=== PATIENT | female | born 1945 | race Caucasian/White ===

== ENCOUNTER 2019-04-06 10:36 | Inpatient (IN) ==
[2019-04-06] MEDS ORDERED: OPTIRAY 320 125ml IV PRN ×2 (11:24→13:40)
[2019-04-06 11:29] LABS: iSTAT Hemoglobin 14.3 g/dl (12.0-16.0); iSTAT Ionized Calcium 1.08 mmol/l (1.12-1.32)
[2019-04-06 11:30] LABS: Hematocrit (blood only) 43.6 % (37-47); Mean Corpuscular Hemoglobin 29.9 pg (25-34); Mean Corpuscular Hgb Conc 32.1 g/dL (32-36); Mean Platelet Volume 9.9 fL (7.4-10.4); Platelet Count 313 K/uL (130-400); RDW Coefficient of Variation 15.6 % (11.5-14.5); RDW Standard Deviation 52.9 fL (36.4-46.3); Red Blood Count 4.69 M/uL (4.2-5.4); White Blood Count 20.78 K/uL (4.8-10.8)
--- NOTE | 2019-04-06 11:40 | CT Scan Report ---
CT head/brain wo con CLINICAL HISTORY: Change in mental status. Known malignancy. POSSIBLE HEMORRHAGE COMPARISON STUDY: 02/26/2019 TECHNIQUE: Axial CT of the brain is performed from the vertex to the skull base. IV contrast was not administered for this examination. A dose lowering technique was utilized adhering to the principles of ALARA. CT DOSE: FINDINGS: Postcraniotomy changes are present on the right. There is right-sided pneumocephalus, likely postsurg ical. There is also trace fluid subjacent to the craniotomy flap, likely postsurgical. There is a 5 c m hypodense right frontal mass, likely representing a necrotic neoplasm. There is no acute hemorrhage . There is mild mass effect with minor right to left midline shift. There are patchy white matter hypodensities likely on a small vessel basis. There is no evidence of pathologic ventricular dilatation. There is no evidence of acute sinusitis IMPRESSION: 1. Interval right frontal craniotomy with postsurgical pneumocephalus 2. No significant change in the appearance of a 5 cm right frontal mass, highly suspicious for neopla sm Electronically signed by: Cirilo Luna M.D. 04/06/2019 11:39 AM
[2019-04-06 11:47] LABS: Albumin Level 2.9 gm/dl (3.4-5.0); Calcium 9.4 mg/dl (8.5-10.1); Creatinine Clr Calc Pharmacy 29.8 ml/min; Est GFR (African American) 39.1; Est GFR (Non-African American) 33.7; Magnesium 2.4 mg/dl (1.8-2.4)
--- NOTE | 2019-04-06 11:48 | CT Scan Report ---
CT ANGIOGRAM OF THE CHEST CLINICAL HISTORY: Respiratory arrest. Possible acute pulmonary embolism. COMPARISON STUDY: Chest x-ray dated 02/26/2019 TECHNIQUE: Following the IV administration of 119 mL of Optiray-320, CT angiogram of the thorax was p erformed from the thoracic inlet to the lung bases utilizing the pulmonary embolus protocol. Images a re reviewed in the axial, sagittal, and coronal planes. IV contrast was administered without complica tion. MIP imaging was performed. A dose lowering technique was utilized adhering to the principles o f ALARA. CT DOSE: 826.24 mGy.cm FINDINGS: No pathologically enlarged axillary mediastinal or hilar lymph nodes were visualized. There was no evidence of thoracic aortic dilatation. There is very poor pulmonary arterial opacification with preferential filling of the left pulmonary a rtery. There is no opacification of the left upper lobe pulmonary arterial tree nor is there signific ant opacification of the peripheral right lung arterial tree. It is possible that the findings are re lated to technical factors due to very poor cardiac output. There is opacification of the inferior ve na cava and hepatic veins suggesting poor cardiac output. Correlation with leg ultrasonography or a r epeat CT angiogram of the chest is strongly recommended. No pleural effusions are visualized. There are left lower lobe airspace opacities, atelectatic versus pneumonia. A tracheostomy tube is visualized. The tip is 1 cm above the arnoldo. There are several nonspecific subcentimeter right lung pulmonary nodules. IMPRESSION: 1. Evidence of very poor cardiac output with reflux of contrast into the hepatic veins and inferior v norma cava 2. Very poor pulmonary arterial opacification with absent filling of the left upper lobe arterial vivienne e and right lung arterial tree. It is difficult to determine whether the findings are secondary techn ical factors related to poor cardiac output, or secondary to pulmonary emboli. A repeat examination a nd or correlation with leg ultrasonography is recommended in follow-up. 3. Left lower lobe pulmonary airspace opacities, atelectasis versus pneumonia. Electronically signed by: Cirilo Luna M.D. 04/06/2019 11:46 AM
[2019-04-06 11:50] LABS: Albumin Globulin Ratio 0.7 (0.9-2); Bilirubin,Total 0.6 mg/dl (0.2-1); Total Protein 6.9 gm/dl (6.4-8.2)
[2019-04-06 11:55] LABS: Basophils # (auto) 0.03 K/uL (0-0.2); Basophils % (auto) 0.1 %; Eosinophils # (auto) 0.05 K/uL (0-0.5); Eosinophils % (auto) 0.2 %; Immature Granulocytes # (auto) 0.27 K/uL (0.00-0.02); Immature Granulocytes % (auto) 1.3 %; Lymphocytes % (auto) 32.7 %; Monocytes # (auto) 1.62 K/uL (0.11-0.59); Monocytes % (auto) 7.8 %; Neutrophils # (auto) 12.01 K/uL (1.4-6.5); Neutrophils % (auto) 57.9 %
[2019-04-06] MEDS ORDERED: Heparin IV Standard *NO* Bolus IV STA (12:36)
[2019-04-06] MEDS ORDERED: HEPARIN 25000 UNIT/500 ML D5W IV ONE (12:41)
[2019-04-06] MEDS ORDERED: Heparin Adult STANDARD Wt-Based Dextrose 5% 25,000 units/500 mL IV SCH (12:45)
[2019-04-06] MEDS: HEPARIN SODIUM/DEXTROSE 25,000 UNITS/500 ML BAG IV SCH (12:52)
[2019-04-06] MEDS ORDERED: RAPID SEQUENCE INDUCTION BAG ONE (12:55)
[2019-04-06] MEDS ORDERED: EPINEPHrine 2 MG in DEXTROSE 5% 250 ML IV STA (13:04)
[2019-04-06] MEDS ORDERED: EPINEPHrine 2 MG in DEXTROSE 5% 250 ML IV SCH (13:04)
[2019-04-06] MEDS ORDERED: LORazepam 2 MG/4 ML VIAL IV STA (13:07)
[2019-04-06 13:14] LABS: INR 1.5 (0.9-1.1); Partial Thromboplastin Ratio 1.6; Partial Thromboplastin Time 44.7 Seconds (21.0-31.0)
[2019-04-06] MEDS ORDERED: VECURONIUM BROMIDE 10 MG in SYRINGE 0 ML IV ONE (13:15)
--- NOTE | 2019-04-06 13:53 | CT Scan Report ---
CT ANGIOGRAM OF THE CHEST CLINICAL HISTORY: PE COMPARISON STUDY: Earlier in the day TECHNIQUE: Following the IV administration of 119 mL of Optiray-320, CT angiogram of the thorax was p erformed from the thoracic inlet to the lung bases utilizing the pulmonary embolus protocol. Images a re reviewed in the axial, sagittal, and coronal planes. IV contrast was administered without complica tion. MIP imaging was performed. A dose lowering technique was utilized adhering to the principles o f ALARA. CT DOSE: 328.05 mGy.cm FINDINGS: No pathologically enlarged axillary mediastinal or hilar lymph nodes were visualized. There was no evidence of thoracic aortic dilatation. There are pulmonary artery filling defects within the right main pulmonary artery, as well as within the right upper lobe, right middle lobe and right lower lobe pulmonary artery branches. There is susp ected mild right ventricular strain. There are multifocal left lung airspace opacities, with left low er lobe atelectasis/consolidation with air bronchograms. A multifocal left lung pneumonia versus aspi ration should be considered. There are minor right perihilar airspace opacities. There are a few scat tered subcentimeter right lung nodules. IMPRESSION: 1. Large right lung pulmonary embolus with suspected mild right ventricular strain 2. Multifocal left lung airspace opacities. Likely diagnostic considerations include multifocal pneum onia versus aspiration. Clinical and imaging follow-up is recommended 3. Endotracheal tube 2 cm above the arnoldo. Electronically signed by: Cirilo Luna M.D. 04/06/2019 1:52 PM
[2019-04-06] MEDS ORDERED: PIPERACILL/TAZOBAC CONSULT ACTIVE PRN ×2 (13:57→17:21)
[2019-04-06] MEDS ORDERED: PIPERACILLIN/TAZOBACTAM 4.5 GM/120 ML BAG IV ONE (13:57)
--- NOTE | 2019-04-06 15:38 | History & Physical Report ---
Date of Service April 06, 2019 Assessment & Plan (1) Cardiogenic shock: Admit to ICU, Consult retort fireman Continue epinephrine infusion Continue volume expansion for the preload dependent right ventricle. Further management and treatment per ICU attending. Poor prognosis, family is not ready yet for the discussion but would consider in the near future discussion about palliative care or possibly hospice. Patient is a full code Present on Admission?: Yes (2) Lactic acidosis: Most likely due to poor perfusion. Continue monitoring. Present on Admission?: Yes (3) Pulmonary embolism: Massive pulmonary embolism Started heparin drip TPA contraindicated per neurology is at [facility]. No benefit of catheter directed therapy either DrAguilar [facility] subspecialist TTE pending Trend down troponin x3 with EKG Continue epinephrine drip (4) Cardiac arrest: As discussed above Present on Admission?: Yes (5) Glioblastoma: Patient is not candidate for additional intervention including chemotherapy or radiation therapy at the present time. Present on Admission?: Yes (6) Hypertension: Continue home medicine if blood pressure stable. Amlodipine 5 mg p.o. daily. Hold blood pressure medicine if blood pressure less than 120/80. Present on Admission?: Yes (7) Acute kidney injury: Likely due to low renal perfusion and cardiogenic shock. Avoid nephrotoxic agents. Monitor creatinine/GFR daily. Continue monitoring electrolytes and replenishment. Present on Admission?: Yes (8) Aspiration pneumonia: Patient most likely suffered from aspiration pneumonia which presented with leukocytosis with lower lobe infiltrate. Respiratory culture pending Continue Zosyn empirically for now. Follow-up with blood cultures specificity and sensitivity as well as respiratory cultures. Present on Admission?: Yes History of Present Illness Chief Complaint: Cardiac arrest Primary Care Provider: Farhad Ng MD Patient is a 74 years old female with past medical history of high-grade glioblastoma status post resection at [facility] approximately 3 weeks ago who supposed to undergo chemotherapy and radiation for the glioblastoma, presented to the emergency room with massive pulmonary embolism resulting in cardiopulmonary at the last and 4 rounds of CPR/ACLS. She was also started on heparin drip for pulmonary embolism. According to [facility] neurology it was not recommended to start TPA and they also did not think that a role for catheter directed therapy would not be of significant help, therefore they did not recommend to transfer the patient to [place]. Patient was started on epinephrine drip after she went into obstructive and cardiogenic shock. Patient was intubated. FPatient was not responsive to review of system and history was impossible to obtain from her. Patient was also next to her bedside was her son and primary care physician who brought her in. Patient is a Full code per her son and 's request. Labs are reviewed: WBC is 20.78, hemoglobin 14, hematocrit 43.6, platelets 313, PT 15, INR 1.5, APTT 44.7, sodium 141, potassium 4, chloride 103, carbon dioxide 16, anion gap 22, creatinine 1.51, GFR 33.7, lactate 14.6, magnesium 2.4, AST 33, ALT 31, troponin after CPR 4.12, and 4.4. BNP 12,254. Urine blood 3+, trace ketones, WBCs 10-30 high, negative nitrate, negative bacteria. Negative for influenza A&B. CT of the head: Interval right frontal craniotomy with postsurgical cephalosporin. No significant change in appearance of 5 cm right frontal mass. Highly suspicion for neoplasm. CTA chest: Large right lung pulmonary embolus with suspected mild right ventricular strain. Multifocal left lung airspace opacity. Likely diagnostic consideration include multifocal pneumonia versus aspiration. Patient is admitted to ICU for further management and treatment of her critical conditions. Allergies Allergy/AdvReac Type Severity Reaction Status Date / Time No Known Allergies Allergy Unverified 04/06/19 12:16 Home Medications Home Medications Medication Instructions Recorded Confirmed Type acetaminophen 325 mg tablet 650 mg PO Q6H PRN tab 04/02/19 04/06/19 History amlodipine 5 mg tablet 5 mg PO DAILY 04/02/19 04/06/19 History bisacodyl 10 mg rectal suppository 10 mg NC DAILY PRN 04/02/19 04/06/19 History cholecalciferol (vitamin D3) 5,000 5,000 units PO DAILY 04/02/19 04/06/19 History unit capsule docusate sodium 100 mg capsule 100 mg PO BID PRN 04/02/19 04/06/19 History enoxaparin 30 mg/0.3 mL 30 mg SQ Q12H 04/02/19 04/06/19 History subcutaneous syringe mecobalamin (vitamin B12) 1,000 1,000 mcg SL DAILY 04/02/19 04/06/19 History mcg disintegrating tablet,sublingual omega-3 fatty acids 1,000 mg 1,000 mg PO DAILY 04/02/19 04/06/19 History capsule polyethylene glycol 3350 17 17 gm PO DAILY 04/02/19 04/06/19 History gram/dose oral powder sennosides 8.6 mg-docusate sodium 1 tabcap PO DAILY PRN tab 04/02/19 04/06/19 History 50 mg tablet sodium phosphates 19 gram-7 118 ml NC DAILY PRN 04/02/19 04/06/19 History gram/118 mL enema Past Med/Surg History Medical History Glioblastoma 03/13/19 Hypertension No pertinent past medical history Surgical History Hx of tonsillectomy S/P craniotomy Right craniotomy for tumor resection by Dr. Manzanares at [facility] on 03/13/19 Family History Mother , 90yo Dementia Stroke Natural with unknown cause Father , 67yo Myocardial infarction Brother No problems noted. Brother No problems noted. Brother Prostate cancer Brother Myocardial infarction Sister Colitis Son No problems noted. Son No problems noted. Daughter No problems noted. 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 Feels Safe at Home: Yes Smoking Status: Never smoker Second Hand Exposure: No ; Hx Alcohol Use: No Hx Substance Use: No caffeine: Yes (Expresso 2 shots/day) during the past year weight has: decreased > 10 lbs Review of Systems Review of Systems: Unobtainable due to cognitive status Physical Exam Constitutional: WD/WN, vitals as above well developed, + ill appearing and + obese Eyes: PERRL, conjunctivae normal, anicteric sclerae ENMT: external ear and nose normal, oropharynx normal Neck: trachea midline, no thyromegaly Respiratory: Auscultation: + crackles, + wheezes and + pleural rub present Cardiovascular: Heart Sounds: normal S1, normal S2 and + murmur Palpation: + palpable S3 and + palpable S4 Vessels: + JVD and dorsalis pedis pulses present Extremities: + pedal edema Musculoskeletal: no cyanosis or clubbing, extremities motor strength 5/5 Skin: no rashes, warm and dry Neurologic: Patient is status post CPR, intubated, unable to open her eyes, she is unresponsive. GCS of 4 Psychiatric: Unable to assess Lymphatic: no cervical or axillary lymphadenopathy Results & Data Vital Signs (Past 12 Hours) Vital Signs Pulse Resp BP Pulse Ox 04/06/19 15:21 124 H 22 96 04/06/19 14:30 18 04/06/19 12:27 77 24 99 04/06/19 11:42 85 25 H 91/58 L 04/06/19 11:41 96 H 23 04/06/19 11:35 73 18 04/06/19 11:20 136 H 28 H 04/06/19 11:17 141 H 22 125/93 04/06/19 11:15 143 H 21 04/06/19 11:10 141 H 42 H 04/06/19 11:05 131 H 40 H 04/06/19 11:04 137 H 25 H 04/06/19 10:49 140 H 16 112/73 93 Code Status & VTE Plan Code Status Full code VTE Prophylaxis Plan VTE Prophylaxis will be ordered: Yes PG Care Time/CCT Total # of Minutes Spent Total Time Spent with Patient: Total time spent is greater than 50% in coordination of care (as documented) at patient's floor/unit and/or counseling patient:
[2019-04-06 15:47] LABS: Appearance Urine Clear (Clear); Bacteria Urine Automated Negative (Negative); Bilirubin Urine Negative (Negative); Blood Urine 3+ (Negative); Color Urine Yellow; Epithelial Cell Urine Auto >30 /lpf (0-5); Glucose Urine UA 1+ (Negative); Ketones Urine Trace (Negative); Leukocyte Esterase Urine Negative (Negative); Nitrite Urine Negative (Negative); Protein Urine 3+ (Negative); Specific Gravity Urine > 1.045 (1.000-1.030); Urobilinogen Urine Negative (Negative); pH Urine 6.5 (4.5-7.5)
[2019-04-06 16:00] LABS: RBC Urine Automated >30 /hpf (0-4)
--- NOTE | 2019-04-06 16:06 | Critical Care Consultation ---
Date of Consultation April 06, 2019 Assessment & Plan (1) Cardiac arrest: Impression: 74-year-old female with high-grade glioblastoma status post resection about 3 weeks ago in [place] with plans to undergo chemo and radiation therapy presenting now with massive pulmonary embolism resulting in cardiopulmonary arrest and 4 rounds of CPR/ACLS. She presents with ongoing obstructive/cardiogenic shock and is requiring an epinephrine infusion. Recommendations: 1. Massive pulmonary embolism: Patient is currently being treated with heparin. TPA is contraindicated and according to the subspecialists at [place] they do not feel that there was a role for catheter directed therapy. I advised the family that I was not optimistic that heparin alone would be effective in reversing this patient's course as she is already suffered multiple cardiopulmonary arrests and remains hemodynamically stable. We will continue heparin. Check echocardiogram. Will check biomarkers including troponin and BNP although the presence of cardiopulmonary arrest place her at high risk for continued clinical deterioration. I advised the family that if the current vasopressor in the form of epinephrine is inadequate to maintain adequate pressure, I do not suspect that additional of multiple agents will improve her overall outcome. She is again not a candidate for right ventricular assist device or additional surgical invasive procedures at this time. I would favor not doing additional CPR on the patient however the patient's son states that his father who is not currently present is not ready to consider DO NOT RESUSCITATE status. 2. Cardiogenic/obstructive shock: Continue epinephrine. We will continue volume expansion as well for a preload dependent right ventricle. 3. Lactic acidosis: Secondary to poor perfusion. Unclear if this will improve with epinephrine. Will follow over time. 4. Acute kidney injury: Secondary to poor renal perfusion and shock state. Continue to trend over time. The patient is not a candidate for renal replacement therapy. Follow electrolytes and acid-base status. 5. Leukocytosis with lower lobe infiltrate: Aspiration pneumonia certainly on the differential. Will obtain respiratory culture data and initiate antibiotics in the form of Zosyn. Antibiotics tapered based on results of cultures and clinical response. 6. Glioblastoma: Patient is not a candidate for additional interventions including chemotherapy or radiation therapy at this point time. This patient's overall prognosis is quite poor given her malignant brain tumor, massive PE, multiple cardiac arrest in the emergency room, and inability to administer systemic thrombolysis. I do not think additional rounds of CPR are going to be beneficial in improving the patient's overall recovery her functional status and would favor DNR status but will address with family when available. Palliative input may be beneficial. (2) Pulmonary embolism: (3) Lactic acidosis: (4) Cardiogenic shock: History of Present Illness History of Present Illness Asked by hospitalist to assist in management of this critically ill patient. History is obtained from discussion with family members as well as review the electronic medical record and discussion with the ER staff. The patient is a 74-year-old female who was recently found to have a left frontal mass. This was resected down in [place] about a month ago. Pathology unfortunately demonstrated a high-grade glioblastoma grade 4. She was referred for adjuvant chemo and radiation therapy but has not yet initiated therapy. The patient reported feeling poorly to family members today and was being brought by private vehicle to the emergency room when she lost consciousness. In the emergency room she was coded and intubated. She remained hemodynamically unstable and had 4 additional cardiac arrests, PEA primarily. During the course of her evaluation she had an initial CT scan which had a poor timed contrast bolus and the radiologist was suspicious for a potential right main pulmonary artery filling defect. The neurosurgeons at [place] were contacted and they stated that TPA was contraindicated given her recent brain surgery. At that point time I was contacted by the ER staff. The patient was hemodynamically unstable requiring an epinephrine infusion. I advised that low-dose TPA or catheter directed thrombolysis would be the treatment of choice for hemodynamically unstable PE the patient who could not tolerate systemic thrombolysis. The ER staff contacted [place] and discussed with their cardiovascular interventional radiologist as well as with her surgeon. They requested a repeat CT scan to better identify the pulmonary filling defects. CT PE was repeated and did in fact confirm extensive thrombus within the right pulmonary artery as well as atelectasis within the left pulmonary artery. Of note the initial scan did demonstrate a questionable filling defect within the left upper lobe pulmonary artery as well. The team again at her she was contacted with this information. They stated that given the patient's recent neurosurgery and the mainstem nature of the clot they would not recommend TPA or any additional intervention to include catheter based therapies and stated that if she were to be transferred there they would only keep her on a heparin infusion. This was relayed to me through the emergency room staff. Heparin was initiated but no bolus was administered based on recommendations from the neurosurgeons. The patient remains hemodynamically unstable and continues to require an epinephrine infusion. She is being admitted to the intensive care unit for further management According to the patient's son who is at bedside she did have some appropriate neurological response while being on the ventilator when her sedation was lightened. CT the head performed in the emergency room demonstrated no hemorrhage, however this was prior to administration of anticoagulants. Allergies Allergy/AdvReac Type Severity Reaction Status Date / Time No Known Allergies Allergy Unverified 04/06/19 12:16 Home Medications Home Medications Medication Instructions Recorded Confirmed Type acetaminophen 325 mg tablet 650 mg PO Q6H PRN tab 04/02/19 04/06/19 History amlodipine 5 mg tablet 5 mg PO DAILY 04/02/19 04/06/19 History bisacodyl 10 mg rectal suppository 10 mg [place] DAILY PRN 04/02/19 04/06/19 History cholecalciferol (vitamin D3) 5,000 5,000 units PO DAILY 04/02/19 04/06/19 History unit capsule docusate sodium 100 mg capsule 100 mg PO BID PRN 04/02/19 04/06/19 History enoxaparin 30 mg/0.3 mL 30 mg SQ Q12H 04/02/19 04/06/19 History subcutaneous syringe mecobalamin (vitamin B12) 1,000 1,000 mcg SL DAILY 04/02/19 04/06/19 History mcg disintegrating tablet,sublingual omega-3 fatty acids 1,000 mg 1,000 mg PO DAILY 04/02/19 04/06/19 History capsule polyethylene glycol 3350 17 17 gm PO DAILY 04/02/19 04/06/19 History gram/dose oral powder sennosides 8.6 mg-docusate sodium 1 tabcap PO DAILY PRN tab 04/02/19 04/06/19 H istory 50 mg tablet sodium phosphates 19 gram-7 118 ml [place] DAILY PRN 04/02/19 04/06/19 History gram/118 mL enema Patient History Medical History Glioblastoma 03/13/19 Hypertension No pertinent past medical history Surgical History Hx of tonsillectomy S/P craniotomy Right craniotomy for tumor resection [place] Dr. Manzana[place] [facility] [place] Family History Mother , 90yo Dementia Stroke Natural with unknown cause Father , 67yo Myocardial infarction Brother No problems noted. Brother No problems noted. Brother Prostate cancer Brother Myocardial infarction Sister Colitis Son No problems noted. Son No problems noted. Daughter No problems noted. Other Family history non-contributory Social History Preferred Language: Faroese Communication Ability: Effective Visual Impairment: No Limitations Hearing Ability: Normal Infrastructure Technician Required: No Beliefs That Will Affect Care: None marital status: Current Living Situation: Spouse current occupational status: retired current occupation: [employer] work Feels Safe at Home: Yes Smoking Status: Never smoker Hx Alcohol Use: No Hx Substance Use: No caffeine: Yes (Expresso 2 shots/day) during the past year weight has: decreased > 10 lbs Review of Systems Review of Systems: Unobtainable due to endotracheal tube Results & Data Vital Signs (Past 12 Hours) Vital Signs Pulse Resp BP Pulse Ox 04/06/19 15:21 124 H 22 96 04/06/19 14:30 18 04/06/19 12:27 77 24 99 04/06/19 11:42 85 25 H 91/58 L 04/06/19 11:41 96 H 23 04/06/19 11:35 73 18 04/06/19 11:20 136 H 28 H 04/06/19 11:17 141 H 22 125/93 04/06/19 11:15 143 H 21 04/06/19 11:10 141 H 42 H 04/06/19 11:05 131 H 40 H 04/06/19 11:04 137 H 25 H 04/06/19 10:49 140 H 16 112/73 93 Laboratory Results 04/06/19 11:10 04/06/19 11:10 Diagnostic Findings All images independently reviewed. CT ANGIOGRAM OF THE CHEST CLINICAL HISTORY: PE COMPARISON STUDY: Earlier in the day TECHNIQUE: Following the IV administration of 119 mL of Optiray-320, CT angiogram of the thorax was performed from the thoracic inlet to the lung bases utilizing the pulmonary embolus protocol. Images are reviewed in the axial, sagittal, and coronal planes. IV contrast was administered without complication. MIP imaging was performed. A dose lowering technique was utilized adhering to the principles of ALARA. CT DOSE: 328.05 mGy.cm FINDINGS: No pathologically enlarged axillary mediastinal or hilar lymph nodes were visualized. There was no evidence of thoracic aortic dilatation. There are pulmonary artery filling defects within the right main pulmonary artery, as well as within the right upper lobe, right middle lobe and right lower lobe pulmonary artery branches. There is suspected mild right ventricular strain. There are multifocal left lung airspace opacities, with left lower lobe atelectasis/consolidation with air bronchograms. A multifocal left lung pneumonia versus aspiration should be considered. There are minor right perihilar airspace opacities. There are a few scattered subcentimeter right lung nodules. IMPRESSION: 1. Large right lung pulmonary embolus with suspected mild right ventricular strain 2. Multifocal left lung airspace opacities. Likely diagnostic considerations include multifocal pneumonia versus aspiration. Clinical and imaging follow-up is recommended 3. Endotracheal tube 2 cm above the arnoldo. Coding Level of Care Code Critical Care 1st 30-74 mins Diagnoses Cardiac arrest I46.9 Pulmonary embolism I26.99 Lactic acidosis E87.2 Cardiogenic shock R57.0 Time Spent (min) 65
[2019-04-06 16:07] LABS: Influenza A virus by PCR Neg for Influ A (Neg); Influenza B virus by PCR Neg for Influ B (Neg)
--- NOTE | 2019-04-06 16:14 | Procedure Note ---
Procedure Note Date of Service April 06, 2019 ARTERIAL LINE PROCEDURE NOTE: Procedure: Arterial Line Placement Provider: Kody Hinojosa MD Indication: Monitoring on Pressors Anesthesia: None Procedure was urgent. Discussed with son at bedside who provided verbal consent Initial arterial line was placed in the right wrist however the catheter quickly became dysfunctional therefore attention was turned to the left wrist. A time-out was completed verifying correct patient, procedure, site, positioning, and implant(s) or special equipment if applicable. Allens test was performed to ensure adequate perfusion. Patients left wrist was prepped and draped in the usual sterile fashion. Ultrasound guidance was used to aid needle placement. A 20g Arrow arterial line was introduced into the left radial artery. Catheter was threaded, and the needle was removed with appropriate blood return. Good waveform was observed. The patient tolerated the procedure well. Procedure was conducted under ultrasound guidance however due to the emergent nature of the procedure, we are not able to save images to the medical record Blood Loss: Minimal Complications: None Coding CPT Codes Tubes, Drains, and Vasc Access - Tubes, Drains, and Vasc Access: [id number] Insertion Catheter, Artery ([id number]) Tubes, Drains, and Vasc Access - Tubes, Drains, and Vasc Access: [id number] Insertion Catheter, Artery ([id number])
[2019-04-06] MEDS ORDERED: ICU PROTOCOL FOR HYPERGLYCEMIA PRN (16:16)
[2019-04-06] MEDS ORDERED: ICU ELECTROLYTE REPLACEMENT PROTOCOL PRN (16:16)
[2019-04-06] MEDS ORDERED: MIDAZOLAM HCL 1 MG/ML 2ML VIAL IV PRN (16:16)
[2019-04-06] MEDS ORDERED: MAGNESIUM HYDROXIDE SUSP 30 ML UDC PO PRN (16:31)
[2019-04-06] MEDS ORDERED: ONDANSETRON INJ 2 MG/ML 2 ML VIAL IV PRN (16:31)
[2019-04-06] MEDS ORDERED: ALUMINUM/MAGNESIUM SUSP 30 ML UDC PO PRN (16:31)
[2019-04-06] MEDS ORDERED: DOCUSATE SODIUM 100 MG CAP PO PRN (16:31)
[2019-04-06] MEDS ORDERED: DOCUSATE SODIUM/SENNA 50/8.6MG TAB PO PRN (16:31)
[2019-04-06] MEDS ORDERED: ACETAMINOPHEN 325 MG TAB PO PRN (16:31)
[2019-04-06] MEDS ORDERED: SOD PHOSPHATE/SOD BIPHOSPHATE ENEMA 132 ML BTL PR PRN (16:31)
[2019-04-06] MEDS ORDERED: bisacodyL 10 MG SUPP PR PRN (16:31)
[2019-04-06 17:09] LABS: Troponin I 4.4 ng/ml (0-0.045)
[2019-04-06] MEDS ORDERED: INSULIN PROTOCOL GOAL RANGE ONE (17:18)
[2019-04-06] MEDS ORDERED: SEVERE STRESS LEVEL ONE (17:18)
[2019-04-06] MEDS: propofoL 1,000 MG/100 ML VIAL IV SCH (17:20)
--- NOTE | 2019-04-06 17:20 | Emergency Department Note ---
Entered by Akilah Lewis acting as a scribe for History of Present Illness General Chief complaint: Nausea Stated complaint: NAUSEA,WEAK,DEHYDRATION Time Seen by Provider: 04/06/19 11:05 Source: family ( and sons) and other (nursing staff) Limitations: other (code status) History of Present Illness Location: chest Maximum Pain Intensity: 8 Quality: + other (weakness and SOB) Associated symptoms: + shortness of breath and + other (Positive tachypnea (30 to 40 times a minute), tachycardia (heart rate in 120s), apenic while lying in ED bed. 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 As per nursing staff and family, the patient had a brain tumor removed on 03/13 in [place]. Nursing states the patient was doing well post surgery and went to [facility] and was discharged 4 days ago. Nursing staff reports for the past 2 days, the patient has been nauseous and vomiting. Nursing notes the patient's family states the patient has not been drinking fluids or eating for the past few days and believes she is dehydrated. This morning, the patient was weak and more short of breath. Nursing staff states while in the ED, the patient was breathing 30 to 40 times per minute and her heart rate was in the 120s. Nursing staff reports while lying the the ED bed, the patient suddenly became apneic and bradycardic. She is accompanied by her sons and who state the patient has not been ea ting and would only eat bites of food as she was severely nauseous. Her states that mentally she was at her baseline post surgery. Her denies the patient having fevers or diarrhea. Her reports this morning they gave the patient electrolytes as she has not been drinking much fluid since being discharged. Her PCP is NURIS Romero who is a close family friend. Her family states the patient has had swelling to her left side, which was present prior to surgery (this was later clarified by NURIS Romero to be paralysis on her left side due to the tumor and left leg swelling 1 week ago). They deny the patient having any hx of diabetes, thyroid problems. Her family states this morning, the patient became short of breath which worsened when she arrived to the ED. They deny the patient having any chest pain. HPI and ROS limited secondary to the patient's code status. Home Medications Home Medications Medication Instructions Recorded Confirmed Type acetaminophen 325 mg tablet 650 mg PO Q6H PRN tab 04/02/19 04/06/19 History amlodipine 5 mg tablet 5 mg PO DAILY 04/02/19 04/06/19 History bisacodyl 10 mg rectal suppository 10 mg SD DAILY PRN 04/02/19 04/06/19 History cholecalciferol (vitamin D3) 5,000 5,000 units PO DAILY 04/02/19 04/06/19 History unit capsule docusate sodium 100 mg capsule 100 mg PO BID PRN 04/02/19 04/06/19 History enoxaparin 30 mg/0.3 mL 30 mg SQ Q12H 04/02/19 04/06/19 History subcutaneous syringe mecobalamin (vitamin B12) 1,000 1,000 mcg SL DAILY 04/02/19 04/06/19 History mcg disintegrating tablet,sublingual omega-3 fatty acids 1,000 mg 1,000 mg PO DAILY 04/02/19 04/06/19 History capsule polyethylene glycol 3350 17 17 gm PO DAILY 04/02/19 04/06/19 History gram/dose oral powder sennosides 8.6 mg-docusate sodium 1 tabcap PO DAILY PRN tab 04/02/19 04/06/19 History 50 mg tablet sodium phosphates 19 gram-7 118 ml SD DAILY PRN 04/02/19 04/06/19 History gram/118 mL enema Allergies Allergy/AdvReac Type Severity Reaction Status Date / Time No Known Allergies Allergy Unverified 04/06/19 12:16 Past Med/Surg History Medical History Glioblastoma 03/13/19 Hypertension No pertinent past medical history Surgical History Hx of tonsillectomy S/P craniotomy Right craniotomy for tumor resection by Dr. Manzanares at [facility] [place] on 03/13/19 Family History Mother , 90yo Dementia Stroke Natural with unknown cause Father , 67yo Myocardial infarction Brother No problems noted. Brother No problems noted. Brother Prostate cancer Brother Myocardial infarction Sister Colitis Son No problems noted. Son No problems noted. Daughter No problems noted. Other Family history non-contributory Social History Preferred Language: Turkish Communication Ability: Effective Visual Impairment: No Limitations Hearing Ability: Normal Visual Merchandising Coordinator Required: No Beliefs That Will Affect Care: None marital status: Current Living Situation: Family current occupational status: retired current occupation: [employer] work Feels Safe at Home: Yes Smoking Status: Never smoker Second Hand Exposure: No ; Hx Alcohol Use: No Hx Substance Use: No caffeine: Yes (Expresso 2 shots/day) during the past year weight has: decreased > 10 lbs Review of Systems See HPI for pertinent positives & negatives. Other (HPI and ROS limited secondary to the patient's code status) Physical Exam Vital Signs Vital Signs - 24 hr 04/06/19 10:49 04/06/19 11:04 04/06/19 11:05 Pulse Rate 140 H 137 H 131 H Pulse Rate from SpO2 Sensor Respiratory Rate 16 25 H 40 H Blood Pressure 112/73 Blood Pressure Mean 86 Pulse Oximetry 93 Oxygen Delivery Method Room Air Fraction of Inspired Oxygen Sepsis Recent Fever Within 48 Hours No Sepsis New/Unexplained Change in Mental Status No Sepsis Action Taken by Nursing No Action Required End-Tidal CO2 04/06/19 11:10 04/06/19 11:15 04/06/19 11:17 Pulse Rate 141 H 143 H 141 H Pulse Rate from SpO2 Sensor Respiratory Rate 42 H 21 22 Blood Pressure 125/93 Blood Pressure Mean 110 Pulse Oximetry Oxygen Delivery Method Fraction of Inspired Oxygen Sepsis Recent Fever Within 48 Hours Sepsis New/Unexplained Change in Mental Status Sepsis Action Taken by Nursing End-Tidal CO2 04/06/19 11:20 04/06/19 11:35 04/06/19 11:41 Pulse Rate 136 H 73 96 H Pulse Rate from SpO2 Sensor Respiratory Rate 28 H 18 23 Blood Pressure Blood Pressure Mean Pulse Oximetry Oxygen Delivery Method Fraction of Inspired Oxygen Sepsis Recent Fever Within 48 Hours Sepsis New/Unexplained Change in Mental Status Sepsis Action Taken by Nursing End-Tidal CO2 04/06/19 11:42 04/06/19 12:10 04/06/19 12:15 Pulse Rate 85 119 H Pulse Rate from SpO2 Sensor 120 H Respiratory Rate 25 H Blood Pressure 91/58 L 119/96 146/68 H Blood Pressure Mean 68 102 136 Pulse Oximetry 81 L Oxygen Delivery Method Fraction of Inspired Oxygen Sepsis Recent Fever Within 48 Hours Sepsis New/Unexplained Change in Mental Status Sepsis Action Taken by Nursing End-Tidal CO2 24 16 04/06/19 12:19 04/06/19 12:20 04/06/19 12:26 Pulse Rate 120 H 120 H 130 H Pulse Rate from SpO2 Sensor 119 H 120 H 123 H Respiratory Rate Blood Pressure 146/68 H 148/59 H 122/84 Blood Pressure Mean 136 79 90 Pulse Oximetry 99 98 97 Oxygen Delivery Method Fraction of Inspired Oxygen Sepsis Recent Fever Within 48 Hours Sepsis New/Unexplained Change in Mental Status Sepsis Action Taken by Nursing End-Tidal CO2 12 12 11 04/06/19 12:27 04/06/19 12:30 04/06/19 12:31 Pulse Rate 77 123 H 124 H Pulse Rate from SpO2 Sensor 123 H 124 H Respiratory Rate 24 Blood Pressure 146/107 H Blood Pressure Mean 114 Pulse Oximetry 99 98 97 Oxygen Delivery Method Fraction of Inspired Oxygen 100 Sepsis Recent Fever Within 48 Hours Sepsis New/Unexplained Change in Mental Status Sepsis Action Taken by Nursing End-Tidal CO2 19 11 9 04/06/19 12:36 04/06/19 12:40 04/06/19 13:00 Pulse Rate 124 H 124 H 123 H Pulse Rate from SpO2 Sensor 124 H 124 H 124 H Respiratory Rate Blood Pressure 98/72 L 108/86 Blood Pressure Mean 90 93 Pulse Oximetry 93 82 L 94 Oxygen Delivery Method Fraction of Inspired Oxygen Sepsis Recent Fever Within 48 Hours Sepsis New/Unexplained Change in Mental Status Sepsis Action Taken by Nursing End-Tidal CO2 11 11 10 04/06/19 13:01 04/06/19 13:06 04/06/19 13:12 Pulse Rate 123 H 124 H 124 H Pulse Rate from SpO2 Sensor 124 H 124 H 124 H Respiratory Rate Blood Pressure 85/70 L Blood Pressure Mean 75 72 70 Pulse Oximetry 92 93 77 L Oxygen Delivery Method Fraction of Inspired Oxygen Sepsis Recent Fever Within 48 Hours Sepsis New/Unexplained Change in Mental Status Sepsis Action Taken by Nursing End-Tidal CO2 10 10 13 04/06/19 13:20 04/06/19 13:21 04/06/19 13:25 Pulse Rate 118 H 116 H 69 Pulse Rate from SpO2 Sensor 118 H 116 H Respiratory Rate Blood Pressure 58/37 L 54/38 L Blood Pressure Mean 39 41 29 Pulse Oximetry 57 L 48 L Oxygen Delivery Method Fraction of Inspired Oxygen Sepsis Recent Fever Within 48 Hours Sepsis New/Unexplained Change in Mental Status Sepsis Action Taken by Nursing End-Tidal CO2 04/06/19 13:30 04/06/19 13:31 04/06/19 13:48 Pulse Rate 60 133 H 129 H Pulse Rate from SpO2 Sensor 153 H 135 H 130 H Respiratory Rate Blood Pressure 209/110 H 170/76 H Blood Pressure Mean 151 119 Pulse Oximetry 95 100 97 Oxygen Delivery Method Fraction of Inspired Oxygen Sepsis Recent Fever Within 48 Hours Sepsis New/Unexplained Change in Mental Status Sepsis Action Taken by Nursing End-Tidal CO2 04/06/19 13:50 04/06/19 13:55 04/06/19 14:00 Pulse Rate 129 H 126 H 127 H Pulse Rate from SpO2 Sensor 129 H 126 H 128 H Respiratory Rate Blood Pressure 151/75 H 155/72 H 141/77 H Blood Pressure Mean 104 112 95 Pulse Oximetry 99 98 95 Oxygen Delivery Method Fraction of Inspired Oxygen Sepsis Recent Fever Within 48 Hours Sepsis New/Unexplained Change in Mental Status Sepsis Action Taken by Nursing End-Tidal CO2 24 25 27 04/06/19 14:05 04/06/19 14:10 04/06/19 14:15 Pulse Rate 127 H 127 H 125 H Pulse Rate from SpO2 Sensor 128 H 127 H 125 H Respiratory Rate Blood Pressure 153/71 H 128/76 134/67 Blood Pressure Mean 102 95 90 Pulse Oximetry 90 95 95 Oxygen Delivery Method Fraction of Inspired Oxygen Sepsis Recent Fever Within 48 Hours Sepsis New/Unexplained Change in Mental Status Sepsis Action Taken by Nursing End-Tidal CO2 29 26 25 04/06/19 14:20 04/06/19 14:25 04/06/19 14:30 Pulse Rate 124 H 123 H 123 H Pulse Rate from SpO2 Sensor 124 H 123 H 123 H Respiratory Rate 18 Blood Pressure 127/70 123/67 122/65 Blood Pressure Mean 87 99 94 Pulse Oximetry 99 98 98 Oxygen Delivery Method Fraction of Inspired Oxygen 100 Sepsis Recent Fever Within 48 Hours Sepsis New/Unexplained Change in Mental Status Sepsis Action Taken by Nursing End-Tidal CO2 30 31 30 04/06/19 14:32 04/06/19 14:35 04/06/19 14:40 Pulse Rate 122 H 121 H 122 H Pulse Rate from SpO2 Sensor 122 H 121 H 122 H Respiratory Rate Blood Pressure 130/61 126/64 Blood Pressure Mean 93 91 Pulse Oximetry 95 95 90 Oxygen Delivery Method Fraction of Inspired Oxygen Sepsis Recent Fever Within 48 Hours Sepsis New/Unexplained Change in Mental Status Sepsis Action Taken by Nursing End-Tidal CO2 29 28 29 04/06/19 14:45 04/06/19 14:50 04/06/19 14:55 Pulse Rate 122 H 123 H 123 H Pulse Rate from SpO2 Sensor 122 H 123 H 123 H Respiratory Rate Blood Pressure 127/63 119/71 121/66 Blood Pressure Mean 98 90 92 Pulse Oximetry 90 91 91 Oxygen Delivery Method Fraction of Inspired Oxygen Sepsis Recent Fever Within 48 Hours Sepsis New/Unexplained Change in Mental Status Sepsis Action Taken by Nursing End-Tidal CO2 29 30 29 04/06/19 15:00 04/06/19 15:01 04/06/19 15:05 Pulse Rate 124 H 123 H 124 H Pulse Rate from SpO2 Sensor 124 H 123 H 124 H Respiratory Rate Blood Pressure 119/67 115/69 Blood Pressure Mean 85 83 Pulse Oximetry 93 93 91 Oxygen Delivery Method Fraction of Inspired Oxygen Sepsis Recent Fever Within 48 Hours Sepsis New/Unexplained Change in Mental Status Sepsis Action Taken by Nursing End-Tidal CO2 29 27 25 04/06/19 15:10 04/06/19 15:15 Pulse Rate 123 H 125 H Pulse Rate from SpO2 Sensor 125 H 125 H Respiratory Rate Blood Pressure 125/61 126/54 L Blood Pressure Mean 88 96 Pulse Oximetry 95 95 Oxygen Delivery Method Fraction of Inspired Oxygen Sepsis Recent Fever Within 48 Hours Sepsis New/Unexplained Change in Mental Status Sepsis Action Taken by Nursing End-Tidal CO2 25 24 The physical exam is limited due to the patient's condition. Constitutional: Initial heart rate was 60 on my arrival but this deteriorated to PEA. Eyes: Pupils are equal round sluggishly reactive to light. Conjunctiva are noninjected. HENT: Healing scar to the right skull. No signs of infection. Respiratory: Apneic. Breath sounds are equal bilaterally with [id number]. Cardiovascular: Pulseless. GI: Soft and nondistended. Musculoskeletal: No obvious edema to the lower extremities. Integumentary: Pale. Neurological: The patient is unresponsive. Psychiatric: Unable to assess. Procedures Central Line Placement Left Femoral: Time Out Performed: Yes Patient Placed on Monitor/Pulse Ox: Yes Prep: mask, gown and gloves Central Line Prep: Chlorhexidine scrub Ultrasound Used for Placement: Yes (Used initially for anatomic evaluation) Central Line Lumen Inserted: triple Post Procedure: sutured in place (Stat lock placed), good blood return, all ports aspirated, flushed, capped and sterile dressing applied Patient Tolerated Procedure: well Complications: none (Initially I attempted the central line in the right side. Blood return was bright red and so likely arterial. Pressure was applied and attempt was made on the left side without difficulty.) Additional Comments: I did obtain informed consent from the patient's and son, Kj, prior to placing the central line. Intubation Time out performed: No sedative: none Laryngoscope: other ([place] scope) ET Tube Size: 7.5 ET Tube Uncuffed: Yes Tube Secured Depth (cm): 22 Tube Secured Location: lips Tube Placement Confirmation: visualized tube passing through cords, equal breath sounds bilaterally and no breath sounds over epigastrium Patient Tolerated Procedure: well Intubation Complications: none Additional Comments: Thick significant secretions in the posterior oropharynx were noted and suctioned. Course Course 1107: Past medical records reviewed. The patient was evaluated in room C7. A complete history and physical exam was performed. Nurse requested physician see patient immediately. The patient was coding at this time. CPR started. Epi given. 1135: The patient came back from CT at this time. natural gas technician notes the contrast only sat in her left ventricle. Patient came back pulseless. 1143: Her blood pressure is 91/58. Pulse 83. NURIS Romero and the patient's PCP noted swelling to the left leg in rehab 1 week ago. Waiting for radiology to read CT chest. 1150: I performed a bedside ultrasound. Saw large popliteal DVT. 1156: Blood gas shows pH of 6.8.CO2 was 64. Will give bicarb. 1158: The patient arrested again at this time. CPR started. 1200: Discussed the patient's case with Dr. Luna. He states it is a difficult study to interpret. He states it could be a massive PE in left upper lobe versus poor perfusion. 1203: The patient arrested again at this time. CPR started. 1207: Her pressure is 174/92 currently. 1209: I placed a central line at this time. 1226: NURIS Romero and the patient's PCP discussed the patient's case with Dr. Vaughan, [facility]. I also discussed the patient's case with Dr. Vaughan [facility]. He states there is a high risk of bleeding with brain mass. Will hold off on tPA and give heparin. 1236: The patient's pressure is dropping again at this time. I attempted a central line on the right side and hit the artery. Went to the left side without complications. 1237: Her pressure is dropping. Pressure is 98/72. She is tachycardic. Will start epi drip. 1237: Discussed the patient's case with Dr. Hinojosa, ICU. He states there is no need for a repeat CT. He states we should try to transfer the patient for thrombectomy as he feels she needs a thrombectomy. Waiting to hear from [place]. Trying to get [employer] ground crew involved. 1245: I discussed the plan with the patient's family. 1249: Repeat ABG 7.12/48.7/151. 1254: Discussed the patient's case with Dr. Bryon Ghotra, [place] [facility] Liaison and Dr. Dorsey, [place] [facility] Attending. They would like a confirmed PE before discussion of transfer. They would like a repeat CT. 1315: Her pressure is dropping. Titrating her epinephrine up. 1318: I reevaluated the patient at this time. Her pulse ox on her finger was 64. I checked her forehead and it was 85. Taking her to CT now. Gave her Ativan and vecuronium. 1328: I reevaluated the patient at this time. Prepared to get her to CT. Her blood pressure dropped and her heart rate started dropping. Her pulse was init ially weak and she lost pulses. CPR started and epi given. 1334: Pt taken to CT at this time. 1345: Patient returned from CT. I reviewed CT myself. Shows a large embolus on the right side. She is hypertensive and tachycardic. Will reduce epi drip. 1355: Due to transport issues, I discussed with family about possibility of transferring to [place]. They are currently considering transfer. 1400: I discussed the patient's case with her family at this time. They consulted with Dr. Lang and Dr. Montalvo, neurosurgery. They are okay with a transfer to [place] due to the shorter transport time. They understand their neurosurgeon would not be able to take care of her there. Will page [place]. 1410: I spoke to Dr. Arevalo, Cardiovascular at [facility]. He states they do not do thrombectomies. They can do intra-arterial tPA but not a thrombectomy. Will call [place] back. 1421: Discussed the patient's case with Dr. Bryon Ghotra, [place] [facility]ia[facility] and Dr. Dorsey, [place] [facility] Attending. They state they are not sure the thrombectomy is currently indicated. Will send them the imaging so they can look at it. CVIR and neurosurgery will be involved to see if intra-arterial local tPA will be indicated. I discussed this with the family. The patient is still tachycardic in the 120s. Bp 122/75. 1430: I spoke to Dr. Bryon Ghotra, [facility]ia[facility] and Dr. Dorsey, [place] [facility] Attending, Dr. Vaughan, [place] [facility] and CVIR doctor. They state thrombectomy was not indicated because she does not have a saddle PE. CVIR said intra-arterial tPA is not indicated given high risk of bleeding in the brain despite her hemodynamic stability and multiple codes. They state no reason to transfer given there is no intervention indicated. They recommend she should stay here rather than risk transport. 1443: I discussed the patient's case with Dr. Gonzales, [facility] Hospitalist and Dr. Hinojosa, ICU. The patient will be further evaluated in the ICU. 1450: I spoke to the family about this plan. They are in agreement. 1458: I reassessed her at this time. Her blood pressure is 122/79. She is paralyzed and sedated. On epi drip. Waiting on transfer to ICU. Administered Medications Heparin Sodium/Dextrose (Heparin Sodium/Dextrose) 25,000 units in 500 mls @ 21 mls/hr IV .[id number] [facility]; Protocol Stop: 05/06/19 12:44 Last Admin: 04/06/19 12:52 Dose: 1,050 units/hr, 21 mls/hr Documented by: [id number] Cosigned by: [id number] Epinephrine HCl 4 mg/ Dextrose 254 mls @ 62.647 mls/hr IV .Q4H4M GINO; Protocol Stop: 05/06/19 13:59 Last Titration: 04/06/19 17:19 Dose: 0.25 mcg/kg/min, 62.6 mls/hr Documented by: [id number] Titration: 04/06/19 17:00 Dose: 0.3 mcg/kg/min, 75.2 mls/hr Documented by: [id number] Titration: 04/06/19 16:45 Dose: 0.35 mcg/kg/min, 87.7 mls/hr Documented by: [id number] Admin: 04/06/19 14:59 Dose: 0.3 mcg/kg/min, 75.2 mls/hr Documented by: [id number] Cosigned by: [id number] Propofol (Diprivan) 1,000 mg in 100 mls @ 1.973 mls/hr IV .Q24H GINO; Protocol Stop: 04/09/19 16:29 Last Admin: 04/06/19 17:20 Dose: 5 mcg/kg/min, 2 mls/hr Documented by: [id number] Cosigned by: [id number] Discontinued Medications Heparin Sodium/Dextrose () 1 ea IV NOW STA; Protocol Stop: 04/06/19 12:37 Last Admin: 04/06/19 15:05 Dose: Not Given Documented by: [id number] Heparin Sodium/Dextrose (Heparin Sodium/Dextrose) Confirm Administered Dose 25,000 units IV .STK-MED ONE Stop: 04/06/19 12:42 Last Admin: 04/06/19 15:05 Dose: Not Given Documented by: [id number] Epinephrine HCl 2 mg/ Dextrose 252 mls @ 4.972 mls/hr IV .Q24H GINO; Protocol Stop: 04/06/19 13:53 Last Titration: 04/06/19 14:59 Dose: 0 mcg/kg/min, 0 mls/hr Documented by: [id number] Admin: 04/06/19 13:30 Dose: 0.01 mcg/kg/min, 5 mls/hr Documented by: [id number] Cosigned by: [id number] Lorazepam (Ativan) 2 mg in 4 mls @ 4 mls/min IV NOW STA Stop: 04/06/19 13:08 Last Admin: 04/06/19 13:15 Dose: 4 mls/min Documented by: [id number] Vecuronium [place] 10 mg/ (Syringe) 10 mls @ 0 mls/min IV TODAY@1315 ONE Stop: 04/06/19 13:16 Last Admin: 04/06/19 13:30 Dose: 10 mls/min Documented by: [id number] Piperacillin Sod/Tazobactam Sod (Zosyn) 4.5 gm in 120 mls @ 240 mls/hr IV NOW ONE Stop: 04/06/19 14:26 Last Infusion: 04/06/19 14:37 Dose: 0 mls/hr Documented by: [id number] Admin: 04/06/19 14:07 Dose: 240 mls/hr Documented by: [id number] Ioversol (Optiray 320 125ml) 119 ml IV ONCE PRN PRN Reason: Interaction Checking Stop: 04/10/19 11:23 Last Admin: 04/06/19 11:24 Dose: 119 ml Documented by: [id number] Ioversol (Optiray 320 125ml) 119 ml IV ONCE PRN PRN Reason: Interaction Checking Stop: 04/10/19 13:39 Last Admin: 04/06/19 13:43 Dose: 119 ml Documented by: [id number] Miscellaneous () Confirm Administered Dose 1 ea .ROUTE .STK-MED ONE Stop: 04/06/19 12:56 Last Admin: 04/06/19 15:05 Dose: Not Given Documented by: [id number] Critical Care Time Critical Care Time: Yes Total Critical Care Time: 130 I have personally spent appoximately 130 minutes of critical care time in the direct management of this patient. This includes bedside care, interpretation of diagnostic studies, and testing, discussion with consultants, patient, and family members, and other required patient management activities. This 130 minutes is in excess of all separately billable procedures. Medical Decision Making Differential Diagnosis Differential diagnosis: Etiologies such as saddle pulmonary embolus, pulmonary embolus, pneumonia, DVT, ACS, electrolyte abnormality, as well as others were entertained. Medical Records Attestation: I reviewed the patient's medical records. I did perform a limited focused review of portions of the patient's old chart on the electronic medical record. She had a right frontal craniotomy on 03/13. Home Medications Current Medication List: was personally reviewed by me Laboratory Data Attestation: I reviewed the patient's lab results. Result diagrams: 04/06/19 11:10 04/06/19 11:10 Lab Results 04/06/19 04/06/19 04/06/19 Range/Units 11:10 11:10 11:17 WBC 20.78 H (4.8-10.8) K/uL RBC 4.69 (4.2-5.4) M/uL Hgb 14.0 (12.0-16.0) g/dL POC Hgb 14.3 (12.0-16.0) g/dl Hct 43.6 (37-47) % POC Hct 42 (37-47) % MCV 93.0 (80-100) fL MCH 29.9 (25-34) pg MCHC 32.1 (32-36) g/dL RDW Std Deviation 52.9 H (36.4-46.3) fL RDW Coeff of Anil 15.6 H (11.5-14.5) % Plt Count 313 (130-400) K/uL MPV 9.9 (7.4-10.4) fL Immature Gran % (Auto) 1.3 % Neut % (Auto) 57.9 % Lymph % (Auto) 32.7 % Garden % (Auto) 7.8 % Eos % (Auto) 0.2 % Baso % (Auto) 0.1 % Immature Gran # (Auto) 0.27 H (0.00-0.02) K/uL Neut # (Auto) 12.01 H (1.4-6.5) K/uL Lymph # (Auto) 6.80 H (1.2-3.4) K/uL Garden # (Auto) 1.62 H (0.11-0.59) K/uL Eos # (Auto) 0.05 (0-0.5) K/uL Baso # (Auto) 0.03 (0-0.2) K/uL PT (9.0-12.0) Seconds INR (0.9-1.1) APTT (21.0-31.0) Seconds PTT Ratio POC Sodium 139 (135-144) mEq/L Sodium 141 (136-145) mmol/L POC Potassium 4.0 (3.3-5.0) mEq/L Potassium 4.0 (3.5-5.1) mmol/L POC Chloride 106 (101-112) mEq/L Chloride 103 (98-107) mmol/L Carbon Dioxide 16 L (21-32) mmol/L POC Total CO2 16 L (24-31) mEq/l Anion Gap 22.0 H (3-11) POC Anion Gap 22.0 (16-25) mmol/L POC BUN 16 (7-18) mg/dl BUN 17 (7-18) mg/dl Creatinine 1.51 H (0.6-1.2) mg/dl POC Creatinine 1.0 (0.6-1.3) mg/dl Est Cr Clr Drug Dosing 29.8 ml/min Est GFR ( Amer) 39.1 Est GFR (Non-Af Amer) 33.7 BUN/Creatinine Ratio 11.0 (10-20) Glucose 299 H (70-99) mg/dl POC Glucose (other) 289 H (70-99) mg/dl Lactate (0.4-2.0) mmol/L Calcium 9.4 (8.5-10.1) mg/dl POC Ioniz Calcium Mike 1.08 L (1.12-1.32) mmol/l Magnesium 2.4 (1.8-2.4) mg/dl Total Bilirubin 0.6 (0.2-1) mg/dl AST 33 (15-37) U/L ALT 31 (12-78) U/L Alkaline Phosphatase 91 (45-117) U/L Total Protein 6.9 (6.4-8.2) gm/dl Albumin 2.9 L (3.4-5.0) gm/dl Globulin 4.0 (2.5-4.0) gm/dl Albumin/Globulin Ratio 0.7 L (0.9-2) 04/06/19 04/06/19 Range/Units 12:41 12:41 WBC (4.8-10.8) K/uL RBC (4.2-5.4) M/uL Hgb (12.0-16.0) g/dL POC Hgb (12.0-16.0) g/dl Hct (37-47) % POC Hct (37-47) % MCV (80-100) fL MCH (25-34) pg MCHC (32-36) g/dL RDW Std Deviation (36.4-46.3) fL RDW Coeff of Anil (11.5-14.5) % Plt Count (130-400) K/uL MPV (7.4-10.4) fL Immature Gran % (Auto) % Neut % (Auto) % Lymph % (Auto) % Garden % (Auto) % Eos % (Auto) % Baso % (Auto) % Immature Gran # (Auto) (0.00-0.02) K/uL Neut # (Auto) (1.4-6.5) K/uL Lymph # (Auto) (1.2-3.4) K/uL Garden # (Auto) (0.11-0.59) K/uL Eos # (Auto) (0-0.5) K/uL Baso # (Auto) (0-0.2) K/uL PT 15.0 H (9.0-12.0) Seconds INR 1.5 H (0.9-1.1) APTT 44.7 H (21.0-31.0) Seconds PTT Ratio 1.6 POC Sodium (135-144) mEq/L Sodium (136-145) mmol/L POC Potassium (3.3-5.0) mEq/L Potassium (3.5-5.1) mmol/L POC Chloride (101-112) mEq/L Chloride (98-107) mmol/L Carbon Dioxide (21-32) mmol/L POC Total CO2 (24-31) mEq/l Anion Gap (3-11) POC Anion Gap (16-25) mmol/L POC BUN (7-18) mg/dl BUN (7-18) mg/dl Creatinine (0.6-1.2) mg/dl POC Creatinine (0.6-1.3) mg/dl Est Cr Clr Drug Dosing ml/min Est GFR ( Amer) Est GFR (Non-Af Amer) BUN/Creatinine Ratio (10-20) Glucose (70-99) mg/dl POC Glucose (other) (70-99) mg/dl Lactate 14.6 H* (0.4-2.0) mmol/L Calcium (8.5-10.1) mg/dl POC Ioniz Calcium Mike (1.12-1.32) mmol/l Magnesium (1.8-2.4) mg/dl Total Bilirubin (0.2-1) mg/dl AST (15-37) U/L ALT (12-78) U/L Alkaline Phosphatase (45-117) U/L Total Protein (6.4-8.2) gm/dl Albumin (3.4-5.0) gm/dl Globulin (2.5-4.0) gm/dl Albumin/Globulin Ratio (0.9-2) Imaging Data Radiologist's Impression: Radiology results as stated below per my review and the radiologist's interpretation: CT head/brain wo con CLINICAL HISTORY: Change in mental status. Known malignancy. POSSIBLE HEMORRHAGE COMPARISON STUDY: 02/26/2019 TECHNIQUE: Axial CT of the brain is performed from the vertex to the skull bas e. IV contrast was not administered for this examination. A dose lowering technique was utilized adhering to the principles of ALARA. CT DOSE: FINDINGS: Postcraniotomy changes are present on the right. There is right-sided pneumocephalus, likely postsurgical. There is also trace fluid subjacent to the craniotomy flap, likely postsurgical. There is a 5 cm hypodense right frontal mass, likely representing a necrotic neoplasm. There is no acute hemorrhage. There is mild mass effect with minor right to left midline shift. There are patchy white matter hypodensities likely on a small vessel basis. There is no evidence of pathologic ventricular dilatation. There is no evidence of acute sinusitis IMPRESSION: 1. Interval right frontal craniotomy with postsurgical pneumocephalus 2. No significant change in the appearance of a 5 cm right frontal mass, highly suspicious for neoplasm Electronically signed by: Ciriol Luna M.D. 04/06/2019 11:39 AM ADDENDUM Addendum: Additional history has been obtained. The patient is status post a complete resection of the patient's frontal lobe neoplasm. The right frontal lobe mass described, therefore likely represents a postsurgical biopsy cavity. Surveillance with MRI scanning would be the best test to evaluate for residual/r ecurrent tumor. Electronically signed by: Cirilo Luna M.D. 04/06/2019 1:[address] ANGIOGRAM OF THE CHEST CLINICAL HISTORY: Respiratory arrest. Possible acute pulmonary embolism. COMPARISON STUDY: Chest x-ray dated 02/26/2019 TECHNIQUE: Following the IV administration of 119 mL of Optiray-320, CT angiogram of the thorax was performed from the thoracic inlet to the lung bases utilizing the pulmonary embolus protocol. Images are reviewed in the axial, sagittal, and coronal planes. IV contrast was administered without complication. MIP imaging was performed. A dose lowering technique was utilized adhering to the principles of ALARA. CT DOSE: 826.24 mGy.cm FINDINGS: No pathologically enlarged axillary mediastinal or hilar lymph nodes were visualized. There was no evidence of thoracic aortic dilatation. There is very poor pulmonary arterial opacification with preferential filling of the left pulmonary artery. There is no opacification of the left upper lobe pulmonary arterial tree nor is there significant opacification of the peripheral right lung arterial tree. It is possible that the findings are related to technical factors due to very poor cardiac output. There is opacification of the inferior vena cava and hepatic veins suggesting poor cardiac output. Correlation with leg ultrasonography or a repeat CT angiogram of the chest is strongly recommended. No pleural effusions are visualized. There are left lower lobe airspace opacities, atelectatic versus pneumonia. A tracheostomy tube is visualized. The tip is 1 cm above the arnoldo. There are several nonspecific subcentimeter right lung pulmonary nodules. IMPRESSION: 1. Evidence of very poor cardiac output with reflux of contrast into the hepatic veins and inferior vena cava 2. Very poor pulmonary arterial opacification with absent filling of the left upper lobe arterial tree and right lung arterial tree. It is difficult to de termine whether the findings are secondary technical factors related to poor cardiac output, or secondary to pulmonary emboli. A repeat examination and or correlation with leg ultrasonography is recommended in follow-up. 3. Left lower lobe pulmonary airspace opacities, atelectasis versus pneumonia. Electronically signed by: Cirilo Luna M.D. 04/06/2019 11:[address] ANGIOGRAM OF THE CHEST CLINICAL HISTORY: PE COMPARISON STUDY: Earlier in the day TECHNIQUE: Following the IV administration of 119 mL of Optiray-320, CT angiogram of the thorax was performed from the thoracic inlet to the lung bases utilizing the pulmonary embolus protocol. Images are reviewed in the axial, sagittal, and coronal planes. IV contrast was administered without complication. MIP imaging was performed. A dose lowering technique was utilized adhering to the principles of ALARA. CT DOSE: 328.05 mGy.cm FINDINGS: No pathologically enlarged axillary mediastinal or hilar lymph nodes were visualized. There was no evidence of thoracic aortic dilatation. There are pulmonary artery filling defects within the right main pulmonary artery, as well as within the right upper lobe, right middle lobe and right lower lobe pulmonary artery branches. There is suspected mild right ventricular strain. There are multifocal left lung airspace opacities, with left lower lobe atelectasis/consolidation with air bronchograms. A multifocal left lung pneumonia versus aspiration should be considered. There are minor right perihilar airspace opacities. There are a few scattered subcentimeter right lung nodules. IMPRESSION: 1. Large right lung pulmonary embolus with suspected mild right ventricular strain 2. Multifocal left lung airspace opacities. Likely diagnostic considerations include multifocal pneumonia versus aspiration. Clinical and imaging follow-up is recommended 3. Endotracheal tube 2 cm above the arnoldo. Electronically signed by: Cirilo Luna M.D. 04/06/2019 1:52 PM ECG Data Attestation: I personally reviewed and interpreted this ECG as follows: Indication: + tachycardia Rate (beats per minute): 137 Rhythm: + sinus tachycardia ECG ST segments: no ST elevation ECG Findings: + Other (rightward axis, QRS is 124 ) Blood Pressure Blood Pressure Findings: Low blood pressure Blood Pressure Disposition: further management by hospitalist DYLON Vaz I was called emergently into the room by the nurse. I did evaluate the patient as noted above. On my initial evaluation her heart rate was 60 and she had a very weak pulse but then quickly lost it and became apneic. She was unresponsive. Bag valve respirations were initiated. CPR was started. IV access was established. Patient was given IV epinephrine x2 and we had ROSC. Blood pressure was elevated and she was tachycardic. Twelve-lead EKG was performed by the nurse prior to my evaluation. I did personally review the patient's 12-lead EKG as described above. She had sinus tachycardia with a rate of 137. She had a rightward axis as well. After we had return of spontaneous circulation I obtained further history from the patient's family. He she had had a brain tumor removed earlier this month and has had left leg paralysis. I immediately sent her to CT for CT of the chest and brain to rule out bleed or PE. I did review the images myself as well as the radiology report as described above. Unfortunately there was very little contrast on the right side as well as left upper lobe. I did speak to Dr. Luna who stated that this was a fairly nondiagnostic study. He stated that this could be due to hypoperfusion versus a large PE on the right side as well as the left upper lobe. He recommended repeat CT scan. CT of the head did not show evidence of bleed. The patient coded 2 more times. We had return of spontaneous circulation after applying CPR initially but then she coded again and CPR was restarted and she was given epi and and we had return of spontaneous circulation. I did place a triple-lumen central line after obtaining consent from the family as noted above. She was started on an epinephrine drip. I did immediately perform a bedside sonogram which showed a DVT to the right popliteal vein per my interpretation. I did speak to the neurosurgeon at [facility] to discuss possible IV TPA. Because of her surgery she has high risk for bleed according to the neurosurgeon. IV TPA was contraindicated. He did recommend IV heparin without a bolus. She was started on a heparin drip. I did order and review the patient's blood work as noted in the electronic medical record. Her white count is 20,000. Lactic acid is elevated. ABG shows a pH of 6.8 with hypercapnia. Her rate on the ventilator was increased. She was given IV sodium bicarbonate. I did speak to Dr. Hinojosa from the ICU. He recommended patient be immediately sent to a tertiary care center for thrombectomy. He did not feel a repeat CT was indicated given her clinical history. I did speak to the physicians as noted above at [facility]. They felt that she should definitely have a repeat CT scan of the chest before transferring her. The weather is not amenable to flight and there is significant snow and ice on the ground which would delay her transport further. I did order a repeat CT of the chest. As we were preparing her to go over to CAT scan she became bradycardic and lost her pulses. I did immediately begin CPR and the nurse gave her IV epinephrine. She did not have return of spontaneous circulation. Her IV epinephrine was titrated up. She was sent to CAT scan. I did review the images and noted a right main pulmonary artery embolus. The radiologist also reviewed the CT as noted above. There were infiltrates on the left side and so I did treat her with Zosyn IV. As I was concerned about her hemodynamic instability and prolonged transport to [facility] I did discuss the possibility of transport to [facility]. After some discussion they were agreeable. I did call [facility] and spoke to the physician there who stated that they would be unable to perform thrombectomy and that she should go to [facility]. I therefore called the physicians back at [facility]. I did speak to multiple consultants on conference call. I did read the CT results to them. They agreed that the patient would not benefit from transfer to [facility]. The cardiothoracic surgeon stated that she would not be a candidate for thrombectomy or ECMO. The CVIR physician stated that she was not a candidate for catheter directed arterial TPA as she is too high risk for intracranial hemorrhage. They therefore felt that the patient would not benefit from transfer to [facility] especially with the prolonged transport time. They recommended local hospitalization and heparin. I therefore discussed the case again with Dr. Hinojosa from the ICU [facility] The patient was admitted to the ICU. She remained on an epinephrine drip. She will have an arterial line in the ICU. Repeat ABGs were performed while in the ED and ventilator adjustments were made as indicated. Throughout her stay I kept the patient's family informed and involved them and decision making. Dr. Lang was also present who is a family friend of the patient. Impression & Plan Cardiopulmonary arrest with successful resuscitation, Acute massive pulmonary embolism, History of craniotomy Discharge Plan Visit Data *Final* Discharge Date/Time: 04/06/19 16:05 Chief Complaint: Nausea Stated Complaint: NAUSEA,WEAK,DEHYDRATION ED Provider: Jeremias Green Discharge Problem: Cardiopulmonary arrest with successful resuscitation, Acute massive pulmonary embolism, History of craniotomy Patient Disposition: Admitted As Inpatient Discharge Instructions Interventions: ED Discharge Assessment Last Done: 04/06/19 16:05 The scribe's documentation has been prepared under my direction and personally reviewed by me in its entirety. I confirm that the note above accurately reflec ts all work, treatment, procedures, and medical decision making performed by me.
[2019-04-06 17:27] LABS: iSTAT Arterial Blood Gas HCO3 17 meg/L (19-24); iSTAT Arterial Blood Gas pCO2 54 mmHg (35-46); iSTAT Arterial Blood Gas pH 7.11 (7.35-7.45); iSTAT Arterial Blood Gas pO2 275 mmHg (80-95); iSTAT Carbon Dioxide 19 mEq/l (24-31); iSTAT FiO2 70 %; iSTAT Site Art Line
[2019-04-06] MEDS ORDERED: PIPERACILLIN/TAZOBACTAM 3.375 GM in DEXTROSE 5% 100 ML IV SCH (17:30)
[2019-04-06] MEDS ORDERED: SODIUM CHLORIDE 0.9% 1000ML 1,000 ML IV ONE (17:34)
[2019-04-06] MEDS: NORMOSOL-R 1,000 ML IV SCH (17:52)
[2019-04-06] MEDS ORDERED: CARBOHYDRATES FOR HYPOGLYCEMIA PO PRN (18:30)
[2019-04-06] MEDS ORDERED: GLUCOSE 40% GEL 15 GM TUBE PO PRN (18:30)
[2019-04-06] MEDS ORDERED: NovoLIN-R BOLUS FROM BAG IV ONE (18:30)
[2019-04-06] MEDS ORDERED: GLUCAGON FOR INJ 1 MG VIAL IM PRN (18:30)
[2019-04-06] MEDS ORDERED: GLUCOSE 10 TABS/TUBE PO PRN (18:30)
[2019-04-06] MEDS: PIPERACILLIN/TAZOBACTAM 4.5 GM in DEXTROSE 5% 100 ML IV SCH (18:41)
[2019-04-06] MEDS: INSULIN REGULAR 250 UNITS in SODIUM CHLORIDE 0.9% 247.5 ML IV SCH (19:10)
[2019-04-06 19:34] LABS: Partial Thromboplastin Ratio 4.2
[2019-04-06 19:39] LABS: Partial Thromboplastin Time 114.8 Seconds (21.0-31.0)
[2019-04-07] MEDS: NORMOSOL-R 1,000 ML IV SCH ×3 (00:30→12:44)
[2019-04-07] MEDS: INSULIN ASPART 100 UNITS/ML 3 ML PEN SC SCH ×5 (00:40→21:11)
[2019-04-07] MEDS: PIPERACILLIN/TAZOBACTAM 4.5 GM in DEXTROSE 5% 100 ML IV SCH ×3 (02:43→18:11)
[2019-04-07 03:05] LABS: Mean Corpuscular Hgb Conc 31.9 g/dL (32-36); Mean Platelet Volume 9.8 fL (7.4-10.4); Nucleated RBC % (auto) 0.4 %; Platelet Count 216 K/uL (130-400)
[2019-04-07 03:26] LABS: ALC (manual) 0.87 K/uL (1.2-3.4); Echinocytes 1+; Hematocrit (blood only) 38.2 % (37-47); Hemoglobin 12.2 g/dL (12.0-16.0); Lymphocytes # (manual) 0.87 K/uL (1.2-3.4); Lymphocytes % (manual) 3.5 %; Mean Corpuscular Hemoglobin 28.9 pg (25-34); Mean Corpuscular Volume 90.5 fL (80-100); Monocytes # (manual) 0.87 K/uL (0.11-0.59); Monocytes % (manual) 3.5 %; Myelocytes # (manual) 0.22 K/uL (0-0); Myelocytes % (manual) 0.9 %; Neutrophils % (manual) 92.1 %; RDW Coefficient of Variation 15.3 % (11.5-14.5); RDW Standard Deviation 50.4 fL (36.4-46.3); Red Blood Count 4.22 M/uL (4.2-5.4); White Blood Count 24.76 K/uL (4.8-10.8)
[2019-04-07 03:29] LABS: INR 1.7 (0.9-1.1); Partial Thromboplastin Ratio 3.4; Prothrombin Time 16.6 Seconds (9.0-12.0)
[2019-04-07 03:47] LABS: BUN Creatinine Ratio 13.3 (10-20); Bilirubin Direct 0.4 mg/dl (0-0.2); Bilirubin,Total 0.7 mg/dl (0.2-1); Calcium 6.9 mg/dl (8.5-10.1); Creatinine Clr Calc Pharmacy 25.1 ml/min; Est GFR (African American) 31.8; Est GFR (Non-African American) 27.4; Magnesium 1.7 mg/dl (1.8-2.4); Phosphorus 3.6 mg/dl (2.5-4.9); Potassium 3.5 mmol/L (3.5-5.1); Total Protein 5.2 gm/dl (6.4-8.2); Troponin I 4.67 ng/ml (0-0.045)
[2019-04-07 04:09] LABS: Beta-Hydroxybutyrate 1.59 mg/dl (0.2-2.81)
--- NOTE | 2019-04-07 04:56 | Critical Care Progress Note ---
Date of Service April 07, 2019 Assessment & Plan (1) Admitted to intensive care unit: Reason Critically Ill: 74-year-old female here with a PMHx significant for glioblastoma, HTN, cardiac rrest, and massive PE who presented with a feeling of unwellness and who was admitted for massive PE. She sustained 3x cardiac PEA arrests with ROSC prior to admission to the ICU. Goals of Care: DNR. Family does not wish to withdraw care or move to comfort measures at this time, but affirms that they do not want further CPR to be performed. Neuro - [facility] ICU: POSITIVE ETT in place Sedation: propofol 25, weaned to 20mcg this AM Analgesia: Fentanyl 50mg Q15M prn Glioblastoma Multiforme Stage IV s/p craniotomy with tumor resection 03/13/[address] Manzanares [facility] [place] - No further surgical or chemotherapeutic intervention indicated Cardiac - Cardiogenic shock 2/2 PE - PE treatment as below - Epinephrine .08 (weaned to .06, increased to .09 at 0814). Requirements increasing. - ECHO pending - Trop 4.6, uptrending from 4.4 (EKG RAD, sinus) - BNP 07524 Respiratory Acute Massive PE with multiorgan system failure - Extensive R PA thrombus - Heparin gtt - No TPA or thrombectomy/surgical intervention. Case was discussed over the weekend with Zuri and Rasheed who feel she is not a surgical candidate, and TPA was contraindicated due to the patients recent neurosurgical procedure. - Discussed goals of care with family, as above. Poor prognosis. GI - Transaminitis 2/2 shock liver - AST 5700, ALT 4500 likely 2/2 shock liver in the setting of cardiac arrest - Continue to trend - NPO diet - CMP, lactate pending IVFM decrease froNS NOrmosol 150cc/hr to 80cc/hr, pt +6L positive RENAL/LYTES - No sodium or potassium derangement- - CaGluc 1g given for Ca 6.9 - 1g Mg IV given for Mg 1.7 - Replace lytes as needed. - No concerns at this time. ENDO - No history of T2DM, BSG 380 on admit - HgbA1C - ICU hyperglycemic protocol HEME - Stable H&H., hgb 12 Will monitor for any drops in the setting of Heparin gtt ID - - Afebrile - BC, Sputum culture ngtd - Monitor fever curve. - Low suspicion for infectious process INTEGUMENTARY - No acute concerns LINES/IV ACCESS - PIVs intact. DVT PROPHYLAXIS - Heparin gtt. Thank you for allowing us to be part of this patient's care. Please refer to Dr. Lindquist's documentation for any further recommendations. (2) Aspiration pneumonia: (3) Acute kidney injury: (4) Hypertension: (5) Cardiogenic shock: (6) Lactic acidosis: (7) Pulmonary embolism: (8) Cardiac arrest: (9) Glioblastoma: Supervising Physician Co-Signing Physician Notes Dr. Louis was resident physician during care of patient. I separately evaluated patient for jimenez portions of the history and the exam. I was present during the critical portion of medical decision making, and I discussed the case with the resident. I generally agree with the findings and plan. Had a discussion with the patient's and 2 sons, all are in agreement that should the patient suffer a subsequent cardiac arrest we would not undertake heroic measures so I have updated her CODE STATUS to reflect DNR in event of cardiac arrest. Awaiting formal echo report however on my limited bedside review of the images it appears that the ejection fraction is globally reduced in the left and right ventricle and right ventricle is severely dilated consistent with acute cor pulmonale from venous thromboembolic disease. Patient recently underwent surgical resection of a glioblastoma multiform the stage IV, is concerned about radiation and chemotherapy, and emphasized that the patient's acute issues are likely going to preclude her being a appropriate candidate for chemotherapy and radiation. At this time it is difficult to tell if the patient has significant neurologic injury, she does move her right upper extremity, however, she does not appear to be responding to complex commands. Patient is still requiring epinephrine to maintain perfusion pressure. Patient is slowly clearing a lactic acidosis however it is severely elevated, she has evidence of shock liver, I believe the patient is in a state of multisystem organ failure secondary to acute cor pulmonale. Continue syst emic anticoagulation, not a candidate for thrombectomy nor catheter directed thrombolysis as described by previous records. Will transition from propofol to Versed for sedation given significant catecholamine requirements as propofol is negative inotrope. Patient approaching 6 L positive, will decrease fluids to 80 mL's per hour, known acute kidney injury. Patient has multisystem organ failure, and concerned she has a very poor prognosis. Subjective History limited by ETT. No overnight events per nursing, [employer] running 8.08 this morning. Propofol weaned from 25-20. Review of Systems Review of Systems: Unobtainable due to endotracheal tube Physical Exam Physical Exam: General: ETT in place. Sedated. HEENT: Atraumatic, normocephalic. Pupils responsive to light and equal, not tracking at time of visit. Nonicteric. Pulm: On ventilator, globally clear to auscultation bilaterally. Cardiac: Tachycardic, regular -mrg. Radial pulses intact and symmetrical. Abdominal: Nontender, nondistended, soft. BS present. Extremity: PT pulses not appreciable on palpation, intact to Doppler. Warm, dry. Results & Data Vital Signs (Past 12 Hours) Vital Signs Pulse Resp BP Pulse Ox 04/07/19 04:30 132 H 121/79 98 04/07/19 04:00 130 H 136/70 98 04/07/19 03:30 130 H 118/68 98 04/07/19 03:00 134 H 162/86 H 98 04/07/19 02:30 133 H 122/86 98 04/07/19 02:25 130 H 115/90 96 04/07/19 02:00 128 H 101/69 97 04/07/19 01:35 127 H 28 H 98 04/07/19 01:30 129 H 106/72 97 04/07/19 01:00 129 H 140/81 98 04/07/19 00:30 130 H 121/74 97 04/07/19 00:00 128 H 132/74 95 04/06/19 23:30 127 H 122/72 94 04/06/19 23:00 124 H 113/76 94 04/06/19 22:30 124 H 121/70 94 04/06/19 22:22 123 H 26 H 95 04/06/19 22:07 123 H 105/68 95 04/06/19 21:30 123 H 111/69 93 04/06/19 21:00 124 H 108/70 94 04/06/19 20:30 122 H 103/73 95 04/06/19 20:20 121 H 100/66 95 04/06/19 20:10 123 H 104/73 95 04/06/19 20:00 125 H 113/74 97 04/06/19 19:40 124 H 26 H 98 04/06/19 19:30 125 H 26 H 106/74 97 04/06/19 19:00 125 H 26 H 104/73 97 04/06/19 17:45 125 H 97 04/06/19 17:30 127 H 147/83 H 97 04/06/19 17:22 26 H 04/06/19 17:21 26 H 04/06/19 17:19 26 H 04/06/19 17:07 128 H 131/92 100 04/06/19 17:00 127 H 131/92 99 Critical Care Time Critical Care Time: Yes Total Critical Care Time: 85 I have personally spent 85 minutes of critical care time in the direct management of this patient. This is a life/limb threatening event. This includes time spent evaluating patient, direct bedside care, chart review, placing orders, interpretation of diagnostic studies, discussion with consultants, patient, and/or family members regarding treatment decisions, as well as other required patient management activities. This time is exclusive of all separately billable procedures, and teaching time and separate from and in addition to any other critical care service time. Resident Activity Tracking Resident Involvement: Resident Care Provided Care Provided: Adult [facility] Medicine
[2019-04-07] MEDS: MAGNESIUM SULFATE / D5W 1 GM/100 ML BAG IV SCH ×2 (05:19→06:10)
[2019-04-07] MEDS ORDERED: CALCIUM GLUCONATE 10% 1,000 MG in SODIUM CHLORIDE 0.9% 50 ML IV STA (05:20)
[2019-04-07] MEDS: POTASSIUM CHLORIDE / WTR 20 MEQ/100 ML PLCT IV SCH ×4 (05:37→19:09)
[2019-04-07 06:11] LABS: iSTAT Arterial Blood Gas HCO3 17 meg/L (19-24); iSTAT Arterial Blood Gas pCO2 35 mmHg (35-46); iSTAT Arterial Blood Gas pH 7.29 (7.35-7.45); iSTAT Arterial Blood Gas pO2 86 mmHg (80-95); iSTAT Carbon Dioxide 18 mEq/l (24-31); iSTAT FiO2 30 %; iSTAT Site Art Line
--- NOTE | 2019-04-07 07:00 | Ultrasound Report ---
ULTRASOUND BILATERAL LOWER EXTREMITY VENOUS CLINICAL HISTORY: Pulmonary embolus. Cardiac arrest. COMPARISON STUDY: No priors. TECHNIQUE: Real-time, grayscale, and color Doppler sonography of the deep veins of the right and left lower extremity was performed from the inguinal crease to the calf. Compression and augmentation wer e utilized. FINDINGS: Right lower extremity: There is nonocclusive deep venous thrombosis identified in the calf within the right peroneal vein. The remaining calf vessels are patent. No above knee deep venous thrombosis is identified. The common femoral, superficial femoral, and popliteal veins are patent and normally comp ressible. The greater saphenous vein and the profunda femoris vein at the junction with the common fe moral vein are clear. Left lower extremity: There is occlusive deep venous thrombosis identified in the left popliteal vein . This extends into the calf within the posterior tibial, anterior tibial, and peroneal vessels. The superficial femoral vein is patent and normally compressible. The common femoral vein was not visuali zed. The greater saphenous vein and the profunda femoris vein at the junction with the common femoral vein are clear the visualized. IMPRESSION: 1. There is occlusive deep venous thrombosis identified in the left popliteal vein which extends into the calf vessels. 2. There is nonocclusive deep venous thrombosis identified within the right calf in the peroneal vein . Electronically signed by: Cole Salazar M.D. 04/07/2019 6:58 AM
--- NOTE | 2019-04-07 07:32 | Hospitalist Progress Note ---
Date of Service April 07, 2019 Assessment & Plan (1) Cardiogenic shock: - Currently in ICU with grim prognosis - ICU team had discussion with family today who made decision for DNR/DNI but without plan to withdraw care and would like to continue care plan - Cause was most likely pulmonary embolism - Echocardiogram performed today at bedside which showed * Hyperdynamic LV, moderately dilated RV, mild-mod reduced RV systolic, mildy dilated RA, mild aortic regurg, mild mitral annular calcification, RV systolic pressure normal, IVC mildly dilated. - quality assurance monitor body - Pressor support as deemed necessary per ICU team - currently endotracheal intubation with management per ICU specialists (2) Lactic acidosis: - result from cardiogenic shock and hypoperfusion of tissues - metabolic acidosis - initial value 14.7 lactate, trended down (3) Pulmonary embolism: - Large right lung pulmonary embolus with suspected mild right ventricular strain seen on CTA - not a candidate for TPA on presentation as recent brain surgery for glioblastoma - currently treating with heparin - continuous pulse ox - endotracheal intubation managed by ICU team - cancer causing hypercoaguable state (4) Cardiac arrest: - occurred in ED yesterday during workup - Had CPR performed with ROS (5) Glioblastoma: - Review of records shows that on 02/26 MRI Brain showing 5.7 cm intra- axial mass in the right frontoparietal region highly concerning for a primary malignancy, namely glioblastoma multiforme - Had recent surgical resection 03/13/19; with noted prior plan for chemotherapy and radiation per EMR note review - Had LUE weakness/numbness from mass - Head CT performed in ED showed right-sided pneumocephalus, likely postsurgical. There is also trace fluid subjacent to the craniotomy flap, likely postsurgical. There is a 5 cm hypodense right frontal mass, likely representing a necrotic neoplasm. However, once additional history given as status post a complete resection of the patient's frontal lobe neoplasm. The right frontal lobe mass described, therefore likely represents a postsurgical biopsy cavity. Surveillance with MRI scanning would be the best test to evaluate for residual/recurrent tumor. (6) Hypertension: Prior history of, not current focus as actually requiring pressure support holding home anti-hypertensives (7) Acute kidney injury: Most likely from tissue hypoperfusion from cardiogenic shock IVF Normosol @ 80mls/hr (8) Aspiration pneumonia: Treating with Zosyn Per chest CTA Multifocal left lung airspace opacities. Likely diagnostic considerations include multifocal pneumonia versus aspiration. Clinical and imaging follow-up is recommended (9) Acute cor pulmonale: (10) Venous thromboembolism: Heparin and hypercoaguable state as above (11) Deep vein thrombosis (DVT) of popliteal vein of left lower extremity: Heparin and hypercoaguable state as above DVT US Showed 1. There is occlusive deep venous thrombosis identified in the left popliteal vein which extends into the calf vessels. 2. There is nonocclusive deep venous thrombosis identified within the right calf in the peroneal vein. (12) Deep venous thrombosis (DVT) of right peroneal vein: Heparin and hypercoaguable state as above (13) DNR (do not resuscitate): Changed from full code today per ICU specialists discussions with family Supervising Physician Co-Signing Physician Notes Attending attestation Pt seen and examined in concert with Dr. Jung. In agreement with the documented findings as noted in the resident documentation with any exceptions or additions as noted here. Unresponsive sedated on vent. Son at bedside, no questions apparent nor services requested. On examination, S1/S2 nl, tachycardia to the 130s. Rhonchorous breath sounds throughout on vent. Cardiogenic shock in the setting of large pulmonary embolism - pressure dispatcher care appreciated. ETT. Pressors. echocardiogram completed. Heparin drip. h/o glioblastoma s/p resection, rad/chemo - residual weakness, for PT/OT should circumstances permit Aspiration pneumonia - continue zosyn HTN - pressor support KATHY - continue fluid support VTE - heparin drip Else see resident documentation as noted. Subjective Caveat: History Limited by Endotracheal Intubation No acute events overnight. Discussed with resident physician, no plans to transfer as mentioned in prior notes. Oldest son at bedside who acknowledges grim prognosis. States spouse still coming to terms and currently not understanding of dire prognosis. Review of Systems Review of Systems: Unobtainable due to endotracheal tube Physical Exam Physical Exam: limited by endotracheal intubation Constitutional: WD/WN, vitals as above ENMT: endotracheal tube present Neck: normal visual inspection and trachea midline Respiratory: intubation with mechanical ventilation; lungs clear to auscultation Cardiovascular: Rate/Rhythm: regular rhythm and + tachycardic Gastrointestinal (Abdomen): Percussion/Palpation: abdomen soft Skin: no rashes, warm and dry Results & Data Vital Signs (Past 12 Hours) Vital Signs Pulse Resp BP Pulse Ox 12/02/19 06:00 126 H 107/67 96 04/07/19 05:30 130 H 145/79 H 96 04/07/19 05:20 129 H 32 H 99 04/07/19 05:00 128 H 156/82 H 99 04/07/19 04:30 132 H 121/79 98 04/07/19 04:00 130 H 136/70 98 04/07/19 03:30 130 H 118/68 98 04/07/19 03:00 134 H 162/86 H 98 04/07/19 02:30 133 H 122/86 98 04/07/19 02:25 130 H 115/90 96 04/07/19 02:00 128 H 101/69 97 04/07/19 01:35 127 H 28 H 98 04/07/19 01:30 129 H 106/72 97 04/07/19 01:00 129 H 140/81 98 04/07/19 00:30 130 H 121/74 97 04/07/19 00:00 128 H 132/74 95 04/06/19 23:30 127 H 122/72 94 04/06/19 23:00 124 H 113/76 94 04/06/19 22:30 124 H 121/70 94 04/06/19 22:22 123 H 26 H 95 04/06/19 22:07 123 H 105/68 95 04/06/19 21:30 123 H 111/69 93 04/06/19 21:00 124 H 108/70 94 04/06/19 20:30 122 H 103/73 95 04/06/19 20:20 121 H 100/66 95 04/06/19 20:10 123 H 104/73 95 04/06/19 20:00 125 H 113/74 97 04/06/19 19:40 124 H 26 H 98 Laboratory Results Laboratory Results - last 24 hr 04/06/19 04/06/19 04/06/19 11:10 11:10 11:17 WBC 20.78 H RBC 4.69 Hgb 14.0 POC Hgb 14.3 Hct 43.6 POC Hct 42 MCV 93.0 MCH 29.9 MCHC 32.1 RDW Std Deviation 52.9 H RDW Coeff of Anil 15.6 H Plt Count 313 MPV 9.9 Immature Gran % (Auto) 1.3 Neut % (Auto) 57.9 Lymph % (Auto) 32.7 [place] % (Auto) 7.8 Eos % (Auto) 0.2 Baso % (Auto) 0.1 Immature Gran # (Auto) 0.27 H Neut # (Auto) 12.01 H Lymph # (Auto) 6.80 H [place] # (Auto) 1.62 H Eos # (Auto) 0.05 Baso # (Auto) 0.03 Absolute Nucleated RBC Nucleated RBC % (auto) Neutrophils % (Manual) Lymphocytes % (Manual) Monocytes % (Manual) Myelocytes % (Man) Neutrophils # (Manual) Total Absolute Neuts Lymphocytes # (Manual) Total Abs Lymphocytes Monocytes # (Manual) Myelocytes # (Manual) Blood Smear Review Pending Echinocytes PT INR APTT PTT Ratio Sample Site POC pH POC pCO2 POC pO2 POC HCO3 POC Base Excess POC ABG O2 Sat Rusty Test O2 Delivery Device POC O2 Rate Minute Ventilation POC FiO2 Tidal Volume PEEP POC Sodium 139 Sodium 141 POC Potassium 4.0 Potassium 4.0 POC Chloride 106 Chloride 103 Carbon Dioxide 16 L POC Total CO2 16 L Anion Gap 22.0 H POC Anion Gap 22.0 POC BUN 16 BUN 17 Creatinine 1.51 H POC Creatinine 1.0 Est Cr Clr Drug Dosing 29.8 Est GFR ( Amer) 39.1 Est GFR (Non-Af Amer) 33.7 BUN/Creatinine Ratio 11.0 Glucose 299 H POC Glucose (other) 289 H Lactate Calcium 9.4 POC Ioniz Calcium Mike 1.08 L Phosphorus Magnesium 2.4 Total Bilirubin 0.6 Direct Bilirubin AST 33 ALT 31 Alkaline Phosphatase 91 Troponin I NT-Pro-B Natriuret Pep Total Protein 6.9 Albumin 2.9 L Globulin 4.0 Albumin/Globulin Ratio 0.7 L Beta-Hydroxybutyric Acd Procalcitonin Urine Color Urine Appearance Urine pH Ur Specific [place] Urine Protein Urine Glucose (UA) Urine Ketones Urine Blood Urine Nitrite Urine Bilirubin Urine Urobilinogen Ur Leukocyte Esterase Urine WBC (Auto) Urine RBC (Auto) U Hyaline Cast (Auto) U Epithel Cells (Auto) Urine Bacteria (Auto) Ur Renal Epithelial Cell Urine Yeast Nasal Screen MRSA (PCR) Influenza Type A (PCR) Influenza Type B (PCR) 04/06/19 04/06/19 04/06/19 12:41 12:41 15:27 WBC RBC Hgb POC Hgb Hct POC Hct MCV MCH MCHC RDW Std Deviation RDW Coeff of Anil Plt Count MPV Immature Gran % (Auto) Neut % (Auto) Lymph % (Auto) [place] % (Auto) Eos % (Auto) Baso % (Auto) Immature Gran # (Auto) Neut # (Auto) Lymph # (Auto) [place] # (Auto) Eos # (Auto) Baso # (Auto) Absolute Nucleated RBC Nucleated RBC % (auto) Neutrophils % (Manual) Lymphocytes % (Manual) Monocytes % (Manual) Myelocytes % (Man) Neutrophils # (Manual) Total Absolute Neuts Lymphocytes # (Manual) Total Abs Lymphocytes Monocytes # (Manual) Myelocytes # (Manual) Blood Smear Review Echinocytes PT 15.0 H INR 1.5 H APTT 44.7 H PTT Ratio 1.6 Sample Site POC pH POC pCO2 POC pO2 POC HCO3 POC Base Excess POC ABG O2 Sat Rusty Test O2 Delivery Device POC O2 Rate Minute Ventilation POC FiO2 Tidal Volume PEEP POC Sodium Sodium POC Potassium Potassium POC Chloride Chloride Carbon Dioxide POC Total CO2 Anion Gap POC Anion Gap POC BUN BUN Creatinine POC Creatinine Est Cr Clr Drug Dosing Est GFR ( Amer) Est GFR (Non-Af Amer) BUN/Creatinine Ratio Glucose POC Glucose (other) Lactate 14.6 H* Calcium POC Ioniz Calcium Mike Phosphorus Magnesium Total Bilirubin Direct Bilirubin AST ALT Alkaline Phosphatase Troponin I NT-Pro-B Natriuret Pep Total Protein Albumin Globulin Albumin/Globulin Ratio Beta-Hydroxybutyric Acd Procalcitonin Urine Color Urine Appearance Urine pH Ur Specific [place] Urine Protein Urine Glucose (UA) Urine Ketones Urine Blood Urine Nitrite Urine Bilirubin Urine Urobilinogen Ur Leukocyte Esterase Urine WBC (Auto) Urine RBC (Auto) U Hyaline Cast (Auto) U Epithel Cells (Auto) Urine Bacteria (Auto) Ur Renal Epithelial Cell Urine Yeast Nasal Screen MRSA (PCR) Influenza Type A (PCR) Neg for Influ A Influenza Type B (PCR) Neg for Influ B 04/06/19 04/06/19 04/06/19 15:27 15:32 16:25 WBC RBC Hgb POC Hgb Hct POC Hct MCV MCH MCHC RDW Std Deviation RDW Coeff of Anil Plt Count MPV Immature Gran % (Auto) Neut % (Auto) Lymph % (Auto) [place] % (Auto) Eos % (Auto) Baso % (Auto) Immature Gran # (Auto) Neut # (Auto) Lymph # (Auto) [place] # (Auto) Eos # (Auto) Baso # (Auto) Absolute Nucleated RBC Nucleated RBC % (auto) Neutrophils % (Manual) Lymphocytes % (Manual) Monocytes % (Manual) Myelocytes % (Man) Neutrophils # (Manual) Total Absolute Neuts Lymphocytes # (Manual) Total Abs Lymphocytes Monocytes # (Manual) Myelocytes # (Manual) Blood Smear Review Echinocytes PT INR APTT PTT Ratio Sample Site POC pH POC pCO2 POC pO2 POC HCO3 POC Base Excess POC ABG O2 Sat Rusty Test O2 Delivery Device POC O2 Rate Minute Ventilation POC FiO2 Tidal Volume PEEP POC Sodium Sodium POC Potassium Potassium POC Chloride Chloride Carbon Dioxide POC Total CO2 Anion Gap POC Anion Gap POC BUN BUN Creatinine POC Creatinine Est Cr Clr Drug Dosing Est GFR ( Amer) Est GFR (Non-Af Amer) BUN/Creatinine Ratio Glucose POC Glucose (other) Lactate Calcium POC Ioniz Calcium Mike Phosphorus Magnesium Total Bilirubin Direct Bilirubin AST ALT Alkaline Phosphatase Troponin I 4.120 H* 4.400 H* NT-Pro-B Natriuret Pep 79468 H Total Protein Albumin Globulin Albumin/Globulin Ratio Beta-Hydroxybutyric Acd Procalcitonin Urine Color Yellow Urine Appearance Clear Urine pH 6.5 Ur Specific [place] > 1.045 H Urine Protein 3+ H Urine Glucose (UA) 1+ H Urine Ketones Trace H Urine Blood 3+ H Urine Nitrite Negative Urine Bilirubin Negative Urine Urobilinogen Negative Ur Leukocyte Esterase Negative Urine WBC (Auto) 10-30 H Urine RBC (Auto) >30 H U Hyaline Cast (Auto) 10-30 H U Epithel Cells (Auto) >30 H Urine Bacteria (Auto) Negative Ur Renal Epithelial Cell Not Reportable Urine Yeast Not Reportable Nasal Screen MRSA (PCR) Influenza Type A (PCR) Influenza Type B (PCR) 04/06/19 04/06/19 04/06/19 17:00 17:10 17:15 WBC RBC Hgb POC Hgb Hct POC Hct MCV MCH MCHC RDW Std Deviation RDW Coeff of Anil Plt Count MPV Immature Gran % (Auto) Neut % (Auto) Lymph % (Auto) [place] % (Auto) Eos % (Auto) Baso % (Auto) Immature Gran # (Auto) Neut # (Auto) Lymph # (Auto) [place] # (Auto) Eos # (Auto) Baso # (Auto) Absolute Nucleated RBC Nucleated RBC % (auto) Neutrophils % (Manual) Lymphocytes % (Manual) Monocytes % (Manual) Myelocytes % (Man) Neutrophils # (Manual) Total Absolute Neuts Lymphocytes # (Manual) Total Abs Lymphocytes Monocytes # (Manual) Myelocytes # (Manual) Blood Smear Review Echinocytes PT INR APTT PTT Ratio Sample Site Art Line POC pH 7.11 L* POC pCO2 54 H POC pO2 275 H POC HCO3 17 L POC Base Excess -12.0 L POC ABG O2 Sat 100.0 H Rusty Test NA O2 Delivery Device Ventilator POC O2 Rate 22 Minute Ventilation POC FiO2 70 Tidal Volume 450 PEEP 12 POC Sodium Sodium POC Potassium Potassium POC Chloride Chloride Carbon Dioxide POC Total CO2 19 L Anion Gap POC Anion Gap POC BUN BUN Creatinine POC Creatinine Est Cr Clr Drug Dosing Est GFR ( Amer) Est GFR (Non-Af Amer) BUN/Creatinine Ratio Glucose POC Glucose (other) 434 H* Lactate Calcium POC Ioniz Calcium Mike Phosphorus Magnesium Total Bilirubin Direct Bilirubin AST ALT Alkaline Phosphatase Troponin I NT-Pro-B Natriuret Pep Total Protein Albumin Globulin Albumin/Globulin Ratio Beta-Hydroxybutyric Acd Procalcitonin Urine Color Urine Appearance Urine pH Ur Specific [place] Urine Protein Urine Glucose (UA) Urine Ketones Urine Blood Urine Nitrite Urine Bilirubin Urine Urobilinogen Ur Leukocyte Esterase Urine WBC (Auto) Urine RBC (Auto) U Hyaline Cast (Auto) U Epithel Cells (Auto) Urine Bacteria (Auto) Ur Renal Epithelial Cell Urine Yeast Nasal Screen MRSA (PCR) Negative Influenza Type A (PCR) Influenza Type B (PCR) 04/06/19 04/06/19 04/06/19 17:39 19:05 20:18 WBC RBC Hgb POC Hgb Hct POC Hct MCV MCH MCHC RDW Std Deviation RDW Coeff of Anil Plt Count MPV Immature Gran % (Auto) Neut % (Auto) Lymph % (Auto) [place] % (Auto) Eos % (Auto) Baso % (Auto) Immature Gran # (Auto) Neut # (Auto) Lymph # (Auto) [place] # (Auto) Eos # (Auto) Baso # (Auto) Absolute Nucleated RBC Nucleated RBC % (auto) Neutrophils % (Manual) Lymphocytes % (Manual) Monocytes % (Manual) Myelocytes % (Man) Neutrophils # (Manual) Total Absolute Neuts Lymphocytes # (Manual) Total Abs Lymphocytes Monocytes # (Manual) Myelocytes # (Manual) Blood Smear Review Echinocytes PT INR APTT 114.8 H* PTT Ratio 4.2 Sample Site POC pH POC pCO2 POC pO2 POC HCO3 POC Base Excess POC ABG O2 Sat Rusty Test O2 Delivery Device POC O2 Rate Minute Ventilation POC FiO2 Tidal Volume PEEP POC Sodium Sodium POC Potassium Potassium POC Chloride Chloride Carbon Dioxide POC Total CO2 Anion Gap POC Anion Gap POC BUN BUN Creatinine POC Creatinine Est Cr Clr Drug Dosing Est GFR ( Amer) Est GFR (Non-Af Amer) BUN/Creatinine Ratio Glucose POC Glucose (other) 441 H* Lactate Calcium POC Ioniz Calcium Mike Phosphorus Magnesium Total Bilirubin Direct Bilirubin AST ALT Alkaline Phosphatase Troponin I NT-Pro-B Natriuret Pep Total Protein Albumin Globulin Albumin/Globulin Ratio Beta-Hydroxybutyric Acd Procalcitonin 1.30 H Urine Color Urine Appearance Urine pH Ur Specific [place] Urine Protein Urine Glucose (UA) Urine Ketones Urine Blood Urine Nitrite Urine Bilirubin Urine Urobilinogen Ur Leukocyte Esterase Urine WBC (Auto) Urine RBC (Auto) U Hyaline Cast (Auto) U Epithel Cells (Auto) Urine Bacteria (Auto) Ur Renal Epithelial Cell Urine Yeast Nasal Screen MRSA (PCR) Influenza Type A (PCR) Influenza Type B (PCR) 04/06/19 04/06/19 04/06/19 21:17 22:20 23:16 WBC RBC Hgb POC Hgb Hct POC Hct MCV MCH MCHC RDW Std Deviation RDW Coeff of Anil Plt Count MPV Immature Gran % (Auto) Neut % (Auto) Lymph % (Auto) [place] % (Auto) Eos % (Auto) Baso % (Auto) Immature Gran # (Auto) Neut # (Auto) Lymph # (Auto) [place] # (Auto) Eos # (Auto) Baso # (Auto) Absolute Nucleated RBC Nucleated RBC % (auto) Neutrophils % (Manual) Lymphocytes % (Manual) Monocytes % (Manual) Myelocytes % (Man) Neutrophils # (Manual) Total Absolute Neuts Lymphocytes # (Manual) Total Abs Lymphocytes Monocytes # (Manual) Myelocytes # (Manual) Blood Smear Review Echinocytes PT INR APTT PTT Ratio Sample Site POC pH POC pCO2 POC pO2 POC HCO3 POC Base Excess POC ABG O2 Sat Rusty Test O2 Delivery Device POC O2 Rate Minute Ventilation POC FiO2 Tidal Volume PEEP POC Sodium Sodium POC Potassium Potassium POC Chloride Chloride Carbon Dioxide POC Total CO2 Anion Gap POC Anion Gap POC BUN BUN Creatinine POC Creatinine Est Cr Clr Drug Dosing Est GFR ( Amer) Est GFR (Non-Af Amer) BUN/Creatinine Ratio Glucose POC Glucose (other) 439 H* 429 H* 415 H* Lactate Calcium POC Ioniz Calcium Mike Phosphorus Magnesium Total Bilirubin Direct Bilirubin AST ALT Alkaline Phosphatase Troponin I NT-Pro-B Natriuret Pep Total Protein Albumin Globulin Albumin/Globulin Ratio Beta-Hydroxybutyric Acd Procalcitonin Urine Color Urine Appearance Urine pH Ur Specific [place] Urine Protein Urine Glucose (UA) Urine Ketones Urine Blood Urine Nitrite Urine Bilirubin Urine Urobilinogen Ur Leukocyte Esterase Urine WBC (Auto) Urine RBC (Auto) U Hyaline Cast (Auto) U Epithel Cells (Auto) Urine Bacteria (Auto) Ur Renal Epithelial Cell Urine Yeast Nasal Screen MRSA (PCR) Influenza Type A (PCR) Influenza Type B (PCR) 04/07/19 04/07/19 04/07/19 00:14 01:32 02:26 WBC RBC Hgb POC Hgb Hct POC Hct MCV MCH MCHC RDW Std Deviation RDW Coeff of Anil Plt Count MPV Immature Gran % (Auto) Neut % (Auto) Lymph % (Auto) [place] % (Auto) Eos % (Auto) Baso % (Auto) Immature Gran # (Auto) Neut # (Auto) Lymph # (Auto) [place] # (Auto) Eos # (Auto) Baso # (Auto) Absolute Nucleated RBC Nucleated RBC % (auto) Neutrophils % (Manual) Lymphocytes % (Manual) Monocytes % (Manual) Myelocytes % (Man) Neutrophils # (Manual) Total Absolute Neuts Lymphocytes # (Manual) Total Abs Lymphocytes Monocytes # (Manual) Myelocytes # (Manual) Blood Smear Review Echinocytes PT INR APTT PTT Ratio Sample Site POC pH POC pCO2 POC pO2 POC HCO3 POC Base Excess POC ABG O2 Sat Rusty Test O2 Delivery Device POC O2 Rate Minute Ventilation POC FiO2 Tidal Volume PEEP POC Sodium Sodium POC Potassium Potassium POC Chloride Chloride Carbon Dioxide POC Total CO2 Anion Gap POC Anion Gap POC BUN BUN Creatinine POC Creatinine Est Cr Clr Drug Dosing Est GFR ( Amer) Est GFR (Non-Af Amer) BUN/Creatinine Ratio Glucose POC Glucose (other) 413 H* 400 H* 388 H* Lactate Calcium POC Ioniz Calcium Mike Phosphorus Magnesium Total Bilirubin Direct Bilirubin AST ALT Alkaline Phosphatase Troponin I NT-Pro-B Natriuret Pep Total Protein Albumin Globulin Albumin/Globulin Ratio Beta-Hydroxybutyric Acd Procalcitonin Urine Color Urine Appearance Urine pH Ur Specific [place] Urine Protein Urine Glucose (UA) Urine Ketones Urine Blood Urine Nitrite Urine Bilirubin Urine Urobilinogen Ur Leukocyte Esterase Urine WBC (Auto) Urine RBC (Auto) U Hyaline Cast (Auto) U Epithel Cells (Auto) Urine Bacteria (Auto) Ur Renal Epithelial Cell Urine Yeast Nasal Screen MRSA (PCR) Influenza Type A (PCR) Influenza Type B (PCR) 04/07/19 04/07/19 04/07/19 02:54 02:54 02:54 WBC 24.76 H RBC 4.22 Hgb 12.2 POC Hgb Hct 38.2 POC Hct MCV 90.5 MCH 28.9 MCHC 31.9 L RDW Std Deviation 50.4 H RDW Coeff of Anil 15.3 H Plt Count 216 MPV 9.8 Immature Gran % (Auto) Neut % (Auto) Lymph % (Auto) [place] % (Auto) Eos % (Auto) Baso % (Auto) Immature Gran # (Auto) Neut # (Auto) Lymph # (Auto) [place] # (Auto) Eos # (Auto) Baso # (Auto) Absolute Nucleated RBC 0.10 H Nucleated RBC % (auto) 0.4 Neutrophils % (Manual) 92.1 Lymphocytes % (Manual) 3.5 Monocytes % (Manual) 3.5 Myelocytes % (Man) 0.9 Neutrophils # (Manual) 22.80 H Total Absolute Neuts 22.80 H Lymphocytes # (Manual) 0.87 L Total Abs Lymphocytes 0.87 L Monocytes # (Manual) 0.87 H Myelocytes # (Manual) 0.22 H Blood Smear Review Echinocytes 1+ PT 16.6 H INR 1.7 H APTT 92.0 H* PTT Ratio 3.4 Sample Site POC pH POC pCO2 POC pO2 POC HCO3 POC Base Excess POC ABG O2 Sat Rusty Test O2 Delivery Device POC O2 Rate Minute Ventilation POC FiO2 Tidal Volume PEEP POC Sodium Sodium 140 POC Potassium Potassium 3.5 POC Chloride Chloride 107 Carbon Dioxide 17 L POC Total CO2 Anion Gap 16.0 H POC Anion Gap POC BUN BUN 24 H Creatinine 1.79 H POC Creatinine Est Cr Clr Drug Dosing 25.1 Est GFR ( Amer) 31.8 Est GFR (Non-Af Amer) 27.4 BUN/Creatinine Ratio 13.3 Glucose 380 H* POC Glucose (other) Lactate Calcium 6.9 L D POC Ioniz Calcium Mike Phosphorus 3.6 Magnesium 1.7 L Total Bilirubin 0.7 Direct Bilirubin 0.4 H AST 5751 H ALT 4544 H Alkaline Phosphatase 91 Troponin I 4.670 H* NT-Pro-B Natriuret Pep Total Protein 5.2 L D Albumin 2.0 L Globulin Albumin/Globulin Ratio Beta-Hydroxybutyric Acd 1.59 Procalcitonin Urine Color Urine Appearance Urine pH Ur Specific [place] Urine Protein Urine Glucose (UA) Urine Ketones Urine Blood Urine Nitrite Urine Bilirubin Urine Urobilinogen Ur Leukocyte Esterase Urine WBC (Auto) Urine RBC (Auto) U Hyaline Cast (Auto) U Epithel Cells (Auto) Urine Bacteria (Auto) Ur Renal Epithelial Cell Urine Yeast Nasal Screen MRSA (PCR) Influenza Type A (PCR) Influenza Type B (PCR) 04/07/19 04/07/19 04/07/19 02:54 02:54 03:29 WBC RBC Hgb POC Hgb Hct POC Hct MCV MCH MCHC RDW Std Deviation RDW Coeff of Anil Plt Count MPV Immature Gran % (Auto) Neut % (Auto) Lymph % (Auto) [place] % (Auto) Eos % (Auto) Baso % (Auto) Immature Gran # (Auto) Neut # (Auto) Lymph # (Auto) [place] # (Auto) Eos # (Auto) Baso # (Auto) Absolute Nucleated RBC Nucleated RBC % (auto) Neutrophils % (Manual) Lymphocytes % (Manual) Monocytes % (Manual) Myelocytes % (Man) Neutrophils # (Manual) Total Absolute Neuts Lymphocytes # (Manual) Total Abs Lymphocytes Monocytes # (Manual) Myelocytes # (Manual) Blood Smear Review Echinocytes PT INR APTT PTT Ratio Sample Site POC pH POC pCO2 POC pO2 POC HCO3 POC Base Excess POC ABG O2 Sat Rusty Test O2 Delivery Device POC O2 Rate Minute Ventilation POC FiO2 Tidal Volume PEEP POC Sodium Sodium POC Potassium Potassium POC Chloride Chloride Carbon Dioxide POC Total CO2 Anion Gap POC Anion Gap POC BUN BUN Creatinine POC Creatinine Est Cr Clr Drug Dosing Est GFR ( Amer) Est GFR (Non-Af Amer) BUN/Creatinine Ratio Glucose POC Glucose (other) 374 H* Lactate 8.8 H* Calcium POC Ioniz Calcium Mike Phosphorus Magnesium Total Bilirubin Direct Bilirubin AST ALT Alkaline Phosphatase Troponin I NT-Pro-B Natriuret Pep Total Protein Albumin Globulin Albumin/Globulin Ratio Beta-Hydroxybutyric Acd Procalcitonin 7.29 H Urine Color Urine Appearance Urine pH Ur Specific [place] Urine Protein Urine Glucose (UA) Urine Ketones Urine Blood Urine Nitrite Urine Bilirubin Urine Urobilinogen Ur Leukocyte Esterase Urine WBC (Auto) Urine RBC (Auto) U Hyaline Cast (Auto) U Epithel Cells (Auto) Urine Bacteria (Auto) Ur Renal Epithelial Cell Urine Yeast Nasal Screen MRSA (PCR) Influenza Type A (PCR) Influenza Type B (PCR) 04/07/19 04/07/19 04/07/19 04:41 05:52 05:58 WBC RBC Hgb POC Hgb Hct POC Hct MCV MCH MCHC RDW Std Deviation RDW Coeff of Anil Plt Count MPV Immature Gran % (Auto) Neut % (Auto) Lymph % (Auto) [place] % (Auto) Eos % (Auto) Baso % (Auto) Immature Gran # (Auto) Neut # (Auto) Lymph # (Auto) [place] # (Auto) Eos # (Auto) Baso # (Auto) Absolute Nucleated RBC Nucleated RBC % (auto) Neutrophils % (Manual) Lymphocytes % (Manual) Monocytes % (Manual) Myelocytes % (Man) Neutrophils # (Manual) Total Absolute Neuts Lymphocytes # (Manual) Total Abs Lymphocytes Monocytes # (Manual) Myelocytes # (Manual) Blood Smear Review Echinocytes PT INR APTT PTT Ratio Sample Site Art Line POC pH 7.29 L POC pCO2 35 POC pO2 86 POC HCO3 17 L POC Base Excess -10.0 L POC ABG O2 Sat 95.0 Rusty Test NA O2 Delivery Device Ventilator POC O2 Rate 26 Minute Ventilation 14.8 POC FiO2 30 Tidal Volume 450 PEEP 5 POC Sodium Sodium POC Potassium Potassium POC Chloride Chloride Carbon Dioxide POC Total CO2 18 L Anion Gap POC Anion Gap POC BUN BUN Creatinine POC Creatinine Est Cr Clr Drug Dosing Est GFR ( Amer) Est GFR (Non-Af Amer) BUN/Creatinine Ratio Glucose POC Glucose (other) 356 H* 345 H Lactate Calcium POC Ioniz Calcium Mike Phosphorus Magnesium Total Bilirubin Direct Bilirubin AST ALT Alkaline Phosphatase Troponin I NT-Pro-B Natriuret Pep Total Protein Albumin Globulin Albumin/Globulin Ratio Beta-Hydroxybutyric Acd Procalcitonin Urine Color Urine Appearance Urine pH Ur Specific [place] Urine Protein Urine Glucose (UA) Urine Ketones Urine Blood Urine Nitrite Urine Bilirubin Urine Urobilinogen Ur Leukocyte Esterase Urine WBC (Auto) Urine RBC (Auto) U Hyaline Cast (Auto) U Epithel Cells (Auto) Urine Bacteria (Auto) Ur Renal Epithelial Cell Urine Yeast Nasal Screen MRSA (PCR) Influenza Type A (PCR) Influenza Type B (PCR) 04/07/19 07:27 WBC RBC Hgb POC Hgb Hct POC Hct MCV MCH MCHC RDW Std Deviation RDW Coeff of Anil Plt Count MPV Immature Gran % (Auto) Neut % (Auto) Lymph % (Auto) [place] % (Auto) Eos % (Auto) Baso % (Auto) Immature Gran # (Auto) Neut # (Auto) Lymph # (Auto) [place] # (Auto) Eos # (Auto) Baso # (Auto) Absolute Nucleated RBC Nucleated RBC % (auto) Neutrophils % (Manual) Lymphocytes % (Manual) Monocytes % (Manual) Myelocytes % (Man) Neutrophils # (Manual) Total Absolute Neuts Lymphocytes # (Manual) Total Abs Lymphocytes Monocytes # (Manual) Myelocytes # (Manual) Blood Smear Review Echinocytes PT INR APTT PTT Ratio Sample Site POC pH POC pCO2 POC pO2 POC HCO3 POC Base Excess POC ABG O2 Sat Rusty Test O2 Delivery Device POC O2 Rate Minute Ventilation POC FiO2 Tidal Volume PEEP POC Sodium Sodium POC Potassium Potassium POC Chloride Chloride Carbon Dioxide POC Total CO2 Anion Gap POC Anion Gap POC BUN BUN Creatinine POC Creatinine Est Cr Clr Drug Dosing Est GFR ( Amer) Est GFR (Non-Af Amer) BUN/Creatinine Ratio Glucose POC Glucose (other) 289 H Lactate Calcium POC Ioniz Calcium Mike Phosphorus Magnesium Total Bilirubin Direct Bilirubin AST ALT Alkaline Phosphatase Troponin I NT-Pro-B Natriuret Pep Total Protein Albumin Globulin Albumin/Globulin Ratio Beta-Hydroxybutyric Acd Procalcitonin Urine Color Urine Appearance Urine pH Ur Specific [place] Urine Protein Urine Glucose (UA) Urine Ketones Urine Blood Urine Nitrite Urine Bilirubin Urine Urobilinogen Ur Leukocyte Esterase Urine WBC (Auto) Urine RBC (Auto) U Hyaline Cast (Auto) U Epithel Cells (Auto) Urine Bacteria (Auto) Ur Renal Epithelial Cell Urine Yeast Nasal Screen MRSA (PCR) Influenza Type A (PCR) Influenza Type B (PCR) Resident Activity Tracking Resident Involvement: Resident Care Provided Care Provided: Adult Hospital Medicine
--- NOTE | 2019-04-07 07:49 | XRay Report ---
XR chest 1V portable HISTORY: Shortness of breath. COMPARISON: Chest 02/26/2019. FINDINGS: Endotracheal tube terminates 4 cm from the arnoldo. Nasogastric tube terminates below the di aphragm. The tip is not included on this study. Small patchy left basilar airspace opacity is again n oted. No pneumothorax. No pleural effusions. The heart is normal in size. IMPRESSION: 1. Satisfactory support line placement. 2. No change in the left base airspace opacity. Electronically signed by: Gee Goel M.D. 04/07/2019 7:48 AM
[2019-04-07] MEDS ORDERED: OMEGA-3 (PURIFIED FISH OIL) 1 GM CAP PO SCH (09:00)
[2019-04-07] MEDS ORDERED: CYANOCOBALAMIN 500 MCG TABLET (VITAMIN B-12) PO SCH (09:00)
[2019-04-07] MEDS ORDERED: CHOLECALCIFEROL 1,000 UNITS 25 MCG TAB PO SCH (09:00)
[2019-04-07] MEDS ORDERED: AMLODIPINE BESYLATE 5 MG TAB PO SCH (09:00)
[2019-04-07] MEDS: propofoL 1,000 MG/100 ML VIAL IV SCH (10:28)
[2019-04-07] MEDS: POLYETHYLENE (MIRALAX) 17 GM PACK PO SCH (10:31)
[2019-04-07 10:55] LABS: Partial Thromboplastin Ratio 3.4
[2019-04-07] MEDS: LANSOPRAZOLE 30 MG SOLTAB NG SCH (11:10)
[2019-04-07] MEDS: DEXTROSE 50% 50 ML SYRINGE IV PRN ×2 (12:35→14:48)
--- NOTE | 2019-04-07 13:26 | Billing Data ---
Coding Level of Care Code Critical Care shoshana addt'l 30 min
--- NOTE | 2019-04-07 13:36 | Palliative Care Consultation ---
Date of Consultation April 07, 2019 Assessment & Plan (1) Goals of care, counseling/discussion: -74 year old female patient with recent diagnosis of glioblastoma multiforme s/p surgical removal of tumor at [facility], presented to the hospital with shortness of breath and LLE edema. Patient began experiencing left sided numbness/weakness back in February. She was seen in our ED and found to have abnormal head CT. She was transferred to tertiary care and underwent surgical excision of brain mass that was found to be GBM. The plan was for her to rehab and eventually get chemo and radiation. Patient went to [facility] for rehab and was reportedly doing quite well-- was regaining function of the left side. Per report, she was discharged home apparently on no anticoagulation due to just having brain surgery. She then noticed some LLE swelling, and eventually worsening SOB. Patient presented to the ED and was found to have massive PEs and later discovered to have left leg DVT. Patient unfortunately went to cardiogenic shock and suffered cardiac arrest. She was cod ed four different times and eventually did achieve ROSC. She is intubated in the ICU on epinephrine to maintain blood pressure. Echocardiogram completed this morning-- no report yet but per the certified alcohol counselor, her EF looks to be severely decreased. Prognosis is uncertain but certainly seems poor given the circumstances. Palliative care is consulted to provide supportive care to family and discuss goals. -Met with patient, her , two sons, Dr. Lindquist and Dr. Saldivar in room 107. Patient is intubated-- moving all extremities but the left arm. Unable to participate in conversation. -Patient's and sons were given extensive medical update by Dr. Lindquist. They understand that options for escalating care are limited at this point. The case was apparently discussed with [facility] over the weekend and she is not a surgical candidate. We are continuing pressors, mechanical ventilation, and heparin gtt. Waiting to see if there is improvement in cardiac function. -Patient's family remains optimistic, stated he is relying on his buddhist laya at this time and is "hoping God intervenes." The severity of the situation was portrayed to the family by ICU team. Patient's states he needs some time to consider what patient's goals/wishes would be at this point. He was not ready to make a decision about code status. -Palliative care will continue to follow. (2) Cardiac arrest: (3) Cardiogenic shock: (4) Glioblastoma: Supervising Physician Co-Signing Physician Notes Chart reviewed, patient seen and examined. Collaborated with ALFREDO Huerta Patient's and 2 sons at bedside. Patient known to me from [facility] where she was discharged from 5 days ago. PE: Patient intubated and sedated, appears comfortable Respirations: Intubated, unlabored CV: Tachycardic Abdomen: Not distended Neuro: Sedated Agree with above note, assessment and plan as per ALFREDO Huerta. Will continue to follow and assist family with medical decision making. Patient has coded 3 times since admission-plan is not to resuscitate her if she would code again. History of Present Illness Reason for Consultation: Goals of care Requesting Physician: Dr. Lindquist Attending Physician: Christian Cervantes MD History of Present Illness This 74 year old female patient with recent diagnosis of glioblastoma multiforme s/p surgical removal of tumor at [facility], presented to the hospital with shortness of breath and LLE edema. Patient began experiencing left sided numbness/weakness back in February. She was seen in our ED and found to have abnormal head CT. She was transferred to tertiary care and underwent surgical excision of brain mass that was found to be GBM. The plan was for her to rehab and eventually get chemo and radiation. Patient went to [facility] for rehab and was reportedly doing quite well-- was regaining function of the left side. Per report, she was discharged home apparently on no anticoagulation due to just having brain surgery. She then noticed some LLE swelling, and eventually worsening SOB. Patient presented to the ED and was found to have massive PEs and later discovered to have left leg DVT. Patient unfortunately went to cardiogenic shock and suffered cardiac arrest. She was coded four different times and eventually did achieve ROSC. She is intubated in the ICU on epinephrine to maintain blood pressure. Echocardiogram completed this morning-- no report yet but per the certified alcohol counselor, her EF looks to be severely decreased. Prognosis is uncertain but certainly seems poor given the circumstances. Palliative care is consulted to provide supportive care to family and discuss goals. Thank you kindly for this consult. Palliative care team will follow as needed. Allergies Allergy/AdvReac Type Severity Reaction Status Date / Time No Known Allergies Allergy Unverified 04/06/19 12:16 Home Medications Home Medications Medication Instructions Recorded Confirmed Type acetaminophen 325 mg tablet 650 mg PO Q6H PRN tab 04/02/19 04/06/19 History amlodipine 5 mg tablet 5 mg PO DAILY 04/02/19 04/06/19 History bisacodyl 10 mg rectal suppository 10 mg ME DAILY PRN 04/02/19 04/06/19 History cholecalciferol (vitamin D3) 5,000 5,000 units PO DAILY 04/02/19 04/06/19 History unit capsule docusate sodium 100 mg capsule 100 mg PO BID PRN 04/02/19 04/06/19 History enoxaparin 30 mg/0.3 mL 30 mg SQ Q12H 04/02/19 04/06/19 History subcutaneous syringe mecobalamin (vitamin B12) 1,000 1,000 mcg SL DAILY 04/02/19 04/06/19 History mcg disintegrating tablet,sublingual omega-3 fatty acids 1,000 mg 1,000 mg PO DAILY 04/02/19 04/06/19 History capsule polyethylene glycol 3350 17 17 gm PO DAILY 04/02/19 04/06/19 History gram/dose oral powder sennosides 8.6 mg-docusate sodium 1 tabcap PO DAILY PRN tab 04/02/19 04/06/19 History 50 mg tablet sodium phosphates 19 gram-7 118 ml ME DAILY PRN 04/02/19 04/06/19 History gram/118 mL enema Patient History Medical History (Updated 04/07/19 @ 13:35 by ALFREDO Mejia) Glioblastoma 03/13/19 Goals of care, counseling/discussion Hypertension No pertinent past medical history Surgical History Hx of tonsillectomy S/P craniotomy Right craniotomy for tumor resection by Dr. Manzanares at [facility] on 03/13/19 Family History Mother , 90yo Dementia Stroke Natural with unknown cause Father , 67yo Myocardial infarction Brother No problems noted. Brother No problems noted. Brother Prostate cancer Brother Myocardial infarction Sister Colitis Son No problems noted. Son No problems noted. Daughter No problems noted. 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 Feels Safe at Home: Yes Smoking Status: Never smoker Second Hand Exposure: No ; Hx Alcohol Use: No Hx Substance Use: No caffeine: Yes (Expresso 2 shots/day) during the past year weight has: decreased > 10 lbs Review of Systems Review of Systems: Unobtainable due to endotracheal tube Physical Exam Constitutional: + ill appearing ENMT: external ear and nose normal, oropharynx normal Respiratory: no respiratory distress and no labored breathing Cardiovascular: Rate/Rhythm: regular rhythm and + tachycardic Gastrointestinal (Abdomen): Percussion/Palpation: abdomen soft Skin: no rashes, warm and dry Neurologic: awake; + does not move all extremities (moving all extremities but the left arm) Results & Data Vital Signs (Past 12 Hours) Vital Signs Pulse Resp BP Pulse Ox 04/07/19 13:19 120 H 26 H 97 04/07/19 13:00 123 H 97 04/07/19 12:30 117 H 106/58 L 94 04/07/19 12:00 120 H 121/58 L 95 04/07/19 11:30 118 H 115/58 L 95 04/07/19 11:00 118 H 124/65 95 04/07/19 10:36 119 H 29 H 97 04/07/19 10:30 120 H 109/69 96 04/07/19 10:00 120 H 112/66 96 04/07/19 09:00 120 H 111/61 98 04/07/19 08:30 120 H 91/58 L 97 04/07/19 08:00 120 H 122/63 97 04/07/19 07:30 119 H 84/59 L 97 04/07/19 07:15 120 H 28 H 98 04/07/19 07:00 123 H 129/72 96 04/07/19 06:00 126 H 107/67 96 04/07/19 05:30 130 H 145/79 H 96 12/02/19 05:20 129 H 32 H 99 12/02/19 05:00 128 H 156/82 H 99 04/07/19 04:30 132 H 121/79 98 04/07/19 04:00 130 H 136/70 98 04/07/19 03:30 130 H 118/68 98 04/07/19 03:00 134 H 162/86 H 98 04/07/19 02:30 133 H 122/86 98 04/07/19 02:25 130 H 115/90 96 04/07/19 02:00 128 H 101/69 97 04/07/19 01:35 127 H 28 H 98 Time Spent Midlevel 70 minutes with >50% of the time spent at bedside with patient, family and IDT/ICU team discussing condition, GOC, and prognosis. Attending Total time spent 25 minutes in addition to this 70 minutes spent by ALFREDO Huerta for a total time of 95 minutes with greater than than 50% of the time spent at bedside providing support to patient's family
[2019-04-07] MEDS: MIDAZOLAM HCL 125 MG/250 ML BAG IV SCH (14:07)
[2019-04-07 14:23] LABS: Base Excess ABG -3.6 mEq/L (-9-1.8); HCO3 ABG 20 mmol/L (19-24); PCO2 ABG 30 mmHg (35-46); PO2 ABG 87 mm/Hg (80-95); pH ABG 7.43 (7.35-7.45)
[2019-04-07] MEDS ORDERED: PHARMACY GLYCEMIC MGMT CONSULT PRN (14:26)
--- NOTE | 2019-04-07 14:26 | Pharmacy Report ---
Pharmacy Glycemic Short Note 2 - Date of Service April 07, 2019 - Glycemic Short BSG Results (Last 24 hours): 04/06/19 04/06/19 04/06/19 17:15 20:18 21:17 Glucose POC Glucose (other) 434 H* 441 H* 439 H* 04/06/19 04/06/19 04/07/19 22:20 23:16 00:14 Glucose POC Glucose (other) 429 H* 415 H* 413 H* 04/07/19 04/07/19 04/07/19 01:32 02:26 02:54 Glucose 380 H* POC Glucose (other) 400 H* 388 H* 04/07/19 04/07/19 04/07/19 03:29 04:41 05:52 Glucose POC Glucose (other) 374 H* 356 H* 345 H 04/07/19 04/07/19 04/07/19 07:27 08:41 09:42 Glucose POC Glucose (other) 289 H 231 H 188 H 04/07/19 04/07/19 04/07/19 10:35 11:53 12:17 Glucose POC Glucose (other) 158 H 102 H 91 04/07/19 12:54 Glucose POC Glucose (other) 149 H OUTPATIENT ANTIDIABETIC REGIMEN: * N/A * A1c = ? ASSESSMENT: * Patient admitted for cardiac arrest secondary to massive PE. No prior dx of DM. * Obstructive shock, leading to ongoing hypotension and the need for inotrope/vasopressor admin in the form of epinephrine infusion * Patient remains intubated at this time * IV insulin infusion started per ICU protocol for management of hyperglycemia * IV insulin infusion remains best modality to safely control hyperglycemia in the setting of current severe stressors and epinephrine administration PLAN FOR INPATIENT GLYCEMIC CONTROL: * Continue IV insulin drip per protocol, goal range 140-180mg/dL PLAN FOR DISCHARGE: * to be determined
[2019-04-07 14:38] LABS: Allen Test Pos (Pos)
[2019-04-07 14:57] LABS: Albumin Level 1.8 gm/dl (3.4-5.0); BUN Creatinine Ratio 12.6 (10-20); Bilirubin Direct 0.3 mg/dl (0-0.2); Bilirubin,Total 0.6 mg/dl (0.2-1); Calcium 7.2 mg/dl (8.5-10.1); Creatinine Clr Calc Pharmacy 26.1 ml/min; Est GFR (African American) 32.4; Magnesium 2.1 mg/dl (1.8-2.4); Potassium 3.6 mmol/L (3.5-5.1); Total Protein 4.5 gm/dl (6.4-8.2)
[2019-04-07] MEDS ORDERED: SODIUM BICARB 8.4% INJ 50 MEQ/50 ML SYR IV ONE (15:33)
[2019-04-07] MEDS: fentaNYL citrate 100 MCG/2 ML VIAL IV PRN (18:10)
[2019-04-07 18:13] LABS: Partial Thromboplastin Ratio 2.8
[2019-04-07] MEDS: HEPARIN SODIUM/DEXTROSE 25,000 UNITS/500 ML BAG IV SCH (19:14)
[2019-04-07] MEDS: INSULIN REGULAR 250 UNITS in SODIUM CHLORIDE 0.9% 247.5 ML IV SCH (21:37)
[2019-04-08 01:08] LABS: Partial Thromboplastin Ratio 2.4
[2019-04-08 01:09] LABS: Partial Thromboplastin Time 65.1 Seconds (21.0-31.0)
[2019-04-08] MEDS: NORMOSOL-R 1,000 ML IV SCH ×3 (02:44→13:02)
[2019-04-08] MEDS: PIPERACILLIN/TAZOBACTAM 4.5 GM in DEXTROSE 5% 100 ML IV SCH ×2 (02:44→08:52)
[2019-04-08 05:00] LABS: Albumin Level 1.7 gm/dl (3.4-5.0); BUN Creatinine Ratio 10.8 (10-20); Bilirubin Direct 0.3 mg/dl (0-0.2); Calcium 6.9 mg/dl (8.5-10.1); Creatinine Clr Calc Pharmacy 21.3 ml/min; Est GFR (African American) 25.3; Est GFR (Non-African American) 21.9; Magnesium 2.1 mg/dl (1.8-2.4); Potassium 4.5 mmol/L (3.5-5.1)
[2019-04-08 05:12] LABS: Bilirubin,Total 0.8 mg/dl (0.2-1); Phosphorus 2.3 mg/dl (2.5-4.9); Total Protein 4.5 gm/dl (6.4-8.2)
[2019-04-08 05:14] LABS: iSTAT Arterial Blood Gas HCO3 20 meg/L (19-24); iSTAT Arterial Blood Gas pCO2 29 mmHg (35-46); iSTAT Arterial Blood Gas pH 7.45 (7.35-7.45); iSTAT Arterial Blood Gas pO2 85 mmHg (80-95); iSTAT Carbon Dioxide 21 mEq/l (24-31); iSTAT FiO2 30 %; iSTAT Site Art Line
[2019-04-08] MEDS ORDERED: SODIUM PHOSPHATE 3 MMOL/1 ML INFUSION IV STA (05:17)
[2019-04-08 05:32] LABS: Basophils # (auto) 0.02 K/uL (0-0.2); Basophils % (auto) 0.1 %; Hemoglobin 9.7 g/dL (12.0-16.0); Immature Granulocytes # (auto) 0.11 K/uL (0.00-0.02); Immature Granulocytes % (auto) 0.7 %; Lymphocytes # (auto) 1.91 K/uL (1.2-3.4); Lymphocytes % (auto) 11.4 %; Mean Corpuscular Hemoglobin 28.8 pg (25-34); Mean Corpuscular Hgb Conc 33.4 g/dL (32-36); Mean Corpuscular Volume 86.1 fL (80-100); Monocytes # (auto) 1.12 K/uL (0.11-0.59); Monocytes % (auto) 6.7 %; Neutrophils # (auto) 13.61 K/uL (1.4-6.5); Neutrophils % (auto) 81.1 %; Nucleated RBC # (auto) 0.16 K/uL (0-0); Nucleated RBC % (auto) 0.9 %; Platelet Count 160 K/uL (130-400); RDW Coefficient of Variation 15.5 % (11.5-14.5); RDW Standard Deviation 49.2 fL (36.4-46.3); Red Blood Count 3.37 M/uL (4.2-5.4); White Blood Count 16.77 K/uL (4.8-10.8)
[2019-04-08] MEDS ORDERED: SODIUM PHOSPHATE 15 MMOL in SODIUM CHLORIDE 0.9% 250 ML IV ONE (06:00)
--- NOTE | 2019-04-08 06:29 | Critical Care Progress Note ---
Date of Service April 08, 2019 Assessment & Plan (1) Admitted to intensive care unit: Reason Critically Ill: 74-year-old female here with a PMHx significant for glioblastoma, HTN, cardiac rrest, and massive PE who presented with a feeling of unwellness and who was admitted for massive PE. She sustained 3x cardiac PEA arrests with ROSC prior to admission to the ICU. Goals of Care: Changed to full code. See Supplemental Nt Neuro - CAM ICU: POSITIVE ETT in place Sedation: propofol discontinued Analgesia: Fentanyl 50mg Q15M prn Glioblastoma Multiforme Stage IV s/p craniotomy with tumor resection 03/13/[address] Manzanares [facility] [place] - No further surgical or chemotherapeutic intervention indicated Cardiac - Cardiogenic shock 2/2 PE - PE treatment as below - Epinephrine weaned to 0.015. Map >65 - TTE hyperdynamic EF >70% with RV dilation and wall motion dysfunction - Repeat troponin, uptrended to 4.6 - Prior BNP 49817 Respiratory Acute Massive PE with multiorgan system failure - With extensive R PA thrombus - Heparin gtt - No TPA or thrombectomy/surgical intervention. Case was discussed over the weekend with Zuri and Rasheed who feel she is not a surgical candidate, and TPA was contraindicated due to the patients recent neurosurgical procedure. - She shows evidence of right heart strain. Her massive PE with worsening renal function, uptrending troponin, and transaminitis indicates multiorgan involvement with poor prognosis. - ABG 7.45/29/85/20 on ACVC 24/450cc/5peep/40% - XR similar to prior, mild decreasing of L basilar opacity GI - Transaminitis 2/2 shock liver - AST 1897, ALT 3000, downtrending. 2/2 shock liver in the setting of cardiac arrest - CMP daily, repeat lactate pending - NPO diet Nutrition - IVFM: Normosol 80cc/hr - Trophic feeds RENAL/LYTES - No sodium or potassium derangement - Electrolyte protocol, replace lytes as needed. - No concerns at this time. ENDO - No history of T2DM, BSG 380 on admit - HgbA1C - ICU hyperglycemic protocol - GSB ~100s HEME - - Hgb 9.7 - CBC daily - No signs of bleeding on clinical exam ID - - Afebrile - BC, Sputum culture ngtd - Monitor fever curve. - Low suspicion for infectious process - D/c Pip-Tazo, defer rocephin at this time INTEGUMENTARY - No acute concerns LINES/IV ACCESS - PIVs intact. DVT PROPHYLAXIS - Heparin gtt. Thank you for allowing us to be part of this patient's care. Please refer to Dr. Lindquist's documentation for any further recommendations. Supervising Physician Co-Signing Physician Notes Dr. Louis was resident physician during care of patient. I separately evaluated patient for jimenez portions of the history and the exam. I was present during the critical portion of medical decision making, and I discussed the case with the resident. I generally agree with the findings and plan. Patient's vasoactive medication requirement has decreased, despite this she has required greater than 48 hours of continuous epinephrine vasoactive support. The patient's oxygen requirement has decreased I have reviewed the chest x-ray. The patient's renal function continues to climb, we discussed the possible need of dialysis within the next 24 to 48 hours. She is able to move her right upper extremity towards the endotracheal tube which I am considering to be noxious stimuli, I have not seen any movement in the left side. We have discontinued the Zosyn which was coverage for aspiration pneumonia, I suspect the patient was most likely experiencing aspiration pneumonitis, given the worsening renal function and lack of systemic signs of infection and decreasing oxygen requirement I feel it is most prudent to discontinue antibiotics at this time. I reviewed the patient's vital sign history from presentation, her pulse ox demonstrated significant hypoxia on April 06. In review of the cardiac arrest sheets the patient initially coded for approximately 15 minutes until there was return of spontaneous circulation from the time of arrest until intubation was 9 minutes. She subsequently suffered 2 more PEA arrests the last of which lasted approximately 19 minutes during that time the patient's oxygen saturations were in the low 80s and into the 70s for approximately 15 minutes. Neuro prognostication will certainly be difficult, the patient had a pre- existing brain injury from the recent surgery she was still recovering from. The patient had several losses of cerebral perfusion pressure during episodes of PEA which were likely caused by hypoxia and or acute cor pulmonale from profound right ventricular overload/right ventricular failure. Conservative estimates would give at least 25 minutes of significant hypoxemia. She also showed signs of shock liver and probable acute tubular necrosis. While neuro prognostication may be difficult, it is readily established that the patient's recovery trajectory is significantly decreased from what was possible after her discharge from the acute rehab facility. In best case scenario she exhibits signs of type 4 pulmonary hypertension and will require aggressive pulmonary rehab compounding this will be the need for aggressive neuromuscular rehab secondary to her recent surgery. She is already been ruled out as a candidate for pulmonary thromboendarterectomy as well as catheter directed thrombolysis. Given the neuromuscular injury and findings of the right ventricular dilatation I strongly believe the patient will be largely bedbound and unable to participate in significant physical therapy and Occupational Therapy that would allow her to return to an independent functional ambulatory status. This appears to be the goal upon discharge from the rehabilitation facility, without significant caregiver assistance this would likely preclude her ability to live independently in a private residence. Accordingly I feel that the patient is in end-stage medical condition without chance of meaningful recovery when meaningful recovery as defined as being able to live independently and participate in the activities of daily living. If the family were to proceed with comfort measures and allow the natural dying process to continue (we are certainly providing her life-sustaining treatment at this time) I would be agreeable with this. Subjective History limited by congnitive status and ETT tube. Overnight events: Pt weaned to epi 0.015, maintinaing adequate hyemodynamics but with worsening renal function. No family at beside at time of morning visit. Addendum: See supplemental note for CODE STATUS discussion Review of Systems Review of Systems: Unobtainable due to endotracheal tube Physical Exam Physical Exam: General: ETT in place. Sedated. NAD. Does not withdraw to nail pinch of the R or L thumb. HEENT: Normocephalic. Pupils responsive to light and equal, not tracking at time of visit. Nonicteric. Pulm: On ventilator, trace crackles at bases bilaterally otherwise globally clear to auscultation Cardiac: Tachycardic, regular -mrg. Radial pulses intact and symmetrical. Abdominal: Nontender, nondistended, soft. BS present. Extremity: No spontaneous movement. PT pulses not appreciable on palpation, intact to Doppler. Extremities warm, dry. Cap refill in thumb 2-3 seconds, hallux 3-4 seconds bilaterally. Results & Data Vital Signs (Past 12 Hours) Vital Signs Pulse Resp BP Pulse Ox 04/08/19 05:03 122 H 27 H 95 04/08/19 03:52 122 H 27 H 97 04/08/19 03:01 129 H 124/83 96 04/08/19 03:00 130 H 93 04/08/19 02:30 122 H 122/56 L 98 04/08/19 02:00 122 H 111/57 L 98 04/08/19 01:30 123 H 105/54 L 98 04/08/19 01:00 123 H 101/54 L 98 04/08/19 00:30 127 H 132/71 98 04/08/19 00:00 123 H 26 H 119/57 L 97 04/07/19 23:30 120 H 87/47 L 96 04/07/19 23:00 124 H 89/48 L 97 04/07/19 22:30 133 H 156/72 H 97 04/07/19 22:00 132 H 130/67 97 04/07/19 21:30 126 H 117/71 97 04/07/19 21:00 122 H 118/54 L 96 04/07/19 20:30 120 H 119/57 L 96 04/07/19 20:00 118 H 90/49 L 95 04/07/19 19:50 122 H 94 04/07/19 19:45 120 H 26 H 94 04/07/19 19:40 120 H 96 04/07/19 19:30 120 H 97/48 L 93 04/07/19 19:20 118 H 92 04/07/19 19:10 116 H 92 04/07/19 19:01 120 H 94 04/07/19 19:00 121 H 91/45 L 94 04/07/19 18:50 121 H 92 04/07/19 18:40 122 H 92 04/07/19 18:30 124 H 67/39 L 90 Critical Care Time Critical Care Time: Yes Total Critical Care Time: 85 I have personally spent 85 minutes of critical care time in the direct management of this patient. This is a life/limb threatening event. This includes time spent evaluating patient, direct bedside care, chart review, placing orders, interpretation of diagnostic studies, discussion with consultants, patient, and/or family members regarding treatment decisions, as well as other required patient management activities. This time is exclusive of all separately billable procedures, and teaching time and separate from and in addition to any other critical care service time. Resident Activity Tracking Resident Involvement: Resident Care Provided Care Provided: Adult [facility] Medicine
--- NOTE | 2019-04-08 06:48 | Hospitalist Progress Note ---
Date of Service April 08, 2019 Assessment & Plan (1) Cardiogenic shock: - Currently in ICU with grim prognosis - ICU team had discussion with family today who previously made decision for DNR/DNI but without plan to withdraw care and would like to continue care plan. Today family reversed decision and reverted to full code - Cause was most likely pulmonary embolism - Echocardiogram performed today at bedside which showed * Hyperdynamic LV, moderately dilated RV, mild-mod reduced RV systolic, mildy dilated RA, mild aortic regurg, mild mitral annular calcification, RV systolic pressure normal, IVC mildly dilated. 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 - Pressor support as deemed necessary per ICU team - currently endotracheal intubation with management per ICU specialists (2) Lactic acidosis: - result from cardiogenic shock and hypoperfusion of tissues - metabolic acidosis - initial value 14.7 lactate, trended down (3) Pulmonary embolism: - Large right lung pulmonary embolus with suspected mild right ventricular strain seen on CTA - not a candidate for TPA on presentation as recent brain surgery for glioblastoma - currently treating with heparin - continuous pulse ox - endotracheal intubation managed by ICU team - cancer causing hypercoaguable state (4) Cardiac arrest: - occurred in ED yesterday during workup - Had CPR performed with ROS (5) Glioblastoma: - Review of records shows that on 02/26 MRI Brain showing 5.7 cm intra- axial mass in the right frontoparietal region highly concerning for a primary malignancy, namely glioblastoma multiforme - Had recent surgical resection 03/13/19; with noted prior plan for chemotherapy and radiation per EMR note review - Had LUE weakness/numbness from mass - Head CT performed in ED showed right-sided pneumocephalus, likely postsurgical. There is also trace fluid subjacent to the craniotomy flap, likely postsurgical. There is a 5 cm hypodense right frontal mass, likely representing a necrotic neoplasm. However, once additional history given as status post a complete resection of the patient's frontal lobe neoplasm. The right frontal lobe mass described, therefore likely represents a postsurgical biopsy cavity. Surveillance with MRI scanning would be the best test to evaluate for residual/recurrent tumor. (6) Hypertension: Prior history of, not current focus as actually requiring pressure support holding home anti-hypertensives (7) Acute kidney injury: Most likely from tissue hypoperfusion from cardiogenic shock IVF Normosol @ 80mls/hr (8) Aspiration pneumonia: Treating with Zosyn Per chest CTA Multifocal left lung airspace opacities. Likely diagnostic considerations include multifocal pneumonia versus aspiration. Clinical and imaging follow-up is recommended (9) Acute cor pulmonale: (10) Venous thromboembolism: Heparin and hypercoaguable state as above (11) Deep vein thrombosis (DVT) of popliteal vein of left lower extremity: Heparin and hypercoaguable state as above DVT US Showed 1. There is occlusive deep venous thrombosis identified in the left popliteal vein which extends into the calf vessels. 2. There is nonocclusive deep venous thrombosis identified within the right calf in the peroneal vein. (12) Deep venous thrombosis (DVT) of right peroneal vein: Heparin and hypercoaguable state as above (13) DNR (do not resuscitate): Changed from full code today per ICU specialists discussions with family Supervising Physician Co-Signing Physician Notes Attending attestation Pt seen and examined in concert with Dr. Jung. In agreement with the documented findings as noted in the resident documentation with any exceptions or additions as noted here. Unresponsive sedated on vent. On examination, S1/S2 nl, tachycardic. Rhonchorous breath sounds throughout on vent. Cardiogenic shock in the setting of large pulmonary embolism - porter baggage care appreciated. ETT. Pressors. echocardiogram completed. Heparin drip. h/o glioblastoma s/p resection, rad/chemo - residual weakness, for PT/OT should circumstances permit Aspiration pneumonia - continue zosyn HTN - pressor support KATHY - continue fluid support VTE - heparin drip Continue goals of care conversations. Else see resident documentation as noted. Subjective Caveat: History Limited by Endotracheal Intubation No acute events overnight. Discussed with resident physician, currently still requiring pressors but with hopes to wean today. No family at bedside this AM. Review of Systems Review of Systems: Unobtainable due to endotracheal tube Physical Exam Constitutional: WD/WN, vitals as above Neck: normal visual inspection and trachea midline Respiratory: coarse breath sounds bilaterally; mechanical ventiliation Cardiovascular: Rate/Rhythm: regular rhythm and + tachycardic Gastrointestinal (Abdomen): Percussion/Palpation: abdomen soft Skin: no rashes, warm and dry Results & Data Vital Signs (Past 12 Hours) Vital Signs Pulse Resp BP Pulse Ox 04/08/19 05:03 122 H 27 H 95 04/08/19 03:52 122 H 27 H 97 04/08/19 03:01 129 H 124/83 96 04/08/19 03:00 130 H 93 04/08/19 02:30 122 H 122/56 L 98 04/08/19 02:00 122 H 111/57 L 98 04/08/19 01:30 123 H 105/54 L 98 04/08/19 01:00 123 H 101/54 L 98 04/08/19 00:30 127 H 132/71 98 04/08/19 00:00 123 H 26 H 119/57 L 97 04/07/19 23:30 120 H 87/47 L 96 04/07/19 23:00 124 H 89/48 L 97 04/07/19 22:30 133 H 156/72 H 97 04/07/19 22:00 132 H 130/67 97 04/07/19 21:30 126 H 117/71 97 04/07/19 21:00 122 H 118/54 L 96 04/07/19 20:30 120 H 119/57 L 96 04/07/19 20:00 118 H 90/49 L 95 04/07/19 19:50 122 H 94 04/07/19 19:45 120 H 26 H 94 04/07/19 19:40 120 H 96 04/07/19 19:30 120 H 97/48 L 93 04/07/19 19:20 118 H 92 04/07/19 19:10 116 H 92 04/07/19 19:01 120 H 94 04/07/19 19:00 121 H 91/45 L 94 04/07/19 18:50 121 H 92 Resident Activity Tracking Resident Involvement: Resident Care Provided Care Provided: Adult Hospital Medicine
--- NOTE | 2019-04-08 07:35 | XRay Report ---
XR chest 1V portable HISTORY: Shortness of breath. Follow-up. COMPARISON: Chest 04/07/2019. FINDINGS: Endotracheal tube terminates approximately 3.2 cm from the arnoldo. Nasogastric tube termina medina below the diaphragm. The tip is not included on this study. The left basilar airspace opacity has improved.. No evidence for pulmonary edema. The heart is normal in size. No pneumothorax. No pleural effusions. IMPRESSION: 1. Satisfactory support line placement. 2. The left basilar airspace opacity has improved. Electronically signed by: Gee Goel M.D. 04/08/2019 7:33 AM
[2019-04-08] MEDS: POLYETHYLENE (MIRALAX) 17 GM PACK PO SCH (07:54)
[2019-04-08] MEDS: INSULIN ASPART 100 UNITS/ML 3 ML PEN SC SCH ×4 (08:09→21:35)
[2019-04-08] MEDS: LANSOPRAZOLE 30 MG SOLTAB NG SCH (08:52)
--- NOTE | 2019-04-08 11:54 | Communication Note ---
Date of Service: April 08, 2019 Time: 11:35 AM Patient's requested meeting to discuss CODE STATUS. He has had outside discussions overnight with a family friend who is a physician student assistant, as a result of that discussion he feels that he does not have enough information to continue Yulissa's CODE STATUS as DNR, and has been advised by the PA that she has a meaningful chance of reabsorbing the clots in her lung and recovering. Yulissa's over poor prognosis and improving pressor requirements but worsening kidney function likely representing multisystem organ failure was discussed. He feels that he feels this is a test of laya, and does not wish to discuss medical information further at this time. He requests Yulissa to be made full code and to defer further discussion regarding her condition and care until tomorrow. He states that more family and friends will be present tomorrow as well, and he may feel more comfortable revisiting her condition at that time. Discussed with attending agricultural and forestry supervisor, CODE STATUS updated to full code. After the update, I discussed this with the patient's and the patient's younger son was also present with Dr. Louis and myself. The patient's CODE STATUS has been updated to reflect full resuscitative efforts in event of cardiac arrest. Resident Activity Tracking Resident Involvement: Resident Care Provided Care Provided: Adult [facility]
[2019-04-08] MEDS: HEPARIN SODIUM/DEXTROSE 25,000 UNITS/500 ML BAG IV SCH (13:01)
[2019-04-08] MEDS: MIDAZOLAM HCL 125 MG/250 ML BAG IV SCH (13:02)
[2019-04-08] MEDS: fentaNYL citrate 100 MCG/2 ML VIAL IV PRN (13:03)
[2019-04-08] MEDS: ACETAMINOPHEN 325 MG TAB PO PRN (13:03)
[2019-04-08] MEDS: IMPACT LIQD 1.0 CAL 1,000 ML BAG OG SCH (13:05)
--- NOTE | 2019-04-08 14:26 | Pharmacy Report ---
Pharmacy Glycemic Short Note 2 - Date of Service April 08, 2019 - Glycemic Short BSG Results (Last 24 hours): 04/07/19 04/07/19 04/07/19 14:04 14:07 14:41 Glucose 92 POC Glucose POC Glucose (other) 92 79 04/07/19 04/07/19 04/07/19 15:28 16:40 17:21 Glucose POC Glucose 87 POC Glucose (other) 87 92 04/07/19 04/07/19 04/07/19 18:26 19:36 20:31 Glucose POC Glucose 90 POC Glucose (other) 95 104 H 04/07/19 04/07/19 04/08/19 21:31 23:27 01:42 Glucose POC Glucose POC Glucose (other) 108 H 100 H 98 04/08/19 04/08/19 04/08/19 04:20 05:47 08:15 Glucose 99 POC Glucose POC Glucose (other) 96 109 H 04/08/19 12:59 Glucose POC Glucose 106 H POC Glucose (other) OUTPATIENT ANTIDIABETIC REGIMEN: * N/A * A1c = ? ASSESSMENT: 04/08 * Significant changes over last 24 hrs: Propofol sedation converted to Versed gtt, epinephrine drip weaned off, insulin drip weaned off, trickle tube feeds to begin today, renal fxn continues to worsen. * Will dc insulin drip order and begin Novolog SQ Q 4 hrs using weight and moderate-severe stress level for correctional insulin. * Fasting BSGs in the 90's-100's, therefore no basal insulin at this time * Will add A1c to next lab draw. If elevated, may need to add prandial insulin coverage. 04/07 * Patient admitted for cardiac arrest secondary to massive PE. No prior dx of DM. * Obstructive shock, leading to ongoing hypotension and the need for inotrope/vasopressor admin in the form of epinephrine infusion * Patient remains intubated at this time * IV insulin infusion started per ICU protocol for management of hyperglycemia * IV insulin infusion remains best modality to safely control hyperglycemia in the setting of current severe stressors and epinephrine administration PLAN FOR INPATIENT GLYCEMIC CONTROL: * A1c with next lab draw * Basal insulin: none at this time. * Novolog SQ Q 4 hrs * Goal range: 120-150 * Correction factor: 25mg/dL/unit * Prandial insulin: none at this time PLAN FOR DISCHARGE: * to be determined
[2019-04-08 14:41] LABS: Estimated Average Glucose 114 mg/dl; Hemoglobin A1C 5.6 % (4.5-5.6)
[2019-04-08 14:56] LABS: Partial Thromboplastin Ratio 2.1
[2019-04-08 15:12] LABS: BUN Creatinine Ratio 10.7 (10-20); Calcium 7.1 mg/dl (8.5-10.1); Est GFR (Non-African American) 19.8; Phosphorus 4.6 mg/dl (2.5-4.9); Potassium 4.4 mmol/L (3.5-5.1); Troponin I 1.05 ng/ml (0-0.045)
[2019-04-08 15:14] LABS: Partial Thromboplastin Time 56.2 Seconds (21.0-31.0)
[2019-04-08 15:52] LABS: iSTAT Arterial Blood Gas HCO3 10 meg/L (19-24); iSTAT Arterial Blood Gas pCO2 64 mmHg (35-46); iSTAT Arterial Blood Gas pH 6.81 (7.35-7.45); iSTAT Arterial Blood Gas pO2 93 mmHg (80-95); iSTAT Carbon Dioxide 12 mEq/l (24-31)
[2019-04-08 15:53] LABS: iSTAT Sample Type Arterial
[2019-04-08 15:54] LABS: iSTAT Art Bld Gas pCO2 Correct 73 mmHg (35-46); iSTAT Arterial Blood Gas HCO3 19 meg/L (19-24); iSTAT Arterial Blood Gas pCO2 73 mmHg (35-46); iSTAT Arterial Blood Gas pH 7.01 (7.35-7.45); iSTAT Arterial Blood Gas pO2 157 mmHg (80-95); iSTAT Carbon Dioxide 21 mEq/l (24-31)
[2019-04-08 15:55] LABS: iSTAT Sample Type Arterial
[2019-04-08 16:00] LABS: iSTAT Arterial Blood Gas pH 7.13 (7.35-7.45)
[2019-04-08 16:01] LABS: iSTAT Arterial Blood Gas HCO3 16 meg/L (19-24); iSTAT Arterial Blood Gas pCO2 49 mmHg (35-46); iSTAT Arterial Blood Gas pO2 151 mmHg (80-95); iSTAT Carbon Dioxide 18 mEq/l (24-31); iSTAT Sample Type Arterial
--- NOTE | 2019-04-08 16:59 | Palliative Care Progress Note ---
Date of Service April 08, 2019 Assessment & Plan (1) Goals of care, counseling/discussion: -74 year old female patient with recent diagnosis of glioblastoma multiforme s/p surgical removal of tumor at [facility], presented to the hospital with shortness of breath and LLE edema. Patient began experiencing left sided numbness/weakness back in February. She was seen in our ED and found to have abnormal head CT. She was transferred to tertiary care and underwent surgical excision of brain mass that was found to be GBM. The plan was for her to rehab and eventually get chemo and radiation. Patient went to [facility] for rehab and was reportedly doing quite well-- was regaining function of the left side. Patient had some improvement in her left hemiparesis-however her hand/barrel brander strength never improved. Patient was on prophylactic Lovenox during her stay at rehab, this was discontinued when she became ambulatory. She was to follow-up with neurosurgery and oncology to determine if she would require AC therapy. she was discharged home on no anticoagulation due to just having brain surgery. She then noticed some LLE swelling, and eventually worsening SOB. Patient presented to the ED and was found to have massive PEs and later discovered to have left leg DVT. Patient unfortunately went to cardiogenic shock and suffered cardiac arrest. She was coded four different times and eventually did achieve ROSC. She is intubated in the ICU on epinephrine to maintain blood pressure. Echocardiogram completed this morning-- no report yet but per the environmental remediation specialist, her EF looks to be severely decreased. Prognosis is uncertain but certainly seems poor given the circumstances. Palliative care is consulted to provide supportive care to family and discuss goals. -Cardiac arrest x3-patient had been made a DNR- now rescinding that order and wishes to have her a full code -Cardiogenic shock with [employer] system organ failure-continue supportive care -Glioblastoma-status post resection-patient was scheduled to start XRT -Palliative care will continue to follow. (2) Cardiac arrest: (3) Cardiogenic shock: (4) Glioblastoma: Subjective Patient seen and examined-patient's eldest son at bedside. Patient remains intubated and sedated, patient did attempt to remove her ET tube when sedation decreased. Patient has been weaned off her epi-however her blood pressures continue to be low at this time. Patient's not at bedside, struggling with patient's recent events-has changed her CODE STATUS back to full code. Review of Systems Review of Systems: Unobtainable due to cognitive status and Unobtainable due to endotracheal tube Physical Exam Physical Exam: PE: Patient intubated and sedated, appears comfortable Respiratory: Good air movement bilaterally CV: Tachycardic Abdomen: Soft, not distended Extremities: Good perfusion Neuro: Sedated Results & Data Vital Signs (Past 12 Hours) Vital Signs Pulse Resp BP Pulse Ox 04/08/19 15:59 120 H 24 98 04/08/19 14:01 113 H 24 97 04/08/19 14:00 113 H 98/58 L 98 04/08/19 13:00 114 H 143/73 H 99 04/08/19 12:00 114 H 133/66 99 04/08/19 11:01 124 H 31 H 98 04/08/19 11:00 118 H 127/72 99 04/08/19 10:00 116 H 108/69 99 04/08/19 09:00 115 H 114/62 99 04/08/19 08:30 126 H 115/78 98 04/08/19 08:00 120 H 134/109 H 99 04/08/19 07:47 129 H 32 H 98 04/08/19 07:01 126 H 149/68 H 99 04/08/19 07:00 123 H 98 04/08/19 05:03 122 H 27 H 95 PG Care Time/CCT Total # of Minutes Spent Total Time Spent with Patient: Total time spent is greater than 50% in coordination of care (as documented) at patient's floor/unit and/or counseling patient: Time Spent Attending Total time spent 35 minutes with greater than 50% of the time spent at bedside providing support and discussing goals of care with patient's son at bedside.
[2019-04-09] MEDS: INSULIN ASPART 100 UNITS/ML 3 ML PEN SC SCH ×5 (01:43→17:53)
[2019-04-09] MEDS: NORMOSOL-R 1,000 ML IV SCH (01:43)
[2019-04-09 04:40] LABS: Basophils # (auto) 0.01 K/uL (0-0.2); Basophils % (auto) 0.1 %; Eosinophils # (auto) 0.04 K/uL (0-0.5); Eosinophils % (auto) 0.3 %; Hematocrit (blood only) 28.6 % (37-47); Hemoglobin 9.5 g/dL (12.0-16.0); Immature Granulocytes # (auto) 0.15 K/uL (0.00-0.02); Lymphocytes # (auto) 1.61 K/uL (1.2-3.4); Lymphocytes % (auto) 10.9 %; Mean Corpuscular Hemoglobin 28.5 pg (25-34); Mean Corpuscular Hgb Conc 33.2 g/dL (32-36); Mean Corpuscular Volume 85.9 fL (80-100); Mean Platelet Volume 10.5 fL (7.4-10.4); Monocytes # (auto) 0.81 K/uL (0.11-0.59); Monocytes % (auto) 5.5 %; Neutrophils # (auto) 12.18 K/uL (1.4-6.5); Neutrophils % (auto) 82.2 %; Nucleated RBC # (auto) 0.16 K/uL (0-0); Platelet Count 158 K/uL (130-400); RDW Coefficient of Variation 15.8 % (11.5-14.5); RDW Standard Deviation 49.9 fL (36.4-46.3); Red Blood Count 3.33 M/uL (4.2-5.4)
[2019-04-09 05:02] LABS: INR 1.2 (0.9-1.1); Partial Thromboplastin Ratio 1.8; Prothrombin Time 12.1 Seconds (9.0-12.0)
[2019-04-09 05:09] LABS: Albumin Level 1.6 gm/dl (3.4-5.0); BUN Creatinine Ratio 11.1 (10-20); Bilirubin Direct 0.3 mg/dl (0-0.2); Creatinine Clr Calc Pharmacy 17.7 ml/min; Est GFR (African American) 19.9; Est GFR (Non-African American) 17.1; Magnesium 2.3 mg/dl (1.8-2.4); Potassium 4.1 mmol/L (3.5-5.1)
[2019-04-09 05:10] LABS: Partial Thromboplastin Time 49.7 Seconds (21.0-31.0)
[2019-04-09 05:17] LABS: Bilirubin,Total 0.7 mg/dl (0.2-1); Phosphorus 4.6 mg/dl (2.5-4.9); Total Protein 4.7 gm/dl (6.4-8.2)
[2019-04-09 06:13] LABS: iSTAT Arterial Blood Gas HCO3 24 meg/L (19-24); iSTAT Arterial Blood Gas pCO2 33 mmHg (35-46); iSTAT Arterial Blood Gas pH 7.47 (7.35-7.45); iSTAT Arterial Blood Gas pO2 310 mmHg (80-95); iSTAT Carbon Dioxide 25 mEq/l (24-31); iSTAT FiO2 30 %; iSTAT Site Art Line
[2019-04-09] MEDS: POLYETHYLENE (MIRALAX) 17 GM PACK PO SCH (06:57)
--- NOTE | 2019-04-09 07:11 | XRay Report ---
XR chest 1V portable CLINICAL HISTORY: f/u dyspnea COMPARISON STUDY: 04/08/2019 FINDINGS: Endotracheal tube 2.5 cm above the arnoldo. Unchanged left basilar parenchymal infiltrate. L ungs otherwise appear clear. Diaphragms are smooth. IMPRESSION: Unchanged left basilar infiltrate. Endotracheal tube 2.5 cm above the arnoldo. The above report was generated using voice recognition software. It may contain grammatical, syntax or spelling errors. Electronically signed by: Lamont Connors M.D. 04/09/2019 7:10 AM
--- NOTE | 2019-04-09 07:35 | Hospitalist Progress Note ---
Date of Service April 09, 2019 Assessment & Plan (1) Cardiogenic shock: - Currently in ICU with grim prognosis - ICU team had discussion with family today who previously made decision for DNR/DNI but without plan to withdraw care and would like to continue care plan. Family reversed decision and reverted to full code - Cause was most likely pulmonary embolism - Echocardiogram performed today at bedside which showed * Hyperdynamic LV, moderately dilated RV, mild-mod reduced RV systolic, mildy dilated RA, mild aortic regurg, mild mitral annular calcification, RV systolic pressure normal, IVC mildly dilated. - monitoring analyst - Pressor support as deemed necessary per ICU team - currently endotracheal intubation with management per ICU specialists (2) Lactic acidosis: - result from cardiogenic shock and hypoperfusion of tissues - metabolic acidosis - initial value 14.7 lactate, trended down (3) Pulmonary embolism: - Large right lung pulmonary embolus with suspected mild right ventricular strain seen on CTA - not a candidate for TPA on presentation as recent brain surgery for glioblastoma - currently treating with heparin - continuous pulse ox - endotracheal intubation managed by ICU team - cancer causing hypercoaguable state (4) Cardiac arrest: - occurred in ED yesterday during workup - Had CPR performed with ROSC (5) Glioblastoma: - Review of records shows that on 02/26 MRI Brain showing 5.7 cm intra- axial mass in the right frontoparietal region highly concerning for a primary malignancy, namely glioblastoma multiforme - Had recent surgical resection 03/13/19; with noted prior plan for chemotherapy and radiation per EMR note review - Had LUE weakness/numbness from mass - Head CT performed in ED showed right-sided pneumocephalus, likely postsurgical. There is also trace fluid subjacent to the craniotomy flap, likely postsurgical. There is a 5 cm hypodense right frontal mass, likely representing a necrotic neoplasm. However, once additional history given as status post a complete resection of the patient's frontal lobe neoplasm. The right frontal lobe mass described, therefore likely represents a postsurgical biopsy cavity. Surveillance with MRI scanning would be the best test to evaluate for residual/recurrent tumor. (6) Hypertension: Prior history of, not current focus as actually requiring pressure support holding home anti-hypertensives (7) Acute kidney injury: Most likely from tissue hypoperfusion from cardiogenic shock IVF Normosol @ 80mls/hr (8) Aspiration pneumonia: Treating with Zosyn Per chest CTA Multifocal left lung airspace opacities. Likely diagnostic considerations include multifocal pneumonia versus aspiration. Clinical and imaging follow-up is recommended (9) Acute cor pulmonale: (10) Venous thromboembolism: Heparin and hypercoaguable state as above (11) Deep vein thrombosis (DVT) of popliteal vein of left lower extremity: Heparin and hypercoaguable state as above DVT US Showed 1. There is occlusive deep venous thrombosis identified in the left popliteal vein which extends into the calf vessels. 2. There is nonocclusive deep venous thrombosis identified within the right calf in the peroneal vein. (12) Deep venous thrombosis (DVT) of right peroneal vein: Heparin and hypercoaguable state as above (13) DNR (do not resuscitate): Changed from full code today per ICU specialists discussions with family Supervising Physician Co-Signing Physician Notes Attending attestation Pt seen and examined in concert with Dr. Jung. In agreement with the docum ented findings as noted in the resident documentation with any exceptions or additions as noted here. Unresponsive sedated on vent. On examination, S1/S2 nl, tachycardic. Unchanged rhonchorous breath sounds throughout on vent. Cardiogenic shock in the setting of large pulmonary embolism - cnc lathe programmer care appreciated. ETT. Pressors. echocardiogram completed. Heparin drip. Goals of care conversation w/ family pending on Sunday. h/o glioblastoma s/p resection, rad/chemo - residual weakness, for PT/OT should circumstances permit Suspect neurogenic fevers - off pip/tazo and will follow O2 requirements and status, follow blood cultures HTN - pressor support KATHY - continue fluid support VTE - heparin drip Else see resident documentation as noted. Subjective Caveat: History Limited by Endotracheal Intubation No acute events overnight. Not currently on pressors, still Full Code status. No family at bedside this AM. Physical Exam Constitutional: WD/WN, vitals as above Neck: normal visual inspection and trachea midline Respiratory: normal respiratory effort, lungs clear to auscultation Cardiovascular: Rate/Rhythm: regular rhythm and + tachycardic Extremities: + edema Gastrointestinal (Abdomen): Percussion/Palpation: abdomen soft Skin: no rashes, warm and dry Results & Data Vital Signs (Past 12 Hours) Vital Signs Temp Pulse Pulse Resp BP BP Pulse Ox 04/09/19 04:00 37.9 C H 119 H 20 138/58 L 141/70 H 97 04/09/19 03:50 110 H 24 99 04/09/19 03:00 121 H 20 175/58 H 166/76 H 92 04/09/19 02:00 38.2 C H 112 H 20 139/47 L 142/90 H 94 04/09/19 01:00 37.9 C H 116 H 24 161/57 H 151/76 H 95 04/09/19 00:03 116 H 24 99 04/09/19 00:00 37.9 C H 117 H 20 163/56 H 151/76 H 98 04/08/19 23:00 38.1 C H 119 H 20 159/85 H 97 04/08/19 22:00 38.1 C H 114 H 20 159/80 H 99 04/08/19 21:29 24 04/08/19 21:00 38.0 C H 117 H 20 137/75 98 Laboratory Results Laboratory Results - last 24 hr 04/08/19 04/08/19 04/08/19 03:41 15:48 19:42 WBC RBC Hgb Hct MCV MCH MCHC RDW Std Deviation RDW Coeff of Anil Plt Count MPV Immature Gran % (Auto) Neut % (Auto) Lymph % (Auto) [place] % (Auto) Eos % (Auto) Baso % (Auto) Immature Gran # (Auto) Neut # (Auto) Lymph # (Auto) [place] # (Auto) Eos # (Auto) Baso # (Auto) Absolute Nucleated RBC Nucleated RBC % (auto) PT INR APTT PTT Ratio Sample Site POC pH POC pCO2 POC pO2 POC HCO3 POC Total CO2 POC Base Excess POC ABG O2 Sat Rusty Test O2 Delivery Device POC O2 Rate Minute Ventilation POC FiO2 Tidal Volume PEEP Sodium Potassium Chloride Carbon Dioxide Anion Gap BUN Creatinine Est Cr Clr Drug Dosing Est GFR ( Amer) Est GFR (Non-Af Amer) BUN/Creatinine Ratio Glucose POC Glucose 109 H 109 H POC Glucose (other) 100 H Calcium Phosphorus Magnesium Total Bilirubin Direct Bilirubin AST ALT Alkaline Phosphatase Total Protein Albumin 04/09/19 04/09/19 04/09/19 00:49 04:08 04:24 WBC 14.80 H RBC 3.33 L Hgb 9.5 L Hct 28.6 L MCV 85.9 MCH 28.5 MCHC 33.2 RDW Std Deviation 49.9 H RDW Coeff of Anil 15.8 H Plt Count 158 MPV 10.5 H Immature Gran % (Auto) 1.0 Neut % (Auto) 82.2 Lymph % (Auto) 10.9 [place] % (Auto) 5.5 Eos % (Auto) 0.3 Baso % (Auto) 0.1 Immature Gran # (Auto) 0.15 H Neut # (Auto) 12.18 H Lymph # (Auto) 1.61 [place] # (Auto) 0.81 H Eos # (Auto) 0.04 Baso # (Auto) 0.01 Absolute Nucleated RBC 0.16 H Nucleated RBC % (auto) 1.0 PT INR APTT PTT Ratio Sample Site POC pH POC pCO2 POC pO2 POC HCO3 POC Total CO2 POC Base Excess POC ABG O2 Sat Rusty Test O2 Delivery Device POC O2 Rate Minute Ventilation POC FiO2 Tidal Volume PEEP Sodium Potassium Chloride Carbon Dioxide Anion Gap BUN Creatinine Est Cr Clr Drug Dosing Est GFR ( Amer) Est GFR (Non-Af Amer) BUN/Creatinine Ratio Glucose POC Glucose 121 H 126 H POC Glucose (other) Calcium Phosphorus Magnesium Total Bilirubin Direct Bilirubin AST ALT Alkaline Phosphatase Total Protein Albumin 04/09/19 04/09/19 04/09/19 04:24 04:24 06:00 WBC RBC Hgb Hct MCV MCH MCHC RDW Std Deviation RDW Coeff of Anil Plt Count MPV Immature Gran % (Auto) Neut % (Auto) Lymph % (Auto) [place] % (Auto) Eos % (Auto) Baso % (Auto) Immature Gran # (Auto) Neut # (Auto) Lymph # (Auto) [place] # (Auto) Eos # (Auto) Baso # (Auto) Absolute Nucleated RBC Nucleated RBC % (auto) PT 12.1 H INR 1.2 H APTT 49.7 H* PTT Ratio 1.8 Sample Site Art Line POC pH 7.47 H POC pCO2 33 L POC pO2 310 H POC HCO3 24 POC Total CO2 25 POC Base Excess 0.0 POC ABG O2 Sat 100.0 H Rusty Test NA O2 Delivery Device Ventilator POC O2 Rate 24 Minute Ventilation 12.3 POC FiO2 30 Tidal Volume 450 PEEP 5 Sodium 137 Potassium 4.1 Chloride 106 Carbon Dioxide 23 Anion Gap 8.0 BUN 29 H Creatinine 2.64 H D Est Cr Clr Drug Dosing 17.7 Est GFR ( Amer) 19.9 Est GFR (Non-Af Amer) 17.1 BUN/Creatinine Ratio 11.1 Glucose 120 H POC Glucose POC Glucose (other) Calcium 7.0 L Phosphorus 4.6 Magnesium 2.3 Total Bilirubin 0.7 Direct Bilirubin 0.3 H AST 593 H ALT 2095 H Alkaline Phosphatase 98 Total Protein 4.7 L Albumin 1.6 L 04/09/19 04/09/19 04/09/19 08:01 11:59 13:41 WBC RBC Hgb Hct MCV MCH MCHC RDW Std Deviation RDW Coeff of Anil Plt Count MPV Immature Gran % (Auto) Neut % (Auto) Lymph % (Auto) [place] % (Auto) Eos % (Auto) Baso % (Auto) Immature Gran # (Auto) Neut # (Auto) Lymph # (Auto) [place] # (Auto) Eos # (Auto) Baso # (Auto) Absolute Nucleated RBC Nucleated RBC % (auto) PT INR APTT 44.9 H PTT Ratio 1.7 Sample Site POC pH POC pCO2 POC pO2 POC HCO3 POC Total CO2 POC Base Excess POC ABG O2 Sat Rusty Test O2 Delivery Device POC O2 Rate Minute Ventilation POC FiO2 Tidal Volume PEEP Sodium Potassium Chloride Carbon Dioxide Anion Gap BUN Creatinine Est Cr Clr Drug Dosing Est GFR ( Amer) Est GFR (Non-Af Amer) BUN/Creatinine Ratio Glucose POC Glucose 131 H 124 H POC Glucose (other) Calcium Phosphorus Magnesium Total Bilirubin Direct Bilirubin AST ALT Alkaline Phosphatase Total Protein Albumin 04/09/19 16:32 WBC RBC Hgb Hct MCV MCH MCHC RDW Std Deviation RDW Coeff of Anil Plt Count MPV Immature Gran % (Auto) Neut % (Auto) Lymph % (Auto) [place] % (Auto) Eos % (Auto) Baso % (Auto) Immature Gran # (Auto) Neut # (Auto) Lymph # (Auto) [place] # (Auto) Eos # (Auto) Baso # (Auto) Absolute Nucleated RBC Nucleated RBC % (auto) PT INR APTT PTT Ratio Sample Site POC pH POC pCO2 POC pO2 POC HCO3 POC Total CO2 POC Base Excess POC ABG O2 Sat Rusty Test O2 Delivery Device POC O2 Rate Minute Ventilation POC FiO2 Tidal Volume PEEP Sodium Potassium Chloride Carbon Dioxide Anion Gap BUN Creatinine Est Cr Clr Drug Dosing Est GFR ( Amer) Est GFR (Non-Af Amer) BUN/Creatinine Ratio Glucose POC Glucose 106 H POC Glucose (other) Calcium Phosphorus Magnesium Total Bilirubin Direct Bilirubin AST ALT Alkaline Phosphatase Total Protein Albumin Medications Administered Acetaminophen (Tylenol) 650 mg PO Q4H PRN PRN Reason: Pain or Fever Stop: 05/06/19 16:30 Last Admin: 04/09/19 08:22 Dose: 650 mg Documented by: [id number] Admin: 04/08/19 13:03 Dose: 650 mg Documented by: [id number] Dextrose (Dextrose 50%) 25 - 50 ml IV UD PRN; Protocol PRN Reason: Hypoglycemia Protocol Stop: 05/06/19 18:29 Last Admin: 04/07/19 14:48 Dose: 25 ml Documented by: [id number] Admin: 04/07/19 12:35 Dose: 25 ml Documented by: [id number] Enteral Nutritional Formula (Impact 1.0 Himanshu) 1,000 ml OG .CONTINUOUS GINO; Protocol Stop: 05/08/19 11:59 Last Admin: 04/08/19 13:05 Dose: 1,000 ml Documented by: [id number] Fentanyl Citrate (Fentanyl Citrate) 25 mcg IV Q30M PRN PRN Reason: Pain Stop: 04/23/19 10:14 Last Admin: 04/09/19 11:30 Dose: 25 mcg Documented by: [id number] Heparin Sodium/Dextrose (Heparin Sodium/Dextrose) 25,000 units in 500 mls @ 14 mls/hr IV .Q24H GINO; Protocol Stop: 05/06/19 12:44 Last Admin: 04/09/19 15:23 Dose: 700 units/hr, 14 mls/hr Documented by: [id number] Cosigned by: [id number] Titration: 04/09/19 15:23 Dose: 600 units/hr, 12 mls/hr Documented by: [id number] Cosigned by: [id number] Titration: 04/09/19 07:08 Dose: 600 units/hr, 12 mls/hr Documented by: [id number] Cosigned by: [id number] Titration: 04/08/19 18:55 Dose: 600 units/hr, 12 mls/hr Documented by: [id number] Cosigned by: [id number] Admin: 04/08/19 13:01 Dose: 600 units/hr, 12 mls/hr Documented by: [id number] Cosigned by: [id number] Titration: 04/08/19 13:01 Dose: 600 units/hr, 12 mls/hr Documented by: [id number] Cosigned by: [id number] Titration: 04/08/19 07:18 Dose: 600 units/hr, 12 mls/hr Documented by: [id number] Cosigned by: [id number] Titration: 04/07/19 23:57 Dose: 600 units/hr, 12 mls/hr Documented by: [id number] Cosigned by: [id number] Admin: 04/07/19 19:14 Dose: 600 units/hr, 12 mls/hr Documented by: [id number] Cosigned by: [id number] Titration: 04/07/19 19:14 Dose: 600 units/hr, 12 mls/hr Documented by: [id number] Cosigned by: [id number] Titration: 04/07/19 18:31 Dose: 600 units/hr, 12 mls/hr Documented by: [id number] Cosigned by: [id number] Titration: 04/07/19 15:25 Dose: 700 units/hr, 14 mls/hr Documented by: [id number] Cosigned by: [id number] Titration: 04/07/19 11:47 Dose: 700 units/hr, 14 mls/hr Documented by: [id number] Cosigned by: [id number] Titration: 04/07/19 11:08 Dose: 0 units/hr, 0 mls/hr Documented by: [id number] Cosigned by: [id number] Titration: 04/07/19 06:57 Dose: 800 units/hr, 16 mls/hr Documented by: [id number] Cosigned by: [id number] Titration: 04/07/19 04:11 Dose: 800 units/hr, 16 mls/hr Documented by: [id number] Cosigned by: [id number] Titration: 04/07/19 03:36 Dose: 0 units/hr, 0 mls/hr Documented by: [id number] Cosigned by: [id number] Titration: 04/06/19 20:44 Dose: 900 units/hr, 18 mls/hr Documented by: [id number] Cosigned by: [id number] Titration: 04/06/19 19:42 Dose: 0 units/hr, 0 mls/hr Documented by: [id number] Cosigned by: [id number] Titration: 04/06/19 19:12 Dose: 1,050 units/hr, 21 mls/hr Documented by: [id number] Cosigned by: [id number] Admin: 04/06/19 12:52 Dose: 1,050 units/hr, 21 mls/hr Documented by: [id number] Cosigned by: [id number] Epinephrine HCl 4 mg/ Dextrose 254 mls @ 0 mls/hr IV .Q0M GINO; Protocol Stop: 05/06/19 13:59 Last Titration: 04/09/19 07:08 Dose: 0 mcg/kg/min, 0 mls/hr Documented by: [id number] Cosigned by: [id number] Admin: 04/09/19 06:58 Dose: Not Given Documented by: [id number] Titration: 04/08/19 18:55 Dose: 0 mcg/kg/min, 0 mls/hr Documented by: [id number] Cosigned by: [id number] Titration: 04/08/19 10:14 Dose: 0 mcg/kg/min, 0 mls/hr Documented by: [id number] Admin: 04/08/19 08:09 Dose: 0.01 mcg/kg/min, 2.5 mls/hr Documented by: [id number] Cosigned by: [id number] Admin: 04/08/19 07:51 Dose: Not Given Documented by: [id number] Admin: 04/08/19 07:51 Dose: Not Given Documented by: [id number] Titration: 04/08/19 07:15 Dose: 0.015 mcg/kg/min, 3.8 mls/hr Documented by: [id number] Cosigned by: [id number] Titration: 04/08/19 03:00 Dose: 0.02 mcg/kg/min, 3.9 mls/hr Documented by: [id number] Titration: 04/07/19 23:57 Dose: 0.02 mcg/kg/min, 5 mls/hr Documented by: [id number] Titration: 04/07/19 22:15 Dose: 0.02 mcg/kg/min, 5 mls/hr Documented by: [id number] Titration: 04/07/19 21:30 Dose: 0.03 mcg/kg/min, 7.5 mls/hr Documented by: [id number] Titration: 04/07/19 21:00 Dose: 0.04 mcg/kg/min, 10 mls/hr Documented by: [id number] Titration: 04/07/19 18:55 Dose: 0.05 mcg/kg/min, 12.5 mls/hr Documented by: [id number] Titration: 04/07/19 18:45 Dose: 0.04 mcg/kg/min, 10 mls/hr Documented by: [id number] Titration: 04/07/19 18:35 Dose: 0.03 mcg/kg/min, 7.5 mls/hr Documented by: [id number] Titration: 04/07/19 18:30 Dose: 0.02 mcg/kg/min, 5 mls/hr Documented by: [id number] Titration: 04/07/19 18:25 Dose: 0.01 mcg/kg/min, 2.5 mls/hr Documented by: [id number] Titration: 04/07/19 16:50 Dose: 0 mcg/kg/min, 0 mls/hr Documented by: [id number] Titration: 04/07/19 16:30 Dose: 0.01 mcg/kg/min, 2.5 mls/hr Documented by: [id number] Titration: 04/07/19 16:00 Dose: 0.02 mcg/kg/min, 5 mls/hr Documented by: [id number] Titration: 04/07/19 15:50 Dose: 0.03 mcg/kg/min, 7.5 mls/hr Documented by: [id number] Titration: 04/07/19 15:45 Dose: 0.04 mcg/kg/min, 10 mls/hr Documented by: [id number] Titration: 04/07/19 15:33 Dose: 0.05 mcg/kg/min, 12.5 mls/hr Documented by: [id number] Titration: 04/07/19 15:25 Dose: 0.06 mcg/kg/min, 15 mls/hr Documented by: [id number] Titration: 04/07/19 14:53 Dose: 0.06 mcg/kg/min, 15 mls/hr Documented by: [id number] Admin: 04/07/19 14:09 Dose: 0.9 mcg/kg/min, 225.5 mls/hr Documented by: [id number] Titration: 04/07/19 14:09 Dose: 0.1 mcg/kg/min, 25.1 mls/hr Documented by: [id number] Cosigned by: [id number] Titration: 04/07/19 13:03 Dose: 0.1 mcg/kg/min, 25.1 mls/hr Documented by: [id number] Titration: 04/07/19 10:00 Dose: 0.11 mcg/kg/min, 27.6 mls/hr Documented by: [id number] Titration: 04/07/19 09:13 Dose: 0.1 mcg/kg/min, 25 mls/hr Documented by: [id number] Titration: 04/07/19 08:45 Dose: 0.09 mcg/kg/min, 22.6 mls/hr Documented by: [id number] Titration: 04/07/19 08:14 Dose: 0.08 mcg/kg/min, 20 mls/hr Documented by: [id number] Titration: 04/07/19 07:38 Dose: 0.07 mcg/kg/min, 17.5 mls/hr Documented by: [id number] Titration: 04/07/19 06:56 Dose: 0.06 mcg/kg/min, 15 mls/hr Documented by: [id number] Cosigned by: [id number] Titration: 04/07/19 06:40 Dose: 0.06 mcg/kg/min, 15 mls/hr Documented by: [id number] Titration: 04/07/19 06:18 Dose: 0.08 mcg/kg/min, 20 mls/hr Documented by: [id number] Titration: 04/07/19 05:43 Dose: 0.1 mcg/kg/min, 25.1 mls/hr Documented by: [id number] Titration: 04/07/19 05:29 Dose: 0.12 mcg/kg/min, 30.1 mls/hr Documented by: [id number] Titration: 04/07/19 05:23 Dose: 0.14 mcg/kg/min, 35.1 mls/hr Documented by: [id number] Admin: 04/07/19 04:27 Dose: 0.16 mcg/kg/min, 40.1 mls/hr Documented by: [id number] Cosigned by: [id number] Titration: 04/07/19 04:19 Dose: 0.16 mcg/kg/min, 40.1 mls/hr Documented by: [id number] Cosigned by: [id number] Titration: 04/07/19 03:37 Dose: 0.16 mcg/kg/min, 40.1 mls/hr Documented by: [id number] Titration: 04/07/19 01:23 Dose: 0.18 mcg/kg/min, 45.1 mls/hr Documented by: [id number] Titration: 04/07/19 01:15 Dose: 0.16 mcg/kg/min, 40.1 mls/hr Documented by: [id number] Titration: 04/07/19 01:12 Dose: 0.18 mcg/kg/min, 45.1 mls/hr Documented by: [id number] Admin: 04/06/19 22:51 Dose: 0.2 mcg/kg/min, 50.1 mls/hr Documented by: [id number] Cosigned by: [id number] Titration: 04/06/19 22:51 Dose: 0.18 mcg/kg/min, 45.1 mls/hr Documented by: [id number] Cosigned by: [id number] Titration: 04/06/19 20:17 Dose: 0.18 mcg/kg/min, 45.1 mls/hr Documented by: [id number] Titration: 04/06/19 20:07 Dose: 0.16 mcg/kg/min, 40.1 mls/hr Documented by: [id number] Titration: 04/06/19 19:42 Dose: 0.18 mcg/kg/min, 45.1 mls/hr Documented by: [id number] Titration: 04/06/19 19:11 Dose: 0.2 mcg/kg/min, 50.1 mls/hr Documented by: [id number] Cosigned by: [id number] Admin: 04/06/19 17:41 Dose: 0.2 mcg/kg/min, 50.1 mls/hr Documented by: [id number] Cosigned by: [id number] Titration: 04/06/19 17:41 Dose: 0.25 mcg/kg/min, 62.6 mls/hr Documented by: [id number] Cosigned by: [id number] Titration: 04/06/19 17:19 Dose: 0.25 mcg/kg/min, 62.6 mls/hr Documented by: [id number] Titration: 04/06/19 17:00 Dose: 0.3 mcg/kg/min, 75.2 mls/hr Documented by: [id number] Titration: 04/06/19 16:45 Dose: 0.35 mcg/kg/min, 87.7 mls/hr Documented by: [id number] Admin: 04/06/19 14:59 Dose: 0.3 mcg/kg/min, 75.2 mls/hr Documented by: [id number] Cosigned by: [id number] Midazolam HCl (Versed) 125 mg in 250 mls @ 0 mls/hr IV .Q0M GINO; Protocol Stop: 05/07/19 13:29 Last Titration: 04/09/19 11:45 Dose: 0 mg/hr, 0 mls/hr Documented by: [id number] Titration: 04/09/19 07:08 Dose: 3 mg/hr, 6 mls/hr Documented by: [id number] Cosigned by: [id number] Titration: 04/08/19 18:55 Dose: 3 mg/hr, 6 mls/hr Documented by: [id number] Cosigned by: [id number] Admin: 04/08/19 13:02 Dose: 3 mg/hr, 6 mls/hr Documented by: [id number] Cosigned by: [id number] Titration: 04/08/19 13:02 Dose: 3 mg/hr, 6 mls/hr Documented by: [id number] Cosigned by: [id number] Titration: 04/08/19 07:18 Dose: 3 mg/hr, 6 mls/hr Documented by: [id number] Cosigned by: [id number] Titration: 04/07/19 23:57 Dose: 3 mg/hr, 6 mls/hr Documented by: [id number] Titration: 04/07/19 22:35 Dose: 3 mg/hr, 6 mls/hr Documented by: [id number] Titration: 04/07/19 21:35 Dose: 2.5 mg/hr, 5 mls/hr Documented by: [id number] Titration: 04/07/19 18:30 Dose: 2 mg/hr, 4 mls/hr Documented by: [id number] Titration: 04/07/19 17:30 Dose: 2.5 mg/hr, 5 mls/hr Documented by: [id number] Titration: 04/07/19 16:30 Dose: 2 mg/hr, 4 mls/hr Documented by: [id number] Titration: 04/07/19 15:25 Dose: 1.5 mg/hr, 3 mls/hr Documented by: [id number] Admin: 04/07/19 14:07 Dose: 1 mg/hr, 2 mls/hr Documented by: [id number] Cosigned by: [id number] Lansoprazole (Prevacid) 30 mg NG QAM [facility] Stop: 04/11/19 08:59 Last Admin: 04/09/19 08:22 Dose: 30 mg Documented by: [id number] Admin: 04/08/19 08:52 Dose: 30 mg Documented by: [id number] Admin: 04/07/19 11:10 Dose: 30 mg Documented by: [id number] Polyethylene Glycol (Miralax Powder Packet) 17 gm PO DAILY [facility] Stop: 05/07/19 08:59 Last Admin: 04/09/19 06:57 Dose: Not Given Documented by: [id number] Admin: 04/08/19 07:54 Dose: Not Given Documented by: [id number] Admin: 04/07/19 10:31 Dose: Not Given Documented by: [id number] Resident Activity Tracking Resident Involvement: Resident Care Provided Care Provided: Adult Hospital Medicine
[2019-04-09] MEDS: LANSOPRAZOLE 30 MG SOLTAB NG SCH (08:22)
[2019-04-09] MEDS: ACETAMINOPHEN 325 MG TAB PO PRN (08:22)
[2019-04-09] MEDS: fentaNYL citrate 100 MCG/2 ML VIAL IV PRN ×3 (08:23→17:55)
--- NOTE | 2019-04-09 10:15 | Critical Care Progress Note ---
Date of Service April 09, 2019 Assessment & Plan (1) Admitted to intensive care unit: Reason Critically Ill: 74-year-old female here with a PMHx significant for glioblastoma, HTN, cardiac rrest, and massive PE who presented with a feeling of unwellness and who was admitted for massive PE. She sustained 3x cardiac PEA arrests with ROSC prior to admission to the ICU. Goals of Care: Neuro - CAM ICU: POSITIVE ETT in place (placed 04/06/2019) Sedation: Versed gtt held. Analgesia: Fentanyl 25mg Q30M prn, no doses since this morning. - CT-H shows increase density of postsurgical change without other acute findings. - Pt at increased risk of seizure following versed wean Glioblastoma Multiforme Stage IV s/p craniotomy with tumor resection 03/13/[address] Manzanares [facility] [place] - No further surgical or chemotherapeutic intervention indicated Cardiac - Cardiogenic shock 2/2 PE - PE treatment as below - Epinephrine weaned to 0.015. Map >65 - TTE hyperdynamic EF >70% with RV dilation and wall motion dysfunction - Repeat troponin, uptrended to 4.6 - Prior BNP 71052 - Epi off since 04/08 1000 Respiratory Acute Massive PE with multiorgan system failure - With extensive R PA thrombus - Heparin gtt - No TPA or thrombectomy/surgical intervention. Case was discussed over the weekend with Zuri and Rasheed who feel she is not a surgical candidate, and TPA was contraindicated due to the patients recent neurosurgical procedure. - She shows evidence of right heart strain. Her massive PE with worsening renal function, uptrending troponin, and transaminitis indicates multiorgan involvement with poor prognosis. - ABG 7.47/33/310/24 on ACVC 22/450cc/5peep/30%. Converted to BiPAP 10/[address]-H (~1100hrs) and is maintaining SpO2 >92% with tidal volume ~500's. Neurologically is still no responding, and does not follow commands (cough, open eyes, squeeze fingers) on demand. She is not able to protect her airway at this time. - XR: Interval decrease in L basilar opacity GI - Transaminitis 2/2 shock liver - AST 593, ALT 2095 downtrending. 2/2 shock liver in the setting of cardiac arrest - CMP daily, repeat lactate 1.4 - NPO diet Nutrition - IVFM: Normosol 80cc/hr - Trophic feeds. Tolerating, increase from 10cc/hr RENAL/LYTES - No sodium or potassium derangement - Electrolyte protocol, replace lytes as needed. - No concerns at this time. ENDO - No history of T2DM, BSG 380 on admit - HgbA1C - ICU hyperglycemic protocol - GSB ~100s HEME - - Hgb 9.7 - CBC daily - No signs of bleeding on clinical exam ID - Febrile to 38.2, suspect 2/2 Neurogenic Fever - She does not have an increasing oxygen requirement, and has a normal lactate. Suspect neurogenic fever at this time, will monitor for increasing oxygen requirements. - APAP PRN - Blood cultures drawn - Monitor fever curve. INTEGUMENTARY - No acute concerns LINES/IV ACCESS - PIVs intact. Arterial line and femoral line removed. DVT PROPHYLAXIS - Heparin gtt. Thank you for allowing us to be part of this patient's care. Please refer to Dr. Lindquist's documentation for any further recommendations. Supervising Physician Co-Signing Physician Notes Dr. Louis was resident physician during care of patient. I separately evaluated patient for jimenez portions of the history and the exam. I was present during the critical portion of medical decision making, and I discussed the case with the resident. I generally agree with the findings and plan. Decreasing vasoactive medication support. Discussed patient condition with the patient's lungs, both of whom are returning back to [place] anticipate return evening with Kj the oldest. In the meantime a family uncle (brother the patient) who is a physician social human services assistants who worked in cardiothoracic surgery will be coming for family support. Creatinine continuing to climb, I am concerned for worsening kidney function that may require dialysis. Will discontinue arterial and femoral lines once off vasoactive medication. Obtaining CT head given decreased neuro status and less alertness today, requiring systemic anticoagulation given massive pulmonary embolism. I have personally spent 60 minutes of critical care time in the direct management of this patient. This is a life/limb threatening event. This includes time spent evaluating patient, direct bedside care, chart review, placing orders, interpretation of diagnostic studies, discussion with consultants, patient, and/or family members regarding treatment decisions, as well as other required patient management activities. This time is exclusive of all separately billable procedures, and teaching time and separate from and in addition to any other critical care service time. Subjective Pt seen at bedside this morning, no acute change. She had an overnight fever to 38.2 and has been recieving APAP. No family present at initial bedside visit. Review of Systems Review of Systems: Unobtainable due to endotracheal tube Physical Exam Physical Exam: General: ETT in place. Sedated. NAD. Does not withdraw to nail pinch of the R or L thumb. HEENT: Normocephalic. Pupils responsive to light and equal, not tracking at time of visit. Nonicteric. Pulm: On ventilator, trace crackles at bases bilaterally otherwise globally clear to auscultation Cardiac: Tachycardic, regular -mrg. Radial pulses intact and symmetrical. Abdominal: Nontender, nondistended, soft. BS present. Extremity: No spontaneous movement. PT pulses not appreciable on palpation, intact to Doppler. Extremities warm, dry. Cap refill in thumb 2-3 seconds, hallux 3-4 seconds bilaterally. Results & Data Vital Signs (Past 12 Hours) Vital Signs Temp Pulse Pulse Resp BP BP BP 04/09/19 09:00 100 H 98/55 L 04/09/19 08:00 96 H 131/78 04/09/19 07:58 22 04/09/19 07:30 105 H 24 04/09/19 07:00 113 H 137/65 04/09/19 04:00 37.9 C H 119 H 20 138/58 L 141/70 H 04/09/19 03:50 110 H 24 04/09/19 03:00 121 H 20 175/58 H 166/76 H 04/09/19 02:00 38.2 C H 112 H 20 139/47 L 142/90 H 04/09/19 01:00 37.9 C H 116 H 24 161/57 H 151/76 H 04/09/19 00:03 116 H 24 04/09/19 00:00 37.9 C H 117 H 20 163/56 H 151/76 H 04/08/19 23:00 38.1 C H 119 H 20 159/85 H Pulse Ox 04/09/19 09:00 99 04/09/19 08:00 98 04/09/19 07:58 04/09/19 07:30 98 04/09/19 07:00 96 04/09/19 04:00 97 04/09/19 03:50 99 04/09/19 03:00 92 04/09/19 02:00 94 04/09/19 01:00 95 04/09/19 00:03 99 04/09/19 00:00 98 04/08/19 23:00 97 Resident Activity Tracking Resident Involvement: Resident Care Provided Care Provided: Adult Hospital Medicine
--- NOTE | 2019-04-09 12:27 | CT Scan Report ---
HEAD CT NONCONTRAST CT DOSE: 614.27 mGy.cm HISTORY: Altered mental status. History of GBM. TECHNIQUE: Multiaxial CT images of the head were performed without the use of intravenous contrast. A utomated exposure control was utilized for this study. A dose lowering technique was utilized adheri ng to the principles of ALARA. Comparison: Head CT 04/06/2019. Findings: The paranasal sinuses and mastoid air cells are clear. Prior right craniotomy. Trace pneumo cephalus adjacent to the craniotomy flap which has improved. Heterogeneous right cerebral 5.5 cm dens ity is again noted. This demonstrates increased density along the lateral inferior aspect. Overall, t he density is slightly progressed. This favors postoperative resection cavity with a small amount of left products.. This is similar in size compared to prior study no significant change in the mild eff acement of the right lateral ventricle with mild left mediastinal shift of approximately 3 mm. Impression: Redemonstration of the 5.5 cm heterogeneous area within the right cerebral hemisphere. This demonstra medina overall slight increased density which may represent expected postoperative blood products in the resection cavity. However, the mass effect and 3 mm of left midline shift remains unchanged. [address] follow-up recommended to ensure stability. Electronically signed by: Gee Goel M.D. 04/09/2019 12:26 PM
--- NOTE | 2019-04-09 13:32 | Pharmacy Report ---
Pharmacy Glycemic Short Note 2 - Date of Service April 09, 2019 - Glycemic Short BSG Results (Last 24 hours): 04/08/19 04/08/19 04/08/19 03:41 14:04 15:48 Glucose 101 H POC Glucose 109 H POC Glucose (other) 100 H 04/08/19 04/09/19 04/09/19 19:42 00:49 04:08 Glucose POC Glucose 109 H 121 H 126 H POC Glucose (other) 04/09/19 04/09/19 04/09/19 04:24 08:01 11:59 Glucose 120 H POC Glucose 131 H 124 H POC Glucose (other) OUTPATIENT ANTIDIABETIC REGIMEN: * N/A * A1c = 5.6% 04/08/19 ASSESSMENT: 04/09 * Pt remains intubated, sedated * A1c not reflective of DM, hyperglycemia observed earlier this admission likely stress and medication induced * Will scale back BSG checks to Q 6 hrs and monitor for rise in BSG as tube feedings advanced 04/08 * Significant changes over last 24 hrs: Propofol sedation converted to Versed gtt, epinephrine drip weaned off, insulin drip weaned off, trickle tube feeds to begin today, renal fxn continues to worsen. * Will dc insulin drip order and begin Novolog SQ Q 4 hrs using weight and moderate-severe stress level for correctional insulin. * Fasting BSGs in the 90's-100's, therefore no basal insulin at this time * Will add A1c to next lab draw. If elevated, may need to add prandial insulin coverage. 04/07 * Patient admitted for cardiac arrest secondary to massive PE. No prior dx of DM. * Obstructive shock, leading to ongoing hypotension and the need for inotrope/vasopressor admin in the form of epinephrine infusion * Patient remains intubated at this time * IV insulin infusion started per ICU protocol for management of hyperglycemia * IV insulin infusion remains best modality to safely control hyperglycemia in the setting of current severe stressors and epinephrine administration PLAN FOR INPATIENT GLYCEMIC CONTROL: * Basal insulin: none at this time. * Novolog SQ Q 6 hrs * Goal range: 120-150 mg/dL * Correction factor: 25mg/dL/unit * Prandial insulin: none at this time PLAN FOR DISCHARGE: * to be determined
[2019-04-09 14:17] LABS: Partial Thromboplastin Ratio 1.7; Partial Thromboplastin Time 44.9 Seconds (21.0-31.0)
[2019-04-09] MEDS ORDERED: HEPARIN IV BOLUS 2,000 UNITS in SYRINGE 0 ML IV ONE (14:46)
[2019-04-09] MEDS: HEPARIN SODIUM/DEXTROSE 25,000 UNITS/500 ML BAG IV SCH (15:23)
[2019-04-09] MEDS: TUBE FEEDING WATER FLUSH GT SCH ×2 (17:52→21:16)
--- NOTE | 2019-04-09 21:00 | Palliative Care Progress Note ---
Date of Service April 09, 2019 Assessment & Plan (1) Goals of care, counseling/discussion: -74 year old female patient with recent diagnosis of glioblastoma multiforme s/p surgical removal of tumor at [facility], presented to the hospital with shortness of breath and LLE edema. Patient began experiencing left sided numbness/weakness back in February. She was seen in our ED and found to have abnormal head CT. She was transferred to tertiary care and underwent surgical excision of brain mass that was found to be GBM. The plan was for her to rehab and eventually get chemo and radiation. Patient went to [facility] for rehab and was reportedly doing quite well-- was regaining function of the left side. 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 Patient was on prophylactic Lovenox during her stay at rehab, this was discontinued when she became ambulatory. She was to follow-up with neurosurgery and oncology to determine if she would require AC therapy. she was discharged home on no anticoagulation due to just having brain surgery. She then noticed some LLE swelling, and eventually worsening SOB. Patient presented to the ED and was found to have massive PEs and later discovered to have left leg DVT. Patient unfortunately went to cardiogenic shock and suffered cardiac arrest. She was coded four different times and eventually did achieve ROSC. She is intubated in the ICU on epinephrine to maintain blood pressure. Prognosis is uncertain but certainly seems poor given the circumstances. Palliative care is consulted to provide supportive care to family and discuss goals. -This patient was discussed in ICU rounds today. Cardiac arrest x3-patient had been made a DNR- now rescinded that order and wishes to have her a full code -Cardiogenic shock with UNDERTAKER HELPER system organ failure-continue supportive care -Glioblastoma-status post resection-patient was scheduled to start XRT -Vasopressors being weaned, remains on lower dose Epinephrine gtt. -Overall, patient condition remains guarded. Small improvements, but overall picture remains that patient has poor prognosis with unliklihood that she will have a meaningful recovery in her future. -Patient kidney function worsening today: creatinine 2.16--> 2.64. A bedside EEG was being performed during my visit. -TOÑO hyperdynamic EF >70% with RV dilation and wall motion dysfunction -All sedation has been weaned since yesterday, some grimacing to painful stimuli, but overall, no cognitive response. -I met with the pt sons Kj and Giorgio at the bedside today. Lengthy conversation about their mothers condition held and they both are fully understanding about the gravity of her condition. We talked about some conversation tactics that they think would help their father to understand the gravity of their mothers condition. They both stated that Dad is Type A and feels like he is losing control. 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 -After lengthy conversation, it appears that their father may be going through all of the grief stages: denial, anger, sadness, bargaining and has not yet approached the acceptance phase. The patient was fully independent and well 4 months prior, so the GBM, surgery, this admission, now intubated, etc. was all very abrupt and he needs time to process. -A family meeting is planned to be held on Wednesday 04/11 at 1000 (Dad, Kj, Giorgio (on the phone), daughter Hazel (on the phone), and PA brother either present or on the phone for a family meeting. -No acute events anticipated over the next 24 hours, but expectation set that should the patient show signs of decline, we would need to discuss further, sooner. -The patient to remain a Full Code at this time. -PPS: 20% (2) Cardiac arrest: (3) Cardiogenic shock: (4) Glioblastoma: Subjective Patient remains intubated No acute changes. Not currently on pressors Patient remains a Full Code. Patients two sons, Kj and Giorgio at the bedside during my visit. See A/P for further details. Review of Systems Review of Systems: Unobtainable due to endotracheal tube Physical Exam Constitutional: + ill appearing and + frail appearing Respiratory: Auscultation: + diminished lung sounds ventilated via ETT Cardiovascular: RRR, no murmur, no edema Gastrointestinal (Abdomen): normal bowel sounds, soft, nontender, no hepatosplenomegaly Skin: no rashes, warm and dry Results & Data Vital Signs (Past 12 Hours) Vital Signs Temp Pulse Pulse Resp BP BP BP 04/09/19 09:00 100 H 98/55 L 04/09/19 08:00 96 H 131/78 04/09/19 07:58 22 04/09/19 07:30 105 H 24 04/09/19 07:00 113 H 137/65 04/09/19 04:00 37.9 C H 119 H 20 138/58 L 141/70 H 04/09/19 03:50 110 H 24 04/09/19 03:00 121 H 20 175/58 H 166/76 H 04/09/19 02:00 38.2 C H 112 H 20 139/47 L 142/90 H 04/09/19 01:00 37.9 C H 116 H 24 161/57 H 151/76 H 04/09/19 00:03 116 H 24 04/09/19 00:00 37.9 C H 117 H 20 163/56 H 151/76 H 04/08/19 23:00 38.1 C H 119 H 20 159/85 H Pulse Ox 04/09/19 09:00 99 04/09/19 08:00 98 04/09/19 07:58 04/09/19 07:30 98 04/09/19 07:00 96 04/09/19 04:00 97 04/09/19 03:50 99 04/09/19 03:00 92 04/09/19 02:00 94 04/09/19 01:00 95 04/09/19 00:03 99 04/09/19 00:00 98 04/08/19 23:00 97 PG Care Time/CCT Total # of Minutes Spent Total Time Spent with Patient: Total time spent is greater than 50% in coordination of care (as documented) at patient's floor/unit and/or counseling patient: 45 Time Spent Midlevel Total time spent 45 minutes with >50% of that time spent assessing the patient, discussing goals of care and arranging a family meeting with the patients sons.
[2019-04-09] MEDS: MIDAZOLAM HCL 125 MG/250 ML BAG IV SCH (21:16)
[2019-04-09 22:31] LABS: Partial Thromboplastin Ratio 2.3
[2019-04-09 22:35] LABS: Partial Thromboplastin Time 62.9 Seconds (21.0-31.0)
[2019-04-10] MEDS: INSULIN ASPART 100 UNITS/ML 3 ML PEN SC SCH ×4 (00:58→18:35)
[2019-04-10] MEDS: TUBE FEEDING WATER FLUSH GT SCH ×3 (00:58→09:07)
[2019-04-10 04:56] LABS: Basophils # (auto) 0.03 K/uL (0-0.2); Basophils % (auto) 0.2 %; Eosinophils # (auto) 0.07 K/uL (0-0.5); Eosinophils % (auto) 0.5 %; Hematocrit (blood only) 28.6 % (37-47); Hemoglobin 9.4 g/dL (12.0-16.0); Immature Granulocytes # (auto) 0.23 K/uL (0.00-0.02); Immature Granulocytes % (auto) 1.8 %; Lymphocytes # (auto) 1.64 K/uL (1.2-3.4); Lymphocytes % (auto) 12.6 %; Mean Corpuscular Hemoglobin 28.5 pg (25-34); Mean Corpuscular Hgb Conc 32.9 g/dL (32-36); Mean Corpuscular Volume 86.7 fL (80-100); Mean Platelet Volume 10.3 fL (7.4-10.4); Monocytes # (auto) 1.11 K/uL (0.11-0.59); Monocytes % (auto) 8.6 %; Neutrophils % (auto) 76.3 %; Nucleated RBC % (auto) 0.8 %; Platelet Count 163 K/uL (130-400); RDW Coefficient of Variation 15.9 % (11.5-14.5); RDW Standard Deviation 49.9 fL (36.4-46.3); White Blood Count 12.98 K/uL (4.8-10.8)
--- NOTE | 2019-04-10 05:14 | Critical Care Progress Note ---
Date of Service April 10, 2019 Assessment & Plan (1) Admitted to intensive care unit: Reason Critically Ill: 74-year-old female here with a PMHx significant for glioblastoma, HTN, cardiac arrest, and massive PE who presented with a feeling of unwellness and who was admitted for massive PE. She sustained 3x cardiac PEA arrests with ROSC prior to admission to the ICU. Goals of Care: Goals of care discussion ongoing. Family meeting is planned for 10 AM tomorrow morning. Full code. Neuro - [facility] ICU: POSITIVE ETT in place (placed 04/06/2019) Sedation: Versed gtt held. Analgesia: Fentanyl 25mg Q30M prn, last dose 04/09 1755. - CT-H shows increase density of postsurgical change without other acute findings. Stable on repeat. Question semipurposeful movement with withdrawal to pain, EEG ordered.Pt at increased risk of seizure following versed wean Neuro consulted, case discussed Glioblastoma Multiforme Stage IV s/p craniotomy with tumor resection 03/13/[address] adjuvant radiation [address] Dr. Manzanares [facility] [place] - No further surgical or chemotherapeutic intervention at this time Cardiac - Cardiogenic shock 2/2 PE, improved - PE treatment as below No current pressor requirements. - TTE hyperdynamic EF >70% with RV dilation and wall motion dysfunction -Troponins down trended Intermittently hypertensive overnight, normotensive this morning Respiratory Acute PE with multiorgan system dysfunction - With extensive R PA thrombus - Heparin gtt - No TPA or thrombectomy/surgical intervention. Case was discussed over the weekend with Zuri and Rasheed who feel she is not a surgical candidate, and TPA was contraindicated due to the patients recent neurosurgical procedure. - She shows evidence of right heart strain. -ABG 7.4 7/30/110/22. On BiPAP 10/5 yesterday, rested on vent 22/450/5/0.3 overnight. Neurologically is still intermittently withdrawing ot noxious stimuli on the R only, and does not follow commands (cough, open eyes, squeeze fingers) on demand. She is not able to protect her airway at this time. - XR: No acute change GI - Transaminitis 2/2 shock liver - AST 239, ALT 1522 downtrending -CMP daily - NPO diet Nutrition - IVFM: Discontinued -Feeds increased to 30 cc/h Free water flush to 50 cc every 4 hours RENAL/LYTES - KATHY Creatinine continues to uptrend, 2.95 today Potassium, sodium within normal limits - Electrolyte protocol, replace lytes as needed. Urine output 325 last shift, 751 per 24 hours With presentation of multi system organ dysfunction, cardiac arrest, and hypoxia with continued worsening of renal function potential need potential dialysis if her kidney function does not improve or she develops electrolyte instabilities to be discussed. Her overall prognosis is poor, nephrology consulted and will be included on discussion with goals of care as above. - No concerns at this time. ENDO - No history of T2DM, BSG 380 on admit - HgbA1C - ICU hyperglycemic protocol - GSB ~100s HEME - - Hgb stable, 9.4 today - CBC daily - No signs of bleeding on clinical exam ID - Intermittent fever, suspect 2/2 Neurogenic Fever - She does not have an increasing oxygen requirement, and has a normal lactate. Suspect neurogenic fever at this time, will monitor for increasing oxygen requirements. - APAP PRN - Blood cultures 04/09 remain negative - Monitor fever curve. INTEGUMENTARY - No acute concerns LINES/IV ACCESS - PIVs intact. Arterial line and femoral line removed. DVT PROPHYLAXIS - Heparin gtt. Thank you for allowing us to be part of this patient's care. Please refer to Dr. Lindquist's documentation for any further recommendations. (2) Deep vein thrombosis (DVT) of popliteal vein of left lower extremity: (3) Deep venous thrombosis (DVT) of right peroneal vein: (4) Acute cor pulmonale: (5) Venous thromboembolism: (6) Aspiration pneumonia: (7) Acute kidney injury: (8) Hypertension: (9) Cardiogenic shock: (10) Pulmonary embolism: (11) Cardiac arrest: (12) Glioblastoma: Supervising Physician Co-Signing Physician Notes Dr. Louis was resident physician during care of patient. I separately evaluated patient for jimenez portions of the history and the exam. I was present during the critical portion of medical decision making, and I discussed the case with the resident. I generally agree with the findings and plan. Patient was discussed in multidisciplinary rounds. Antibiotics have been discontinued, there is persistent infiltrates in the left chest, there is no significant oxygen requirement and ventilation appears to be okay, I do not believe this is reflective of active pneumonia. Patient does have an elevated white count but it is continuing to downtrend, patient is having fevers which are increasing, vascular access has been changed. I am ordering additional blood cultures as I believe these febrile episodes are central in origin. Further I doubt this is a medication induced fever. Imaging does reveal blood products in the brain and she has postoperative, additionally known thrombus are all causes of fever. I have consulted neurology to assist with prognosis as well as evaluation and possible optimization. I am also consulting renal. Had extensive discussion with the patient's brother regarding current status and overall prognosis. Given GBM carries a decreased life expectancy, cardiac arrest with prolonged periods of hypoxia is associated with decreased life expectancy, pulmonary embolism with acute cor pulmonale and a pulmonary embolism severity index of class 5 carries a high probability of short-term mortality I feel the patient is going to likely have a poor short-term and long-term outcome. Repeat CT scan did not show interval development of mass nor shift, we will obtain an EEG to rule out nonconvulsive status. The EEG at baseline will expected to be abnormal given recent brain surgery, will also obtain a brain MRI which would obviously again be abnormal but might help show signs of global hypoxia. We are anticipating a family meeting tomorrow to discuss current status, prognosis, goals of care. I discussed the case with nephrology. Subjective Yulissa is seen at the bedside this morning. No overnight events. No acute distress. Further history limited by ETT in neuro status. Review of Systems Review of Systems: Unobtainable due to cognitive status and Unobtainable due to endotracheal tube Physical Exam Physical Exam: General: ETT in place. Sedated. NAD. HEENT: Normocephalic. Pupils responsive to light and equal. Nonicteric. Pulm: On ventilator, trace crackles at bases bilaterally related prior, otherwise globally clear to auscultation Cardiac: Tachycardic, regular -mrg. Radial pulses intact and symmetrical. Abdominal: Nontender, nondistended, soft. BS present. Extremity: Withdraws to thumb pinch on right, no withdraw to pinch on left. Distal limbs puffy, edema of the hands and feet present bilaterally. Extremities warm, dry. Cap refill in thumb 2-3 seconds, hallux 3-4 seconds bilaterally. Results & Data Vital Signs (Past 12 Hours) Vital Signs Temp Pulse Pulse Resp BP BP Pulse Ox 04/10/19 04:00 37.2 C 90 22 141/78 H 99 04/10/19 03:00 37.0 C 85 22 117/48 L 97 04/10/19 02:31 92 H 22 98 04/10/19 01:00 37.3 C 101 H 22 170/78 H 97 04/10/19 00:30 104 H 26 H 96 04/10/19 00:00 37.3 C 101 H 22 170/78 H 97 04/09/19 22:52 37.6 C H 91 H 20 139/78 99 04/09/19 22:01 88 99 04/09/19 22:00 89 139/78 98 04/09/19 21:34 92 H 22 98 04/09/19 21:01 84 100 04/09/19 21:00 85 131/66 100 04/09/19 20:01 86 99 04/09/19 20:00 85 120/78 100 04/09/19 19:01 87 100 04/09/19 19:00 86 119/84 100 04/09/19 18:16 92 H 11 L 99 04/09/19 18:00 92 H 141/83 H 99 Critical Care Time Critical Care Time: Yes Total Critical Care Time: 85 I have personally spent 85 minutes of critical care time in the direct management of this patient. This is a life/limb threatening event. This includes time spent evaluating patient, direct bedside care, chart review, placing orders, interpretation of diagnostic studies, discussion with consultants, patient, and/or family members regarding treatment decisions, as well as other required patient management activities. This time is exclusive of all separately billable procedures, and teaching time and separate from and in addition to any other critical care service time. Resident Activity Tracking Resident Involvement: Resident Care Provided Care Provided: Adult Hospital Medicine
[2019-04-10 05:16] LABS: Partial Thromboplastin Ratio 1.8
[2019-04-10 05:20] LABS: Albumin Level 1.6 gm/dl (3.4-5.0); BUN Creatinine Ratio 12.2 (10-20); Bilirubin Direct 0.2 mg/dl (0-0.2); Calcium 7.5 mg/dl (8.5-10.1); Creatinine Clr Calc Pharmacy 16.1 ml/min; Est GFR (African American) 17.4; Magnesium 2.4 mg/dl (1.8-2.4); Potassium 3.7 mmol/L (3.5-5.1)
[2019-04-10 05:24] LABS: Partial Thromboplastin Time 49.3 Seconds (21.0-31.0)
[2019-04-10 05:28] LABS: Bilirubin,Total 0.6 mg/dl (0.2-1); Phosphorus 4.8 mg/dl (2.5-4.9); Total Protein 5.1 gm/dl (6.4-8.2)
[2019-04-10 06:06] LABS: iSTAT Arterial Blood Gas HCO3 22 meg/L (19-24); iSTAT Arterial Blood Gas pCO2 30 mmHg (35-46); iSTAT Arterial Blood Gas pH 7.47 (7.35-7.45); iSTAT Arterial Blood Gas pO2 110 mmHg (80-95); iSTAT Carbon Dioxide 22 mEq/l (24-31); iSTAT FiO2 30 %; iSTAT Site L Radial
--- NOTE | 2019-04-10 06:40 | CT Scan Report ---
CT head/brain wo con CLINICAL HISTORY: 74 years-old Female with repeat for stability at 2300. Follow-up study. TECHNIQUE: Multiple axial CT images of the head were obtained without contrast. A dose lowering tech nique was utilized adhering to the principles of ALARA. CT DOSE: 614.27 mGy.cm COMPARISON: None. FINDINGS: 5.5 cm heterogeneous area of the right cerebral hemisphere with peripheral increased attenuation appe ars unchanged from the study at 11:23 AM on 04/09/2019. There is mild adjacent sulcal effacement with gyral expansion with partial effacement of the right lateral ventricle. Unchanged 3 mm midline shift. No acute territorial infarct. No hydrocephalus. Mild patchy white matter hypodensities suggest chron ic microvascular ischemic disease. Mild age-related involutional changes. Trace pneumocephalus adjace nt to the craniotomy site of the right calvarium redemonstrated. Mastoid air cells and paranasal sinu ses are clear. IMPRESSION: Stable exam with unchanged 5.5 cm heterogeneous area of the right cerebral hemisphere wi th peripheral increased attenuation suggestive of a probable resection cavity with associated blood p roducts. Continued follow-up recommended. This results in adjacent mass effect with unchanged 3 mm le ftward midline shift. Continued follow-up recommended. The above report was generated using voice recognition software. It may contain grammatical, syntax o r spelling errors. Electronically signed by: Maurice Shell M.D. 04/10/2019 6:39 AM
--- NOTE | 2019-04-10 06:59 | XRay Report ---
XR chest 1V portable HISTORY: 74 years-old Female f/u follow-up study in a patient with acute respiratory failure COMPARISON: Chest radiograph 04/09/2019 TECHNIQUE: Portable AP view of the chest FINDINGS: Endotracheal tube terminates 4.0 cm superior to the arnoldo. Enteric tube courses below the diaphragm, distal tip outside the [id number]. Cardiomediastinal and hilar silhouettes are unchanged. Mild hy perinflation. Unchanged blunting of the costophrenic angles. Persistent patchy left basilar opacities . Degenerative changes of the shoulders and spine. IMPRESSION: 1. Satisfactory positioning of the endotracheal tube. 2. Persistent left basilar opacities. The above report was generated using voice recognition software. It may contain grammatical, syntax o r spelling errors. Electronically signed by: Maurice Shell M.D. 04/10/2019 6:57 AM
--- NOTE | 2019-04-10 08:52 | Hospitalist Progress Note ---
Date of Service April 10, 2019 Assessment & Plan (1) Cardiogenic shock: - Currently in ICU with famly opting for full treatment with hopes of full recovery. - ICU team had discussion with family today who previously made decision for DNR/DNI but without plan to withdraw care and would like to continue care plan. Family reversed decision and reverted to full code - Cause was most likely pulmonary embolism - Echocardiogram performed today at bedside which showed * Hyperdynamic LV, moderately dilated RV, mild-mod reduced RV systolic, mildy dilated RA, mild aortic regurg, mild mitral annular calcification, RV systolic pressure normal, IVC mildly dilated. - quality improvement specialist - Pressor support as deemed necessary per ICU team - currently endotracheal intubation with management per ICU specialists (2) Lactic acidosis: - result from cardiogenic shock and hypoperfusion of tissues - metabolic acidosis - initial value 14.7 lactate, trended down (3) Pulmonary embolism: - Large right lung pulmonary embolus with suspected mild right ventricular strain seen on CTA - not a candidate for TPA on presentation as recent brain surgery for glioblastoma - currently treating with heparin - continuous pulse ox - endotracheal intubation managed by ICU team - cancer causing hypercoaguable state (4) Cardiac arrest: - occurred in ED yesterday during workup - Had CPR performed with ROSC (5) Glioblastoma: - Review of records shows that on 02/26 MRI Brain showing 5.7 cm intra- axial mass in the right frontoparietal region highly concerning for a primary malignancy, namely glioblastoma multiforme - Had recent surgical resection 03/13/19; with noted prior plan for chemotherapy and radiation per EMR note review - Had LUE weakness/numbness from mass - Head CT performed in ED showed right-sided pneumocephalus, likely postsurgical. There is also trace fluid subjacent to the craniotomy flap, likely postsurgical. There is a 5 cm hypodense right frontal mass, likely representing a necrotic neoplasm. However, once additional history given as status post a complete resection of the patient's frontal lobe neoplasm. The right frontal lobe mass described, therefore likely represents a postsurgical biopsy cavity. Surveillance with MRI scanning would be the best test to evaluate for residual/recurrent tumor. (6) Hypertension: Prior history of, not current focus as actually requiring pressure support holding home anti-hypertensives (7) Acute kidney injury: Most likely from tissue hypoperfusion from cardiogenic shock IVF Normosol @ 80mls/hr (8) Aspiration pneumonia: Treated with Zosyn Per chest CTA Multifocal left lung airspace opacities. Likely diagnostic considerations include multifocal pneumonia versus aspiration. Clinical and imaging follow-up is recommended (9) Acute cor pulmonale: (10) Venous thromboembolism: Heparin and hypercoaguable state as above (11) Deep vein thrombosis (DVT) of popliteal vein of left lower extremity: Heparin and hypercoaguable state as above DVT US Showed 1. There is occlusive deep venous thrombosis identified in the left popliteal vein which extends into the calf vessels. 2. There is nonocclusive deep venous thrombosis identified within the right calf in the peroneal vein. (12) Deep venous thrombosis (DVT) of right peroneal vein: Heparin and hypercoaguable state as above (13) DNR (do not resuscitate): Changed from full code today per ICU specialists discussions with family Supervising Physician Co-Signing Physician Notes Attending attestation Pt seen and examined in concert with Dr. Jung. In agreement with the documented findings as noted in the resident documentation with any exceptions or additions as noted here. Unresponsive despite removal of sedation On examination, S1/S2 nl, tachycardic. Rhonchi throughout on vent. Worsening extremity edema. Cardiogenic shock in the setting of large pulmonary embolism - prison guard care appreciated. ETT. Pressors. Heparin drip. Goals of care conversation w/ family pending on Sunday AM. Palliative care consultation appreciated. Else see resident documentation as noted. Subjective Caveat: History Limited by Endotracheal Intubation No acute events overnight. Not currently on pressors, family still pursuing full treatment. No family at bedside this AM. Physical Exam Constitutional: WD/WN, vitals as above Neck: normal visual inspection and trachea midline Respiratory: normal respiratory effort, lungs clear to auscultation Cardiovascular: Rate/Rhythm: regular rhythm and + tachycardic Extremities: + edema Gastrointestinal (Abdomen): Percussion/Palpation: abdomen soft Skin: no rashes, warm and dry Results & Data Vital Signs (Past 12 Hours) Vital Signs Temp Pulse Pulse Resp BP BP Pulse Ox 04/10/19 07:33 101 H 24 100 04/10/19 06:10 22 04/10/19 06:00 93 H 22 139/68 99 04/10/19 05:00 37.0 C 89 22 139/63 99 04/10/19 04:00 37.2 C 90 22 141/78 H 99 04/10/19 03:00 37.0 C 85 22 117/48 L 97 04/10/19 02:31 92 H 22 98 04/10/19 01:00 37.3 C 101 H 22 170/78 H 97 04/10/19 00:30 104 H 26 H 96 04/10/19 00:00 37.3 C 101 H 22 170/78 H 97 04/09/19 22:52 37.6 C H 91 H 20 139/78 99 04/09/19 22:01 88 99 04/09/19 22:00 89 139/78 98 04/09/19 21:34 92 H 22 98 04/09/19 21:01 84 100 04/09/19 21:00 85 131/66 100 Laboratory Results Laboratory Results - last 24 hr 04/09/19 04/10/19 04/10/19 22:02 04:33 04:33 WBC RBC Hgb Hct MCV MCH MCHC RDW Std Deviation RDW Coeff of Anil Plt Count MPV Immature Gran % (Auto) Neut % (Auto) Lymph % (Auto) Randall % (Auto) Eos % (Auto) Baso % (Auto) Immature Gran # (Auto) Neut # (Auto) Lymph # (Auto) Randall # (Auto) Eos # (Auto) Baso # (Auto) Absolute Nucleated RBC Nucleated RBC % (auto) APTT 62.9 H* 49.3 H* PTT Ratio 2.3 1.8 Sample Site POC pH POC pCO2 POC pO2 POC HCO3 POC Total CO2 POC Base Excess POC ABG O2 Sat Rusty Test O2 Delivery Device POC O2 Rate Minute Ventilation POC FiO2 Tidal Volume PEEP Sodium 137 Potassium 3.7 Chloride 104 Carbon Dioxide 24 Anion Gap 9.0 BUN 36 H Creatinine 2.95 H D Est Cr Clr Drug Dosing 16.1 Est GFR ( Amer) 17.4 Est GFR (Non-Af Amer) 15.0 BUN/Creatinine Ratio 12.2 Glucose 126 H POC Glucose Calcium 7.5 L Phosphorus 4.8 Magnesium 2.4 Total Bilirubin 0.6 Direct Bilirubin 0.2 AST 239 H ALT 1522 H Alkaline Phosphatase 126 H Total Protein 5.1 L Albumin 1.6 L 04/10/19 04/10/19 04/10/19 04:33 05:53 12:45 WBC 12.98 H RBC 3.30 L Hgb 9.4 L Hct 28.6 L MCV 86.7 MCH 28.5 MCHC 32.9 RDW Std Deviation 49.9 H RDW Coeff of Anil 15.9 H Plt Count 163 MPV 10.3 Immature Gran % (Auto) 1.8 Neut % (Auto) 76.3 Lymph % (Auto) 12.6 Randall % (Auto) 8.6 Eos % (Auto) 0.5 Baso % (Auto) 0.2 Immature Gran # (Auto) 0.23 H Neut # (Auto) 9.90 H Lymph # (Auto) 1.64 Randall # (Auto) 1.11 H Eos # (Auto) 0.07 Baso # (Auto) 0.03 Absolute Nucleated RBC 0.10 H Nucleated RBC % (auto) 0.8 APTT PTT Ratio Sample Site L Radial POC pH 7.47 H POC pCO2 30 L POC pO2 110 H POC HCO3 22 POC Total CO2 22 L POC Base Excess -2.0 POC ABG O2 Sat 99.0 H Rusty Test NA O2 Delivery Device Ventilator POC O2 Rate 22 Minute Ventilation 11.8 POC FiO2 30 Tidal Volume 450 PEEP 5 Sodium Potassium Chloride Carbon Dioxide Anion Gap BUN Creatinine Est Cr Clr Drug Dosing Est GFR ( Amer) Est GFR (Non-Af Amer) BUN/Creatinine Ratio Glucose POC Glucose 148 H Calcium Phosphorus Magnesium Total Bilirubin Direct Bilirubin AST ALT Alkaline Phosphatase Total Protein Albumin Medications Administered Acetaminophen (Tylenol) 650 mg PO Q4H PRN PRN Reason: Pain or Fever Stop: 05/06/19 16:30 Last Admin: 04/09/19 08:22 Dose: 650 mg Documented by: [id number] Admin: 04/08/19 13:03 Dose: 650 mg Documented by: [id number] Dextrose (Dextrose 50%) 25 - 50 ml IV UD PRN; Protocol PRN Reason: Hypoglycemia Protocol Stop: 05/06/19 18:29 Last Admin: 04/07/19 14:48 Dose: 25 ml Documented by: [id number] Admin: 04/07/19 12:35 Dose: 25 ml Documented by: [id number] Enteral Nutritional Formula (Impact 1.0 Himanshu) 1,000 ml OG .CONTINUOUS GINO; Protocol Stop: 05/08/19 11:59 Last Admin: 04/10/19 09:55 Dose: 1,000 ml Documented by: [id number] Admin: 04/08/19 13:05 Dose: 1,000 ml Documented by: [id number] Fentanyl Citrate (Fentanyl Citrate) 25 mcg IV Q30M PRN PRN Reason: Pain Stop: 04/23/19 10:14 Last Admin: 04/09/19 17:55 Dose: 25 mcg Documented by: [id number] Admin: 04/09/19 11:30 Dose: 25 mcg Documented by: [id number] Heparin Sodium/Dextrose (Heparin Sodium/Dextrose) 25,000 units in 500 mls @ 14 mls/hr IV .Q24H GINO; Protocol Stop: 05/06/19 12:44 Last Admin: 04/10/19 16:02 Dose: Not Given Documented by: [id number] Titration: 04/10/19 07:07 Dose: 700 units/hr, 14 mls/hr Documented by: [id number] Cosigned by: [id number] Titration: 04/09/19 19:10 Dose: 700 units/hr, 14 mls/hr Documented by: [id number] Cosigned by: [id number] Admin: 04/09/19 15:23 Dose: 700 units/hr, 14 mls/hr Documented by: [id number] Cosigned by: [id number] Titration: 04/09/19 15:23 Dose: 600 units/hr, 12 mls/hr Documented by: [id number] Cosigned by: [id number] Titration: 04/09/19 07:08 Dose: 600 units/hr, 12 mls/hr Documented by: [id number] Cosigned by: [id number] Titration: 04/08/19 18:55 Dose: 600 units/hr, 12 mls/hr Documented by: [id number] Cosigned by: [id number] Admin: 04/08/19 13:01 Dose: 600 units/hr, 12 mls/hr Documented by: [id number] Cosigned by: [id number] Titration: 04/08/19 13:01 Dose: 600 units/hr, 12 mls/hr Documented by: [id number] Cosigned by: [id number] Titration: 04/08/19 07:18 Dose: 600 units/hr, 12 mls/hr Documented by: [id number] Cosigned by: [id number] Titration: 04/07/19 23:57 Dose: 600 units/hr, 12 mls/hr Documented by: [id number] Cosigned by: [id number] Admin: 04/07/19 19:14 Dose: 600 units/hr, 12 mls/hr Documented by: [id number] Cosigned by: [id number] Titration: 04/07/19 19:14 Dose: 600 units/hr, 12 mls/hr Documented by: [id number] Cosigned by: [id number] Titration: 04/07/19 18:31 Dose: 600 units/hr, 12 mls/hr Documented by: [id number] Cosigned by: [id number] Titration: 04/07/19 15:25 Dose: 700 units/hr, 14 mls/hr Documented by: [id number] Cosigned by: [id number] Titration: 04/07/19 11:47 Dose: 700 units/hr, 14 mls/hr Documented by: [id number] Cosigned by: [id number] Titration: 04/07/19 11:08 Dose: 0 units/hr, 0 mls/hr Documented by: [id number] Cosigned by: [id number] Titration: 04/07/19 06:57 Dose: 800 units/hr, 16 mls/hr Documented by: [id number] Cosigned by: [id number] Titration: 04/07/19 04:11 Dose: 800 units/hr, 16 mls/hr Documented by: [id number] Cosigned by: [id number] Titration: 04/07/19 03:36 Dose: 0 units/hr, 0 mls/hr Documented by: [id number] Cosigned by: [id number] Titration: 04/06/19 20:44 Dose: 900 units/hr, 18 mls/hr Documented by: [id number] Cosigned by: [id number] Titration: 04/06/19 19:42 Dose: 0 units/hr, 0 mls/hr Documented by: [id number] Cosigned by: [id number] Titration: 04/06/19 19:12 Dose: 1,050 units/hr, 21 mls/hr Documented by: [id number] Cosigned by: [id number] Admin: 04/06/19 12:52 Dose: 1,050 units/hr, 21 mls/hr Documented by: [id number] Cosigned by: [id number] Midazolam HCl (Versed) 125 mg in 250 mls @ 0 mls/hr IV .Q0M GINO; Protocol Stop: 05/07/19 13:29 Last Titration: 04/10/19 10:37 Dose: 0 mg/hr, 0 mls/hr Documented by: [id number] Titration: 04/10/19 07:07 Dose: 0 mg/hr, 0 mls/hr Documented by: [id number] Cosigned by: [id number] Titration: 04/10/19 05:00 Dose: 0 mg/hr, 0 mls/hr Documented by: [id number] Admin: 04/09/19 21:16 Dose: 3 mg/hr, 6 mls/hr Documented by: [id number] Cosigned by: [id number] Titration: 04/09/19 21:16 Dose: 3 mg/hr, 6 mls/hr Documented by: [id number] Cosigned by: [id number] Titration: 04/09/19 19:40 Dose: 3 mg/hr, 6 mls/hr Documented by: [id number] Cosigned by: [id number] Titration: 04/09/19 11:45 Dose: 0 mg/hr, 0 mls/hr Documented by: [id number] Titration: 04/09/19 07:08 Dose: 3 mg/hr, 6 mls/hr Documented by: [id number] Cosigned by: [id number] Titration: 04/08/19 18:55 Dose: 3 mg/hr, 6 mls/hr Documented by: [id number] Cosigned by: [id number] Admin: 04/08/19 13:02 Dose: 3 mg/hr, 6 mls/hr Documented by: [id number] Cosigned by: [id number] Titration: 04/08/19 13:02 Dose: 3 mg/hr, 6 mls/hr Documented by: [id number] Cosigned by: [id number] Titration: 04/08/19 07:18 Dose: 3 mg/hr, 6 mls/hr Documented by: [id number] Cosigned by: [id number] Titration: 04/07/19 23:57 Dose: 3 mg/hr, 6 mls/hr Documented by: [id number] Titration: 04/07/19 22:35 Dose: 3 mg/hr, 6 mls/hr Documented by: [id number] Titration: 04/07/19 21:35 Dose: 2.5 mg/hr, 5 mls/hr Documented by: [id number] Titration: 04/07/19 18:30 Dose: 2 mg/hr, 4 mls/hr Documented by: [id number] Titration: 04/07/19 17:30 Dose: 2.5 mg/hr, 5 mls/hr Documented by: [id number] Titration: 04/07/19 16:30 Dose: 2 mg/hr, 4 mls/hr Documented by: [id number] Titration: 04/07/19 15:25 Dose: 1.5 mg/hr, 3 mls/hr Documented by: [id number] Admin: 04/07/19 14:07 Dose: 1 mg/hr, 2 mls/hr Documented by: [id number] Cosigned by: [id number] Insulin Aspart (Novolog Flexpen) 0 units SC Q6 GINO Stop: 05/09/19 17:59 Last Admin: 04/10/19 12:48 Dose: Not Given Documented by: [id number] Cosigned by: [id number] Admin: 04/10/19 05:35 Dose: Not Given Documented by: [id number] Cosigned by: [id number] Admin: 04/10/19 00:58 Dose: Not Given Documented by: [id number] Cosigned by: [id number] Admin: 04/09/19 17:53 Dose: Not Given Documented by: [id number] Cosigned by: [id number] Lansoprazole (Prevacid) 30 mg NG QAM GINO Stop: 04/11/19 08:59 Last Admin: 04/10/19 09:55 Dose: 30 mg Documented by: [id number] Admin: 04/09/19 08:22 Dose: 30 mg Documented by: [id number] Admin: 04/08/19 08:52 Dose: 30 mg Documented by: [id number] Admin: 04/07/19 11:10 Dose: 30 mg Documented by: [id number] Polyethylene Glycol (Miralax Powder Packet) 17 gm PO DAILY GINO Stop: 05/07/19 08:59 Last Admin: 04/10/19 09:58 Dose: Not Given Documented by: [id number] Admin: 04/09/19 06:57 Dose: Not Given Documented by: [id number] Admin: 04/08/19 07:54 Dose: Not Given Documented by: [id number] Admin: 04/07/19 10:31 Dose: Not Given Documented by: [id number] Sterile Water (Tube Feeding Water Flush) 1 ea GT Q4H GINO Stop: 05/10/19 09:59 Last Admin: 04/10/19 15:03 Dose: 1 ea Documented by: [id number] Admin: 04/10/19 10:33 Dose: 1 ea Documented by: [id number] Resident Activity Tracking Resident Involvement: Resident Care Provided Care Provided: Adult [facility] Medicine
[2019-04-10] MEDS: IMPACT LIQD 1.0 CAL 1,000 ML BAG OG SCH (09:55)
[2019-04-10] MEDS: LANSOPRAZOLE 30 MG SOLTAB NG SCH (09:55)
[2019-04-10] MEDS: POLYETHYLENE (MIRALAX) 17 GM PACK PO SCH (09:58)
[2019-04-10] MEDS: FEEDING WATER FLUSH GT SCH ×4 (10:33→22:17)
--- NOTE | 2019-04-10 11:23 | Neurology Consultation ---
Date of Consultation April 10, 2019 Assessment & Plan (1) Anoxic encephalopathy: Suspect severe anoxic encephalopathy in the context of cardiac arrest due to massive pulmonary embolism requiring multiple rounds of CPR. Patient has been making minimal semipurposeful versus reflexive withdrawal type movements to noxious stimulation only. No myoclonic jerking or clinical seizure activity has been observed. She remains comatose, with intact pupillary reflexes, in spite of withdrawal of sedatives. Prognosis for neurological recovery is likely very poor. EEG to be completed today which may be useful to exclude subclinical seizures and provide some additional prognostic information. I would not start an anticonvulsant at this time given lack of obvious clinical seizure activity. Further recommendations regarding an anticonvulsant to be made pending review of EEG. Poor prognosis and pending EEG discussed with family at bedside. (2) Glioblastoma: Recently diagnosed, large right hemispheric glioblastoma multiform, status post resection at [facility] 1 month ago. There were plans to start adjuvant radiation and chemotherapy after a recent consultation with radiation oncology. These treatments have not been started in the context of her current critical medical condition. She had reported some persistent left-sided weakness and numbness, following her surgical resection, at her appointment with radiation oncology last week. Additional treatment for her glioblastoma is currently on hold. History of Present Illness Reason for Consultation: Encephalopathy, EEG Requesting Physician: Santiago Louis MD Attending Physician: Christian Cervantes MD History of Present Illness The patient is a 74-year-old female with a recent diagnosis of a relatively large right hemispheric glioblastoma 1 month ago, after resection at [facility]. She had presented to the emergency department at [facility] in late February with left-sided numbness and weakness when the neoplasm was initially identified. She was apparently doing well postsurgically and had an initial assessment with radiation oncology 1 week ago with plans to start adjuvant radiation and chemotherapy. She then presented again to the emergency department on April 06 with cardiac arrest due to massive pulmonary embolism. She was coded multiple times and admitted to the ICU with cardiogenic shock. Sedatives have been tapered off and she has not regained consciousness. She has exhibited some semipurposeful movement or withdrawal to painful stimulation. No myoclonic jerking or clinically apparent seizure activity has been observed. A neurology consult and EEG have been ordered to potentially assist with prognosis and exclude subclinical seizure activity. Allergies Allergy/AdvReac Type Severity Reaction Status Date / Time No Known Allergies Allergy Unverified 04/06/19 12:16 Home Medications Home Medications Medication Instructions Recorded Confirmed Type acetaminophen 325 mg tablet 650 mg PO Q6H PRN tab 04/02/19 04/06/19 History amlodipine 5 mg tablet 5 mg PO DAILY 04/02/19 04/06/19 History bisacodyl 10 mg rectal suppository 10 mg VA DAILY PRN 04/02/19 04/06/19 History cholecalciferol (vitamin D3) 5,000 5,000 units PO DAILY 04/02/19 04/06/19 Hi story unit capsule docusate sodium 100 mg capsule 100 mg PO BID PRN 04/02/19 04/06/19 History enoxaparin 30 mg/0.3 mL 30 mg SQ Q12H 04/02/19 04/06/19 History subcutaneous syringe mecobalamin (vitamin B12) 1,000 1,000 mcg SL DAILY 04/02/19 04/06/19 History mcg disintegrating tablet,sublingual omega-3 fatty acids 1,000 mg 1,000 mg PO DAILY 04/02/19 04/06/19 History capsule polyethylene glycol 3350 17 17 gm PO DAILY 04/02/19 04/06/19 History gram/dose oral powder sennosides 8.6 mg-docusate sodium 1 tabcap PO DAILY PRN tab 04/02/19 04/06/19 History 50 mg tablet sodium phosphates 19 gram-7 118 ml VA DAILY PRN 04/02/19 04/06/19 History gram/118 mL enema Patient History Medical History Glioblastoma 03/13/19 Goals of care, counseling/discussion Hypertension No pertinent past medical history Surgical History Hx of tonsillectomy S/P craniotomy Right craniotomy for tumor resection by Dr. Manzanares at [facility] [place] [facility] on 03/13/19 Family History Mother , 90yo Dementia Stroke Natural with unknown cause Father , 67yo Myocardial infarction Brother No problems noted. Brother No problems noted. Brother Prostate cancer Brother Myocardial infarction Sister Colitis Son No problems noted. Son No problems noted. Daughter No problems noted. 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 She is unresponsive, intubated, in the ICU. The patient is comatose. She does exhibit minimal reflexive withdraw of all 4 limbs to noxious stimulation. No posturing or myoclonic type movements observed. Orientation cannot be assessed. Memory, attention, concentration, speech, and fund of knowledge cannot be assessed. Pupils are both round, 3 mm, and reactive to light. There is no gaze preference or deviation. There is no nystagmus. I am unable to elicit oculocephalic or blink reflexes. Facial sensation, expression, and hearing cannot be assessed. Movement of the tongue and palate or shoulder shrug cannot be assessed. Sensation cannot be assessed although patient does reflexively withdrawal to noxious stimulation. Deep tendon reflexes are diffusely diminished. Plantar responses withdrawal bilaterally. Testing of fine movements or coordination cannot be completed. Ophthalmoscopic examination cannot be completed due to inability of patient to cooperate with examination. Carotid pulses intact bilaterally, no bruits to auscultation. Gait and station cannot be assessed. Muscle strength cannot be assessed. Muscle tone flaccid in all 4 limbs. No dystonic posturing. No atrophy. No abnormal movements observed. Results & Data Vital Signs (Past 12 Hours) Vital Signs Temp Pulse Pulse Resp BP BP Pulse Ox 04/10/19 10:00 95 H 123/67 99 04/10/19 09:00 95 H 123/68 99 04/10/19 08:00 99 H 142/73 H 100 04/10/19 07:33 101 H 24 100 04/10/19 07:00 104 H 148/79 H 100 04/10/19 06:10 22 04/10/19 06:00 93 H 22 139/68 99 04/10/19 05:00 37.0 C 89 22 139/63 99 04/10/19 04:00 37.2 C 90 22 141/78 H 99 04/10/19 03:00 37.0 C 85 22 117/48 L 97 04/10/19 02:31 92 H 22 98 04/10/19 01:00 37.3 C 101 H 22 170/78 H 97 04/10/19 00:30 104 H 26 H 96 04/10/19 00:00 37.3 C 101 H 22 170/78 H 97 04/09/19 22:52 37.6 C H 91 H 20 139/78 99 Laboratory Results WBC 12.98, hemoglobin 9.4, hematocrit 28.6, platelet count 163, sodium 137, potassium 3.7, BUN 36, creatinine 2.95, glucose 126, calcium 7.5, magnesium 2.4, AST 239, ALT 1522, troponin I 0.050 pH 7.47, PCO2 30, PO2 110, bicarb 22 Diagnostic Findings Brain MRI completed February 26, 2019 reveals a 5.7 cm right frontoparietal mass with a thin rim of enhancement potentially consistent with glioblastoma multiform. I reviewed the images as well as the radiologist's interpretation of this test. A CT of the head completed April 06, 2019 reveals interval right frontal craniotomy with postsurgical pneumocephalus. No significant change in the appearance of the 5 cm right frontal mass, highly suspicious for neoplasm. No evidence for acute hemorrhage. There is mild mass-effect with minor right to left midline shift. I reviewed the images as well as the radiologist's interpretation of this test. CT of the head completed April 09, 2019 redemonstrates the previous identified 5 cm right frontal mass with 3 mm of right to left midline shift. I reviewed the images as well as the radiologist's interpretation of this test. A follow-up CT of the head completed April 09, 2019 is unchanged compared with the previous study. I reviewed the images as well as the radiologist's interpretation of this test. An echocardiogram completed April 07, 2019 reveals a hyperdynamic left ventricle, moderately dilated right ventricle, reduced systolic function of the right ventricle, dilated right atrium. An electrocardiogram completed April 06, 2019 reveals sinus tachycardia, 137 bpm
--- NOTE | 2019-04-10 12:51 | Nephrology Consultation ---
Date of Consultation April 10, 2019 Assessment & Plan (1) Anoxic encephalopathy: (2) Admitted to intensive care unit: (3) Cardiogenic shock: (4) Pulmonary embolism: (5) Cardiac arrest: (6) Acute kidney injury: Clinically consistent with ischemic acute tubular necrosis following cardiac arrest with cardiogenic shock. Complicated by CTA with iodinated contrast. No evidence of renal recovery at this time. Thankfully there is no emergent indication for dialysis electrolytes and volume status are acceptable. Patient's blood pressure is appropriate. Yulissa is nonoliguric. Medications are appropriately dosed for kidney function. Given the patient's overall guarded prognosis, the risks/benefits of dialysis if kidney function continues to decline are not favorable. We will continue to provide appropriate close prospective monitoring. Mosquera to gravity. Document I/O's. Continue to provide appropriate supportive care. Repeat metabolic profile + CK in the AM. UA notable for 3+ protein. 10-30 WBC, >30 WBC. Urine studies will be repeated in the next 24 hours. (7) Glioblastoma: Suggest reviewing overall prognosis with Dr. Bocanegra prior to family meeting. History of Present Illness Reason for Consultation: KATHY Requesting Physician: Christian Cervantes MD Attending Physician: Christian Cervantes MD History of Present Illness Yulissa Leggett is a 74-year-old female who is seen and evaluated in the I this morning. The patient was evaluated with her brother at the bedside. Patient's current mental status unfortunately prohibits for from answering questions or provide any history. I saw and evaluated the patient at following the neurology proposal consultant. I discussed the plan of care with the ICU team as well as with palliative care. Medical history is notable for glioblastoma IV for which the patient is status post craniotomy with tumor resection [facility] in early March of 2019. Plan of care was to start adjuvant chemotherapy and radiation. Patient follows locally with Dr. Bocanegra in the Oncology Clinic. Unfortunately she presented to [facility] with hemodynamic instability following a pulmonary embolism prior to starting treatment. The patient suffered several witnessed cardiac arrest. With return of spontaneous circulation she received supportive care in the ICU. Unfortunately she remains obtunded. She has persistent evidence of on going and organ damage. This includes worsening kidney function. Her urine output has been 725 milliliters in the past 24 hours. Creatinine has now risen from 1.5 milligrams/deciliter on April 06 to 2.9 milligrams/deciliter. Patient's fluid balance is positive approximately 10 liters documented since admission. Serum creatinine was 0.72 milligrams/deciliter in February. A family meeting is planned to for tomorrow to review the goals of care. Allergies Allergy/AdvReac Type Severity Reaction Status Date / Time No Known Allergies Allergy Unverified 04/06/19 12:16 Home Medications Home Medications Medication Instructions Recorded Confirmed Type acetaminophen 325 mg tablet 650 mg PO Q6H PRN tab 04/02/19 04/06/19 History amlodipine 5 mg tablet 5 mg PO DAILY 04/02/19 04/06/19 History bisacodyl 10 mg rectal suppository 10 mg FL DAILY PRN 04/02/19 04/06/19 History cholecalciferol (vitamin D3) 5,000 5,000 units PO DAILY 04/02/19 04/06/19 History unit capsule docusate sodium 100 mg capsule 100 mg PO BID PRN 04/02/19 04/06/19 History enoxaparin 30 mg/0.3 mL 30 mg SQ Q12H 04/02/19 04/06/19 History subcutaneous syringe mecobalamin (vitamin B12) 1,000 1,000 mcg SL DAILY 04/02/19 04/06/19 History mcg disintegrating tablet,sublingual omega-3 fatty acids 1,000 mg 1,000 mg PO DAILY 04/02/19 04/06/19 History capsule polyethylene glycol 3350 17 17 gm PO DAILY 04/02/19 04/06/19 History gram/dose oral powder sennosides 8.6 mg-docusate sodium 1 tabcap PO DAILY PRN tab 04/02/19 04/06/19 History 50 mg tablet sodium phosphates 19 gram-7 118 ml FL DAILY PRN 04/02/19 04/06/19 History gram/118 mL enema Patient History Medical History Glioblastoma 03/13/19 Goals of care, counseling/discussion Hypertension No pertinent past medical history Surgical History Hx of tonsillectomy S/P craniotomy Right craniotomy for tumor resection by Dr. Manzanares at [facility] on 03/13/19 Family History Mother , 90yo Dementia Stroke Natural with unknown cause Father , 67yo Myocardial infarction Brother No problems noted. Brother No problems noted. Brother Prostate cancer Brother Myocardial infarction Sister Colitis Son No problems noted. Son No problems noted. Daughter No problems noted. Other Family history non-contributory Social History Preferred Language: Maldivian Communication Ability: Unable Visual Impairment: No Limitations Hearing Ability: Normal Life Skills Educator Required: No Beliefs That Will Affect Care: None marital status: Current Living Situation: Family current occupational status: retired current occupation: [employer] work Feels Safe at Home: Yes Smoking Status: Never smoker Second Hand Exposure: No ; Hx Alcohol Use: No Hx Substance Use: No caffeine: Yes (Expresso 2 shots/day) during the past year weight has: decreased > 10 lbs Review of Systems Review of Systems: Unobtainable due to cognitive status Physical Exam Constitutional: + ill appearing, + mechanically ventilated and + edematous; no acute distress ENMT: Mouth: no oral mucosal abnormality ETT, OGT Neck: normal visual inspection and trachea midline Respiratory: Auscultation: lungs clear to auscultation bilaterally vent transmitted breath sounds, patient is breathing over vent on CPAP Cardiovascular: Rate/Rhythm: regular rate Heart Sounds: normal S1 and normal S2 Vessels: + JVD Extremities: + edema Gastrointestinal (Abdomen): Inspection/Auscultation: + abdomen distended and + hypoactive bowel sounds Percussion/Palpation: abdomen soft Musculoskeletal: Extremities: no cyanosis and no clubbing Skin: normal turgor Neurologic: + obtunded Speech / Cognition: + abnormal cognition Genitourinary: Mosquera with yellow urine in bag Results & Data Vital Signs (Past 12 Hours) Vital Signs Temp Pulse Pulse Resp BP BP Pulse Ox 04/10/19 11:01 92 H 148/76 H 99 04/10/19 10:00 95 H 123/67 99 04/10/19 09:00 95 H 123/68 99 04/10/19 08:00 99 H 142/73 H 100 04/10/19 07:33 101 H 24 100 04/10/19 07:00 104 H 148/79 H 100 04/10/19 06:10 22 04/10/19 06:00 93 H 22 139/68 99 04/10/19 05:00 37.0 C 89 22 139/63 99 04/10/19 04:00 37.2 C 90 22 141/78 H 99 04/10/19 03:00 37.0 C 85 22 117/48 L 97 04/10/19 02:31 92 H 22 98 04/10/19 01:00 37.3 C 101 H 22 170/78 H 97 Laboratory Results Laboratory Results - last 24 hr 04/09/19 04/09/19 04/09/19 13:41 16:32 22:02 WBC RBC Hgb Hct MCV MCH MCHC RDW Std Deviation RDW Coeff of Anil Plt Count MPV Immature Gran % (Auto) Neut % (Auto) Lymph % (Auto) [place] % (Auto) Eos % (Auto) Baso % (Auto) Immature Gran # (Auto) Neut # (Auto) Lymph # (Auto) [place] # (Auto) Eos # (Auto) Baso # (Auto) Absolute Nucleated RBC Nucleated RBC % (auto) APTT 44.9 H 62.9 H* PTT Ratio 1.7 2.3 Sample Site POC pH POC pCO2 POC pO2 POC HCO3 POC Total CO2 POC Base Excess POC ABG O2 Sat Rusty Test O2 Delivery Device POC O2 Rate Minute Ventilation POC FiO2 Tidal Volume PEEP Sodium Potassium Chloride Carbon Dioxide Anion Gap BUN Creatinine Est Cr Clr Drug Dosing Est GFR ( Amer) Est GFR (Non-Af Amer) BUN/Creatinine Ratio Glucose POC Glucose 106 H Calcium Phosphorus Magnesium Total Bilirubin Direct Bilirubin AST ALT Alkaline Phosphatase Total Protein Albumin 04/10/19 04/10/19 04/10/19 04:33 04:33 04:33 WBC 12.98 H RBC 3.30 L Hgb 9.4 L Hct 28.6 L MCV 86.7 MCH 28.5 MCHC 32.9 RDW Std Deviation 49.9 H RDW Coeff of Anil 15.9 H Plt Count 163 MPV 10.3 Immature Gran % (Auto) 1.8 Neut % (Auto) 76.3 Lymph % (Auto) 12.6 [place] % (Auto) 8.6 Eos % (Auto) 0.5 Baso % (Auto) 0.2 Immature Gran # (Auto) 0.23 H Neut # (Auto) 9.90 H Lymph # (Auto) 1.64 [place] # (Auto) 1.11 H Eos # (Auto) 0.07 Baso # (Auto) 0.03 Absolute Nucleated RBC 0.10 H Nucleated RBC % (auto) 0.8 APTT 49.3 H* PTT Ratio 1.8 Sample Site POC pH POC pCO2 POC pO2 POC HCO3 POC Total CO2 POC Base Excess POC ABG O2 Sat Rusty Test O2 Delivery Device POC O2 Rate Minute Ventilation POC FiO2 Tidal Volume PEEP Sodium 137 Potassium 3.7 Chloride 104 Carbon Dioxide 24 Anion Gap 9.0 BUN 36 H Creatinine 2.95 H D Est Cr Clr Drug Dosing 16.1 Est GFR ( Amer) 17.4 Est GFR (Non-Af Amer) 15.0 BUN/Creatinine Ratio 12.2 Glucose 126 H POC Glucose Calcium 7.5 L Phosphorus 4.8 Magnesium 2.4 Total Bilirubin 0.6 Direct Bilirubin 0.2 AST 239 H ALT 1522 H Alkaline Phosphatase 126 H Total Protein 5.1 L Albumin 1.6 L 04/10/19 05:53 WBC RBC Hgb Hct MCV MCH MCHC RDW Std Deviation RDW Coeff of Anil Plt Count MPV Immature Gran % (Auto) Neut % (Auto) Lymph % (Auto) [place] % (Auto) Eos % (Auto) Baso % (Auto) Immature Gran # (Auto) Neut # (Auto) Lymph # (Auto) [place] # (Auto) Eos # (Auto) Baso # (Auto) Absolute Nucleated RBC Nucleated RBC % (auto) APTT PTT Ratio Sample Site L Radial POC pH 7.47 H POC pCO2 30 L POC pO2 110 H POC HCO3 22 POC Total CO2 22 L POC Base Excess -2.0 POC ABG O2 Sat 99.0 H Rusty Test NA O2 Delivery Device Ventilator POC O2 Rate 22 Minute Ventilation 11.8 POC FiO2 30 Tidal Volume 450 PEEP 5 Sodium Potassium Chloride Carbon Dioxide Anion Gap BUN Creatinine Est Cr Clr Drug Dosing Est GFR ( Amer) Est GFR (Non-Af Amer) BUN/Creatinine Ratio Glucose POC Glucose Calcium Phosphorus Magnesium Total Bilirubin Direct Bilirubin AST ALT Alkaline Phosphatase Total Protein Albumin PG Care Time/CCT Total # of Minutes Spent Total Time Spent with Patient: Total time spent is greater than 50% in coordination of care (as documented) at patient's floor/unit and/or counseling patient:
--- NOTE | 2019-04-10 13:21 | Palliative Care Progress Note ---
Date of Service April 10, 2019 Assessment & Plan (1) Goals of care, counseling/discussion: -74 year old female patient with recently surgical excision of glioma at [facility]. Prior to this event, she was healthy and fully- functioning from what the family describes. Lives with her Juan M here in [place]. Patient went to rehab at [facility] after surgery, was doing fairly well-- moving all extremities but had left arm weakness. There were plans for her to undergo chemo and radiation, but of course she became ill prior to this happening. She went home after rehab and unfortunately became increasingly short of breath, so she came to hospital. Patient suffered cardiac arrest 2/2 massive PEs, has a DVT. She had 4 rounds of CPR. She did achieve ROSC, but she is in acute cor pulmonale. Patient is now off pressors. Echo shows hyperdynamic EF of >70% with right heart strain. Sedation was turned off early this morning but unfortunately patient is not purposefully responsive at this time. Neurology consulted who came and saw her during my visit with patient and her brother Igor. Patient has some brain stem and spinal cord function, but really no purposeful movement as of yet. Patient is breathing on her own while on CPAP via mechanical ventilator. Creatinine is worsening, but she remains nonoliguric and no electrolyte disturbances at this time. Aside from these acute issues which are grave themselves, patient still has a glioblastoma which does not have a great prognosis to begin with. Patient is not progressing towards extubation since her mental status is so poor-- she would be unable to protect airway, high risk of aspiration. Patient would also not be able to eat/drink on her own in current situation. May need trach/PEG if no improvement. If kidneys worsen, could need dialysis in future, although she does not need it at this time. In speaking with patient's brother today, he states that patient's Juan M wants to continue on with full-court press-- would want all heroic measures to keep patient alive. Igor states that patient's is hoping for a miracle from God and "wants to keep her [the patient] as healthy as possible in the meantime." Igor does not think that patient's will be appreciative of palliative care provider's presence at the family meeting tomorrow morning at 1000. I assured him that my role is for SUPPORT in medical decision making and helping patient's family make informed decisions. He states that this family meeting was arranged by the patient's son Kj without patient's Juan M's consent or knowledge. Unless we hear otherwise, we are still planning to meet with family tomorrow morning to discuss next steps and direction of care. -Continuing with supportive care via mechanical ventilator. Waiting to see if there is neurologic improvement. Neurologist conveyed his concern to the patient's brother regarding prognosis. Igor verbalizes understanding. -Nephrology consulted as well-- no need for dialysis at this point. Patient is nonoliguric, electrolytes fine. Creatinine rising. -If no neurologic improvement-- need to discuss trach and PEG if patient's family plans to continue with aggressive care. Patient will likely need to go to long-term care facility at some point, but this is obviously thinking ahead. Family should still know this in order to know what to expect in the future should they decide to go the aggressive route. -Palliative care will continue to follow. (2) Cardiac arrest: (3) Cardiogenic shock: (4) Glioblastoma: Subjective Patient remains critically ill in ICU. Patient discussed at ICU rounds. Visited with patient's brother, Igor, in room 107. Neurology and nephrology consulted today. Review of Systems Review of Systems: Unobtainable due to cognitive status and Unobtainable due to endotracheal tube Physical Exam Constitutional: + ill appearing ENMT: external ear and nose normal, oropharynx normal Respiratory: no respiratory distress and no labored breathing Cardiovascular: Rate/Rhythm: regular rhythm and + tachycardic Skin: + pallor Neurologic: patient is withdrawing to noxious stimuli during neurologist's assessment. no spontaneous or purposeful movement after the versed was discontinued this morning. Results & Data Vital Signs (Past 12 Hours) Vital Signs Temp Pulse Pulse Resp BP BP Pulse Ox 04/10/19 11:22 104 H 23 99 04/10/19 11:01 92 H 148/76 H 99 04/10/19 10:00 95 H 123/67 99 04/10/19 09:00 95 H 123/68 99 04/10/19 08:00 99 H 142/73 H 100 04/10/19 07:33 101 H 24 100 04/10/19 07:00 104 H 148/79 H 100 12/05/19 06:10 22 04/10/19 06:00 93 H 22 139/68 99 04/10/19 05:00 37.0 C 89 22 139/63 99 04/10/19 04:00 37.2 C 90 22 141/78 H 99 04/10/19 03:00 37.0 C 85 22 117/48 L 97 04/10/19 02:31 92 H 22 98 Time Spent Midlevel 65 minutes with >50% of the time spent at bedside with patient, family, ICU team discussing condition, goals, prognosis, plan of care.
[2019-04-10] MEDS: HEPARIN SODIUM/DEXTROSE 25,000 UNITS/500 ML BAG IV SCH (16:02)
[2019-04-10] MEDS ORDERED: METOPROLOL TARTRATE 25 MG TAB PO SCH (21:00)
--- NOTE | 2019-04-11 00:02 | Billing Data ---
Coding Level of Care Code Critical Care 1st 30-74 mins
--- NOTE | 2019-04-11 00:02 | Billing Data ---
Coding Level of Care Code Critical Care 1st 30-74 mins
--- NOTE | 2019-04-11 00:03 | Billing Data ---
Coding Level of Care Code Critical Care 1st 30-74 mins
--- NOTE | 2019-04-11 00:03 | Billing Data ---
Coding Level of Care Code Critical Care 1st 30-74 mins
[2019-04-11] MEDS: HEPARIN SODIUM/DEXTROSE 25,000 UNITS/500 ML BAG IV SCH (00:56)
[2019-04-11] MEDS: INSULIN ASPART 100 UNITS/ML 3 ML PEN SC SCH ×4 (01:27→19:09)
[2019-04-11] MEDS: FEEDING WATER FLUSH GT SCH ×6 (03:07→22:35)
[2019-04-11 04:45] LABS: Basophils # (auto) 0.02 K/uL (0-0.2); Basophils % (auto) 0.1 %; Eosinophils # (auto) 0.04 K/uL (0-0.5); Eosinophils % (auto) 0.3 %; Hematocrit (blood only) 26.8 % (37-47); Immature Granulocytes # (auto) 0.67 K/uL (0.00-0.02); Immature Granulocytes % (auto) 4.8 %; Lymphocytes # (auto) 1.47 K/uL (1.2-3.4); Lymphocytes % (auto) 10.5 %; Mean Corpuscular Hemoglobin 28.9 pg (25-34); Mean Corpuscular Hgb Conc 33.6 g/dL (32-36); Mean Corpuscular Volume 86.2 fL (80-100); Mean Platelet Volume 10.3 fL (7.4-10.4); Monocytes # (auto) 1.77 K/uL (0.11-0.59); Monocytes % (auto) 12.6 %; Neutrophils # (auto) 10.07 K/uL (1.4-6.5); Neutrophils % (auto) 71.7 %; Platelet Count 161 K/uL (130-400); RDW Coefficient of Variation 15.7 % (11.5-14.5); RDW Standard Deviation 48.5 fL (36.4-46.3); Red Blood Count 3.11 M/uL (4.2-5.4); White Blood Count 14.04 K/uL (4.8-10.8)
[2019-04-11 04:55] LABS: Partial Thromboplastin Ratio 1.5; Partial Thromboplastin Time 41.1 Seconds (21.0-31.0)
[2019-04-11 05:08] LABS: BUN Creatinine Ratio 15.8 (10-20); Calcium 7.5 mg/dl (8.5-10.1); Creatinine Clr Calc Pharmacy 16.1 ml/min; Est GFR (African American) 17.3; Est GFR (Non-African American) 14.9; Magnesium 2.3 mg/dl (1.8-2.4); Potassium 3.8 mmol/L (3.5-5.1)
[2019-04-11 05:11] LABS: Phosphorus 4.9 mg/dl (2.5-4.9)
[2019-04-11] MEDS ORDERED: HEPARIN IV BOLUS 2,000 UNITS in SYRINGE 0 ML IV ONE (05:30)
--- NOTE | 2019-04-11 05:34 | Critical Care Progress Note ---
Date of Service April 11, 2019 Assessment & Plan (1) Admitted to intensive care unit: Reason Critically Ill: 74-year-old female here with a PMHx significant for glioblastoma, HTN, cardiac arrest, and massive PE who presented with a feeling of unwellness and who was admitted for massive PE. She sustained 3x cardiac PEA arrests with ROSC prior to admission to the ICU. Goals of Care: Family meeting held at 10 AM 04/11/2019 with Kj (patient's son), Igor (brother), and Paty (brother). Palliative care, intensive care, and primary service team were present. Nephrology, neurology, ENT aware of case. Case was discussed at length. Neurologically she has some increased movement and wit hdrawal from noxious stimuli in the last 24 hours, but is having suspected neurogenic fever. She has had multiple blood cultures drawn and is stable oxygen saturation, lower suspicion for infectious etiology of her fever. Long- term she has both a grim prognosis and extremely difficult recovery. She would likely be a crippled from a pulmonary/cardiac standpoint, and her extensive illness will make rehab very difficult. Family expresses understanding of this, and reiterate that they understand but that they and Yulissa would want full measures and full code. Specifically they agree with proceeding with tracheostomy and PEG tube placement. They are aware that dialysis may be needed in the future. Full code. Neuro - [facility] ICU: POSITIVE ETT in place (placed 04/06/2019) Sedation: Versed gtt held. Analgesia: Fentanyl 25mg Q30M prn, last dose 04/09 1755. - CT-H shows increase density of postsurgical change without other acute findings. Stable on repeat. Question semipurposeful movement with withdrawal to pain, EEG revealed generalized suppression of background rhythm. Neuro consulted, report neuro status seems slightly improved compared to yesterday with intact brainstem reflexes. They note EEG potentially correlates with a poor prognosis, but is not highly predictive. Left hemiparesis evident. Glioblastoma adjuvant treatments on hold in the setting of severe illness. Neuro consulted, case discussed Glioblastoma Multiforme Stage IV s/p craniotomy with tumor resection 03/13/2019 [address] [place] Manzanares [facility] No further surgical or chemotherapeutic intervention at this time Cardiac - Cardiogenic shock 2/2 PE, improved - PE treatment as below No current pressor requirements. - TTE hyperdynamic EF >70% with RV dilation and wall motion dysfunction -Troponins down trended Intermittently hypertensive overnight, normotensive this morning Respiratory Acute PE with multiorgan system dysfunction - With extensive R PA thrombus - Heparin gtt - No TPA or thrombectomy/surgical intervention. Case was discussed over the weekend with Zuri and Rasheed who feel she is not a surgical candidate, and TPA was contraindicated due to the patients recent neurosurgical procedure. - She shows evidence of right heart strain. -Tolerating CPAP 02/08/.3 today. - XR: No acute change : Goals of care discussion as above family would like a tracheostomy placed. They declined to have a dilated tracheostomy, report they wanted an OR tracheostomy performed. Case discussed with ENT, anticipate surgery later today. GI - Transaminitis 2/2 shock liver -AST/ALT downtrending since initial shock liver episode -CMP daily -Discussed PEG tube placement at length family meeting today. Family consents, and would like placed. Will discuss with GI, will attempt to coordinate tracheostomy and PEG placement to reduce time that heparin drip needs to be held. Nutrition - IVFM: Discontinued -Hold feeds in anticipation of surgical tracheostomy Tube placement as above RENAL/LYTES - KATHY Creatinine 2.96 from 2.95 Potassium, sodium within normal limits - Electrolyte protocol, replace lytes as needed. Urine output 275 cc 24 hours, net 11 L positive With presentation of multi system organ dysfunction, cardiac arrest, and hypoxia with continued worsening of renal function potential need potential dialysis if her kidney function does not improve or she develops electrolyte instabilities. Family is aware. - No concerns at this time. ENDO - No history of T2DM, BSG 380 on admit - HgbA1C 5.6% - ICU hyperglycemic protocol - GSB ~100s HEME - - Hgb stable, 9.0 today - CBC daily - No signs of bleeding on clinical exam ID - Intermittent fever, suspect 2/2 Neurogenic Fever - She does not have an increasing oxygen requirement, and has a normal lactate. Suspect neurogenic fever, will monitor for increasing oxygen requirements. - APAP limited by shock liver and transaminitis - Blood cultures / remain negative - Monitor fever curve. Cooling blankets initiated INTEGUMENTARY - No acute concerns LINES/IV ACCESS - PIVs intact. DVT PROPHYLAXIS - Heparin gtt. Thank you for allowing us to be part of this patient's care. Please refer to Dr. Lindquist's documentation for any further recommendations. (2) Deep vein thrombosis (DVT) of popliteal vein of left lower extremity: (3) Deep venous thrombosis (DVT) of right peroneal vein: (4) Acute cor pulmonale: (5) Venous thromboembolism: (6) Aspiration pneumonia: (7) Acute kidney injury: (8) Hypertension: (9) Cardiogenic shock: (10) Pulmonary embolism: (11) Cardiac arrest: (12) Glioblastoma: Supervising Physician Co-Signing Physician Notes Dr. Louis was resident physician during care of patient. I separately evaluated patient for jimenez portions of the history and the exam. I was present during the critical portion of medical decision making, and I discussed the case with the resident. I generally agree with the findings and plan. Patient was discussed in multidisciplinary rounds. We participated in a long discussion with the patient's twin brothers, Paty and Igor as well as her oldest son Kj. The patient's preferred not to be present for this meeting it was related by Igor that he would not be able to process the information and prefers to defer to Igor (cardiothoracic physician oncology physician assistant) and additional family the filtering of medical information. Family meeting was attended by Dr. Louis, Maraina Tang of palliative care and Drs. Jung and Christiano of the medicine service. Neurologically we know the patient has a surgically injured brain from a recent GBM resection, ideal scenario she would undergo chemotherapy and radiation. She has likely suffered anoxic injury secondary to cardiac arrest which likely greatly impacts the rate and extent of neurologic recovery. The malignancy itself is very concerning. Patient is now experiencing fevers (I believe these are central in origin) which in the setting of recent cardiac arrest is a bad prognostic sign and we are attempting to surface cool the patient given multiple comorbidities. Cardiovascularly the patient will require lifelong anticoagulation secondary to profound thromboembolic disease (suspect secondary to malignancy) and exhibits cor pulmonale type IV. Ultimate treatment would be thrombectomy which the patient has already been deemed not a candidate. From a respiratory standpoint the patient is maintaining and would consider extubation; however, patient's neuro status should be considered given risk for aspiration. From a gastroenterology standpoint the patient is still recovering from shock liver, this somewhat precludes use of acetaminophen for fever control. Nutritional input will be imperative in this patient and surgical gastrostomy tube should be considered at a minimum she should have course a feeding tube placement if gastrostomy tube cannot be placed expeditiously. Renally the patient's creatinine appears to have nadired it is hopeful that she will have urinary recovery, if not contingency plans for hemodialysis should be considered. Infectious disease: She has remained off anti-infectives for 72 hours, her white count continues to downtrend however she is showing signs of being febrile. There is no oxygen requirements and the infiltrates on the chest x-ray remain un changed I do not believe this is a pulmonary source. We are sending serial blood cultures to increase the positive predictive value of the negative blood cultures. She is certainly at with risk for surgical site infections, urinary tract infection (Mosquera will remain to monitor for return of renal function) and a liver ultrasound will be obtained to evaluate for possible cholecystitis/acalculous cholecystitis (however I believe the elevation in enzymes is largely related to shock liver and the cardiac arrest.) The family members present reiterate that the patient was a paternal optimist and she would want to continue to undergo aggressive treatment to include tracheostomy and gastrostomy and possibly renal replacement therapy. Similarly she would want to undergo CPR and heroic measures in event of cardiac arrest despite the bleak outlook given her current conditions. It has been difficult to elucidate what the patient would consider meaningful recovery; is largely been related that the patient and her are of a alya that largely does not recognize medical futility. I emphasized that in light of this we will optimize the patient for best possible recovery; this appears to be best achieved with tracheostomy for secured airway to allow for ease of access clearance of secretions, possible decrease in rate of aspiration as well as surgical gastrostomy tube to assist w ith enteral nutrition. Family did not want to consider dialysis at this time as they felt the contingency plan was largely hinging on hypothetical scenarios. With regard to respiratory failure I feel the patient's mental status will not improve to a point that would allow for safe extubation would proceed immediately with tracheostomy thus allowing us to better stratify care facilities based off the patient's individual needs. Not withstanding we recognize that there is an increased chance of bleeding given anticoagulation requirements as well as increased risk for extension of thrombotic disease should anticoagulation be held to perform the surgical procedures. In discussion with the patient's brother, Igor, he preferred to have a ear nose and throat surgeon perform the tracheostomy. We discussed possible percutaneous tracheostomy performed by myself, another web programmer, our thoracic surgeon (he is unavailable at this time). Family has decided to proceed with Dr. ATKINS who will be performing an open tracheostomy. I discussed this with him and we have held the heparin in anticipation of placement of the tracheostomy today. I anticipate upon return from the operating room holding anticoagulation for 4 to 6 hours and then resuming anticoagulation. I discussed with Dr. Craig of gastroenterology possible percutaneous gastrostomy tube placement, he feels the patient is best handled with a temporary course safe tube until she is further out from these insults to consider surgical placement. Accordingly most facilities are able to accommodate temporary feeding tube placement, however, the tracheostomy will assist allowing the patient's to participate in therapy should she improve to that point. I discussed the disposition with case management they are looking into local facilities as well as possible facilities in [place] per discussions with the family. I feel the patient is at high risk for complications and family expressed understanding. Melissa Duenas is seen at the bedside this morning. Per nursing staff she withdraws to noxious stimuli with her right arm weakly overnight. No other change. Addendum: Family meeting held at 10 AM this morning with Kj (patient's son), Igor (brother), and Paty (brother). Palliative care, intensive care, and primary service team were present. Case was discussed at length. Neurologically she has some increased movement and withdrawal from noxious stimuli in the last 24 hours, but is having suspected neurogenic fever. She has had multiple blood cultures drawn and is stable oxygen saturation, lower suspicion for infectious etiology of her fever. Long-term she has both a grim prognosis and extremely difficult recovery. She would likely be a crippled from a pulmonary/cardiac standpoint, and her extensive illness will make rehab very difficult. Family expresses understanding of this, and reiterate that they understand but that they and Yulissa would want full measures and full code. Specifically they agree with proceeding with tracheostomy and PEG tube placement. They are aware that dialysis may be needed in the future. Review of Systems Review of Systems: Unobtainable due to endotracheal tube Physical Exam Physical Exam: General: ETT in place. Sedated. NAD. Skin warm, moist. HEENT: Normocephalic. Pupils responsive to light and equal. Nonicteric. Pulm: On ventilator, trace crackles at bases bilaterally similar to prior, otherwise globally clear to auscultation Cardiac: Tachycardic, regular -mrg. Radial pulses intact and symmetrical. Abdominal: Nontender, nondistended, soft. BS present. Extremity: Withdraws to thumb pinch on right, no withdraw to pinch on left. Distal limbs puffy, edema of the hands and feet present bilaterally. Extremities warm, moist. Cap refill in thumb 2-3 seconds, hallux 3-4 seconds bilaterally. Results & Data Vital Signs (Past 12 Hours) Vital Signs Temp Pulse Pulse Resp BP BP Pulse Ox 04/11/19 05:00 38.0 C H 105 H 24 143/72 H 04/11/19 04:00 100 H 21 134/82 04/11/19 03:00 38.0 C H 104 H 21 130/84 99 04/11/19 02:15 103 H 19 99 04/11/19 01:00 38.1 C H 102 H 21 128/85 98 04/11/19 00:55 115 H 27 H 97 04/10/19 23:00 38.0 C H 91 H 22 04/10/19 22:14 108 H 24 98 04/10/19 21:00 109 H 25 H 155/85 H 04/10/19 20:00 38.3 C H 111 H 29 H 145/77 H 98 04/10/19 19:35 107 H 25 H 99 04/10/19 18:00 93 H 119/61 100 Critical Care Time Critical Care Time: Yes Total Critical Care Time: 120 I have personally spent 120 minutes of critical care time in the direct management of this patient. This is a life/limb threatening event. This includes time spent evaluating patient, direct bedside care, chart review, placing orders, interpretation of diagnostic studies, discussion with consultants, patient, and/or family members regarding treatment decisions, as well as other required patient management activities. This time is exclusive of all separately billable procedures, and teaching time and separate from and in addition to any other critical care service time. Resident Activity Tracking Resident Involvement: Resident Care Provided Care Provided: Adult [facility]
[2019-04-11 05:44] LABS: iSTAT Allen Test Pass; iSTAT Arterial Blood Gas HCO3 21 meg/L (19-24); iSTAT Arterial Blood Gas pCO2 29 mmHg (35-46); iSTAT Arterial Blood Gas pH 7.48 (7.35-7.45); iSTAT Arterial Blood Gas pO2 96 mmHg (80-95); iSTAT Carbon Dioxide 22 mEq/l (24-31); iSTAT FiO2 30 %; iSTAT Site R Radial
--- NOTE | 2019-04-11 06:45 | Magnetic Resonance Report ---
MR brain wo con HISTORY: 74 years-old Female not waking up acutely altered mental status with recent right frontal c raniotomy COMPARISON: Head CT 04/09/2019, MRI brain 02/26/2019 TECHNIQUE: Multiplanar multisequence MRI of the brain was obtained without the use of IV contrast. FINDINGS: Midline structures including the corpus callosum, brainstem, optic chiasm, pituitary and pineal gland s appear unremarkable on the sagittal T1 series. No cerebellar tonsillar herniation. No acute territorial infarct. Increased diffusion-weighted signal is noted peripherally about the 5.6 x 4.4 x 4.0 cm collection of the posterior right frontal distribution which also demonstrates periph eral blooming artifact and T1 hyperintensity compatible with blood products/postsurgical change withi n a resection cavity. 4 mm leftward midline shift is unchanged. There is mild sulcal effacement and g yral expansion surrounding the resection cavity along with associated vasogenic edema. Craniotomy yash nges of the adjacent calvarium with tiny extra-axial mixed signal collection measuring up to 4.6 mm t ransversely. No hydrocephalus or herniation. The left cerebral hemisphere and infratentorial structur es appear unremarkable. Additionally, there is a subcentimeter subdural collection adjacent to the ri ght frontal lobe anteriorly and medially which measures up to 7 mm. Major flow voids appear patent. Trace mastoid effusions. Layering secretions are noted within the kolby opharynx. Mild mucosal thickening of the paranasal sinuses. The skull and orbits are unremarkable. IMPRESSION: 1. Heterogeneous area/collection of the posterior right frontal/parietal distribution measuring up to 5.6 cm with peripheral blood products appears unchanged from the CT study dated 04/09/2019 and is sug gestive of resection cavity with blood products. Again this is noted to result in adjacent gyral expa nsion and sulcal effacement with 4 mm leftward midline shift. 2. Restricted diffusion peripherally about the resection cavity is likely on a postsurgical basis. 3. No hydrocephalus. 4. Subcentimeter acute subdural hematoma adjacent to the anterior right frontal lobe with unchanged s mall postsurgical extra-axial collection adjacent to the resection cavity and craniotomy site. The above report was generated using voice recognition software. It may contain grammatical, syntax o r spelling errors. Electronically signed by: Maurice Shell M.D. 04/11/2019 6:44 AM
--- NOTE | 2019-04-11 07:32 | Hospitalist Progress Note ---
Date of Service April 11, 2019 Assessment & Plan (1) Cardiogenic shock: - Currently in ICU with famly opting for full treatment with hopes of meaningful recovery. - Team meeting today with two rothers and oldest son Kj, stated that patient would want to continue with full treatments for meaningful recovery - Cause was most likely pulmonary embolism - Echocardiogram performed at beginning of admission which showed * Hyperdynamic LV, moderately dilated RV, mild-mod reduced RV systolic, mildy dilated RA, mild aortic regurg, mild mitral annular calcification, RV systolic pressure normal, IVC mildly dilated. - campus monitor - Pressor support as deemed necessary per ICU team - currently endotracheal intubation with management per ICU specialists; with plans for tracheostomy procedure today. (2) Lactic acidosis: - result from cardiogenic shock and hypoperfusion of tissues - metabolic acidosis - initial value 14.7 lactate, trended down (3) Pulmonary embolism: - Large right lung pulmonary embolus with suspected mild right ventricular strain seen on CTA - not a candidate for TPA on presentation as recent brain surgery for glioblastoma - currently treating with heparin - continuous pulse ox - endotracheal intubation managed by ICU team - cancer causing hypercoaguable state (4) Cardiac arrest: - occurred in ED - Had CPR performed x4 with ROSC (5) Glioblastoma: - Review of records shows that on 02/26 MRI Brain showing 5.7 cm intra- axial mass in the right frontoparietal region highly concerning for a primary malignancy, namely glioblastoma multiforme - Had recent surgical resection 03/13/19; with noted prior plan for chemotherapy and radiation per EMR note review - Had LUE weakness/numbness from mass - Head CT performed in ED showed right-sided pneumocephalus, likely postsurgical. There is also trace fluid subjacent to the craniotomy flap, likely postsurgical. There is a 5 cm hypodense right frontal mass, likely representing a necrotic neoplasm. However, once additional history given as status post a complete resection of the patient's frontal lobe neoplasm. The right frontal lobe mass described, therefore likely represents a postsurgical biopsy cavity. Surveillance with MRI scanning would be the best test to evaluate for residual/recurrent tumor. (6) Hypertension: Currently on Metoprolol Tartrate 25mg PO BID q12h (7) Acute kidney injury: Most likely from tissue hypoperfusion from cardiogenic shock Continues to be elevated withouy electrolyte abnormalities. Family would like to pursue dialysis if needed (8) Aspiration pneumonia: Treated with Zosyn (9) Acute cor pulmonale: (10) Venous thromboembolism: Heparin and hypercoaguable state as above (11) Deep vein thrombosis (DVT) of popliteal vein of left lower extremity: Heparin and hypercoaguable state as above DVT US Showed 1. There is occlusive deep venous thrombosis identified in the left popliteal vein which extends into the calf vessels. 2. There is nonocclusive deep venous thrombosis identified within the right calf in the peroneal vein. (12) Deep venous thrombosis (DVT) of right peroneal vein: Heparin and hypercoaguable state as above Supervising Physician Co-Signing Physician Notes I saw the patient with the resident physician and confirmed jimenez portion of the history and physical examination. Also discussed the case with the cosmetic sales consultant team who has primary care this patient. Also participated in the family meeting this morning. Agree with the impression and plan as noted in the resident documentation. Family wishes discussed; plan is to move forward with placement of tracheostomy and PEG. We will continue to see patient although at this time the cosmetic sales consultant team is taking the lead in patient care. Subjective Caveat: History Limited by Endotracheal Intubation No acute events overnight. Not currently on pressors, family still pursuing full treatment. No family at bedside this AM during exam. Attended family meeting at 10am with son and two brothers. Spouse was not present. Brother stated that patient would like to continue to have aggressive therapy with goal to be for recovery from event. Physical Exam Constitutional: WD/WN, vitals as above Neck: normal visual inspection and trachea midline Respiratory: normal respiratory effort, lungs clear to auscultation Cardiovascular: Rate/Rhythm: regular rhythm and + tachycardic Extremities: + edema Gastrointestinal (Abdomen): Inspection/Auscultation: normal bowel sounds Percussion/Palpation: abdomen soft Skin: no rashes, warm and dry Results & Data Vital Signs (Past 12 Hours) Vital Signs Temp Pulse Pulse Resp BP Pulse Ox 04/11/19 06:18 111 H 26 H 98 04/11/19 06:00 38 C H 113 H 20 161/82 H 98 04/11/19 05:00 38.0 C H 105 H 24 143/72 H 04/11/19 04:00 100 H 21 134/82 04/11/19 03:00 38.0 C H 104 H 21 130/84 99 04/11/19 02:15 103 H 19 99 04/11/19 01:00 38.1 C H 102 H 21 128/85 98 04/11/19 00:55 115 H 27 H 97 04/10/19 23:00 38.0 C H 91 H 22 04/10/19 22:14 108 H 24 98 04/10/19 21:00 109 H 25 H 155/85 H 04/10/19 20:00 38.3 C H 111 H 29 H 145/77 H 98 04/10/19 19:35 107 H 25 H 99 Laboratory Results Laboratory Results - last 24 hr 04/10/19 04/11/19 04/11/19 18:10 04:16 04:16 WBC RBC Hgb Hct MCV MCH MCHC RDW Std Deviation RDW Coeff of Anil Plt Count MPV Immature Gran % (Auto) Neut % (Auto) Lymph % (Auto) [place] % (Auto) Eos % (Auto) Baso % (Auto) Immature Gran # (Auto) Neut # (Auto) Lymph # (Auto) [place] # (Auto) Eos # (Auto) Baso # (Auto) APTT 41.1 H PTT Ratio 1.5 Sample Site POC pH POC pCO2 POC pO2 POC HCO3 POC Total CO2 POC Base Excess POC ABG O2 Sat Rusty Test O2 Delivery Device POC FiO2 PEEP Sodium 136 Potassium 3.8 Chloride 105 Carbon Dioxide 23 Anion Gap 8.0 BUN 47 H Creatinine 2.96 H Est Cr Clr Drug Dosing 16.1 Est GFR ( Amer) 17.3 Est GFR (Non-Af Amer) 14.9 BUN/Creatinine Ratio 15.8 Glucose 138 H POC Glucose 138 H Calcium 7.5 L Phosphorus 4.9 Magnesium 2.3 Total Creatine Kinase 103 04/11/19 04/11/19 04/11/19 04:16 05:28 11:07 WBC 14.04 H RBC 3.11 L Hgb 9.0 L Hct 26.8 L MCV 86.2 MCH 28.9 MCHC 33.6 RDW Std Deviation 48.5 H RDW Coeff of Anil 15.7 H Plt Count 161 MPV 10.3 Immature Gran % (Auto) 4.8 Neut % (Auto) 71.7 Lymph % (Auto) 10.5 [place] % (Auto) 12.6 Eos % (Auto) 0.3 Baso % (Auto) 0.1 Immature Gran # (Auto) 0.67 H Neut # (Auto) 10.07 H Lymph # (Auto) 1.47 [place] # (Auto) 1.77 H Eos # (Auto) 0.04 Baso # (Auto) 0.02 APTT PTT Ratio Sample Site R Radial POC pH 7.48 H POC pCO2 29 L POC pO2 96 H POC HCO3 21 POC Total CO2 22 L POC Base Excess -2.0 POC ABG O2 Sat 98.0 H Rusty Test Pass O2 Delivery Device Ventilator POC FiO2 30 PEEP 5 Sodium Potassium Chloride Carbon Dioxide Anion Gap BUN Creatinine Est Cr Clr Drug Dosing Est GFR ( Amer) Est GFR (Non-Af Amer) BUN/Creatinine Ratio Glucose POC Glucose 138 H Calcium Phosphorus Magnesium Total Creatine Kinase 04/11/19 11:08 WBC RBC Hgb Hct MCV MCH MCHC RDW Std Deviation RDW Coeff of Anil Plt Count MPV Immature Gran % (Auto) Neut % (Auto) Lymph % (Auto) [place] % (Auto) Eos % (Auto) Baso % (Auto) Immature Gran # (Auto) Neut # (Auto) Lymph # (Auto) [place] # (Auto) Eos # (Auto) Baso # (Auto) APTT 43.4 H PTT Ratio 1.6 Sample Site POC pH POC pCO2 POC pO2 POC HCO3 POC Total CO2 POC Base Excess POC ABG O2 Sat Rusty Test O2 Delivery Device POC FiO2 PEEP Sodium Potassium Chloride Carbon Dioxide Anion Gap BUN Creatinine Est Cr Clr Drug Dosing Est GFR ( Amer) Est GFR (Non-Af Amer) BUN/Creatinine Ratio Glucose POC Glucose Calcium Phosphorus Magnesium Total Creatine Kinase Medications Administered Acetaminophen (Tylenol) 650 mg PO Q4H PRN PRN Reason: Pain or Fever Stop: 05/06/19 16:30 Last Admin: 04/09/19 08:22 Dose: 650 mg Documented by: [id number] Admin: 04/08/19 13:03 Dose: 650 mg Documented by: [id number] Dextrose (Dextrose 50%) 25 - 50 ml IV UD PRN; Protocol PRN Reason: Hypoglycemia Protocol Stop: 05/06/19 18:29 Last Admin: 04/07/19 14:48 Dose: 25 ml Documented by: [id number] Admin: 04/07/19 12:35 Dose: 25 ml Documented by: [id number] Enteral Nutritional Formula (Impact 1.0 Himanshu) 1,000 ml OG .CONTINUOUS GINO; Protocol Stop: 05/08/19 11:59 Last Admin: 04/11/19 10:44 Dose: 1,000 ml Documented by: [id number] Admin: 04/10/19 09:55 Dose: 1,000 ml Documented by: [id number] Admin: 04/08/19 13:05 Dose: 1,000 ml Documented by: [id number] Fentanyl Citrate (Fentanyl Citrate) 25 mcg IV Q30M PRN PRN Reason: Pain Stop: 04/23/19 10:14 Last Admin: 04/09/19 17:55 Dose: 25 mcg Documented by: [id number] Admin: 04/09/19 11:30 Dose: 25 mcg Documented by: [id number] Heparin Sodium/Dextrose (Heparin Sodium/Dextrose) 25,000 units in 500 mls @ 0 mls/hr IV .Q0M GINO; Protocol Stop: 05/06/19 12:44 Last Titration: 04/11/19 11:30 Dose: 0 units/hr, 0 mls/hr Documented by: [id number] Cosigned by: [id number] Titration: 04/11/19 07:16 Dose: 800 units/hr, 16 mls/hr Documented by: [id number] Cosigned by: [id number] Titration: 04/11/19 05:31 Dose: 800 units/hr, 16 mls/hr Documented by: [id number] Cosigned by: [id number] Admin: 04/11/19 00:56 Dose: 700 units/hr, 14 mls/hr Documented by: [id number] Cosigned by: [id number] Titration: 04/11/19 00:56 Dose: 700 units/hr, 14 mls/hr Documented by: [id number] Cosigned by: [id number] Titration: 04/10/19 18:58 Dose: 700 units/hr, 14 mls/hr Documented by: [id number] Cosigned by: [id number] Admin: 04/10/19 16:02 Dose: Not Given Documented by: [id number] Titration: 04/10/19 07:07 Dose: 700 units/hr, 14 mls/hr Documented by: [id number] Cosigned by: [id number] Titration: 04/09/19 19:10 Dose: 700 units/hr, 14 mls/hr Documented by: [id number] Cosigned by: [id number] Admin: 04/09/19 15:23 Dose: 700 units/hr, 14 mls/hr Documented by: [id number] Cosigned by: [id number] Titration: 04/09/19 15:23 Dose: 600 units/hr, 12 mls/hr Documented by: [id number] Cosigned by: [id number] Titration: 04/09/19 07:08 Dose: 600 units/hr, 12 mls/hr Documented by: [id number] Cosigned by: [id number] Titration: 04/08/19 18:55 Dose: 600 units/hr, 12 mls/hr Documented by: [id number] Cosigned by: [id number] Admin: 04/08/19 13:01 Dose: 600 units/hr, 12 mls/hr Documented by: [id number] Cosigned by: [id number] Titration: 04/08/19 13:01 Dose: 600 units/hr, 12 mls/hr Documented by: [id number] Cosigned by: [id number] Titration: 04/08/19 07:18 Dose: 600 units/hr, 12 mls/hr Documented by: [id number] Cosigned by: [id number] Titration: 04/07/19 23:57 Dose: 600 units/hr, 12 mls/hr Documented by: [id number] Cosigned by: [id number] Admin: 04/07/19 19:14 Dose: 600 units/hr, 12 mls/hr Documented by: [id number] Cosigned by: [id number] Titration: 04/07/19 19:14 Dose: 600 units/hr, 12 mls/hr Documented by: [id number] Cosigned by: [id number] Titration: 04/07/19 18:31 Dose: 600 units/hr, 12 mls/hr Documented by: [id number] Cosigned by: [id number] Titration: 04/07/19 15:25 Dose: 700 units/hr, 14 mls/hr Documented by: [id number] Cosigned by: [id number] Titration: 04/07/19 11:47 Dose: 700 units/hr, 14 mls/hr Documented by: [id number] Cosigned by: [id number] Titration: 04/07/19 11:08 Dose: 0 units/hr, 0 mls/hr Documented by: [id number] Cosigned by: [id number] Titration: 04/07/19 06:57 Dose: 800 units/hr, 16 mls/hr Documented by: [id number] Cosigned by: [id number] Titration: 04/07/19 04:11 Dose: 800 units/hr, 16 mls/hr Documented by: [id number] Cosigned by: [id number] Titration: 04/07/19 03:36 Dose: 0 units/hr, 0 mls/hr Documented by: [id number] Cosigned by: [id number] Titration: 04/06/19 20:44 Dose: 900 units/hr, 18 mls/hr Documented by: [id number] Cosigned by: [id number] Titration: 04/06/19 19:42 Dose: 0 units/hr, 0 mls/hr Documented by: [id number] Cosigned by: [id number] Titration: 04/06/19 19:12 Dose: 1,050 units/hr, 21 mls/hr Documented by: [id number] Cosigned by: [id number] Admin: 04/06/19 12:52 Dose: 1,050 units/hr, 21 mls/hr Documented by: [id number] Cosigned by: [id number] Midazolam HCl (Versed) 125 mg in 250 mls @ 0 mls/hr IV .Q0M GINO; Protocol Stop: 05/07/19 13:29 Last Titration: 04/10/19 10:37 Dose: 0 mg/hr, 0 mls/hr Documented by: [id number] Titration: 04/10/19 07:07 Dose: 0 mg/hr, 0 mls/hr Documented by: [id number] Cosigned by: [id number] Titration: 04/10/19 05:00 Dose: 0 mg/hr, 0 mls/hr Documented by: [id number] Admin: 04/09/19 21:16 Dose: 3 mg/hr, 6 mls/hr Documented by: [id number] Cosigned by: [id number] Titration: 04/09/19 21:16 Dose: 3 mg/hr, 6 mls/hr Documented by: [id number] Cosigned by: [id number] Titration: 04/09/19 19:40 Dose: 3 mg/hr, 6 mls/hr Documented by: [id number] Cosigned by: [id number] Titration: 04/09/19 11:45 Dose: 0 mg/hr, 0 mls/hr Documented by: [id number] Titration: 04/09/19 07:08 Dose: 3 mg/hr, 6 mls/hr Documented by: [id number] Cosigned by: [id number] Titration: 04/08/19 18:55 Dose: 3 mg/hr, 6 mls/hr Documented by: [id number] Cosigned by: [id number] Admin: 04/08/19 13:02 Dose: 3 mg/hr, 6 mls/hr Documented by: [id number] Cosigned by: [id number] Titration: 04/08/19 13:02 Dose: 3 mg/hr, 6 mls/hr Documented by: [id number] Cosigned by: [id number] Titration: 04/08/19 07:18 Dose: 3 mg/hr, 6 mls/hr Documented by: [id number] Cosigned by: [id number] Titration: 04/07/19 23:57 Dose: 3 mg/hr, 6 mls/hr Documented by: [id number] Titration: 04/07/19 22:35 Dose: 3 mg/hr, 6 mls/hr Documented by: [id number] Titration: 04/07/19 21:35 Dose: 2.5 mg/hr, 5 mls/hr Documented by: [id number] Titration: 04/07/19 18:30 Dose: 2 mg/hr, 4 mls/hr Documented by: [id number] Titration: 04/07/19 17:30 Dose: 2.5 mg/hr, 5 mls/hr Documented by: [id number] Titration: 04/07/19 16:30 Dose: 2 mg/hr, 4 mls/hr Documented by: [id number] Titration: 04/07/19 15:25 Dose: 1.5 mg/hr, 3 mls/hr Documented by: [id number] Admin: 04/07/19 14:07 Dose: 1 mg/hr, 2 mls/hr Documented by: [id number] Cosigned by: [id number] Insulin Aspart (Novolog Flexpen) 0 units SC Q6 GINO Stop: 05/09/19 17:59 Last Admin: 04/11/19 13:02 Dose: Not Given Documented by: [id number] Cosigned by: [id number] Admin: 04/11/19 06:20 Dose: Not Given Documented by: [id number] Cosigned by: [id number] Admin: 04/11/19 01:27 Dose: Not Given Documented by: [id number] Cosigned by: [id number] Admin: 04/10/19 18:35 Dose: Not Given Documented by: [id number] Cosigned by: [id number] Admin: 04/10/19 12:48 Dose: Not Given Documented by: [id number] Cosigned by: [id number] Admin: 04/10/19 05:35 Dose: Not Given Documented by: [id number] Cosigned by: [id number] Admin: 04/10/19 00:58 Dose: Not Given Documented by: [id number] Cosigned by: [id number] Admin: 04/09/19 17:53 Dose: Not Given Documented by: [id number] Cosigned by: [id number] Metoprolol Tartrate (Lopressor) 25 mg PO BID GINO Stop: 05/11/19 08:59 Last Admin: 04/11/19 08:03 Dose: 25 mg Documented by: [id number] Polyethylene Glycol (Miralax Powder Packet) 17 gm PO DAILY GINO Stop: 05/07/19 08:59 Last Admin: 04/11/19 08:04 Dose: Not Given Documented by: [id number] Admin: 04/10/19 09:58 Dose: Not Given Documented by: [id number] Admin: 04/09/19 06:57 Dose: Not Given Documented by: [id number] Admin: 04/08/19 07:54 Dose: Not Given Documented by: [id number] Admin: 04/07/19 10:31 Dose: Not Given Documented by: [id number] Sterile Water (Tube Feeding Water Flush) 1 ea GT Q4H GINO Stop: 05/10/19 09:59 Last Admin: 04/11/19 10:44 Dose: 1 ea Documented by: [id number] Admin: 04/11/19 06:21 Dose: 1 ea Documented by: [id number] Admin: 04/11/19 03:07 Dose: 1 ea Documented by: [id number] Admin: 04/10/19 22:17 Dose: 1 ea Documented by: [id number] Admin: 04/10/19 18:34 Dose: 1 ea Documented by: [id number] Admin: 04/10/19 15:03 Dose: 1 ea Documented by: [id number] Admin: 04/10/19 10:33 Dose: 1 ea Documented by: [id number] Resident Activity Tracking Resident Involvement: Resident Care Provided Care Provided: Adult [facility]
[2019-04-11] MEDS: POLYETHYLENE (MIRALAX) 17 GM PACK PO SCH (08:04)
[2019-04-11] MEDS ORDERED: METOPROLOL TARTRATE 25 MG TAB PO SCH (09:00)
--- NOTE | 2019-04-11 09:06 | Electroencephalogram ---
EEG Procedure Note Date of Service April 11, 2019 Start / End Times Start Time: 8 AM End Time: 8:20 AM Referring Physician Santiago Louis MD History Cardiac arrest. Persistent encephalopathy. History of right frontoparietal glioma resection. Home Medication List Home Medications Medication Instructions Recorded Confirmed Type acetaminophen 325 mg tablet 650 mg PO Q6H PRN tab 04/02/19 04/06/19 History amlodipine 5 mg tablet 5 mg PO DAILY 04/02/19 04/06/19 History bisacodyl 10 mg rectal suppository 10 mg WI DAILY PRN 04/02/19 04/06/19 History cholecalciferol (vitamin D3) 5,000 5,000 units PO DAILY 04/02/19 04/06/19 History unit capsule docusate sodium 100 mg capsule 100 mg PO BID PRN 04/02/19 04/06/19 History enoxaparin 30 mg/0.3 mL 30 mg SQ Q12H 04/02/19 04/06/19 History subcutaneous syringe mecobalamin (vitamin B12) 1,000 1,000 mcg SL DAILY 04/02/19 04/06/19 History mcg disintegrating tablet,sublingual omega-3 fatty acids 1,000 mg 1,000 mg PO DAILY 04/02/19 04/06/19 History capsule polyethylene glycol 3350 17 17 gm PO DAILY 04/02/19 04/06/19 History gram/dose oral powder sennosides 8.6 mg-docusate sodium 1 tabcap PO DAILY PRN tab 04/02/19 04/06/19 History 50 mg tablet sodium phosphates 19 gram-7 118 ml WI DAILY PRN 04/02/19 04/06/19 History gram/118 mL enema Inpatient Medication List Acetaminophen (Tylenol) 650 mg PO Q4H PRN PRN Reason: Pain or Fever Stop: 05/06/19 16:30 Last Admin: 04/09/19 08:22 Dose: 650 mg Documented by: [id number] Admin: 04/08/19 13:03 Dose: 650 mg Documented by: [id number] Dextrose (Dextrose 50%) 25 - 50 ml IV UD PRN; Protocol PRN Reason: Hypoglycemia Protocol Stop: 05/06/19 18:29 Last Admin: 04/07/19 14:48 Dose: 25 ml Documented by: [id number] Admin: 04/07/19 12:35 Dose: 25 ml Documented by: [id number] Enteral Nutritional Formula (Impact 1.0 Himanshu) 1,000 ml OG .CONTINUOUS GINO; Protocol Stop: 05/08/19 11:59 Last Admin: 04/10/19 09:55 Dose: 1,000 ml Documented by: [id number] Admin: 04/08/19 13:05 Dose: 1,000 ml Documented by: [id number] Fentanyl Citrate (Fentanyl Citrate) 25 mcg IV Q30M PRN PRN Reason: Pain Stop: 04/23/19 10:14 Last Admin: 04/09/19 17:55 Dose: 25 mcg Documented by: [id number] Admin: 04/09/19 11:30 Dose: 25 mcg Documented by: [id number] Heparin Sodium/Dextrose (Heparin Sodium/Dextrose) 25,000 units in 500 mls @ 16 mls/hr IV .Q24H [facility]; Protocol Stop: 05/06/19 12:44 Last Titration: 04/11/19 07:16 Dose: 800 units/hr, 16 mls/hr Documented by: [id number] Cosigned by: [id number] Titration: 04/11/19 05:31 Dose: 800 units/hr, 16 mls/hr Documented by: [id number] Cosigned by: [id number] Admin: 04/11/19 00:56 Dose: 700 units/hr, 14 mls/hr Documented by: [id number] Cosigned by: [id number] Titration: 04/11/19 00:56 Dose: 700 units/hr, 14 mls/hr Documented by: [id number] Cosigned by: [id number] Titration: 04/10/19 18:58 Dose: 700 units/hr, 14 mls/hr Documented by: [id number] Cosigned by: [id number] Admin: 04/10/19 16:02 Dose: Not Given Documented by: [id number] Titration: 04/10/19 07:07 Dose: 700 units/hr, 14 mls/hr Documented by: [id number] Cosigned by: [id number] Titration: 04/09/19 19:10 Dose: 700 units/hr, 14 mls/hr Documented by: [id number] Cosigned by: [id number] Admin: 04/09/19 15:23 Dose: 700 units/hr, 14 mls/hr Documented by: [id number] Cosigned by: [id number] Titration: 04/09/19 15:23 Dose: 600 units/hr, 12 mls/hr Documented by: [id number] Cosigned by: [id number] Titration: 04/09/19 07:08 Dose: 600 units/hr, 12 mls/hr Documented by: [id number] Cosigned by: [id number] Titration: 04/08/19 18:55 Dose: 600 units/hr, 12 mls/hr Documented by: [id number] Cosigned by: [id number] Admin: 04/08/19 13:01 Dose: 600 units/hr, 12 mls/hr Documented by: [id number] Cosigned by: [id number] Titration: 04/08/19 13:01 Dose: 600 units/hr, 12 mls/hr Documented by: [id number] Cosigned by: [id number] Titration: 04/08/19 07:18 Dose: 600 units/hr, 12 mls/hr Documented by: [id number] Cosigned by: [id number] Titration: 04/07/19 23:57 Dose: 600 units/hr, 12 mls/hr Documented by: [id number] Cosigned by: [id number] Admin: 04/07/19 19:14 Dose: 600 units/hr, 12 mls/hr Documented by: [id number] Cosigned by: [id number] Titration: 04/07/19 19:14 Dose: 600 units/hr, 12 mls/hr Documented by: [id number] Cosigned by: [id number] Titration: 04/07/19 18:31 Dose: 600 units/hr, 12 mls/hr Documented by: [id number] Cosigned by: [id number] Titration: 04/07/19 15:25 Dose: 700 units/hr, 14 mls/hr Documented by: [id number] Cosigned by: [id number] Titration: 04/07/19 11:47 Dose: 700 units/hr, 14 mls/hr Documented by: [id number] Cosigned by: [id number] Titration: 04/07/19 11:08 Dose: 0 units/hr, 0 mls/hr Documented by: [id number] Cosigned by: [id number] Titration: 04/07/19 06:57 Dose: 800 units/hr, 16 mls/hr Documented by: [id number] Cosigned by: [id number] Titration: 04/07/19 04:11 Dose: 800 units/hr, 16 mls/hr Documented by: [id number] Cosigned by: [id number] Titration: 04/07/19 03:36 Dose: 0 units/hr, 0 mls/hr Documented by: [id number] Cosigned by: [id number] Titration: 04/06/19 20:44 Dose: 900 units/hr, 18 mls/hr Documented by: [id number] Cosigned by: [id number] Titration: 04/06/19 19:42 Dose: 0 units/hr, 0 mls/hr Documented by: [id number] Cosigned by: [id number] Titration: 04/06/19 19:12 Dose: 1,050 units/hr, 21 mls/hr Documented by: [id number] Cosigned by: [id number] Admin: 04/06/19 12:52 Dose: 1,050 units/hr, 21 mls/hr Documented by: [id number] Cosigned by: [id number] Midazolam HCl (Versed) 125 mg in 250 mls @ 0 mls/hr IV .Q0M GINO; Protocol Stop: 05/07/19 13:29 Last Titration: 04/10/19 10:37 Dose: 0 mg/hr, 0 mls/hr Documented by: [id number] Titration: 04/10/19 07:07 Dose: 0 mg/hr, 0 mls/hr Documented by: [id number] Cosigned by: [id number] Titration: 04/10/19 05:00 Dose: 0 mg/hr, 0 mls/hr Documented by: [id number] Admin: 04/09/19 21:16 Dose: 3 mg/hr, 6 mls/hr Documented by: [id number] Cosigned by: [id number] Titration: 04/09/19 21:16 Dose: 3 mg/hr, 6 mls/hr Documented by: [id number] Cosigned by: [id number] Titration: 04/09/19 19:40 Dose: 3 mg/hr, 6 mls/hr Documented by: [id number] Cosigned by: [id number] Titration: 04/09/19 11:45 Dose: 0 mg/hr, 0 mls/hr Documented by: [id number] Titration: 04/09/19 07:08 Dose: 3 mg/hr, 6 mls/hr Documented by: [id number] Cosigned by: [id number] Titration: 04/08/19 18:55 Dose: 3 mg/hr, 6 mls/hr Documented by: [id number] Cosigned by: [id number] Admin: 04/08/19 13:02 Dose: 3 mg/hr, 6 mls/hr Documented by: [id number] Cosigned by: [id number] Titration: 04/08/19 13:02 Dose: 3 mg/hr, 6 mls/hr Documented by: [id number] Cosigned by: [id number] Titration: 04/08/19 07:18 Dose: 3 mg/hr, 6 mls/hr Documented by: [id number] Cosigned by: [id number] Titration: 04/07/19 23:57 Dose: 3 mg/hr, 6 mls/hr Documented by: [id number] Titration: 04/07/19 22:35 Dose: 3 mg/hr, 6 mls/hr Documented by: [id number] Titration: 04/07/19 21:35 Dose: 2.5 mg/hr, 5 mls/hr Documented by: [id number] Titration: 04/07/19 18:30 Dose: 2 mg/hr, 4 mls/hr Documented by: [id number] Titration: 04/07/19 17:30 Dose: 2.5 mg/hr, 5 mls/hr Documented by: [id number] Titration: 04/07/19 16:30 Dose: 2 mg/hr, 4 mls/hr Documented by: [id number] Titration: 04/07/19 15:25 Dose: 1.5 mg/hr, 3 mls/hr Documented by: [id number] Admin: 04/07/19 14:07 Dose: 1 mg/hr, 2 mls/hr Documented by: [id number] Cosigned by: [id number] Insulin Aspart (Novolog Flexpen) 0 units SC Q6 GINO Stop: 05/09/19 17:59 Last Admin: 04/11/19 06:20 Dose: Not Given Documented by: [id number] Cosigned by: [id number] Admin: 04/11/19 01:27 Dose: Not Given Documented by: [id number] Cosigned by: [id number] Admin: 04/10/19 18:35 Dose: Not Given Documented by: [id number] Cosigned by: [id number] Admin: 04/10/19 12:48 Dose: Not Given Documented by: [id number] Cosigned by: [id number] Admin: 04/10/19 05:35 Dose: Not Given Documented by: [id number] Cosigned by: [id number] Admin: 04/10/19 00:58 Dose: Not Given Documented by: [id number] Cosigned by: [id number] Admin: 04/09/19 17:53 Dose: Not Given Documented by: [id number] Cosigned by: [id number] Metoprolol Tartrate (Lopressor) 25 mg PO BID [facility] Stop: 05/11/19 08:59 Last Admin: 04/11/19 08:03 Dose: 25 mg Documented by: [id number] Polyethylene Glycol (Miralax Powder Packet) 17 gm PO DAILY [facility] Stop: 05/07/19 08:59 Last Admin: 04/11/19 08:04 Dose: Not Given Documented by: [id number] Admin: 04/10/19 09:58 Dose: Not Given Documented by: [id number] Admin: 04/09/19 06:57 Dose: Not Given Documented by: [id number] Admin: 04/08/19 07:54 Dose: Not Given Documented by: [id number] Admin: 04/07/19 10:31 Dose: Not Given Documented by: [id number] Sterile Water (Tube Feeding Water Flush) 1 ea GT Q4H [facility] Stop: 05/10/19 09:59 Last Admin: 04/11/19 06:21 Dose: 1 ea Documented by: [id number] Admin: 04/11/19 03:07 Dose: 1 ea Documented by: [id number] Admin: 04/10/19 22:17 Dose: 1 ea Documented by: [id number] Admin: 04/10/19 18:34 Dose: 1 ea Documented by: [id number] Admin: 04/10/19 15:03 Dose: 1 ea Documented by: [id number] Admin: 04/10/19 10:33 Dose: 1 ea Documented by: [id number] Discontinued Medications Fentanyl Citrate (Fentanyl Citrate) 50 mcg IV Q15M PRN PRN Reason: Pain Stop: 04/20/19 17:18 Last Admin: 04/09/19 08:23 Dose: 50 mcg Documented by: [id number] Admin: 04/08/19 13:03 Dose: 50 mcg Documented by: [id number] Admin: 04/07/19 18:10 Dose: 50 mcg Documented by: [id number] Heparin Sodium/Dextrose () 1 ea IV NOW STA; Protocol Stop: 04/06/19 12:37 Last Admin: 04/06/19 15:05 Dose: Not Given Documented by: [id number] Heparin Sodium/Dextrose (Heparin Sodium/Dextrose) Confirm Administered Dose 25,000 units IV .STK-MED ONE Stop: 04/06/19 12:42 Last Admin: 04/06/19 15:05 Dose: Not Given Documented by: [id number] Epinephrine HCl 2 mg/ Dextrose 252 mls @ 4.972 mls/hr IV .Q24H [facility]; Protocol Stop: 04/06/19 13:53 Last Titration: 04/06/19 14:59 Dose: 0 mcg/kg/min, 0 mls/hr Documented by: [id number] Admin: 04/06/19 13:30 Dose: 0.01 mcg/kg/min, 5 mls/hr Documented by: [id number] Cosigned by: [id number] Lorazepam (Ativan) 2 mg in 4 mls @ 4 mls/min IV NOW STA Stop: 04/06/19 13:08 Last Admin: 04/06/19 13:15 Dose: 4 mls/min Documented by: [id number] Vecuronium [place] 10 mg/ (Syringe) 10 mls @ 0 mls/min IV TODAY@1315 ONE Stop: 04/06/19 13:16 Last Admin: 04/06/19 13:30 Dose: 10 mls/min Documented by: [id number] Epinephrine HCl 4 mg/ Dextrose 254 mls @ 0 mls/hr IV .Q0M [facility]; Protocol Stop: 05/06/19 13:59 Last Titration: 04/10/19 09:50 Dose: 0 mcg/kg/min, 0 mls/hr Documented by: [id number] Titration: 04/09/19 07:08 Dose: 0 mcg/kg/min, 0 mls/hr Documented by: [id number] Cosigned by: [id number] Admin: 04/09/19 06:58 Dose: Not Given Documented by: [id number] Titration: 04/08/19 18:55 Dose: 0 mcg/kg/min, 0 mls/hr Documented by: [id number] Cosigned by: [id number] Titration: 04/08/19 10:14 Dose: 0 mcg/kg/min, 0 mls/hr Documented by: [id number] Admin: 04/08/19 08:09 Dose: 0.01 mcg/kg/min, 2.5 mls/hr Documented by: [id number] Cosigned by: [id number] Admin: 04/08/19 07:51 Dose: Not Given Documented by: [id number] Admin: 04/08/19 07:51 Dose: Not Given Documented by: [id number] Titration: 04/08/19 07:15 Dose: 0.015 mcg/kg/min, 3.8 mls/hr Documented by: [id number] Cosigned by: [id number] Titration: 04/08/19 03:00 Dose: 0.02 mcg/kg/min, 3.9 mls/hr Documented by: [id number] Titration: 04/07/19 23:57 Dose: 0.02 mcg/kg/min, 5 mls/hr Documented by: [id number] Titration: 04/07/19 22:15 Dose: 0.02 mcg/kg/min, 5 mls/hr Documented by: [id number] Titration: 04/07/19 21:30 Dose: 0.03 mcg/kg/min, 7.5 mls/hr Documented by: [id number] Titration: 04/07/19 21:00 Dose: 0.04 mcg/kg/min, 10 mls/hr Documented by: [id number] Titration: 04/07/19 18:55 Dose: 0.05 mcg/kg/min, 12.5 mls/hr Documented by: [id number] Titration: 04/07/19 18:45 Dose: 0.04 mcg/kg/min, 10 mls/hr Documented by: [id number] Titration: 04/07/19 18:35 Dose: 0.03 mcg/kg/min, 7.5 mls/hr Documented by: [id number] Titration: 04/07/19 18:30 Dose: 0.02 mcg/kg/min, 5 mls/hr Documented by: [id number] Titration: 04/07/19 18:25 Dose: 0.01 mcg/kg/min, 2.5 mls/hr Documented by: [id number] Titration: 04/07/19 16:50 Dose: 0 mcg/kg/min, 0 mls/hr Documented by: [id number] Titration: 04/07/19 16:30 Dose: 0.01 mcg/kg/min, 2.5 mls/hr Documented by: [id number] Titration: 04/07/19 16:00 Dose: 0.02 mcg/kg/min, 5 mls/hr Documented by: [id number] Titration: 04/07/19 15:50 Dose: 0.03 mcg/kg/min, 7.5 mls/hr Documented by: [id number] Titration: 04/07/19 15:45 Dose: 0.04 mcg/kg/min, 10 mls/hr Documented by: [id number] Titration: 04/07/19 15:33 Dose: 0.05 mcg/kg/min, 12.5 mls/hr Documented by: [id number] Titration: 04/07/19 15:25 Dose: 0.06 mcg/kg/min, 15 mls/hr Documented by: [id number] Titration: 04/07/19 14:53 Dose: 0.06 mcg/kg/min, 15 mls/hr Documented by: [id number] Admin: 04/07/19 14:09 Dose: 0.9 mcg/kg/min, 225.5 mls/hr Documented by: [id number] Titration: 04/07/19 14:09 Dose: 0.1 mcg/kg/min, 25.1 mls/hr Documented by: [id number] Cosigned by: [id number] Titration: 04/07/19 13:03 Dose: 0.1 mcg/kg/min, 25.1 mls/hr Documented by: [id number] Titration: 04/07/19 10:00 Dose: 0.11 mcg/kg/min, 27.6 mls/hr Documented by: [id number] Titration: 04/07/19 09:13 Dose: 0.1 mcg/kg/min, 25 mls/hr Documented by: [id number] Titration: 04/07/19 08:45 Dose: 0.09 mcg/kg/min, 22.6 mls/hr Documented by: [id number] Titration: 04/07/19 08:14 Dose: 0.08 mcg/kg/min, 20 mls/hr Documented by: [id number] Titration: 04/07/19 07:38 Dose: 0.07 mcg/kg/min, 17.5 mls/hr Documented by: [id number] Titration: 04/07/19 06:56 Dose: 0.06 mcg/kg/min, 15 mls/hr Documented by: [id number] Cosigned by: [id number] Titration: 04/07/19 06:40 Dose: 0.06 mcg/kg/min, 15 mls/hr Documented by: [id number] Titration: 04/07/19 06:18 Dose: 0.08 mcg/kg/min, 20 mls/hr Documented by: [id number] Titration: 04/07/19 05:43 Dose: 0.1 mcg/kg/min, 25.1 mls/hr Documented by: [id number] Titration: 04/07/19 05:29 Dose: 0.12 mcg/kg/min, 30.1 mls/hr Documented by: [id number] Titration: 04/07/19 05:23 Dose: 0.14 mcg/kg/min, 35.1 mls/hr Documented by: [id number] Admin: 04/07/19 04:27 Dose: 0.16 mcg/kg/min, 40.1 mls/hr Documented by: [id number] Cosigned by: [id number] Titration: 04/07/19 04:19 Dose: 0.16 mcg/kg/min, 40.1 mls/hr Documented by: [id number] Cosigned by: [id number] Titration: 04/07/19 03:37 Dose: 0.16 mcg/kg/min, 40.1 mls/hr Documented by: [id number] Titration: 04/07/19 01:23 Dose: 0.18 mcg/kg/min, 45.1 mls/hr Documented by: [id number] Titration: 04/07/19 01:15 Dose: 0.16 mcg/kg/min, 40.1 mls/hr Documented by: [id number] Titration: 04/07/19 01:12 Dose: 0.18 mcg/kg/min, 45.1 mls/hr Documented by: [id number] Admin: 04/06/19 22:51 Dose: 0.2 mcg/kg/min, 50.1 mls/hr Documented by: [id number] Cosigned by: [id number] Titration: 04/06/19 22:51 Dose: 0.18 mcg/kg/min, 45.1 mls/hr Documented by: [id number] Cosigned by: [id number] Titration: 04/06/19 20:17 Dose: 0.18 mcg/kg/min, 45.1 mls/hr Documented by: [id number] Titration: 04/06/19 20:07 Dose: 0.16 mcg/kg/min, 40.1 mls/hr Documented by: [id number] Titration: 04/06/19 19:42 Dose: 0.18 mcg/kg/min, 45.1 mls/hr Documented by: [id number] Titration: 04/06/19 19:11 Dose: 0.2 mcg/kg/min, 50.1 mls/hr Documented by: [id number] Cosigned by: [id number] Admin: 04/06/19 17:41 Dose: 0.2 mcg/kg/min, 50.1 mls/hr Documented by: [id number] Cosigned by: [id number] Titration: 04/06/19 17:41 Dose: 0.25 mcg/kg/min, 62.6 mls/hr Documented by: [id number] Cosigned by: [id number] Titration: 04/06/19 17:19 Dose: 0.25 mcg/kg/min, 62.6 mls/hr Documented by: [id number] Titration: 04/06/19 17:00 Dose: 0.3 mcg/kg/min, 75.2 mls/hr Documented by: [id number] Titration: 04/06/19 16:45 Dose: 0.35 mcg/kg/min, 87.7 mls/hr Documented by: [id number] Admin: 04/06/19 14:59 Dose: 0.3 mcg/kg/min, 75.2 mls/hr Documented by: [id number] Cosigned by: [id number] Piperacillin Sod/Tazobactam Sod (Zosyn) 4.5 gm in 120 mls @ 240 mls/hr IV NOW ONE Stop: 04/06/19 14:26 Last Infusion: 04/06/19 14:37 Dose: 0 mls/hr Documented by: [id number] Admin: 04/06/19 14:07 Dose: 240 mls/hr Documented by: [id number] Propofol (Diprivan) 1,000 mg in 100 mls @ 3.946 mls/hr IV .Q24H [facility]; Protocol Stop: 04/09/19 16:29 Last Titration: 04/07/19 14:44 Dose: 0 mcg/kg/min, 0 mls/hr Documented by: [id number] Titration: 04/07/19 14:08 Dose: 0 mcg/kg/min, 0 mls/hr Documented by: [id number] Titration: 04/07/19 13:03 Dose: 20 mcg/kg/min, 7.9 mls/hr Documented by: [id number] Titration: 04/07/19 12:39 Dose: 15 mcg/kg/min, 5.9 mls/hr Documented by: [id number] Admin: 04/07/19 10:28 Dose: 10 mcg/kg/min, 3.9 mls/hr Documented by: [id number] Cosigned by: [id number] Titration: 04/07/19 10:28 Dose: 15 mcg/kg/min, 5.9 mls/hr Documented by: [id number] Cosigned by: [id number] Titration: 04/07/19 09:12 Dose: 15 mcg/kg/min, 5.9 mls/hr Documented by: [id number] Titration: 04/07/19 08:14 Dose: 20 mcg/kg/min, 7.9 mls/hr Documented by: [id number] Titration: 04/07/19 06:56 Dose: 25 mcg/kg/min, 9.9 mls/hr Documented by: [id number] Cosigned by: [id number] Titration: 04/07/19 06:31 Dose: 25 mcg/kg/min, 9.9 mls/hr Documented by: [id number] Titration: 04/07/19 04:35 Dose: 20 mcg/kg/min, 7.9 mls/hr Documented by: [id number] Titration: 04/07/19 03:36 Dose: 15 mcg/kg/min, 5.9 mls/hr Documented by: [id number] Titration: 04/07/19 01:23 Dose: 10 mcg/kg/min, 3.9 mls/hr Documented by: [id number] Titration: 04/07/19 01:15 Dose: 15 mcg/kg/min, 5.9 mls/hr Documented by: [id number] Titration: 04/06/19 19:12 Dose: 5 mcg/kg/min, 2 mls/hr Documented by: [id number] Cosigned by: [id number] Admin: 04/06/19 17:20 Dose: 5 mcg/kg/min, 2 mls/hr Documented by: [id number] Cosigned by: [id number] Parenteral Electrolytes (Normosol-R) 1,000 mls @ 80 mls/hr IV .[id number] [facility] Stop: 05/06/19 16:29 Last Infusion: 04/09/19 15:21 Dose: 0 mls/hr Documented by: [id number] Infusion: 04/09/19 12:21 Dose: 80 mls/hr Documented by: [id number] Infusion: 04/09/19 11:00 Dose: 0 mls/hr Documented by: [id number] Infusion: 04/09/19 07:08 Dose: 80 mls/hr Documented by: [id number] Admin: 04/09/19 01:43 Dose: 80 mls/hr Documented by: [id number] Infusion: 04/09/19 01:32 Dose: 80 mls/hr Documented by: [id number] Infusion: 04/08/19 18:55 Dose: 80 mls/hr Documented by: [id number] Admin: 04/08/19 13:02 Dose: 80 mls/hr Documented by: [id number] Infusion: 04/08/19 13:02 Dose: 80 mls/hr Documented by: [id number] Admin: 04/08/19 08:18 Dose: Not Given Documented by: [id number] Admin: 04/08/19 02:44 Dose: 80 mls/hr Documented by: [id number] Infusion: 04/08/19 02:44 Dose: 80 mls/hr Documented by: [id number] Infusion: 04/07/19 21:10 Dose: 80 mls/hr Documented by: [id number] Infusion: 04/07/19 16:39 Dose: 0 mls/hr Documented by: [id number] Infusion: 04/07/19 13:00 Dose: 80 mls/hr Documented by: [id number] Admin: 04/07/19 12:44 Dose: 150 mls/hr Documented by: [id number] Infusion: 04/07/19 12:44 Dose: 150 mls/hr Documented by: [id number] Admin: 04/07/19 06:10 Dose: 150 mls/hr Documented by: [id number] Infusion: 04/07/19 06:10 Dose: 150 mls/hr Documented by: [id number] Admin: 04/07/19 00:30 Dose: 150 mls/hr Documented by: [id number] Infusion: 04/07/19 00:30 Dose: 150 mls/hr Documented by: [id number] Admin: 04/06/19 17:52 Dose: 150 mls/hr Documented by: [id number] Piperacillin Sod/Tazobactam (Sod 4.5 gm/ Dextrose) 120 mls @ 30 mls/hr IV Q8H [facility]; Protocol Stop: 04/13/19 17:59 Last Infusion: 04/08/19 10:15 Dose: 0 mls/hr Documented by: [id number] Admin: 04/08/19 08:52 Dose: 30 mls/hr Documented by: [id number] Infusion: 04/08/19 06:44 Dose: 0 mls/hr Documented by: [id number] Admin: 04/08/19 02:44 Dose: 30 mls/hr Documented by: [id number] Infusion: 04/07/19 22:11 Dose: 0 mls/hr Documented by: [id number] Admin: 04/07/19 18:11 Dose: 30 mls/hr Documented by: [id number] Infusion: 04/07/19 15:35 Dose: 0 mls/hr Documented by: [id number] Admin: 04/07/19 11:12 Dose: 30 mls/hr Documented by: [id number] Infusion: 04/07/19 06:04 Dose: 0 mls/hr Documented by: [id number] Admin: 04/07/19 02:43 Dose: 30 mls/hr Documented by: [id number] Infusion: 04/06/19 22:53 Dose: 0 mls/hr Documented by: [id number] Admin: 04/06/19 18:41 Dose: 30 mls/hr Documented by: [id number] Insulin Human Regular 250 (units/ Sodium Chloride) 250 mls @ 0 mls/hr IV .Q0M [facility]; Protocol Stop: 05/06/19 18:29 Last Titration: 04/08/19 10:14 Dose: 0 units/hr, 0 mls/hr Documented by: [id number] Cosigned by: [id number] Titration: 04/08/19 07:19 Dose: 0 units/hr, 0 mls/hr Documented by: [id number] Cosigned by: [id number] Titration: 04/07/19 23:57 Dose: 0 units/hr, 0 mls/hr Documented by: [id number] Cosigned by: [id number] Titration: 04/07/19 23:30 Dose: 0 units/hr, 0 mls/hr Documented by: [id number] Cosigned by: [id number] Admin: 04/07/19 21:37 Dose: Not Given Documented by: [id number] Titration: 04/07/19 21:30 Dose: 0 units/hr, 0 mls/hr Documented by: [id number] Cosigned by: [id number] Titration: 04/07/19 20:30 Dose: 0 units/hr, 0 mls/hr Documented by: [id number] Cosigned by: [id number] Titration: 04/07/19 19:30 Dose: 0 units/hr, 0 mls/hr Documented by: [id number] Cosigned by: [id number] Titration: 04/07/19 18:30 Dose: 0 units/hr, 0 mls/hr Documented by: [id number] Cosigned by: [id number] Titration: 04/07/19 17:30 Dose: 0 units/hr, 0 mls/hr Documented by: [id number] Cosigned by: [id number] Titration: 04/07/19 16:30 Dose: 0 units/hr, 0 mls/hr Documented by: [id number] Cosigned by: [id number] Titration: 04/07/19 15:30 Dose: 0 units/hr, 0 mls/hr Documented by: [id number] Cosigned by: [id number] Titration: 04/07/19 15:25 Dose: 0 units/hr, 0 mls/hr Documented by: [id number] Cosigned by: [id number] Titration: 04/07/19 14:47 Dose: 0 units/hr, 0 mls/hr Documented by: [id number] Cosigned by: [id number] Titration: 04/07/19 14:15 Dose: 0 units/hr, 0 mls/hr Documented by: [id number] Cosigned by: [id number] Titration: 04/07/19 12:55 Dose: 8 units/hr, 8 mls/hr Documented by: [id number] Cosigned by: [id number] Titration: 04/07/19 12:15 Dose: 0 units/hr, 0 mls/hr Documented by: [id number] Cosigned by: [id number] Titration: 04/07/19 11:59 Dose: 0 units/hr, 0 mls/hr Documented by: [id number] Cosigned by: [id number] Titration: 04/07/19 10:34 Dose: 13.4 units/hr, 13.4 mls/hr Documented by: [id number] Cosigned by: [id number] Titration: 04/07/19 09:46 Dose: 16.8 units/hr, 16.8 mls/hr Documented by: [id number] Cosigned by: [id number] Titration: 04/07/19 08:45 Dose: 16.8 units/hr, 16.8 mls/hr Documented by: [id number] Cosigned by: [id number] Titration: 04/07/19 07:34 Dose: 21 units/hr, 21 mls/hr Documented by: [id number] Cosigned by: [id number] Titration: 04/07/19 06:57 Dose: 17.5 units/hr, 17.5 mls/hr Documented by: [id number] Cosigned by: [id number] Titration: 04/07/19 06:32 Dose: 17.5 units/hr, 17.5 mls/hr Documented by: [id number] Cosigned by: [id number] Titration: 04/07/19 06:00 Dose: 17.5 units/hr, 17.5 mls/hr Documented by: [id number] Cosigned by: [id number] Titration: 04/07/19 05:24 Dose: 14.6 units/hr, 14.6 mls/hr Documented by: [id number] Cosigned by: [id number] Titration: 04/07/19 04:15 Dose: 14.6 units/hr, 14.6 mls/hr Documented by: [id number] Cosigned by: [id number] Titration: 04/07/19 03:15 Dose: 12.2 units/hr, 12.2 mls/hr Documented by: [id number] Cosigned by: [id number] Titration: 04/07/19 02:15 Dose: 10.2 units/hr, 10.2 mls/hr Documented by: [id number] Cosigned by: [id number] Titration: 04/07/19 02:05 Dose: 8.5 units/hr, 8.5 mls/hr Documented by: [id number] Cosigned by: [id number] Titration: 04/07/19 01:15 Dose: 8.5 units/hr, 8.5 mls/hr Documented by: [id number] Cosigned by: [id number] Titration: 04/07/19 00:15 Dose: 7.1 units/hr, 7.1 mls/hr Documented by: [id number] Cosigned by: [id number] Titration: 04/06/19 23:15 Dose: 5.9 units/hr, 5.9 mls/hr Documented by: [id number] Cosigned by: [id number] Titration: 04/06/19 22:15 Dose: 4.9 units/hr, 4.9 mls/hr Documented by: [id number] Cosigned by: [id number] Titration: 04/06/19 21:15 Dose: 4.1 units/hr, 4.1 mls/hr Documented by: [id number] Cosigned by: [id number] Titration: 04/06/19 20:15 Dose: 3.4 units/hr, 3.4 mls/hr Documented by: [id number] Cosigned by: [id number] Admin: 04/06/19 19:10 Dose: 2.4 units/hr, 2.4 mls/hr Documented by: [id number] Cosigned by: [id number] Sodium Chloride (Nss 1000ml) 1,000 mls @ 999 mls/hr IV .Q1H1M ONE Stop: 04/06/19 18:34 Last Infusion: 04/06/19 18:41 Dose: 0 mls/hr Documented by: [id number] Admin: 04/06/19 17:00 Dose: 999 mls/hr Documented by: [id number] Potassium Chloride (K Junior / Wtr) 20 meq in 100 mls @ 50 mls/hr IV Q2H GINO Stop: 04/07/19 09:00 Last Infusion: 04/07/19 10:49 Dose: 0 mls/hr Documented by: [id number] Admin: 04/07/19 07:36 Dose: 50 mls/hr Documented by: [id number] Infusion: 04/07/19 07:36 Dose: 50 mls/hr Documented by: [id number] Admin: 04/07/19 05:37 Dose: 50 mls/hr Documented by: [id number] Magnesium Sulfate/Dextrose (Magnesium Sulfate / D5w) 1 gm in 100 mls @ 100 mls/hr IV Q1H GINO Stop: 04/07/19 07:01 Last Infusion: 04/07/19 07:36 Dose: 0 mls/hr Documented by: [id number] Admin: 04/07/19 06:10 Dose: 100 mls/hr Documented by: [id number] Infusion: 04/07/19 06:10 Dose: 100 mls/hr Documented by: [id number] Admin: 04/07/19 05:19 Dose: 100 mls/hr Documented by: [id number] Calcium Gluconate 1,000 mg/ (Sodium Chloride) 60 mls @ 240 mls/hr IV NOW STA Stop: 04/07/19 05:34 Last Infusion: 04/07/19 06:05 Dose: 0 mls/hr Documented by: [id number] Admin: 04/07/19 05:37 Dose: 240 mls/hr Documented by: [id number] Potassium Chloride (K Junior / Wtr) 20 meq in 100 mls @ 50 mls/hr IV Q2H GINO Stop: 04/07/19 19:59 Last Infusion: 04/07/19 21:09 Dose: 0 mls/hr Documented by: [id number] Admin: 04/07/19 19:09 Dose: 50 mls/hr Documented by: [id number] Infusion: 04/07/19 18:39 Dose: 50 mls/hr Documented by: [id number] Admin: 04/07/19 16:39 Dose: 50 mls/hr Documented by: [id number] Sodium Phosphate 15 mmol/ (Sodium Chloride) 255 mls @ 100 mls/hr IV ONE ONE Stop: 04/08/19 08:32 Last Infusion: 04/08/19 09:09 Dose: 0 mls/hr Documented by: [id number] Admin: 04/08/19 06:25 Dose: 100 mls/hr Documented by: [id number] Heparin Sodium (Porcine) 2,000 (units/ Syringe) 2 mls @ 10 mls/min IV ONE ONE Stop: 04/09/19 14:47 Last Admin: 04/09/19 15:21 Dose: 10 mls/min Documented by: [id number] Cosigned by: [id number] Heparin Sodium (Porcine) 2,000 (units/ Syringe) 2 mls @ 10 mls/min IV ONE ONE Stop: 04/11/19 05:31 Last Admin: 04/11/19 05:31 Dose: 10 mls/min Documented by: [id number] Cosigned by: [id number] Insulin Aspart (Novolog Flexpen) 0 units SC ACHS GINO Stop: 05/06/19 20:59 Last Admin: 04/08/19 08:09 Dose: Not Given Documented by: [id number] Cosigned by: [id number] Admin: 04/07/19 21:11 Dose: Not Given Documented by: [id number] Cosigned by: [id number] Admin: 04/07/19 16:40 Dose: Not Given Documented by: [id number] Cosigned by: [id number] Admin: 04/07/19 12:41 Dose: Not Given Documented by: [id number] Cosigned by: [id number] Admin: 04/07/19 08:05 Dose: Not Given Documented by: [id number] Cosigned by: [id number] Admin: 04/07/19 00:40 Dose: Not Given Documented by: [id number] Cosigned by: [id number] Insulin Aspart (Novolog Flexpen) 0 units SC Q4 GINO Stop: 05/08/19 11:59 Last Admin: 04/09/19 12:10 Dose: Not Given Documented by: [id number] Cosigned by: [id number] Admin: 04/09/19 08:22 Dose: Not Given Documented by: [id number] Cosigned by: [id number] Admin: 04/09/19 06:40 Dose: Not Given Documented by: [id number] Cosigned by: [id number] Admin: 04/09/19 01:43 Dose: Not Given Documented by: [id number] Cosigned by: [id number] Admin: 04/08/19 21:35 Dose: Not Given Documented by: [id number] Cosigned by: [id number] Admin: 04/08/19 16:10 Dose: Not Given Documented by: [id number] Cosigned by: [id number] Admin: 04/08/19 13:00 Dose: Not Given Documented by: [id number] Cosigned by: [id number] Insulin Human Regular (Novolin R Bolus From Bag) 2.5 units IV ONE ONE Stop: 04/06/19 18:31 Last Admin: 04/06/19 19:11 Dose: 2.5 units Documented by: [id number] Cosigned by: [id number] Ioversol (Optiray 320 125ml) 119 ml IV ONCE PRN PRN Reason: Interaction Checking Stop: 04/10/19 11:23 Last Admin: 04/06/19 11:24 Dose: 119 ml Documented by: [id number] Ioversol (Optiray 320 125ml) 119 ml IV ONCE PRN PRN Reason: Interaction Checking Stop: 04/10/19 13:39 Last Admin: 04/06/19 13:43 Dose: 119 ml Documented by: [id number] Lansoprazole (Prevacid) 30 mg NG QAM [facility] Stop: 04/11/19 08:59 Last Admin: 04/10/19 09:55 Dose: 30 mg Documented by: [id number] Admin: 04/09/19 08:22 Dose: 30 mg Documented by: [id number] Admin: 04/08/19 08:52 Dose: 30 mg Documented by: [id number] Admin: 04/07/19 11:10 Dose: 30 mg Documented by: [id number] Metoprolol Tartrate (Lopressor) 12.5 mg PO BID [facility] Stop: 05/10/19 20:59 Last Admin: 04/10/19 16:49 Dose: 12.5 mg Documented by: [id number] Miscellaneous () Confirm Administered Dose 1 ea .ROUTE .STK-MED ONE Stop: 04/06/19 12:56 Last Admin: 04/06/19 15:05 Dose: Not Given Documented by: [id number] Miscellaneous (Insulin Protocol Goal Range) 1 ea N/A ONE ONE Stop: 04/06/19 17:19 Last Admin: 04/06/19 18:42 Dose: 1 ea Documented by: [id number] Miscellaneous (Insulin Protocol Severe Stress) 1 ea N/A ONE ONE Stop: 04/06/19 17:19 Last Admin: 04/06/19 18:42 Dose: 1 ea Documented by: [id number] Sterile Water (Tube Feeding Water Flush) 250 ea GT Q4H [facility] Stop: 05/09/19 16:29 Last Admin: 04/10/19 09:07 Dose: 250 ea Documented by: [id number] Admin: 04/10/19 04:02 Dose: 250 ea Documented by: [id number] Admin: 04/10/19 00:58 Dose: 250 ea Documented by: [id number] Admin: 04/09/19 21:16 Dose: 250 ea Documented by: [id number] Admin: 04/09/19 17:52 Dose: 250 ea Documented by: [id number] Description This is a 21 electrode EEG with a single channel dedicated to limited EKG. The electrodes were placed in accordance with the International 10-20 system. This study was done in the ICU with the patient on the ventilator. There is generalized suppression of the background rhythm which is less than 10 V in amplitude. There is a fairly continuous 8 Hz posterior dominant rhythm seen over the left posterior temporal region. Intermittent 3.5 Hz right frontal slowing observed. There are rare periodic discharges originating from the right frontotemporal region. Photic stimulation and hyperventilation are not performed on this bedside EEG. Interpretation This is an abnormal EEG of a patient in a comatose state (awake/asleep EEG). There is evidence of focal slowing consistent with this patient's history of r ight frontoparietal glioblastoma resection. There are periodic discharges localizing to the right frontal lobe consistent with this patient's history of cerebral anoxia and right frontoparietal tumor resection. There is significant generalized suppression of the background rhythm, also consistent with cerebral anoxia. [facility] EEG Procedure Codes Neurology Neurology: [id number] EEG include record awake & sleepy
--- NOTE | 2019-04-11 09:57 | Neurology Progress Note ---
Date of Service April 11, 2019 Assessment & Plan (1) Anoxic encephalopathy: Anoxic encephalopathy following cardiac arrest. Patient's neurological status does seem slightly improved today compared with yesterday, however. She is moving the right arm and leg a bit more, in a semipurposeful fashion. She has intact brainstem reflexes. Generalized suppression of the background rhythm and periodic discharges on this morning's EEG does potentially correlate with poor prognosis but is not highly predictive. She may continue to improve modestly over the next few days. (2) Glioblastoma: Recently diagnosed right hemispheric glioblastoma multiform, status post resection at [facility]. Patient does have a residual left hemiparesis which is evident on today's examination, even with the patient in a comatose state. Additional treatments including adjuvant radiation and chemotherapy are currently on hold in light of patient's current critical illness. (3) Subdural hematoma: Small, subcentimeter, right frontal hematoma. This finding is not clinically significant although should be monitored with a follow-up CT of the head completed later today. It is notable that this finding was not that obvious on the CT of the head completed on April 09 and could potentially be missed with CT versus MRI. Subjective Follow-up for cerebral anoxia The patient has been noted to move her right arm and leg a bit more compared with yesterday, semipurposeful type movements noted per patient's nurse. No obvious convulsive activity has been observed. No myoclonic jerking observed. The patient remains generally unresponsive. A bedside EEG was completed earlier this morning which revealed generalized suppression of the background rhythm, focal right frontoparietal slowing, and rare periodic discharges localizing to the right hemisphere. There were elements of an 8 Hz posterior dominant alpha rhythm seen over the left hemisphere. Review of Systems Review of Systems: Unobtainable due to endotracheal tube Physical Exam Physical Exam: The patient is unresponsive, on the ventilator in the ICU. Corneal reflexes intact. I am unable to elicit oculocephalic reflexes. Pupils equal, 3 mm in size, round and reactive to light. There is no gaze preference, deviation, or nystagmus. Patient observed to spontaneously move the right arm and leg in a semipurposeful fashion. Patient withdraws the right arm and leg to noxious stimulation. Minimal withdrawal for the left leg to noxious stimulation. No withdrawal for the left arm to noxious stimulation. No myoclonic jerking observed. No dystonic posturing observed. Results & Data Vital Signs (Past 12 Hours) Vital Signs Temp Pulse Pulse Resp BP Pulse Ox 04/11/19 07:20 113 H 22 99 04/11/19 06:18 111 H 26 H 98 04/11/19 06:00 38 C H 113 H 20 161/82 H 98 04/11/19 05:00 38.0 C H 105 H 24 143/72 H 04/11/19 04:00 100 H 21 134/82 04/11/19 03:00 38.0 C H 104 H 21 130/84 99 04/11/19 02:15 103 H 19 99 04/11/19 01:00 38.1 C H 102 H 21 128/85 98 04/11/19 00:55 115 H 27 H 97 04/10/19 23:00 38.0 C H 91 H 22 04/10/19 22:14 108 H 24 98 Laboratory Results WBC 14.04, hemoglobin 9.0, hematocrit 26.8, platelet count 161, sodium 136, potassium 3.8, BUN 47, creatinine 2.96, glucose 138, calcium 7.5, magnesium 2.3, total CK 103 Noncontrast enhanced brain MRI completed yesterday. I reviewed the images as well as the radiologist's interpretation of this test. There are postoperative changes corresponding to the previously identified right frontoparietal glioma resection. There is evidence of postoperative blood products at the resection site. There is 4 mm of right to left midline shift. There is a small, subcentimeter acute subdural hematoma adjacent to the anterior right frontal lobe. This morning's bedside EEG is as described above.
[2019-04-11] MEDS: IMPACT LIQD 1.0 CAL 1,000 ML BAG OG SCH (10:44)
[2019-04-11 11:26] LABS: Partial Thromboplastin Ratio 1.6; Partial Thromboplastin Time 43.4 Seconds (21.0-31.0)
[2019-04-11] MEDS ORDERED: FUROSEMIDE 20 MG in SYRINGE 0 ML IV ONE (12:08)
--- NOTE | 2019-04-11 12:22 | Palliative Care Progress Note ---
Date of Service April 11, 2019 Assessment & Plan (1) Goals of care, counseling/discussion: -Patient awake today. Does seem to have some purposeful movement. I witnessed her lift her right arm and hold her son, Kj's hand. -Lengthy family meeting with patient's family. -EEG does show some generalized anoxic brain injury, but again she is showing some improvement. -Febrile-- cooling blankets and ice packs. Not believed to be infectious in nature, likely neurogenic. Family meeting with patient's son Kj, two brothers Igor and Paty, Dr. Lindquist, Dr. Diehl, Dr. Jung, Dr. Saldivar, and medical student. Discussed all of patient's current medical issues. -Neurologically is showing some mild improvement but moving her right arm and legs. Neurogenic fever, unable to give Tylenol due to transaminitis. EEG showed some anoxic brain injury. MRI brain done showing post-surgical changes. -Has been off pressors for several days now. Echo showed right heart strain-- acute cor pulmonale. Stable. -Right lung has large clot burden-- continues on heparin gtt. This was discussed with [facility] and they stated patient is not candidate for catheter directed clot retrieval. She obviously could not have clot buster due to recent brain surgery. -No pneumonia, but some evidence of possible aspiration which likely happened during cardiac arrest. -Has been on CPAP for several days with minimal settings. However, likely needs a trach due to altered mental status and risk of poor airway protection and aspiration. -Needs PEG tube for nutrition. -Creatinine is stable at 2.96. Adequate urine output. No need for dialysis at this time. -Discussed long-term, what this all means: a very difficult recovery from this acute event, and at the end of the day she will still have a grim prognosis due to the glioblastoma itself. Patient's son and brothers state that patient would undoubtedly want to continue on full-court press. She would want every last chance to recover. We talked about the fact that patient will likely need to go to a facility after hospitalization for intensive rehab-- possibly LTACH which would be a distance from the . Discussed the possibility of patient going home or ever being independent again is slim. Again, family reiterated that they fully understand all of this and would like to proceed with full treatment as well as FULL CODE. -All of the above was discussed with patient's , Juan M, separately. He is struggling with this situation and could not come to the family meeting. However, the family gave him the full update which I did witness. Juan M agreed with proceeding with trach and PEG. Facilities were discussed with Juan M by myself briefly, then with case management. -Palliative care will continue to follow for supportive care. (2) Cardiac arrest: (3) Cardiogenic shock: (4) Glioblastoma: Subjective -Patient awake today. Does seem to have some purposeful movement. I witnessed her lift her right arm and hold her son, Kj's hand. -Lengthy family meeting with patient's family. -EEG does show some generalized anoxic brain injury, but again she is showing some improvement. -Febrile-- cooling blankets and ice packs. Review of Systems Review of Systems: Unobtainable due to endotracheal tube Physical Exam Constitutional: + ill appearing ENMT: external ear and nose normal, oropharynx normal Respiratory: no respiratory distress and no labored breathing Cardiovascular: Rate/Rhythm: regular rhythm and + tachycardic Gastrointestinal (Abdomen): Inspection/Auscultation: normal bowel sounds Percussion/Palpation: abdomen soft Skin: no rashes, warm and dry + pallor Neurologic: + does not move all extremities (moving all extremities but the left arm) Results & Data Vital Signs (Past 12 Hours) Vital Signs Temp Pulse Pulse Resp BP BP Pulse Ox 04/11/19 10:50 107 H 22 99 04/11/19 10:01 100 H 99 04/11/19 10:00 102 H 158/74 H 99 04/11/19 09:01 95 H 100 04/11/19 09:00 96 H 159/83 H 99 04/11/19 08:01 119 H 99 04/11/19 08:00 120 H 153/86 H 99 04/11/19 07:20 113 H 22 99 04/11/19 07:00 105 H 146/70 H 99 04/11/19 06:18 111 H 26 H 98 04/11/19 06:00 38 C H 113 H 20 161/82 H 98 04/11/19 05:00 38.0 C H 105 H 24 143/72 H 04/11/19 04:00 100 H 21 134/82 04/11/19 03:00 38.0 C H 104 H 21 130/84 99 04/11/19 02:15 103 H 19 99 04/11/19 01:00 38.1 C H 102 H 21 128/85 98 04/11/19 00:55 115 H 27 H 97 Supervising Physician Co-Signing Physician Notes Chart reviewed, patient seen and examined. Patient's , 2 brothers and son at bedside. Collaborated with ALFREDO Huerta At the family review earlier discussions at the family meeting-answered their questions as well as providing support to the and family regarding their decisions Patient planned for trach and PEG. PE: Patient intubated and sedated, did move her right upper extremity and right lower extremity spontaneously Respiratory: Unlabored, on vent CV: Regular rate, tachycardic at times Abdomen: Not distended Extremities: Spontaneous movement on the right side Neuro: Sedated Agree with above note, assessment and plan as per ALFREDO Huerta-will continue to follow and provide support to family and assist with medical decision making as needed. PG Care Time/CCT Prolonged Care Time Prolonged Care Time: Yes Total Prolonged Care Time: 85 Time Spent Midlevel 95 minutes with >50% of time spent at bedside with patient and family discussing condition and GOC. Attending Total time spent 25 minutes in addition to the 95 minutes spent by ALFREDO Huerta for a total of 120 minutes with greater than 50% of the time spent at bedside and on the unit discussing goals of care as well as developing a plan of care. Critical Care Time Prolonged Care Time Prolonged Care Time: Yes Total Prolonged Care Time: 85 120
--- NOTE | 2019-04-11 12:24 | Nephrology Progress Note ---
Date of Service April 11, 2019 Assessment & Plan (1) Anoxic encephalopathy: (2) Admitted to intensive care unit: (3) Cardiogenic shock: (4) Pulmonary embolism: (5) Cardiac arrest: (6) Acute kidney injury: Clinically consistent with ischemic acute tubular necrosis following cardiac arrest with cardiogenic shock. Complicated by CTA with iodinated contrast. Thankfully creatinine is stable. Electrolytes are stable. Volume status hypervolemic. Will provide a low dose of furosemide 20 mg IV to promote increased urine output in hopes to maintain a more even fluid balance. Noted that insensible loss may be high due to fevers. Blood pressure is appropriate. Medications are appropriately dosed for kidney function. Given the patient's overall guarded prognosis, the risks/benefits of dialysis if kidney function continues to decline are not favorable. We will continue to provide appropriate close prospective monitoring. Mosquera to gravity. Document I/O's. Continue to provide appropriate supportive care. Repeat metabolic profile this afternoon and tomorrow AM. UA notable for 3+ protein. 10-30 WBC, >30 WBC. Urine studies will be repeated today. (7) Glioblastoma: Overall prognosis is unfortunately guarded. Subjective No acute events overnight. Hemodynamically stable. Non oliguric but remains in a positive fluid balance. Obligatory intake <1 L. Increased movement on right side . Fevers persist. Review of Systems Review of Systems: Unobtainable due to cognitive status Physical Exam Constitutional: + mechanically ventilated and + edematous; no acute distress ENMT: Mouth: no oral mucosal abnormality Neck: normal visual inspection and trachea midline Respiratory: Auscultation: lungs clear to auscultation bilaterally Cardiovascular: Rate/Rhythm: regular rate Heart Sounds: normal S1 and normal S2 Vessels: + JVD Extremities: + edema Gastrointestinal (Abdomen): Inspection/Auscultation: + abdomen distended and + hypoactive bowel sounds Percussion/Palpation: abdomen soft Musculoskeletal: Extremities: no cyanosis and no clubbing Skin: normal turgor Neurologic: + obtunded Speech / Cognition: + abnormal cognition Results & Data Vital Signs (Past 12 Hours) Vital Signs Temp Pulse Pulse Resp BP BP Pulse Ox 04/11/19 10:50 107 H 22 99 04/11/19 10:01 100 H 99 04/11/19 10:00 102 H 158/74 H 99 04/11/19 09:01 95 H 100 04/11/19 09:00 96 H 159/83 H 99 04/11/19 08:01 119 H 99 04/11/19 08:00 120 H 153/86 H 99 04/11/19 07:20 113 H 22 99 04/11/19 07:00 105 H 146/70 H 99 04/11/19 06:18 111 H 26 H 98 04/11/19 06:00 38 C H 113 H 20 161/82 H 98 04/11/19 05:00 38.0 C H 105 H 24 143/72 H 04/11/19 04:00 100 H 21 134/82 04/11/19 03:00 38.0 C H 104 H 21 130/84 99 04/11/19 02:15 103 H 19 99 04/11/19 01:00 38.1 C H 102 H 21 128/85 98 04/11/19 00:55 115 H 27 H 97 Laboratory Results Laboratory Results - last 24 hr 04/10/19 04/10/19 04/11/19 12:45 18:10 04:16 WBC RBC Hgb Hct MCV MCH MCHC RDW Std Deviation RDW Coeff of Anil Plt Count MPV Immature Gran % (Auto) Neut % (Auto) Lymph % (Auto) Garland % (Auto) Eos % (Auto) Baso % (Auto) Immature Gran # (Auto) Neut # (Auto) Lymph # (Auto) Garland # (Auto) Eos # (Auto) Baso # (Auto) APTT 41.1 H PTT Ratio 1.5 Sample Site POC pH POC pCO2 POC pO2 POC HCO3 POC Total CO2 POC Base Excess POC ABG O2 Sat Rusty Test O2 Delivery Device POC FiO2 PEEP Sodium Potassium Chloride Carbon Dioxide Anion Gap BUN Creatinine Est Cr Clr Drug Dosing Est GFR ( Amer) Est GFR (Non-Af Amer) BUN/Creatinine Ratio Glucose POC Glucose 148 H 138 H Calcium Phosphorus Magnesium Total Creatine Kinase 04/11/19 04/11/19 04/11/19 04:16 04:16 05:28 WBC 14.04 H RBC 3.11 L Hgb 9.0 L Hct 26.8 L MCV 86.2 MCH 28.9 MCHC 33.6 RDW Std Deviation 48.5 H RDW Coeff of Anil 15.7 H Plt Count 161 MPV 10.3 Immature Gran % (Auto) 4.8 Neut % (Auto) 71.7 Lymph % (Auto) 10.5 Garland % (Auto) 12.6 Eos % (Auto) 0.3 Baso % (Auto) 0.1 Immature Gran # (Auto) 0.67 H Neut # (Auto) 10.07 H Lymph # (Auto) 1.47 Garland # (Auto) 1.77 H Eos # (Auto) 0.04 Baso # (Auto) 0.02 APTT PTT Ratio Sample Site R Radial POC pH 7.48 H POC pCO2 29 L POC pO2 96 H POC HCO3 21 POC Total CO2 22 L POC Base Excess -2.0 POC ABG O2 Sat 98.0 H Rusty Test Pass O2 Delivery Device Ventilator POC FiO2 30 PEEP 5 Sodium 136 Potassium 3.8 Chloride 105 Carbon Dioxide 23 Anion Gap 8.0 BUN 47 H Creatinine 2.96 H Est Cr Clr Drug Dosing 16.1 Est GFR ( Amer) 17.3 Est GFR (Non-Af Amer) 14.9 BUN/Creatinine Ratio 15.8 Glucose 138 H POC Glucose Calcium 7.5 L Phosphorus 4.9 Magnesium 2.3 Total Creatine Kinase 103 04/11/19 04/11/19 11:07 11:08 WBC RBC Hgb Hct MCV MCH MCHC RDW Std Deviation RDW Coeff of Anil Plt Count MPV Immature Gran % (Auto) Neut % (Auto) Lymph % (Auto) Garland % (Auto) Eos % (Auto) Baso % (Auto) Immature Gran # (Auto) Neut # (Auto) Lymph # (Auto) Garland # (Auto) Eos # (Auto) Baso # (Auto) APTT 43.4 H PTT Ratio 1.6 Sample Site POC pH POC pCO2 POC pO2 POC HCO3 POC Total CO2 POC Base Excess POC ABG O2 Sat Rusty Test O2 Delivery Device POC FiO2 PEEP Sodium Potassium Chloride Carbon Dioxide Anion Gap BUN Creatinine Est Cr Clr Drug Dosing Est GFR ( Amer) Est GFR (Non-Af Amer) BUN/Creatinine Ratio Glucose POC Glucose 138 H Calcium Phosphorus Magnesium Total Creatine Kinase PG Care Time/CCT Total # of Minutes Spent Total Time Spent with Patient: Total time spent is greater than 50% in coordination of care (as documented) at patient's floor/unit and/or counseling patient: 30 minutes of critical care time.
--- NOTE | 2019-04-11 12:24 | Ultrasound Report ---
US liver CLINICAL HISTORY: resid LFT, hx shock liver COMPARISON STUDY: No previous studies for comparison. FINDINGS: Normal gallbladder. Common bile duct 4 mm. Liver is uniform throughout. No intrahepatic biliary ductal distention. Pancreas and right kidney are unremarkable IMPRESSION: 1. Normal study. 2. Normal right upper quadrant. The above report was generated using voice recognition software. It may contain grammatical, syntax or spelling errors. Electronically signed by: Lamont Connors M.D. 04/11/2019 12:22 PM
--- NOTE | 2019-04-11 12:24 | Ultrasound Report ---
BILATERAL LOWER EXTREMITY VENOUS DOPPLER HISTORY: Follow up study in a patient with DVT ?DVT burden history of occlusive deep venous thrombos is of the left popliteal vein extending into the calf vessels. Nonocclusive thrombus of the right per gant vein reported. COMPARISON STUDY: Duplex venous Doppler study 04/07/2019 FINDINGS: RIGHT: Partially occlusive thrombus of the peroneal vein redemonstrated. No occlusive deep venous thrombosis . LEFT: Occlusive deep venous thrombosis of the popliteal vein involves the anterior tibial, posterior tibial and peroneal veins. No progression of thrombi. IMPRESSION: Stable exam from 04/07/2019 with occlusive deep venous thrombosis of the left popliteal vein extending into the calf vessels and partially occlusive thrombus of the right peroneal vein. Electronically signed by: Maurice Shell M.D. 04/11/2019 12:23 PM
--- NOTE | 2019-04-11 14:18 | Pharmacy Report ---
Pharmacy Glycemic Sign Off Nt - Date of Service April 11, 2019 - Assessment & Plan ASSESSMENT: * Pharmacy was consulted by Crys THIBODEAUX on 04/07/19 for glycemic control and to write orders per [facility] inpatient glycemic control protocol. * Pt was initially hyperglycemic secondary to severe physiologic distress and IV pressor administration however over the last 72 hrs she has received no SQ or IV insulin. She is receiving TF's at goal without hyperglycemia. Pt has no prior dx of DM and A1c = 5.6. * Do not anticipate further changes in patient status that would quickly deteriorate glycemic control PLAN FOR INPATIENT GLYCEMIC CONTROL: No changes needed to current regimen. One could consider d/c of BSGs in the next 24-48hrs if no new stressors * Continue NovoLog per scale ACHS/Q6hrs while NPO * Goal range = 120 - 150 mg/dl * CF = 25 mg/dl/unit * CR = 1 unit for ever ___ g CHO consumed (none) * Pharmacy is signing off of glycemic consult and will no longer be making adjustments to inpatient regimen. Please feel free to re-consult if needed. Thank you.
--- NOTE | 2019-04-11 14:37 | ENT Consultation ---
Date of Consultation April 11, 2019 Assessment & Plan (1) Anoxic encephalopathy: Tracheostomy for airway management History of Present Illness Reason for Consultation: anoxic encephalopathy Attending Physician: Christian Cervantes MD History of Present Illness 74-year-old lady who has been intubated since Sunday for a massive pulmonary embolus after craniotomy for glioblastoma grade 4. Allergies Allergy/AdvReac Type Severity Reaction Status Date / Time No Known Allergies Allergy Unverified 04/06/19 12:16 Home Medications Home Medications Medication Instructions Recorded Confirmed Type acetaminophen 325 mg tablet 650 mg PO Q6H PRN tab 04/02/19 04/06/19 History amlodipine 5 mg tablet 5 mg PO DAILY 04/02/19 04/06/19 History bisacodyl 10 mg rectal suppository 10 mg DE DAILY PRN 04/02/19 04/06/19 History cholecalciferol (vitamin D3) 5,000 5,000 units PO DAILY 04/02/19 04/06/19 History unit capsule docusate sodium 100 mg capsule 100 mg PO BID PRN 04/02/19 04/06/19 History enoxaparin 30 mg/0.3 mL 30 mg SQ Q12H 04/02/19 04/06/19 History subcutaneous syringe mecobalamin (vitamin B12) 1,000 1,000 mcg SL DAILY 04/02/19 04/06/19 History mcg disintegrating tablet,sublingual omega-3 fatty acids 1,000 mg 1,000 mg PO DAILY 04/02/19 04/06/19 History capsule polyethylene glycol 3350 17 17 gm PO DAILY 04/02/19 04/06/19 History gram/dose oral powder sennosides 8.6 mg-docusate sodium 1 tabcap PO DAILY PRN tab 04/02/19 04/06/19 History 50 mg tablet sodium phosphates 19 gram-7 118 ml DE DAILY PRN 04/02/19 04/06/19 History gram/118 mL enema Patient History Medical History Glioblastoma 03/13/19 Goals of care, counseling/discussion Hypertension No pertinent past medical history Surgical History Hx of tonsillectomy S/P craniotomy Right craniotomy for tumor resection by Dr. Manzanares at [facility] on 03/13/19 Family History Mother , 90yo Dementia Stroke Natural with unknown cause Father , 67yo Myocardial infarction Brother No problems noted. Brother No problems noted. Brother Prostate cancer Brother Myocardial infarction Sister Colitis Son No problems noted. Son No problems noted. Daughter No problems noted. Other Family history non-contributory Social History Preferred Language: Mauritanian Communication Ability: Unable Visual Impairment: No Limitations Hearing Ability: Normal Laundry Room Attendant Required: No Beliefs That Will Affect Care: None marital status: Current Living Situation: Family current occupational status: retired current occupation: [employer] work Feels Safe at Home: Yes Smoking Status: Never smoker Second Hand Exposure: No ; Hx Alcohol Use: No Hx Substance Use: No caffeine: Yes (Expresso 2 shots/day) during the past year weight has: decreased > 10 lbs Physical Exam Constitutional: + altered mental status (Comatose patient intubated) ENMT: Trachea appears to be midline Neck: trachea midline Results & Data Vital Signs (Past 12 Hours) Vital Signs Temp Pulse Pulse Resp BP BP Pulse Ox 04/11/19 10:50 107 H 22 99 04/11/19 10:01 100 H 99 04/11/19 10:00 102 H 158/74 H 99 04/11/19 09:01 95 H 100 04/11/19 09:00 96 H 159/83 H 99 04/11/19 08:01 119 H 99 04/11/19 08:00 120 H 153/86 H 99 04/11/19 07:20 113 H 22 99 04/11/19 07:00 105 H 146/70 H 99 04/11/19 06:18 111 H 26 H 98 04/11/19 06:00 38 C H 113 H 20 161/82 H 98 04/11/19 05:00 38.0 C H 105 H 24 143/72 H 04/11/19 04:00 100 H 21 134/82 04/11/19 03:00 38.0 C H 104 H 21 130/84 99
[2019-04-11] MEDS ORDERED: LIDOCAINE HCL 2% (LOCAL) INJ 50 ML VIAL ONE (14:48)
[2019-04-11] MEDS ORDERED: LIDOCAINE/EPINE 2% 1:100,000 20ML ONE (14:48)
[2019-04-11] MEDS ORDERED: ROCURONIUM BROMIDE 10 MG/ML 5 ML VIAL IV ONE (15:35)
[2019-04-11] MEDS ORDERED: PROPOFOL IV EMULSION 10 MG/ML 20 ML VIAL IV ONE (15:35)
[2019-04-11 15:46] LABS: Albumin Level 1.6 gm/dl (3.4-5.0); BUN Creatinine Ratio 17.7 (10-20); Creatinine Clr Calc Pharmacy 16.6 ml/min; Est GFR (African American) 17.9; Est GFR (Non-African American) 15.4; Phosphorus 4.9 mg/dl (2.5-4.9); Potassium 3.8 mmol/L (3.5-5.1)
--- NOTE | 2019-04-11 15:55 | Anesthesiology Consultation ---
Date of Service April 11, 2019 Assessment & Plan (1) Encounter for pre-operative examination: Chart Review Chart Review: Acceptable Risk for Surgery and Patient NOT seen in Pre Admission Testing Consults Requested none History Surgery Operation Date: 04/11/19 15:45 Proposed Procedures p Tracheostomy - Noy Lang MD Height/Weight Height: 5 ft 3 in Weight: 75.1 kg Allergies Allergy/AdvReac Type Severity Reaction Status Date / Time No Known Allergies Allergy Unverified 04/06/19 12:16 Medications Home Medications Medication Instructions Recorded Confirmed Last Taken acetaminophen 325 mg tablet 650 mg PO Q6H PRN tab 04/02/19 04/06/19 Unknown amlodipine 5 mg tablet 5 mg PO DAILY 04/02/19 04/06/19 Unknown bisacodyl 10 mg rectal suppository 10 mg MI DAILY PRN 04/02/19 04/06/19 Unknown cholecalciferol (vitamin D3) 5,000 5,000 units PO DAILY 04/02/19 04/06/19 Unknown unit capsule docusate sodium 100 mg capsule 100 mg PO BID PRN 04/02/19 04/06/19 Unknown enoxaparin 30 mg/0.3 mL 30 mg SQ Q12H 04/02/19 04/06/19 Unknown subcutaneous syringe mecobalamin (vitamin B12) 1,000 1,000 mcg SL DAILY 04/02/19 04/06/19 Unknown mcg disintegrating tablet,sublingual omega-3 fatty acids 1,000 mg 1,000 mg PO DAILY 04/02/19 04/06/19 Unknown capsule polyethylene glycol 3350 17 17 gm PO DAILY 04/02/19 04/06/19 Unknown gram/dose oral powder sennosides 8.6 mg-docusate sodium 1 tabcap PO DAILY PRN tab 04/02/19 04/06/19 Unknown 50 mg tablet sodium phosphates 19 gram-7 118 ml MI DAILY PRN 04/02/19 04/06/19 Unknown gram/118 mL enema Active Medications Generic Name Dose Route Start Last Admin Trade Name Freq PRN Reason Stop Dose Admin Acetaminophen 650 mg 04/06/19 16:31 04/09/19 08:22 Tylenol PO 05/06/19 16:30 650 mg Q4H PRN Administration Pain or Fever Dextrose 25 - 50 ml 04/06/19 18:30 04/07/19 14:48 Dextrose 50% IV 05/06/19 18:29 25 ml UD PRN Administration Hypoglycemia Protocol Protocol Enteral Nutritional Formula 1,000 ml 04/08/19 12:00 04/11/19 10:44 Impact 1.0 Himanshu OG 05/08/19 11:59 1,000 ml .CONTINUOUS GINO Administration Protocol Fentanyl Citrate 25 mcg 04/09/19 10:15 04/09/19 17:55 Fentanyl Citrate IV 04/23/19 10:14 25 mcg Q30M PRN Administration Pain Heparin Sodium/Dextrose 25,000 units in 500 mls @ 0 mls/hr 04/06/19 12:45 04/11/19 11:30 Heparin Sodium/Dextrose IV 05/06/19 12:44 0 units/hr .Q0M GINO 0 mls/hr Titration Protocol 0 UNITS/HR Midazolam HCl 125 mg in 250 mls @ 0 mls/hr 04/07/19 13:30 04/10/19 10:37 Versed IV 05/07/19 13:29 Infused .Q0M GINO Titration Protocol 0 MG/HR Levetiracetam 500 mg/ Dextrose 105 mls @ 420 mls/hr 04/11/19 15:00 04/11/19 15:28 IV 05/11/19 14:59 Infused Q12H GINO Infusion Insulin Aspart 0 units 04/09/19 18:00 04/11/19 13:02 Novolog Flexpen SC 05/09/19 17:59 Not Given Q6 GINO Metoprolol Tartrate 25 mg 04/11/19 09:00 04/11/19 08:03 Lopressor PO 05/11/19 08:59 25 mg BID GINO Administration Polyethylene Glycol 17 gm 04/07/19 09:00 04/11/19 08:04 Miralax Powder Packet PO 05/07/19 08:59 Not Given DAILY GINO Sterile Water 1 ea 04/10/19 10:00 04/11/19 15:56 Tube Feeding Water Flush GT 05/10/19 09:59 Not Given Q4H GINO NPO Date Last Intake of Fluids: 04/05/19 Time Last Intake of Fluids: 08:00 Date Last Intake of Solids: 04/05/19 Time Last Intake of Solids: 08:00 Past Medical History Medical History (Updated 04/11/19 @ 15:58 by Jimmy Bell MD) Acute cor pulmonale Acute kidney injury Anoxic encephalopathy Aspiration pneumonia Cardiac arrest Cardiogenic shock Deep vein thrombosis (DVT) of popliteal vein of left lower extremity Deep venous thrombosis (DVT) of right peroneal vein Glioblastoma 03/13/19 Goals of care, counseling/discussion Hypertension No pertinent past medical history Pulmonary embolism Subdural hematoma Exercise / Class Metabolic Activity IV < 2 Limit ADL/Bedbound (intubated and sedated ) Past Family History Family History Mother , 90yo Dementia Stroke Natural with unknown cause Father , 67yo Myocardial infarction Brother No problems noted. Brother No problems noted. Brother Prostate cancer Brother Myocardial infarction Sister Colitis Son No problems noted. Son No problems noted. Daughter No problems noted. Other Family history non-contributory Past Surgical History Surgical History Hx of tonsillectomy S/P craniotomy Right craniotomy for tumor resection by Dr. Manzanares at [facility] on 03/13/19 Past Anesthesia History No Hx of Anesthesia Complications and No Family Hx of Anesthesia Complications History of PONV No Hx of PONV and No Hx of Motion Sickness Social History Smoking Status: Never smoker Do You Dip or Chew Tobacco: No Hx Alcohol Use: No Hx Substance Use: No Physical Exam Vital Signs Last Vital Signs Temp 37.8 C H 04/11/19 15:34 Pulse 114 H 04/11/19 15:00 Resp 22 04/11/19 10:50 BP 161/97 H 04/11/19 15:00 Pulse Ox 99 04/11/19 15:00 Testing Laboratory Results 04/11/19 04:16 04/11/19 15:17 PT 12.1 Seconds (9.0-12.0) H 04/09/19 04:24 INR 1.2 (0.9-1.1) H 04/09/19 04:24 APTT 43.4 Seconds (21.0-31.0) H 04/11/19 11:08 Hemoglobin A1c 5.6 % (4.5-5.6) 04/08/19 14:04 Urine Color Yellow 04/06/19 15:27 Urine Appearance Clear (Clear) 04/06/19 15:27 Urine pH 6.5 (4.5-7.5) 04/06/19 15:27 Ur Specific [place] > 1.045 (1.000-1.030) H 04/06/19 15:27 Urine Protein 3+ (Negative) H 04/06/19 15:27 Urine Glucose (UA) 1+ (Negative) H 04/06/19 15:27 Urine Ketones Trace (Negative) H 04/06/19 15:27 Urine Nitrite Negative (Negative) 04/06/19 15:27 Ur Leukocyte Esterase Negative (Negative) 04/06/19 15:27 Urine WBC (Auto) 10-30 /hpf (0-5) H 04/06/19 15:27 Urine RBC (Auto) >30 /hpf (0-4) H 04/06/19 15:27 U Hyaline Cast (Auto) 10-30 /lpf (0-5) H 04/06/19 15:27 U Epithel Cells (Auto) >30 /lpf (0-5) H 04/06/19 15:27 Urine Bacteria (Auto) Negative (Negative) 04/06/19 15:27 04/06/19 12:04 Aerobic Blood Culture - Final Blood No growth in Aerobic bottle after 5 days. Anaerobic Blood Culture - Final 04/06/19 12:41 Aerobic Blood Culture - Final Blood No growth in Aerobic bottle after 5 days. Anaerobic Blood Culture - Final No growth in Anaerobic bottle after 5 days. 04/09/19 10:53 Aerobic Blood Culture - Preliminary Blood No growth in Aerobic bottle after 48 hours. Anaerobic Blood Culture - Preliminary No growth in Anaerobic bottle after 48 hours. 04/09/19 10:51 Aerobic Blood Culture - Preliminary Blood No growth in Aerobic bottle after 48 hours. Anaerobic Blood Culture - Preliminary No growth in Anaerobic bottle after 48 hours. 04/06/19 15:27 Urine Culture - Final Urine,Straight Cath No growth - less than 1,000 colonies/mL. 04/06/19 17:40 Gram Stain - Final Sputum,Trach Sputum Culture - Final Moderate normal aida. 04/11/19 11:07 POC Glucose 138 H Electrocardiogram Date: 04/06/19 Findings: + ST @ (HR 137) Sinus tachycardia Rightward axis RSR' or QR pattern in V1 suggests right ventricular conduction delay Borderline ECG When compared with ECG of 26-FEB-2019 14:46, Vent. rate has increased BY 67 BPM RSR' pattern in V1 is now Present Confirmed by Josue Lofton ([id number]) on 04/06/2019 4:03:17 PM Chest X-Ray Date: 04/06/19 XR chest 1V portable HISTORY: 74 years-old Female f/u follow-up study in a patient with acute respiratory failure COMPARISON: Chest radiograph 04/09/2019 TECHNIQUE: Portable AP view of the chest FINDINGS: Endotracheal tube terminates 4.0 cm superior to the arnoldo. Enteric tube courses below the diaphragm, distal tip outside the [id number]. Cardiomediastinal and hilar silhouettes are unchanged. Mild hyperinflation. Unchanged blunting of the costophrenic angles. Persistent patchy left basilar opacities. Degenerative c hanges of the shoulders and spine. IMPRESSION: 1. Satisfactory positioning of the endotracheal tube. 2. Persistent left basilar opacities. Echocardiogram Date: 04/07/19 LV hyperdynamic. RV moderated dilated RV systolic function is mild to moderately reduced Right atrium is mildly dilated Mild AR. Mild mitral annular calcification RV systolic pressure is normal EF 70% Other Testing CT head 04/06/2019: CT head/brain wo con CLINICAL HISTORY: 74 years-old Female with repeat for stability at 2300. Follow-up study. TECHNIQUE: Multiple axial CT images of the head were obtained without contrast. A dose lowering technique was utilized adhering to the principles of ALARA. CT DOSE: 614.27 mGy.cm COMPARISON: None. FINDINGS: 5.5 cm heterogeneous area of the right cerebral hemisphere with peripheral increased attenuation appears unchanged from the study at 11:23 AM on 04/09/2019. There is mild adjacent sulcal effacement with gyral expansion with partial effacement of the right lateral ventricle. Unchanged 3 mm midline shift. No acute territorial infarct. No hydrocephalus. Mild patchy white matter hypodensities suggest chronic microvascular ischemic disease. Mild age-related involutional changes. Trace pneumocephalus adjacent to the craniotomy site of the right calvarium redemonstrated. Mastoid air cells and paranasal sinuses are clear. IMPRESSION: Stable exam with unchanged 5.5 cm heterogeneous area of the right cerebral hemisphere with peripheral increased attenuation suggestive of a probable resection cavity with associated blood products. Continued follow-up recommended. This results in adjacent mass effect with unchanged 3 mm leftward midline shift. Continued follow-up recommended.
[2019-04-11] MEDS ORDERED: fentaNYL citrate 100 MCG/2 ML VIAL IV ONE (17:02)
[2019-04-11] MEDS ORDERED: SURGICEL ABSORB HEMOSTAT 2IN X 14IN TOP ONE (17:12)
[2019-04-11] MEDS ORDERED: GLYCOPYRROLATE 0.2 MG/ML VIAL IM ONE (17:35)
[2019-04-11] MEDS ORDERED: NEOSTIGMINE METHYLSULFATE 5 MG/5 ML SYR IV ONE (17:35)
--- NOTE | 2019-04-11 17:49 | Operative Report ---
Post Operative Report Pre & Post Diagnosis Operation Date: 04/11/19 15:45 Pre-Op Diagnosis: Anoxicencephalopathy Post-Op Diagnosis: Anoxicencephalopathy I identified the patient and participated in the time-out.: Yes Procedure Operation Date: 04/11/19 15:45 Actual Procedures p Tracheostomy - Noy Lang MD Surgeon Noy Lang MD Sewer Separation Designer None Estimated Blood Loss 5 Findings Consistent with Post-Op Diagnosis Specimens None Anesthesia Type General Complications none Disposition Accompanied Patient To Recovery: Yes Disposition: Surgical ICU Indications And anoxic encephalopathy Description of Procedure She was brought to the operating room in the ICU bed in the supine position. General anesthesia was induced and the site was prepped with ChloraPrep and draped in the usual sterile manner for tracheostomy. Local anesthesia of 2% Xylocaine with 1-100,000 strength epinephrine was injected. The incision was made using the 15 blade the suprasternal notch and carried down through the skin and subcutaneous layer. The subcutaneous fat was removed using the cutting Bovie and hemostasis was controlled using the Bovie. The first tracheal ring was retracted superiorly and incision was made through the second and third tracheal rings creating a U-shaped flap based inferiorly which was sewn to the skin using a 2-0 Prolene suture as a stay suture. The tracheostomy tube was inserted which was a #8 Shiley. 4 corner stay sutures were placed and Surgicel was packed around the tracheostomy tube. She tolerated procedure well well was taken back to the ICU. I attest to the content of the Intraoperative Record and any orders documented therein. Any exceptions are noted below.
--- NOTE | 2019-04-11 18:13 | Anesthesiology Progress Note ---
Date of Service April 11, 2019 Anesthesia Post Procedure Vital Signs Vital Signs: Temp Pulse Pulse Resp BP BP BP 04/11/19 17:55 111 H 161/104 H 04/11/19 17:50 111 H 176/85 H 04/11/19 17:45 108 H 21 149/98 H 04/11/19 17:43 106 H 22 04/11/19 17:40 36.3 C L 102 H 160/84 H 04/11/19 17:35 36.3 C L 102 H 128/70 04/11/19 16:00 118 H 166/93 H 04/11/19 15:34 37.8 C H 04/11/19 15:00 114 H 161/97 H 04/11/19 14:43 38.2 C H 115 H 163/86 H 04/11/19 14:34 117 H 163/86 H 04/11/19 14:00 112 H 158/82 H 04/11/19 13:00 112 H 163/85 H 04/11/19 12:00 112 H 157/82 H 04/11/19 11:00 108 H 149/75 H 04/11/19 10:50 107 H 22 04/11/19 10:01 100 H 04/11/19 10:00 102 H 158/74 H 04/11/19 09:01 95 H 04/11/19 09:00 96 H 159/83 H 04/11/19 08:01 119 H 04/11/19 08:00 120 H 153/86 H 04/11/19 07:20 113 H 22 04/11/19 07:00 105 H 146/70 H 04/11/19 06:18 111 H 26 H 04/11/19 06:00 38 C H 113 H 20 161/82 H 04/11/19 05:00 38.0 C H 105 H 24 143/72 H 04/11/19 04:00 100 H 21 134/82 04/11/19 03:00 38.0 C H 104 H 21 130/84 04/11/19 02:15 103 H 19 04/11/19 01:00 38.1 C H 102 H 21 128/85 04/11/19 00:55 115 H 27 H 04/10/19 23:00 38.0 C H 91 H 22 04/10/19 22:14 108 H 24 04/10/19 21:00 109 H 25 H 155/85 H 04/10/19 20:00 38.3 C H 111 H 29 H 145/77 H 04/10/19 19:35 107 H 25 H Pulse Ox 04/11/19 17:55 94 04/11/19 17:50 94 04/11/19 17:45 94 04/11/19 17:43 97 04/11/19 17:40 94 04/11/19 17:35 95 04/11/19 16:00 99 04/11/19 15:34 04/11/19 15:00 99 04/11/19 14:43 04/11/19 14:34 98 04/11/19 14:00 99 04/11/19 13:00 99 04/11/19 12:00 98 04/11/19 11:00 98 04/11/19 10:50 99 04/11/19 10:01 99 04/11/19 10:00 99 04/11/19 09:01 100 04/11/19 09:00 99 04/11/19 08:01 99 04/11/19 08:00 99 04/11/19 07:20 99 04/11/19 07:00 99 04/11/19 06:18 98 04/11/19 06:00 98 04/11/19 05:00 04/11/19 04:00 04/11/19 03:00 99 04/11/19 02:15 99 04/11/19 01:00 98 04/11/19 00:55 97 04/10/19 23:00 04/10/19 22:14 98 04/10/19 21:00 04/10/19 20:00 98 04/10/19 19:35 99 Transfer of Care Handoff Completed per policy Notes Mental Status: see notes below Patient Amnestic to Procedure: Yes Nausea / Vomiting: adequately controlled Pain: adequately controlled Airway Patency, RR, SpO2: see Notes below BP & HR: stable & adequate Hydration State: stable & adequate Anesthetic Complications: no major complications apparent Notes: Patient was already intubated in the ICU. Plan was for trach. Trach done without incident under GA. Patient now with trach in and placed on ventilator in ICU. Report given to ICU resident. Questions answered.
--- NOTE | 2019-04-11 19:05 | XRay Report ---
KUB HISTORY: core safe placement COMPARISON: None. FINDINGS: The bowel gas pattern is unremarkable. No evidence for bowel obstruction. Feeding tube is c urled within the mid stomach. No renal calculi. No ureteral calculi. No pneumoperitoneum or pneumato sis. IMPRESSION: The tip of the feeding tube is curled within the mid stomach. Electronically signed by: Gee Goel M.D. 04/11/2019 7:04 PM
[2019-04-11] MEDS: METOPROLOL TARTRATE 50 MG TAB PO SCH (19:18)
[2019-04-11] MEDS ORDERED: HEPARIN SODIUM/DEXTROSE 25,000 UNITS/500 ML BAG IV SCH (20:30)
[2019-04-11] MEDS ORDERED: Heparin IV Standard *NO* Bolus IV SCH (22:00)
[2019-04-11 22:05] LABS: Partial Thromboplastin Ratio 1.1; Partial Thromboplastin Time 29.6 Seconds (21.0-31.0)
[2019-04-12] MEDS: INSULIN ASPART 100 UNITS/ML 3 ML PEN SC SCH ×4 (00:10→17:56)
[2019-04-12] MEDS: FEEDING WATER FLUSH GT SCH ×6 (02:15→22:22)
[2019-04-12 05:00] LABS: Hematocrit (blood only) 27.9 % (37-47); Hemoglobin 9.1 g/dL (12.0-16.0); Mean Corpuscular Hemoglobin 28.4 pg (25-34); Mean Corpuscular Hgb Conc 32.6 g/dL (32-36); Mean Corpuscular Volume 87.2 fL (80-100); Platelet Count 204 K/uL (130-400); RDW Coefficient of Variation 15.9 % (11.5-14.5); RDW Standard Deviation 49.9 fL (36.4-46.3); White Blood Count 21.79 K/uL (4.8-10.8)
[2019-04-12 05:05] LABS: Partial Thromboplastin Ratio 1.3; Partial Thromboplastin Time 34.7 Seconds (21.0-31.0)
[2019-04-12 05:22] LABS: BUN Creatinine Ratio 20.6 (10-20); Calcium 7.9 mg/dl (8.5-10.1); Creatinine Clr Calc Pharmacy 17.7 ml/min; Est GFR (African American) 19.3; Est GFR (Non-African American) 16.6; Magnesium 2.2 mg/dl (1.8-2.4); Phosphorus 5.3 mg/dl (2.5-4.9); Potassium 3.9 mmol/L (3.5-5.1)
[2019-04-12 05:44] LABS: Basophils % (auto) 0.5 %; Eosinophils # (auto) 0.05 K/uL (0-0.5); Eosinophils % (auto) 0.2 %; Immature Granulocytes # (auto) 1.24 K/uL (0.00-0.02); Immature Granulocytes % (auto) 5.7 %; Lymphocytes # (auto) 1.72 K/uL (1.2-3.4); Lymphocytes % (auto) 7.9 %; Monocytes # (auto) 2.92 K/uL (0.11-0.59); Monocytes % (auto) 13.4 %; Neutrophils # (auto) 15.76 K/uL (1.4-6.5); Neutrophils % (auto) 72.3 %; Polychromasia 1+
[2019-04-12] MEDS ORDERED: HEPARIN IV BOLUS 5,000 UNITS in SYRINGE 0 ML IV ONE ×2 (06:15→21:00)
--- NOTE | 2019-04-12 06:45 | Critical Care Progress Note ---
Date of Service April 12, 2019 Assessment & Plan (1) Admitted to intensive care unit: Reason Critically Ill: 74-year-old female here with a PMHx significant for glioblastoma, HTN, cardiac arrest, and massive PE who presented with a feeling of unwellness and who was admitted for massive PE. She sustained 3x cardiac PEA arrests with ROSC prior to admission to the ICU. Goals of Care: Family meeting held at 10 AM 04/11/2019 with Kj (patient's son), Igor (brother), and Paty (brother). Palliative care, intensive care, and primary service team were present. Nephrology, neurology, ENT aware of case. Case was discussed at length. Neurologically she has some increased movement and wit hdrawal from noxious stimuli in the last 24 hours, but is having suspected neurogenic fever. She has had multiple blood cultures drawn and has stable oxygen saturation, lower suspicion for infectious etiology of her fever. Long- term she has both a grim prognosis and extremely difficult recovery. He has extensive pulmonary/cardiac burden, and her extensive illness will make rehab very difficult. Family expresses understanding of this, and reiterate that they understand but that they and Yulissa would want full measures and full code. Specifically they agree with proceeding with tracheostomy and PEG tube placement. They are aware that dialysis may be needed in the future. Neuro - [facility] ICU: POSITIVE ETT in place (placed 04/06/2019) Sedation: Versed gtt held. Analgesia: Fentanyl 25mg Q30M prn, last dose 04/09 1755. - CT-H shows increase density of postsurgical change without other acute findings. Stable on repeat. Neuro consulted, case discussed Patient opens eyes on command, squeezes fingers on right and blinks eyes once and twice on command this morning. Moves right hallux on command. Does not activate left hand or leg - Discussed with neurology, possible use of Amantidine, holding at this time Glioblastoma Multiforme Stage IV s/p craniotomy with tumor resection 03/13/2019 and adjuvant radiation with Dr. Manzanares [facility] [place] - No further surgical or chemotherapeutic intervention at this time. - Will require further f/u with Neuro pending clinical course Cardiac - Cardiogenic shock 2/2 PE, improved - PE treatment as below No current pressor requirements. - TTE hyperdynamic EF >70% with RV dilation and wall motion dysfunction -Troponins down trended Intermittently hypertensive overnight, and this morning. Tachycardic. - BB increased fro Metop 50 BID to 75mg PO. One time 25mg dose given today. - Digoxin added 0.125. Check digoxin level Sunday given impaired renal function. Tachyarrhythmia question sinus tach versus atrial arrhythmia EKG pending High risk for A. fib/flutter Anticoagulated for PEs On metoprolol 50 mg p.o. twice daily Start low-dose digoxin 0.125 Respiratory Acute PE with multiorgan system dysfunction - With extensive R PA thrombus - Anticoagulation as below - No TPA or thrombectomy/surgical intervention. Case was discussed with Zuri and Rasheed who feel she is not a surgical candidate, and TPA was contrain dicated due to the patients recent neurosurgical procedure. ABG 7.15//112/ this morning, respiratory alkalosis with rate 22. Transitioned from CPAP to trach collar. May have additional element of anxiety/pain Transition from CPAP to trach collar today. - Keep cuff up/do not place [place] at this time to minimize aspiration which would further confuse fever/pna picture. If tolerates trach trials will likely deflate cuff in next 24 hours. - Left lung infiltrates, unchanged from prior, likely to represent possible pulmonary infarction given unchanging nature GI - Transaminitis 2/2 shock liver -AST/ALT downtrending since initial shock liver episode. Reheck CMP in the morning Nutrition - IVFM: Discontinued Core safe, impact at 70 cc/h with 150 cc flushes every 4 hours - Discussed with GI, pt is not a candidate for PEG placement at this time, core safe placed for feeds. RENAL/LYTES - KATHY Creatinine down trended to 2.71 from 2.88 Potassium, sodium within normal limits - Replace electrolytes as needed Urine output 1.9 L per 24 hours Received Lasix x20 mg yesterday - - No concerns at this time. - Discontinue summers and place purewick to minimize risk of infection ENDO - No history of T2DM, BSG 380 on admit - HgbA1C 5.6% - ICU hyperglycemic protocol - GSB ~100s HEME - - Hgb stable (9.1 today) - CBC daily - No signs of bleeding on clinical exam Given ongoing KATHY will continue heparin gtt and defer transition to lovenox at this time. ID - Intermittent fever, suspect 2/2 Neurogenic Fever - She does not have an increasing oxygen requirement, and has a normal lactate. Suspect neurogenic fever, will monitor for increasing oxygen requirements. - APAP limited by shock liver and transaminitis - Liver ultrasound reassuring - Blood cultures 04/09, 04/10, 04/12 remain negative - Monitor fever curve. Afebrile this morning - Procal 1.61. This is downtrending and of limited use in the setting of KATHY compared to prior, and in context of improved oxygen requirements/respiratory status and unchanged CXR feel is 2/2 global severe illness and improving and not due to an acute infectious pneumonia. Leukocytosis secondary to tracheostomy. INTEGUMENTARY - No acute concerns. Assess daily for pressure ulcers/bedside ulcers given bedbound status and severe illness. LINES/IV ACCESS - PIVs intact. DVT PROPHYLAXIS - Anticoagulation as above Disposition: Awaiting family decision regarding facility. At this point patients acute issues largely managed, would benefit most from rehabilitation to the extent she is able to participate. Thank you for allowing us to be part of this patient's care. Please refer to Dr. Lindquist's documentation for any further recommendations. (2) Deep vein thrombosis (DVT) of popliteal vein of left lower extremity: (3) Deep venous thrombosis (DVT) of right peroneal vein: (4) Acute cor pulmonale: (5) Venous thromboembolism: (6) Aspiration pneumonia: (7) Acute kidney injury: (8) Hypertension: (9) Cardiogenic shock: (10) Pulmonary embolism: (11) Cardiac arrest: (12) Glioblastoma: Supervising Physician Co-Signing Physician Notes Dr. Louis was resident physician during care of patient. I separately evaluated patient for jimenez portions of the history and the exam. I was present during the critical portion of medical decision making, and I discussed the case with the resident. I generally agree with the findings and plan. Patient's neurologic status appears to be more alert today, remains with flaccid paralysis of left upper extremity and lower extremity. Today's goals will be to continue nutrition, minimize potential portals for infection, and optimize the patient to begin intensive rehabilitation therapy. I am hopeful to have the patient remain off the mechanical ventilator, the tracheostomy will ultimately be helpful and her management. It remains to be seen whether the patient's will be able to respond to possible aspiration events. Definitive surgical gastrostomy is deferred at this time, we will continue to revisit this issue should the patient's condition continue to improve to such a point that the gastroenterology team would feel the benefits of placement outweigh the risks. At this time it appears the next step is for formal selection of a long-term care facility. Depending on selection of the facility the patient would be medically stable for transfer to [facility] unless the facility does not accept patients with tracheostomy or without definitive enteral feeding access. Given the possibility of possible percutaneous gastrostomy tube placement I will continue with heparin for anticoagulation, upon selection of long-term care facility I would transition the patient to Lovenox 1 mg/kg twice daily most likely to start on the day of transfer. Subjective Yulissa seen at the bedside this morning. She opens eyes to tactile stimulation on the right, is able to blink once and twice on command, squeezes fingers once and twice on command, weakly activates hallux/toe movement on command. Minimal strength/hand movement, does not squeeze or hold up one versus 2 fingers on command. Intermittently falls back asleep during assessment, on attempt to obtain review of systems via blink once for no, twice for yes or squeeze once f or no twice for yes patient does not give consistent answers and intermittently falls back to sleep. Family updated. Review of Systems Review of Systems: Unobtainable due to cognitive status Physical Exam Physical Exam: General: Trach in place. Somnolent, opens eyes to tactile stimulation on the right. Is able to squeeze right hand once and twice on command, blink eyes once and twice on command, weakly wiggle right hallux on com aminta. Intermittently falls back asleep. HEENT: Normocephalic. Pupils responsive to light and equal. Nonicteric. Pulm: On CPAP, trace crackles at bases bilaterally similar to prior, otherwise globally clear to auscultation Cardiac: Tachycardic, regular -mrg. Radial pulses intact and symmetrical. Abdominal: Nontender, nondistended, soft. BS present. Extremity: Opens eyes to some pinch on the right, hallux pinch on the right, does not respond or withdraw to stimulation on the left hand or foot. Distal limbs puffy, edema of the hands and feet present bilaterally. Extremities warm, moist. Results & Data Vital Signs (Past 12 Hours) Vital Signs Temp Pulse Resp BP Pulse Ox 12/07/19 05:57 94 H 20 99 04/12/19 04:07 99 H 18 102 H 04/12/19 03:00 108 H 140/74 98 04/12/19 02:00 109 H 143/80 H 98 04/12/19 01:00 106 H 134/86 98 04/12/19 00:07 99 H 18 99 04/12/19 00:00 37.2 C 102 H 126/87 99 04/11/19 23:00 94 H 125/73 99 04/11/19 22:00 93 H 123/75 99 04/11/19 21:22 94 H 17 99 04/11/19 21:00 85 116/69 100 04/11/19 20:00 36.7 C 105 H 153/71 H 98 04/11/19 19:00 107 H 135/76 98 Resident Activity Tracking Resident Involvement: Resident Care Provided Care Provided: Adult Hospital Medicine
--- NOTE | 2019-04-12 06:52 | CT Scan Report ---
HEAD CT NONCONTRAST CT DOSE: 614.27 mGy.cm HISTORY: Right frontal convexity subdural hematoma, needs follow-up TECHNIQUE: Multiaxial CT images of the head were performed without the use of intravenous contrast. A utomated exposure control was utilized for this study. A dose lowering technique was utilized adheri ng to the principles of ALARA. Comparison: Head CT 04/09/2019. Findings: Left-sided nasogastric tube is noted within the nasal cavity. Right-sided craniotomy persis ts. Trace pneumocephalus adjacent to the craniotomy site has slightly improved. No significant change in the right cerebral 5.5 cm hypodensity with peripheral increased density. Unchanged [address] midline shift. Impression: No significant change in the 5.5 cm heterogeneous area within the right cerebral hemisphere with med pheral increased attenuation. This suggests resection cavity with associated blood products. Continue d follow-up recommended. 3 mm of leftward midline shift is also unchanged. Electronically signed by: Gee Goel M.D. 04/12/2019 7:28 AM
[2019-04-12] MEDS: POLYETHYLENE (MIRALAX) 17 GM PACK PO SCH (07:09)
[2019-04-12] MEDS: METOPROLOL TARTRATE 50 MG TAB PO SCH (08:15)
[2019-04-12] MEDS: HEPARIN SODIUM/DEXTROSE 25,000 UNITS/500 ML BAG IV SCH (08:18)
[2019-04-12 08:21] LABS: iSTAT Allen Test Pass; iSTAT Arterial Blood Gas HCO3 24 meg/L (19-24); iSTAT Arterial Blood Gas pCO2 29 mmHg (35-46); iSTAT Arterial Blood Gas pH 7.52 (7.35-7.45); iSTAT Arterial Blood Gas pO2 112 mmHg (80-95); iSTAT Carbon Dioxide 25 mEq/l (24-31); iSTAT FiO2 30 %; iSTAT Site L Radial
--- NOTE | 2019-04-12 08:32 | XRay Report ---
XR chest 1V portable HISTORY: Respiratory failure. COMPARISON: Chest 04/10/2019. FINDINGS: No pneumothorax. Stable blunting of the right lateral costophrenic sulcus. Nasogastric tube terminates below the diaphragm. The tip is not included on this study. Interval placement of a trach eostomy tube which appears in good position. Small patchy density at the left lung base persist. The heart remains top normal in size. No evidence for pulmonary edema. IMPRESSION: 1. Interval placement of a tracheostomy tube which appears in good position. 2. Small patchy left basilar density remains unchanged. Electronically signed by: Gee Goel M.D. 04/12/2019 8:31 AM
--- NOTE | 2019-04-12 09:14 | Surgery Progress Note ---
Date of Service April 12, 2019 Assessment & Plan (1) Postop check: Trach in good position no further management needed Subjective Able to open her eyes on command Physical Exam Neck: Trach in good position with no evidence of bleeding Results & Data Vital Signs (Past 12 Hours) Vital Signs Temp Pulse Resp BP Pulse Ox 04/12/19 07:50 117 H 22 99 04/12/19 05:57 94 H 20 99 04/12/19 04:07 99 H 18 102 H 04/12/19 03:00 108 H 140/74 98 04/12/19 02:00 109 H 143/80 H 98 04/12/19 01:00 106 H 134/86 98 04/12/19 00:07 99 H 18 99 04/12/19 00:00 37.2 C 102 H 126/87 99 04/11/19 23:00 94 H 125/73 99 04/11/19 22:00 93 H 123/75 99 04/11/19 21:22 94 H 17 99
[2019-04-12] MEDS ORDERED: DIGOXIN 0.25 MG/5 ML UDP PO ONE (09:15)
[2019-04-12] MEDS ORDERED: DIGOXIN PO ONE (09:30)
--- NOTE | 2019-04-12 09:41 | Neurology Progress Note ---
Date of Service April 12, 2019 Assessment & Plan (1) Anoxic encephalopathy: Stable anoxic encephalopathy. Patient is minimally responsive. She does continue to move the right arm and leg in a semipurposeful fashion and will grasp with the right hand. She has intact brainstem reflexes. Prognosis remains poor although she does seem to be slightly improved compared with yesterday. Continue Keppra 500 mg IV every 12 hours for seizure prophylaxis. (2) Glioblastoma: Recent resection of a large right hemispheric glioblastoma multiform. She has chronic residual weakness and sensory loss affecting the left arm and leg. Plans for adjuvant chemotherapy and radiation treatments are currently on hold. Plans for additional treatments to be determined. Patient had seen Dr. Aquino prior to her current hospitalization. Continue Keppra 500 mg IV every 12 hours for seizure prophylaxis in the context of anoxic encephalopathy, EEG findings, and large resection cavity. (3) Subdural hematoma: Small, stable, incidental, high convexity right frontal subdural hematoma. Would recommend a repeat CT of the head to be completed tomorrow to reassess for stability. Subjective Follow-up for anoxic encephalopathy The patient remains on the ventilator in the ICU, she is status post tracheostomy. She continues to exhibit intermittent semipurposeful movement of the right arm and leg. She will grasp with the right hand as well. No myoclonic movements or clinical seizure activity have been observed. The left arm and leg remain relatively still. She does not open her eyes or follow commands. I had started Keppra yesterday for seizure prophylaxis. Her EEG had revealed infrequent periodic discharges and focal slowing on a background of generalized rhythm suppression. I have also ordered a follow-up CT of the head which was completed overnight to reassess a small, subcentimeter, high convexity right frontal subdural hematoma. This finding is stable as is the 5.5 cm postsurgical resection bed within the right cerebral hemisphere. I reviewed the images and discussed them with the interpreting radiologist. Additional discussion was had at bedside with the patient's family regarding her neurological status, current treatment, and prognosis. Review of Systems Review of Systems: Unobtainable due to reduced consciousness Physical Exam Physical Exam: The patient remains minimally responsive. She has a tracheostomy and remains on the ventilator in the ICU. She does not open her eyes to auditory or noxious stimulation. Corneal reflexes intact. Pupils are equal round, 3 mm, and reactive to light. No gaze preference, deviation, or nystagmus. Oculocephalic reflexes intact. Patient exhibits occasional semipurposeful movement of the right arm and leg. She will grasp with the right hand. She withdraws both the right arm and leg to noxious stimulation. Minimal withdrawal of the left lower limb to noxious stimulation. No withdrawal of the left upper limb. Muscle tone for the left arm and leg are modestly increased compared with the right. Results & Data Vital Signs (Past 12 Hours) Vital Signs Temp Pulse Resp BP Pulse Ox 04/12/19 07:50 117 H 22 99 04/12/19 05:57 94 H 20 99 04/12/19 04:07 99 H 18 102 H 04/12/19 03:00 108 H 140/74 98 04/12/19 02:00 109 H 143/80 H 98 04/12/19 01:00 106 H 134/86 98 04/12/19 00:07 99 H 18 99 04/12/19 00:00 37.2 C 102 H 126/87 99 04/11/19 23:00 94 H 125/73 99 04/11/19 22:00 93 H 123/75 99 04/11/19 21:22 94 H 17 99 Laboratory Results WBC 21.79, hemoglobin 9.1, hematocrit 27.9, platelet count 204, sodium 137, potassium 3.9, BUN 56, creatinine 2.71, glucose 158, calcium 7.[address] of the head completed yesterday reveals a 6 mm, small, right frontal subdural hematoma. The finding is stable. Stable postsurgical changes observed as well. Images and radiologist report reviewed and as described above.
--- NOTE | 2019-04-12 10:06 | Anesthesiology Progress Note ---
Date of Service April 12, 2019 Anesthesia Post Procedure Vital Signs Vital Signs: Temp Pulse Pulse Resp BP BP Pulse Ox 04/12/19 09:55 104 H 04/12/19 07:50 117 H 22 99 04/12/19 05:57 94 H 20 99 04/12/19 04:07 99 H 18 102 H 04/12/19 03:00 108 H 140/74 98 04/12/19 02:00 109 H 143/80 H 98 04/12/19 01:00 106 H 134/86 98 04/12/19 00:07 99 H 18 99 04/12/19 00:00 37.2 C 102 H 126/87 99 04/11/19 23:00 94 H 125/73 99 04/11/19 22:00 93 H 123/75 99 04/11/19 21:22 94 H 17 99 04/11/19 21:00 85 116/69 100 04/11/19 20:00 36.7 C 105 H 153/71 H 98 04/11/19 19:00 107 H 135/76 98 04/11/19 18:31 106 H 96 04/11/19 18:30 108 H 162/83 H 97 04/11/19 18:20 112 H 151/77 H 96 04/11/19 18:16 117 H 162/86 H 95 04/11/19 18:11 114 H 167/96 H 95 04/11/19 18:00 112 H 174/89 H 95 04/11/19 17:55 111 H 161/104 H 94 04/11/19 17:50 111 H 176/85 H 94 04/11/19 17:45 108 H 21 149/98 H 94 04/11/19 17:43 106 H 22 97 04/11/19 17:40 36.3 C L 102 H 160/84 H 94 04/11/19 17:35 36.3 C L 102 H 128/70 95 04/11/19 16:00 118 H 166/93 H 99 04/11/19 15:34 37.8 C H 04/11/19 15:00 114 H 161/97 H 99 04/11/19 14:43 38.2 C H 115 H 163/86 H 04/11/19 14:34 117 H 163/86 H 98 04/11/19 14:00 112 H 158/82 H 99 04/11/19 13:00 112 H 163/85 H 99 04/11/19 12:00 112 H 157/82 H 98 04/11/19 11:00 108 H 149/75 H 98 04/11/19 10:50 107 H 22 99 Notes Pain: adequately controlled Airway Patency, RR, SpO2: stable & adequate BP & HR: stable & adequate Hydration State: stable & adequate Anesthetic Complications: no major complications apparent and Pt Satisfied with anesthetic care
[2019-04-12] MEDS: IMPACT LIQD 1.0 CAL 1,000 ML BAG OG SCH (10:39)
[2019-04-12] MEDS ORDERED: METOPROLOL TARTRATE 25 MG TAB PO STA (11:34)
--- NOTE | 2019-04-12 12:21 | Nephrology Progress Note ---
Date of Service April 12, 2019 Assessment & Plan (1) Anoxic encephalopathy: (2) Admitted to intensive care unit: (3) Cardiogenic shock: (4) Pulmonary embolism: (5) Cardiac arrest: (6) Acute kidney injury: Yulissa is a 74-year-old female admitted with witnessed cardiac arrest with cardiogenic shock in the setting of hep bilateral PE. History of stage IV glioblastoma, status post recent craniotomy at [place]. Found to have acute kidney injury, clinically consistent with ischemic acute tubular necrosis in the setting of cardiogenic shock, complicated by CTA with iodinated contrast. She is still intubated and has tracheostomy. Has been non-oliguric, electrolyte has been acceptable and renal function slightly improved. --continue to monitor renal function closely hopefully renal function will continue to improve --dose medications for GFR less than 30 --okay to use diuretics p.r.n. however currently volume status seems stable and she is making adequate urine and do not see any indication for diuretics Will follow. (7) Glioblastoma: Overall prognosis is unfortunately guarded. Subjective Yulissa was seen and examined in ICU with her son at bedside. She remained intubated and minimally responsive. She is non oliguric, had 2 liters of urine output. Blood pressure stable. Renal function slightly improved to creatinine 2.7, electrolyte acceptable. Review of Systems Review of Systems: All systems reviewed & are unremarkable except as noted in HPI & below Physical Exam Constitutional: well developed and well nourished; no acute distress Respiratory: normal respiratory effort, lungs clear to auscultation Cardiovascular: RRR, no murmur, no edema Neurologic: moves all extremities and awake; not confused Psychiatric: A+Ox3, euthymic affect Results & Data Vital Signs (Past 12 Hours) Vital Signs Pulse Resp BP Pulse Ox 04/12/19 09:55 104 H 04/12/19 07:50 117 H 22 99 04/12/19 05:57 94 H 20 99 04/12/19 04:07 99 H 18 102 H 04/12/19 03:00 108 H 140/74 98 04/12/19 02:00 109 H 143/80 H 98 04/12/19 01:00 106 H 134/86 98 PG Care Time/CCT Total # of Minutes Spent Total Time Spent with Patient: Open
[2019-04-12 13:58] LABS: Partial Thromboplastin Ratio 3.7
--- NOTE | 2019-04-12 14:11 | Billing Data ---
Coding Level of Care Code 77953 Subseq Hosp Care Lvl 3
[2019-04-12 14:12] LABS: Partial Thromboplastin Time 101.1 Seconds (21.0-31.0)
--- NOTE | 2019-04-12 16:02 | Hospitalist Progress Note ---
Date of Service April 12, 2019 Assessment & Plan (1) Cardiogenic shock: Secondary to cor pulmonale in setting of severe pulmonary embolism Signs of multi-organ dysfunction Continue care per ICU team, trach in place, feeding tube in place, not a candidate for gtube per GI Digoxin added, check Digoxin level Sunday given renal function AKInephrology following, appreciate recommendations Transaminitis secondary to shock liver (2) Glioblastoma: Neurology following, appreciate recommendationsstable anoxic encephalopathy, continue Keppra 500 mg every 12 hours (3) Venous thromboembolism: Continue IV heparin (4) Cardiac arrest: In setting of massive PE (5) Acute cor pulmonale: Supervising Physician Co-Signing Physician Notes I saw the patient the resident physician and confirmed jimenez portion of the history and physical exam. I agree with the impression and plan as noted in the resident documentation. I also spoke with the ICU team regarding the patient's care. The hospital service will continue to follow in case the need arises to transition the patient out of the ICU though expect given her condition and complexity that she may in fact be a placement directly from the ICU to a long- term care facility. Primary management continues to be at the discretion of the ICU team and the numerous consultants. Subjective Spoke this morning with the family, would like to continue current treatment course Review of Systems Review of Systems: Unobtainable due to reduced consciousness Physical Exam Physical Exam: Trach in place, resting comfortable in bed, reduced consciousnessnonverbal, semipurposeful movements of right lower extremity, normocephalic/atraumatic Results & Data Vital Signs (Past 12 Hours) Vital Signs Pulse Resp BP Pulse Ox 04/12/19 14:01 120 H 28 H 96 04/12/19 14:00 119 H 24 168/102 H 96 04/12/19 13:01 117 H 21 97 04/12/19 13:00 117 H 21 162/125 H 96 04/12/19 12:00 113 H 28 H 160/91 H 96 04/12/19 11:00 110 H 25 H 170/78 H 97 04/12/19 10:01 102 H 153/74 H 97 04/12/19 10:00 103 H 04/12/19 09:55 104 H 04/12/19 09:00 109 H 132/105 H 96 04/12/19 08:01 120 H 171/76 H 04/12/19 08:00 119 H 97 12/07/19 07:50 117 H 22 99 04/12/19 07:00 118 H 135/105 H 99 04/12/19 05:57 94 H 20 99 04/12/19 04:07 99 H 18 102 H Resident Activity Tracking Resident Involvement: Resident Care Provided Care Provided: [facility] Medicine
[2019-04-12] MEDS: DIGOXIN 0.125 MG/2.5 ML UDP PO SCH (16:07)
[2019-04-12] MEDS ORDERED: LABETALOL HCL IV 5 MG/ML 20ML IV STA (17:30)
[2019-04-12 20:45] LABS: Partial Thromboplastin Ratio 1.4
[2019-04-12] MEDS: METOPROLOL TARTRATE 25 MG TAB PO SCH (21:28)
[2019-04-13] MEDS: INSULIN ASPART 100 UNITS/ML 3 ML PEN SC SCH ×4 (00:04→17:35)
[2019-04-13] MEDS: FEEDING WATER FLUSH GT SCH ×6 (02:05→22:36)
[2019-04-13 03:36] LABS: Albumin Level 1.3 gm/dl (3.4-5.0); BUN Creatinine Ratio 25.7 (10-20); Creatinine Clr Calc Pharmacy 20.5 ml/min; Est GFR (Non-African American) 19.8; Magnesium 1.9 mg/dl (1.8-2.4); Potassium 3.8 mmol/L (3.5-5.1)
[2019-04-13 03:39] LABS: Albumin Globulin Ratio 0.3 (0.9-2); Bilirubin,Total 0.3 mg/dl (0.2-1); Globulin 3.9 gm/dl (2.5-4.0); Phosphorus 5.1 mg/dl (2.5-4.9); Total Protein 5.2 gm/dl (6.4-8.2)
[2019-04-13 03:42] LABS: Partial Thromboplastin Ratio > 5.1
[2019-04-13 03:44] LABS: Partial Thromboplastin Time > 139.0 Seconds (21.0-31.0)
[2019-04-13] MEDS: IMPACT LIQD 1.0 CAL 1,000 ML BAG OG SCH ×2 (04:58→12:04)
[2019-04-13 05:23] LABS: Partial Thromboplastin Ratio 2.4
[2019-04-13 05:24] LABS: Partial Thromboplastin Time 63.9 Seconds (21.0-31.0)
[2019-04-13] MEDS: HEPARIN SODIUM/DEXTROSE 25,000 UNITS/500 ML BAG IV SCH (06:11)
--- NOTE | 2019-04-13 06:13 | Critical Care Progress Note ---
Date of Service April 13, 2019 Assessment & Plan (1) Admitted to intensive care unit: Reason Critically Ill: 74-year-old female here with a PMHx significant for glioblastoma, HTN, cardiac arrest, and massive PE who presented with a feeling of unwellness and who was admitted for massive PE. She sustained 3x cardiac PEA arrests with ROSC prior to admission to the ICU. Goals of Care: Family meeting held at 10 AM 04/11/2019 with Kj (patient's son), Igor (brother), and Paty (brother). Palliative care, intensive care, and primary service team were present. Nephrology, neurology, ENT aware of case. Case was discussed at length. Neurologically she has some increased movement and wit hdrawal from noxious stimuli in the last 24 hours, but is having suspected neurogenic fever. She has had multiple blood cultures drawn and has stable oxygen saturation, lower suspicion for infectious etiology of her fever. Long- term she has both a grim prognosis and extremely difficult recovery. He has extensive pulmonary/cardiac burden, and her extensive illness will make rehab very difficult. Family expresses understanding of this, and reiterate that they understand but that they and Yulissa would want full measures and full code. Specifically they agree with proceeding with tracheostomy and PEG tube placement. They are aware that dialysis may be needed in the future. Neuro - [facility] ICU: POSITIVE ETT in place (placed 04/06/2019) Sedation: Versed gtt held. Analgesia: Fentanyl 25mg Q30M prn, last dose 04/09 1755. - CT-H shows increase density of postsurgical change without other acute findings. Stable on repeat. Neuro consulted, case discussed Patient opens eyes on command, squeezes fingers on right and blinks eyes once and twice on command this morning. Moves right hallux on command. Does not activate left hand or leg - Discussed with neurology, possible use of Amantidine, holding at this time Glioblastoma Multiforme Stage IV s/p craniotomy with tumor resection 03/13/2019 [address] radiation [address] Dr. Manzanares [facility] [place] - No further surgical or chemotherapeutic intervention at this time. - Will require further f/u with Neuro pending clinical course Cardiac - Cardiogenic shock 2/2 PE, improved - PE treatment as below No current pressor requirements. - TTE hyperdynamic EF >70% with RV dilation and wall motion dysfunction -Troponins down trended Intermittently hypertensive overnight, and this morning. Improved with digoxin/metoprolol. Received 1 dose of 5 mg Normodyne yesterday evening. -Beta-maximo as below - Digoxin added as below check digoxin level Sunday given impaired renal function. Tachyarrhythmia question sinus tach versus atrial arrhythmia EKG pending High risk for A. fib/flutter Anticoagulated for PEs Metoprolol 75 mg p.o. twice daily digoxin 0.125, level check as above Respiratory Acute PE with multiorgan system dysfunction - With extensive R PA thrombus - Anticoagulation as below - No TPA or thrombectomy/surgical intervention. Case was discussed with Zuri and Rasheed who feel she is not a surgical candidate, and TPA was contraindicated due to the patients recent neurosurgical procedure. ABG 7.15/// this morning, respiratory alkalosis with rate 22. Transitioned from CPAP to trach collar. May have additional element of anxiety/pain Tolerating trach with collar well. -Anticipate cuff deflation today - Left lung infiltrates, unchanged from prior, likely to represent possible pulmonary infarction given unchanging nature GI - Transaminitis 2/2 shock liver -AST/ALT downtrending since initial shock liver episode. Nutrition - IVFM: Discontinued Core safe, impact at 70 cc/h with 150 cc flushes every 4 hours - Discussed with GI, pt is not a candidate for PEG placement at this time, core safe placed for feeds. RENAL/LYTES - KATHY Creatinine continues to downtrend, 2.34 today Potassium, sodium within normal limits - Replace electrolytes as needed Urine output 2.6 L per 24 hours - - No concerns at this time. -Mosquera discontinued, pure wick in place ENDO - No history of T2DM, BSG 380 on admit - HgbA1C 5.6% - ICU hyperglycemic protocol - GSB ~100s HEME - - Hgb 8.3 today - CBC daily - No signs of bleeding on clinical exam Given ongoing KATHY will continue heparin gtt and defer transition to lovenox at this time. ID - Intermittent fever, suspect 2/2 Neurogenic Fever - She does not have an increasing oxygen requirement, and has a normal lactate. Suspect neurogenic fever, will monitor for increasing oxygen requirements. - APAP limited by shock liver and transaminitis - Liver ultrasound reassuring - Blood cultures 04/09, 04/10 - Monitor fever curve. Afebrile this morning - Procal 1.61. This is downtrending and of limited use in the setting of KATHY compared to prior, and in context of improved oxygen requirements/respiratory status and unchanged CXR feel is 2/2 global severe illness and improving and not due to an acute infectious pneumonia. Leukocytosis secondary to tracheostomy. Blood culture x1 from 04/12+ for GPC in an anaerobic bottle. Could potentially be Peptostreptococcus with risk for deep space infection, although given multiple negative cultures and 1X growth in anaerobic bottle may also represent contamination. Infectious disease consulted. Start empiric Rocephin INTEGUMENTARY - No acute concerns. Assess daily for pressure ulcers/bedside ulcers given bedbound status and severe illness. LINES/IV ACCESS - PIVs intact. DVT PROPHYLAXIS - Anticoagulation as above Disposition: Awaiting family decision regarding facility. At this point patients acute issues largely managed, will continue address ID as above. She would benefit most from rehabilitation to the extent she is able to participate. Thank you for allowing us to be part of this patient's care. Please refer to Dr. Lindquist's documentation for any further recommendations. (2) Deep vein thrombosis (DVT) of popliteal vein of left lower extremity: (3) Deep venous thrombosis (DVT) of right peroneal vein: (4) Acute cor pulmonale: (5) Venous thromboembolism: (6) Aspiration pneumonia: (7) Acute kidney injury: (8) Hypertension: (9) Cardiogenic shock: (10) Pulmonary embolism: (11) Cardiac arrest: (12) Glioblastoma: Supervising Physician Co-Signing Physician Notes Dr. Louis was resident physician during care of patient. I separately evaluated patient for jimenez portions of the history and the exam. I was present during the critical portion of medical decision making, and I discussed the case with the resident. I generally agree with the findings and plan. Patient has tolerated 24 hours off mechanical ventilation, anticipate keeping the patient off the vent at this point. This time I believe it is reasonable to deflate the tracheostomy tube cuff. Patient has been afebrile nor hypothermic for 24 hours, white count is downtrending. I do not believe the patient is showing signs of active infection, there is no increasing oxygen requirement, persistent patchy infiltrates seen in the left lung on x-ray have remained stable for several days. Leading diagnosis of these patchy infiltrates is probable pulmonary infarct. Central venous access has been discontinued, Mosquera catheter has been discontinued, there is no evidence of surgical site infection at this time. The patient's single anaerobic blood culture was positive for gram-positive cocci. Most likely organism is a Peptostreptococcus species, however, I do believe this is most consistent with a false positive culture. We will obtain repeat cultures today, I am starting the patient on penicillin G initial dose of 6,000,000 units followed with 2,500,000 units every 6 hours (renal dose adjustment for creatinine clearance less than 10) this is done out of abundance for caution for risk of septic thromboemboli if this were to in fact represent true bacteremia. I will also repeat an echocardiogram to reevaluate the patient's cor pulmonale as well as evaluate valves for any evidence of possible endocarditis. Serum creatinine decreased again today, however still dosing at a creatinine clearance of less than 10. Liver enzymes remain elevated, I suspect there is also aspects of hepatic congestion secondary to right-sided heart failure/severe cor pulmonale. In the interim we will continue tube feedings and heparin, when a facility is selected I would transition from heparin to Lovenox. Neurologically the patient appears to be intermittently following simple commands. There is flaccid paralysis of the left side. Overall the patient's prognosis remains poor. Subjective Yulissa was seen at the bedside this morning. She opens her eyes to tactile stimuli of the right arm, is able to blink once/twice on command and squeeze her fingers once/twice on command. She is able to squeeze her fingers once to indicate no and twice to indicate yes. She falls asleep intermittently, and has difficulty maintaining attention to answers questions consistently. She indicates that she is not short of breath, uncomfortable at her trach site, but not in pain outside of her trach site. Falls back asleep following questions, ROS limited. Review of Systems Review of Systems: Unobtainable due to cognitive status Physical Exam Physical Exam: General: Trach in place. Somnolent, opens eyes to tactile stimulation on the right. Is able to squeeze right hand once and twice on command, blink eyes once and twice on command, wiggles right foot on command. Falls back asleep periodically during exam. HEENT: Normocephalic. Pupils responsive to light and equal. Nonicteric. Pulm: Breathing through tracheostomy without vent. Cardiac: Tachycardic, regular -mrg. Radial pulses intact and symmetrical. Abdominal: Nontender, nondistended, soft. BS present. Extremity: Opens eyes to tactile stimulation of right arm, right foot. Is able to squeeze right hand, is not able to hold up one versus 2 fingers on command. Does not respond or withdraw to stimulation on the left hand or foot. Distal l imbs puffy, edema of the hands and feet present bilaterally. Extremities warm, moist. Results & Data Vital Signs (Past 12 Hours) Vital Signs Temp Pulse Pulse Resp BP Pulse Ox 04/13/19 02:00 111 H 22 153/66 H 97 04/13/19 01:10 115 H 28 H 166/74 H 91 04/13/19 00:00 37.5 C 101 H 26 H 142/65 H 98 04/12/19 23:28 98 H 16 99 04/12/19 23:00 94 H 19 125/58 L 99 04/12/19 22:01 104 H 32 H 158/94 H 96 04/12/19 21:00 110 H 19 150/65 H 99 04/12/19 20:17 120 H 18 147/106 H 96 04/12/19 20:00 37.3 C 112 H 20 141/70 H 98 04/12/19 19:00 110 H 21 152/83 H 98 04/12/19 18:18 112 H 25 H 158/80 H 97 Resident Activity Tracking Resident Involvement: Resident Care Provided Care Provided: Adult Hospital Medicine
[2019-04-13 07:01] LABS: Hematocrit (blood only) 24.7 % (37-47); Hemoglobin 8.3 g/dL (12.0-16.0); Mean Corpuscular Hgb Conc 33.6 g/dL (32-36); Mean Corpuscular Volume 86.4 fL (80-100); Mean Platelet Volume 10.2 fL (7.4-10.4); Platelet Count 174 K/uL (130-400); RDW Coefficient of Variation 16.1 % (11.5-14.5); RDW Standard Deviation 49.9 fL (36.4-46.3); Red Blood Count 2.86 M/uL (4.2-5.4); White Blood Count 19.89 K/uL (4.8-10.8)
[2019-04-13] MEDS: METOPROLOL TARTRATE 25 MG TAB PO SCH (07:53)
[2019-04-13 08:07] LABS: Basophils # (auto) 0.04 K/uL (0-0.2); Basophils % (auto) 0.2 %; Eosinophils # (auto) 0.07 K/uL (0-0.5); Eosinophils % (auto) 0.4 %; Immature Granulocytes # (auto) 1.11 K/uL (0.00-0.02); Immature Granulocytes % (auto) 5.6 %; Lymphocytes # (auto) 1.75 K/uL (1.2-3.4); Lymphocytes % (auto) 8.8 %; Monocytes % (auto) 11.6 %; Neutrophils # (auto) 14.62 K/uL (1.4-6.5); Neutrophils % (auto) 73.4 %
[2019-04-13] MEDS ORDERED: PENICILLIN G POTASSIUM 6 MU in DEXTROSE 5% 250 ML IV ONE (08:30)
--- NOTE | 2019-04-13 09:06 | Billing Data ---
Coding Level of Care Code 68201 Subseq Hosp Care Lvl 3
--- NOTE | 2019-04-13 10:49 | Nephrology Progress Note ---
Date of Service April 13, 2019 Assessment & Plan (1) Anoxic encephalopathy: (2) Admitted to intensive care unit: (3) Cardiogenic shock: (4) Pulmonary embolism: (5) Cardiac arrest: (6) Acute kidney injury: Yulissa is a 74-year-old female admitted with witnessed cardiac arrest with cardiogenic shock in the setting of bilateral PE. History of stage IV glioblastoma, status post recent craniotomy at [place]. Found to have acute kidney injury, clinically consistent with ischemic acute tubular necrosis in the setting of cardiogenic shock, complicated by CTA with iodinated contrast. She is still intubated and has tracheostomy. Has been non-oliguric, electrolyte has been acceptable and renal function continues to improve. --continue to monitor renal function closely hopefully renal function will continue to improve --dose medications for GFR less than 30 --okay to use diuretics p.r.n. however currently volume status seems stable and she is making adequate urine and do not see any indication for diuretics. Will follow. (7) Glioblastoma: Overall prognosis is unfortunately guarded. Subjective Yulissa was seen and examined in ICU with at bedside. She remained intubated and minimally responsive. She is non oliguric, had 2 liters of urine output. Blood pressure stable. Renal function slightly improved to creatinine 2.3, electrolyte acceptable. Review of Systems Review of Systems: Unobtainable due to reduced consciousness Physical Exam Constitutional: + ill appearing; no acute distress Respiratory: normal respiratory effort, lungs clear to auscultation Cardiovascular: RRR, no murmur, no edema Neurologic: Could not be assessed Results & Data Vital Signs (Past 12 Hours) Vital Signs Temp Pulse Pulse Resp BP Pulse Ox 04/13/19 02:00 111 H 22 153/66 H 97 04/13/19 01:10 115 H 28 H 166/74 H 91 04/13/19 00:00 37.5 C 101 H 26 H 142/65 H 98 04/12/19 23:28 98 H 16 99 04/12/19 23:00 94 H 19 125/58 L 99 PG Care Time/CCT Total # of Minutes Spent Total Time Spent with Patient: Total time spent is greater than 50% in coordination of care (as documented) at patient's floor/unit and/or counseling patient:
--- NOTE | 2019-04-13 11:39 | Neurology Progress Note ---
Date of Service April 13, 2019 Assessment & Plan (1) Anoxic encephalopathy: Anoxic encephalopathy. Patient slightly improved compared with yesterday. Yet, she remains minimally responsive. She will spontaneously move the right arm and leg and grasp with the right hand and has intact brainstem reflexes. Degree of awareness is difficult to determine at this time. Continue with Keppra 500 mg IV every 12 hours for seizure prophylaxis. (2) Glioblastoma: Recent resection of large right hemispheric glioblastoma multiform with residual chronic left-sided weakness and probable neglect. Plans for adjuvant chemotherapy and radiation treatments are currently on hold. Follow-up with oncology going forward depending on patient's clinical status. (3) Subdural hematoma: Small, subcentimeter, high convexity right frontal subdural hematoma. Not clinically significant. However, I will order a follow-up CT of the head today to ensure stability. Case discussed with press operator heavy duty, Dr. Lindquist, at bedside. Subjective Follow-up for cerebral anoxia Patient is a bit more responsive today. She remains on the ventilator with tracheostomy. She continues to move the right arm and leg in a semipurposeful fashion and will grasp with the right hand. She has intact brainstem reflexes. She does not move the left arm or leg in a spontaneous fashion. No myoclonic jerking or obvious convulsive activity has been observed. The patient does not follow commands. She occasionally grabs at her bed close with the right hand. Patient's at bedside. Review of Systems Review of Systems: Unobtainable due to reduced consciousness Physical Exam Physical Exam: The patient is obtunded. She does not open her eyes to voice or noxious stimulation. Pupils round, 3 mm, and reactive to light. There is no gaze deviation or preference. No nystagmus. Corneal reflexes intact. Oculocephalic reflex is intact. Patient observed spontaneously moving the right arm and leg, more so with noxious stimulation. She will grasp with the right hand, although not clearly to command. She does not localize to painful stimulation. Minimal withdrawal of the left lower extremity to noxious stimulation. No movement for the left upper extremity observed. Patient tends to keep the head turned to the right. No myoclonic jerking appreciated. Results & Data Vital Signs (Past 12 Hours) Vital Signs Temp Pulse Resp BP Pulse Ox 04/13/19 02:00 111 H 22 153/66 H 97 04/13/19 01:10 115 H 28 H 166/74 H 91 04/13/19 00:00 37.5 C 101 H 26 H 142/65 H 98 Laboratory Results WBC 19.89, hemoglobin 8.3, platelet count 174, sodium 137, potassium 3.8, BUN 60, creatinine 2.34, glucose 159, calcium 8.0, magnesium 1.9, AST 45, ALT [address] of the head completed April 11 reveals a small right frontal subdural hematoma, 6 mm in thickness, unchanged compared with previous study. The 5.5 cm resection cavity within the right cerebral hemisphere is unchanged. EEG completed April 11 revealed generalized suppression of the background rhythm, focal right hemispheric slowing, and rare periodic discharges.
[2019-04-13 12:50] LABS: Partial Thromboplastin Ratio 2.1
[2019-04-13 12:54] LABS: Partial Thromboplastin Time 56.1 Seconds (21.0-31.0)
--- NOTE | 2019-04-13 13:12 | CT Scan Report ---
CT head/brain wo con CLINICAL HISTORY: 74 years-old Female with High convexity right frontal subdural hematoma. Evaluate for stability. History of glioblastoma resection. Follow-up study in a patient with right cerebral hemisphere collection TECHNIQUE: Multiple axial CT images of the head were obtained without contrast. A dose lowering tech nique was utilized adhering to the principles of ALARA. CT DOSE: 537.48 mGy.cm COMPARISON: Head CT 04/12/2019 FINDINGS: Small subdural collection adjacent to the superior anterior right cerebral convexity redemo nstrated, 6 mm which is unchanged and also layers along the falx cerebri anteriorly. Postoperative ch anges from right calvarial craniotomy redemonstrated. 5.5 cm heterogeneous area within the right cere bral hemisphere with peripheral increased attenuation suggestive of resection cavity with blood produ cts is unchanged. Trace pneumocephalus with unchanged small collection adjacent to the craniotomy sit e. There is unchanged leftward midline shift of 3-4 mm. Suggestion of background chronic microvascula r ischemic disease. Cerebral vascular calcifications noted. No hydrocephalus or acute territorial inf arct. No acute calvarial fracture. Mastoid air cells and paranasal sinuses are clear. The soft tissues and orbits are unremarkable. IMPRESSION: 1. Postoperative changes from right calvarial craniotomy with unchanged 5.5 cm heterogeneous area of the right cerebral hemisphere with areas of peripheral increased attenuation suggestive of resection cavity with blood products. There is unchanged mild associated leftward midline shift. 2. Unchanged small subdural collection adjacent to the superior anterior right frontal lobe. The above report was generated using voice recognition software. It may contain grammatical, syntax o r spelling errors. Electronically signed by: Maurice Shell M.D. 04/13/2019 1:11 PM
[2019-04-13] MEDS: PENICILLIN G POTASSIUM 2.5 MU in DEXTROSE 5% 100 ML IV SCH ×2 (14:13→20:05)
[2019-04-13] MEDS: DIGOXIN 0.125 MG/2.5 ML UDP PO SCH (16:27)
--- NOTE | 2019-04-13 16:27 | Hospitalist Progress Note ---
Date of Service April 13, 2019 Assessment & Plan (1) Cardiogenic shock: Secondary to cardiac arrest in setting of severe pulmonary embolism Signs of multi-organ dysfunction Continue care per ICU team, trach in place, feeding tube in place, not a candidate for gtube per GI Digoxin added, check Digoxin level Sunday given renal function AKInephrology following, appreciate recommendations Transaminitis secondary to shock liver (2) Venous thromboembolism: Continue IV heparin (3) Gram-positive bacteremia: Intermittent fevers, may be neurogenic May represent contamination, nonetheless, treating gram-positive bacteremiacovering for Peptostreptococcus per ICU with penicillin G Infectious disease consult ordered by ICU team, appreciate recommendations (4) Pulmonary embolism: - not a candidate for TPA on presentation as recent brain surgery for glioblastoma - currently treating with heparin - continuous pulse ox (5) Cardiac arrest: In setting of massive PE (6) Glioblastoma: Status post craniotomy 03/13/2019no further chemotherapy or interventions at this time Neurology following, appreciate recommendationsstable anoxic encephalopathy, continue Keppra 500 mg every 12 hours Subdural hematoma, stable on repeat head CT Supervising Physician Co-Signing Physician Notes I saw the patient with the resident physician and confirmed jimenez portions of the history physical examination. I also discussed the case with the ICU team. I agree with the impression and plan as delineated in the resident documentation. Upon examination with the patient this afternoon, she does respond to simple commands including clinical nurse educator on the right hand, moving the right foot, and opening eyes. Cardiovascular is regular but tachycardic Abdomen is soft; mild tenderness in the right upper quadrant. Anoxic encephalopathy Glioblastoma, stage IV, status post resection Left-sided flaccid paralysis Subcentimeter right frontal subdural hematoma, stable status post tracheostomy status post tracheostomy (04/11/2019) Keppra for prophylaxis Neurology consultation appreciated impact 1.0 at 70 cc/h via core safe Cardiogenic shock status post cardiac arrest (PEA) with resuscitation Pulmonary embolism, with extensive right PA thrombus Heparin drip, conversion to Lovenox once renal function stabilizes Digoxin; digoxin level due on Sunday Transaminitis secondary to shock liver Acute kidney injury Improving; monitor positive blood culture, possibly contaminant Penicillin G ID consult disposition case management has placed referrals possibly [facility] Transfer to PCU today Subjective Patient is able to open her eyes but is unable to respond verbally. She is able to follow commands, grasp with right hand. Review of Systems Review of Systems: Unobtainable due to cognitive status Physical Exam Physical Exam: CV; regular rate and rhythm, normal S1-S2, no murmurs/rubs/gallops Respiratory; clear to auscultation bilaterally, trach in place Abdomen; right upper quadrant tenderness, normal bowel sounds, nondistended Neuro; resting comfortable in bed, reduced consciousnessnonverbal, purposeful movements of right lower extremity, able to follow commandsgrasp with right hand, patient opens eyes to name, normocephalic/atraumatic Results & Data Vital Signs (Past 12 Hours) Vital Signs Temp Pulse Resp BP Pulse Ox 04/13/19 15:45 38 C H 04/13/19 13:18 121 H 26 H 161/88 H 95 04/13/19 13:12 121 H 17 94 04/13/19 12:01 37 C 112 H 22 139/68 96 04/13/19 12:00 112 H 21 04/13/19 11:01 114 H 23 96 04/13/19 11:00 112 H 23 124/65 95 04/13/19 10:01 108 H 23 96 04/13/19 10:00 109 H 23 160/64 H 96 04/13/19 09:00 99 H 19 95 04/13/19 08:41 105 H 30 H 145/72 H 95 04/13/19 08:01 112 H 17 99 04/13/19 08:00 113 H 20 145/72 H 99 04/13/19 07:01 110 H 18 98 04/13/19 07:00 110 H 19 135/60 98
[2019-04-13] MEDS ORDERED: METOPROLOL TARTRATE 1 MG/ML VIAL IV STA ×2 (17:49→18:25)
[2019-04-13] MEDS: METOPROLOL TARTRATE 100 MG TAB PO SCH (21:11)
[2019-04-14] MEDS: INSULIN ASPART 100 UNITS/ML 3 ML PEN SC SCH ×4 (00:25→19:17)
[2019-04-14] MEDS: PENICILLIN G POTASSIUM 2.5 MU in DEXTROSE 5% 100 ML IV SCH ×2 (01:49→08:49)
[2019-04-14] MEDS: FEEDING WATER FLUSH GT SCH ×6 (01:52→22:31)
[2019-04-14] MEDS: HEPARIN SODIUM/DEXTROSE 25,000 UNITS/500 ML BAG IV SCH ×3 (03:28→23:42)
[2019-04-14 04:27] LABS: Hematocrit (blood only) 23.1 % (37-47); Hemoglobin 7.7 g/dL (12.0-16.0); Mean Corpuscular Hemoglobin 28.8 pg (25-34); Mean Corpuscular Hgb Conc 33.3 g/dL (32-36); Mean Corpuscular Volume 86.5 fL (80-100); Platelet Count 191 K/uL (130-400); RDW Coefficient of Variation 16.6 % (11.5-14.5); RDW Standard Deviation 51.2 fL (36.4-46.3); Red Blood Count 2.67 M/uL (4.2-5.4); White Blood Count 17.39 K/uL (4.8-10.8)
[2019-04-14 04:44] LABS: Albumin Level 1.2 gm/dl (3.4-5.0); BUN Creatinine Ratio 33.4 (10-20); Calcium 7.9 mg/dl (8.5-10.1); Creatinine Clr Calc Pharmacy 24.8 ml/min; Est GFR (African American) 29.2; Est GFR (Non-African American) 25.2; Magnesium 1.8 mg/dl (1.8-2.4); Potassium 3.9 mmol/L (3.5-5.1)
[2019-04-14 04:45] LABS: Phosphorus 4.7 mg/dl (2.5-4.9)
[2019-04-14 04:47] LABS: Partial Thromboplastin Ratio 2.1
[2019-04-14 05:35] LABS: Partial Thromboplastin Time 57.4 Seconds (21.0-31.0)
--- NOTE | 2019-04-14 07:11 | Hospitalist Progress Note ---
Date of Service April 14, 2019 Assessment & Plan (1) Cardiogenic shock: Secondary to cardiac arrest in setting of severe pulmonary embolism Signs of multi-organ dysfunction Continue care per ICU team, trach in place, feeding tube in place, was noted to not be candidate for gtube per GI from weekend hospital resident, however, will reach out to Dr. Crockett to evaluate patient for gtube Digoxin added, check Digoxin level Sunday given renal function AKInephrology following, appreciate recommendations Transaminitis secondary to shock liver (2) Venous thromboembolism: Continue IV heparin (3) Gram-positive bacteremia: Intermittent fevers, may be neurogenic May represent contamination, nonetheless, treating gram-positive bacteremiacovering for Peptostreptococcus per ICU with penicillin G Infectious disease consult ordered by ICU team, appreciate recommendations (4) Pulmonary embolism: - not a candidate for TPA on presentation as recent brain surgery for glioblastoma - currently treating with heparin - continuous pulse ox (5) Cardiac arrest: In setting of massive PE (6) Glioblastoma: Status post craniotomy 03/13/2019no further chemotherapy or interventions at this time Neurology following, appreciate recommendationsstable anoxic encephalopathy, continue Keppra 500 mg every 12 hours Subdural hematoma, stable on repeat head CT Supervising Physician Co-Signing Physician Notes I personally examined the patient and verified all jimenez points of history and exam, discussed case, and agree with decision making with Dr Jung. no meaningful HPI or ROS. met with family, offered support. no significant questions at this time vitals noted nad breathing comfortably on trach collar, still somewhat tachycardic. no pallor or icterus massive PE/respiratory failure - improving - continue current care. anticipate need for PEG, anticipate LTAC as most appropriate next setting. otherwise as above Subjective Yulissa is able to follow simple commands, non-verbal. No acute events reported overnight. Noted that Spouse reported to sales marketing manager wanting to stay in hospital for several more weeks versus LTACH. Physical Exam Constitutional: WD/WN, vitals as above Neck: normal visual inspection and trachea midline Respiratory: normal respiratory effort, lungs clear to auscultation + uses accessory muscles (accessory) and + tachypneic Cardiovascular: Rate/Rhythm: regular rhythm and + tachycardic Extremities: + edema Gastrointestinal (Abdomen): Inspection/Auscultation: normal bowel sounds Percussion/Palpation: abdomen soft Skin: no rashes, warm and dry Neurologic: left sided hemiparesis; able to use RUE and follow simple commands like squeeze fingers Results & Data Vital Signs (Past 12 Hours) Vital Signs Temp Pulse Resp BP Pulse Ox 04/14/19 06:04 123 H 15 156/94 H 94 04/14/19 05:00 112 H 20 157/74 H 97 04/14/19 04:00 37.2 C 112 H 24 147/74 H 95 04/14/19 03:01 118 H 22 165/71 H 93 04/14/19 02:00 107 H 22 114/57 L 97 04/14/19 01:00 112 H 18 139/74 92 04/14/19 00:00 37.4 C 106 H 25 H 148/74 H 96 04/13/19 23:00 104 H 20 134/67 96 04/13/19 22:00 91 H 21 126/75 98 04/13/19 21:00 112 H 19 126/57 L 98 04/13/19 20:00 37.4 C 111 H 20 141/59 H 98 Laboratory Results Laboratory Results - last 24 hr 04/13/19 04/14/19 04/14/19 17:33 00:23 04:03 WBC RBC Hgb Hct MCV MCH MCHC RDW Std Deviation RDW Coeff of Anil Plt Count MPV APTT PTT Ratio Sodium Potassium Chloride Carbon Dioxide Anion Gap BUN Creatinine Est Cr Clr Drug Dosing Est GFR ( Amer) Est GFR (Non-Af Amer) BUN/Creatinine Ratio Glucose POC Glucose 159 H 143 H Calcium Phosphorus Magnesium NT-Pro-B Natriuret Pep Albumin Procalcitonin Digoxin 0.8 04/14/19 04/14/19 04/14/19 04:03 04:03 04:03 WBC 17.39 H RBC 2.67 L Hgb 7.7 L Hct 23.1 L MCV 86.5 MCH 28.8 MCHC 33.3 RDW Std Deviation 51.2 H RDW Coeff of Anil 16.6 H Plt Count 191 MPV 10.0 APTT 57.4 H* PTT Ratio 2.1 Sodium 137 Potassium 3.9 Chloride 102 Carbon Dioxide 27 Anion Gap 8.0 BUN 64 H Creatinine 1.92 H D Est Cr Clr Drug Dosing 24.8 Est GFR ( Amer) 29.2 Est GFR (Non-Af Amer) 25.2 BUN/Creatinine Ratio 33.4 H Glucose 139 H POC Glucose Calcium 7.9 L Phosphorus 4.7 Magnesium 1.8 NT-Pro-B Natriuret Pep Albumin 1.2 L Procalcitonin Digoxin 04/14/19 04/14/19 04/14/19 06:09 09:43 09:43 WBC RBC Hgb Hct MCV MCH MCHC RDW Std Deviation RDW Coeff of Anil Plt Count MPV APTT PTT Ratio Sodium Potassium Chloride Carbon Dioxide Anion Gap BUN Creatinine Est Cr Clr Drug Dosing Est GFR ( Amer) Est GFR (Non-Af Amer) BUN/Creatinine Ratio Glucose POC Glucose 136 H Calcium Phosphorus Magnesium NT-Pro-B Natriuret Pep 52385 H Albumin Procalcitonin 0.81 H Digoxin 04/14/19 11:49 WBC RBC Hgb Hct MCV MCH MCHC RDW Std Deviation RDW Coeff of Anil Plt Count MPV APTT PTT Ratio Sodium Potassium Chloride Carbon Dioxide Anion Gap BUN Creatinine Est Cr Clr Drug Dosing Est GFR ( Amer) Est GFR (Non-Af Amer) BUN/Creatinine Ratio Glucose POC Glucose 149 H Calcium Phosphorus Magnesium NT-Pro-B Natriuret Pep Albumin Procalcitonin Digoxin Medications Administered Amlodipine Besylate (Norvasc) 5 mg PO QAM GINO Stop: 05/14/19 10:14 Last Admin: 04/14/19 10:53 Dose: 5 mg Documented by: [id number] Dextrose (Dextrose 50%) 25 - 50 ml IV UD PRN; Protocol PRN Reason: Hypoglycemia Protocol Stop: 05/06/19 18:29 Last Admin: 04/07/19 14:48 Dose: 25 ml Documented by: [id number] Admin: 04/07/19 12:35 Dose: 25 ml Documented by: [id number] Digoxin (Lanoxin) 0.125 mg PO DAILY@1600 GINO Stop: 05/12/19 15:59 Last Admin: 04/14/19 16:31 Dose: 0.125 mg Documented by: [id number] Admin: 04/13/19 16:27 Dose: 0.125 mg Documented by: [id number] Admin: 04/12/19 16:07 Dose: 0.125 mg Documented by: [id number] Enteral Nutritional Formula (Impact 1.0 Himanshu) 1,000 ml OG .CONTINUOUS GINO; Protocol Stop: 05/08/19 11:59 Last Admin: 04/13/19 12:04 Dose: 1,000 ml Documented by: [id number] Admin: 04/13/19 04:58 Dose: 1,000 ml Documented by: [id number] Admin: 04/12/19 10:39 Dose: 1,000 ml Documented by: [id number] Admin: 04/11/19 10:44 Dose: 1,000 ml Documented by: [id number] Admin: 04/10/19 09:55 Dose: 1,000 ml Documented by: [id number] Admin: 04/08/19 13:05 Dose: 1,000 ml Documented by: [id number] Heparin Sodium/Dextrose (Heparin Sodium/Dextrose) 25,000 units in 500 mls @ 25 mls/hr IV .Q20H GINO; Protocol Stop: 05/06/19 12:44 Last Titration: 04/14/19 07:31 Dose: 1,250 units/hr, 25 mls/hr Documented by: [id number] Cosigned by: [id number] Titration: 04/14/19 06:11 Dose: 1,250 units/hr, 25 mls/hr Documented by: [id number] Cosigned by: [id number] Admin: 04/14/19 03:33 Dose: Not Given Documented by: [id number] Admin: 04/14/19 03:28 Dose: 1,250 units/hr, 25 mls/hr Documented by: [id number] Cosigned by: [id number] Titration: 04/14/19 02:11 Dose: 1,250 units/hr, 25 mls/hr Documented by: [id number] Cosigned by: [id number] Titration: 04/13/19 19:11 Dose: 1,250 units/hr, 25 mls/hr Documented by: [id number] Cosigned by: [id number] Titration: 04/13/19 07:12 Dose: 1,250 units/hr, 25 mls/hr Documented by: [id number] Cosigned by: [id number] Admin: 04/13/19 06:11 Dose: 1,250 units/hr, 25 mls/hr Documented by: [id number] Cosigned by: [id number] Titration: 04/13/19 06:11 Dose: 1,250 units/hr, 25 mls/hr Documented by: [id number] Cosigned by: [id number] Titration: 04/13/19 05:55 Dose: 1,250 units/hr, 25 mls/hr Documented by: [id number] Cosigned by: [id number] Titration: 04/13/19 03:47 Dose: 0 units/hr, 0 mls/hr Documented by: [id number] Cosigned by: [id number] Titration: 04/12/19 21:03 Dose: 1,450 units/hr, 29 mls/hr Documented by: [id number] Cosigned by: [id number] Titration: 04/12/19 15:13 Dose: 1,200 units/hr, 24 mls/hr Documented by: [id number] Cosigned by: [id number] Titration: 04/12/19 14:13 Dose: 0 units/hr, 0 mls/hr Documented by: [id number] Cosigned by: [id number] Admin: 04/12/19 08:18 Dose: 1,300 units/hr, 26 mls/hr Documented by: [id number] Cosigned by: [id number] Titration: 04/12/19 08:18 Dose: 1,300 units/hr, 26 mls/hr Documented by: [id number] Cosigned by: [id number] Titration: 04/12/19 07:08 Dose: 1,300 units/hr, 26 mls/hr Documented by: [id number] Cosigned by: [id number] Titration: 04/12/19 06:16 Dose: 1,300 units/hr, 26 mls/hr Documented by: [id number] Cosigned by: [id number] Titration: 04/11/19 22:11 Dose: 1,050 units/hr, 21 mls/hr Documented by: [id number] Cosigned by: [id number] Titration: 04/11/19 19:09 Dose: 0 units/hr, 0 mls/hr Documented by: [id number] Cosigned by: [id number] Titration: 04/11/19 11:30 Dose: 0 units/hr, 0 mls/hr Documented by: [id number] Cosigned by: [id number] Titration: 04/11/19 07:16 Dose: 800 units/hr, 16 mls/hr Documented by: [id number] Cosigned by: [id number] Titration: 04/11/19 05:31 Dose: 800 units/hr, 16 mls/hr Documented by: [id number] Cosigned by: [id number] Admin: 04/11/19 00:56 Dose: 700 units/hr, 14 mls/hr Documented by: [id number] Cosigned by: [id number] Titration: 04/11/19 00:56 Dose: 700 units/hr, 14 mls/hr Documented by: [id number] Cosigned by: [id number] Titration: 04/10/19 18:58 Dose: 700 units/hr, 14 mls/hr Documented by: [id number] Cosigned by: [id number] Admin: 04/10/19 16:02 Dose: Not Given Documented by: [id number] Titration: 04/10/19 07:07 Dose: 700 units/hr, 14 mls/hr Documented by: [id number] Cosigned by: [id number] Titration: 04/09/19 19:10 Dose: 700 units/hr, 14 mls/hr Documented by: [id number] Cosigned by: [id number] Admin: 04/09/19 15:23 Dose: 700 units/hr, 14 mls/hr Documented by: [id number] Cosigned by: [id number] Titration: 04/09/19 15:23 Dose: 600 units/hr, 12 mls/hr Documented by: [id number] Cosigned by: [id number] Titration: 04/09/19 07:08 Dose: 600 units/hr, 12 mls/hr Documented by: [id number] Cosigned by: [id number] Titration: 04/08/19 18:55 Dose: 600 units/hr, 12 mls/hr Documented by: [id number] Cosigned by: [id number] Admin: 04/08/19 13:01 Dose: 600 units/hr, 12 mls/hr Documented by: [id number] Cosigned by: [id number] Titration: 04/08/19 13:01 Dose: 600 units/hr, 12 mls/hr Documented by: [id number] Cosigned by: [id number] Titration: 04/08/19 07:18 Dose: 600 units/hr, 12 mls/hr Documented by: [id number] Cosigned by: [id number] Titration: 04/07/19 23:57 Dose: 600 units/hr, 12 mls/hr Documented by: [id number] Cosigned by: [id number] Admin: 04/07/19 19:14 Dose: 600 units/hr, 12 mls/hr Documented by: [id number] Cosigned by: [id number] Titration: 04/07/19 19:14 Dose: 600 units/hr, 12 mls/hr Documented by: [id number] Cosigned by: [id number] Titration: 04/07/19 18:31 Dose: 600 units/hr, 12 mls/hr Documented by: [id number] Cosigned by: [id number] Titration: 04/07/19 15:25 Dose: 700 units/hr, 14 mls/hr Documented by: [id number] Cosigned by: [id number] Titration: 04/07/19 11:47 Dose: 700 units/hr, 14 mls/hr Documented by: [id number] Cosigned by: [id number] Titration: 04/07/19 11:08 Dose: 0 units/hr, 0 mls/hr Documented by: [id number] Cosigned by: [id number] Titration: 04/07/19 06:57 Dose: 800 units/hr, 16 mls/hr Documented by: [id number] Cosigned by: [id number] Titration: 04/07/19 04:11 Dose: 800 units/hr, 16 mls/hr Documented by: [id number] Cosigned by: [id number] Titration: 04/07/19 03:36 Dose: 0 units/hr, 0 mls/hr Documented by: [id number] Cosigned by: [id number] Titration: 04/06/19 20:44 Dose: 900 units/hr, 18 mls/hr Documented by: [id number] Cosigned by: [id number] Titration: 04/06/19 19:42 Dose: 0 units/hr, 0 mls/hr Documented by: [id number] Cosigned by: [id number] Titration: 04/06/19 19:12 Dose: 1,050 units/hr, 21 mls/hr Documented by: [id number] Cosigned by: [id number] Admin: 04/06/19 12:52 Dose: 1,050 units/hr, 21 mls/hr Documented by: [id number] Cosigned by: [id number] Levetiracetam 500 mg/ Dextrose 105 mls @ 420 mls/hr IV Q12H GINO Stop: 05/11/19 14:59 Last Admin: 04/14/19 16:31 Dose: 420 mls/hr Documented by: [id number] Infusion: 04/14/19 03:33 Dose: 0 mls/hr Documented by: [id number] Admin: 04/14/19 03:09 Dose: 420 mls/hr Documented by: [id number] Infusion: 04/13/19 16:47 Dose: 0 mls/hr Documented by: [id number] Admin: 04/13/19 16:27 Dose: 420 mls/hr Documented by: [id number] Infusion: 04/13/19 02:51 Dose: 0 mls/hr Documented by: [id number] Admin: 04/13/19 02:32 Dose: 420 mls/hr Documented by: [id number] Infusion: 04/12/19 14:15 Dose: 0 mls/hr Documented by: [id number] Admin: 04/12/19 13:59 Dose: 420 mls/hr Documented by: [id number] Infusion: 04/12/19 04:25 Dose: 0 mls/hr Documented by: [id number] Admin: 04/12/19 03:53 Dose: 420 mls/hr Documented by: [id number] Infusion: 04/11/19 15:28 Dose: 0 mls/hr Documented by: [id number] Admin: 04/11/19 15:12 Dose: 420 mls/hr Documented by: [id number] Insulin Aspart (Novolog Flexpen) 0 units SC Q6 GINO Stop: 05/09/19 17:59 Last Admin: 04/14/19 11:52 Dose: Not Given Documented by: [id number] Cosigned by: [id number] Admin: 04/14/19 06:10 Dose: Not Given Documented by: [id number] Cosigned by: [id number] Admin: 04/14/19 00:25 Dose: Not Given Documented by: [id number] Cosigned by: [id number] Admin: 04/13/19 17:35 Dose: 1 units Documented by: [id number] Cosigned by: [id number] Admin: 04/13/19 11:36 Dose: 1 units Documented by: [id number] Cosigned by: [id number] Admin: 04/13/19 06:15 Dose: 1 units Documented by: [id number] Cosigned by: [id number] Admin: 04/13/19 00:04 Dose: Not Given Documented by: [id number] Cosigned by: [id number] Admin: 04/12/19 17:56 Dose: Not Given Documented by: [id number] Cosigned by: [id number] Admin: 04/12/19 11:49 Dose: Not Given Documented by: [id number] Cosigned by: [id number] Admin: 04/12/19 06:17 Dose: Not Given Documented by: [id number] Cosigned by: [id number] Admin: 04/12/19 00:10 Dose: Not Given Documented by: [id number] Cosigned by: [id number] Admin: 04/11/19 19:09 Dose: Not Given Documented by: [id number] Cosigned by: [id number] Admin: 04/11/19 13:02 Dose: Not Given Documented by: [id number] Cosigned by: [id number] Admin: 04/11/19 06:20 Dose: Not Given Documented by: [id number] Cosigned by: [id number] Admin: 04/11/19 01:27 Dose: Not Given Documented by: [id number] Cosigned by: [id number] Admin: 04/10/19 18:35 Dose: Not Given Documented by: [id number] Cosigned by: [id number] Admin: 04/10/19 12:48 Dose: Not Given Documented by: [id number] Cosigned by: [id number] Admin: 04/10/19 05:35 Dose: Not Given Documented by: [id number] Cosigned by: [id number] Admin: 04/10/19 00:58 Dose: Not Given Documented by: [id number] Cosigned by: [id number] Admin: 04/09/19 17:53 Dose: Not Given Documented by: [id number] Cosigned by: [id number] Lansoprazole (Prevacid) 30 mg NG DAILY GINO Stop: 05/14/19 10:59 Last Admin: 04/14/19 10:45 Dose: 30 mg Documented by: [id number] Metoprolol Tartrate (Lopressor) 100 mg PO BID GINO Stop: 05/13/19 20:59 Last Admin: 04/14/19 08:45 Dose: 100 mg Documented by: [id number] Admin: 04/13/19 21:11 Dose: 100 mg Documented by: [id number] Sterile Water (Tube Feeding Water Flush) 1 ea GT Q4H GINO Stop: 05/10/19 09:59 Last Admin: 04/14/19 16:31 Dose: 1 ea Documented by: [id number] Admin: 04/14/19 10:07 Dose: 1 ea Documented by: [id number] Admin: 04/14/19 06:07 Dose: 1 ea Documented by: [id number] Admin: 04/14/19 01:52 Dose: 1 ea Documented by: [id number] Admin: 04/13/19 22:36 Dose: 1 ea Documented by: [id number] Admin: 04/13/19 17:35 Dose: 1 ea Documented by: [id number] Admin: 04/13/19 14:13 Dose: 1 ea Documented by: [id number] Admin: 04/13/19 10:16 Dose: 1 ea Documented by: [id number] Admin: 04/13/19 06:00 Dose: 1 ea Documented by: [id number] Admin: 04/13/19 02:05 Dose: 1 ea Documented by: [id number] Admin: 04/12/19 22:22 Dose: 1 ea Documented by: [id number] Admin: 04/12/19 17:56 Dose: 1 ea Documented by: [id number] Admin: 04/12/19 13:47 Dose: 1 ea Documented by: [id number] Admin: 04/12/19 09:49 Dose: 1 ea Documented by: [id number] Admin: 04/12/19 06:17 Dose: 1 ea Documented by: [id number] Admin: 04/12/19 02:15 Dose: 1 ea Documented by: [id number] Admin: 04/11/19 22:35 Dose: 1 ea Documented by: [id number] Admin: 04/11/19 15:56 Dose: Not Given Documented by: [id number] Admin: 04/11/19 15:21 Dose: Not Given Documented by: [id number] Admin: 04/11/19 10:44 Dose: 1 ea Documented by: [id number] Admin: 04/11/19 06:21 Dose: 1 ea Documented by: [id number] Admin: 04/11/19 03:07 Dose: 1 ea Documented by: [id number] Admin: 04/10/19 22:17 Dose: 1 ea Documented by: [id number] Admin: 04/10/19 18:34 Dose: 1 ea Documented by: [id number] Admin: 04/10/19 15:03 Dose: 1 ea Documented by: [id number] Admin: 04/10/19 10:33 Dose: 1 ea Documented by: [id number] Resident Activity Tracking Resident Involvement: Resident Care Provided Care Provided: Adult Hospital Medicine
[2019-04-14] MEDS: METOPROLOL TARTRATE 100 MG TAB PO SCH ×2 (08:45→20:54)
[2019-04-14] MEDS ORDERED: PANTOprazole 40 MG TAB PO SCH (09:00)
--- NOTE | 2019-04-14 09:35 | Critical Care Progress Note ---
Date of Service April 14, 2019 Assessment & Plan (1) Admitted to intensive care unit: Reason Critically Ill: 74-year-old female here with a PMHx significant for glioblastoma, HTN, cardiac arrest, and massive PE who presented with a feeling of unwellness and who was admitted for massive PE. She sustained 3x cardiac PEA arrests with ROSC prior to admission to the ICU. Goals of Care: Family meeting held at 10 AM 04/11/2019 with Kj (patient's son), Igor (brother), and Paty (brother). Palliative care, intensive care, and primary service team were present. Nephrology, neurology, ENT aware of case. Case was discussed at length. Neurologically she has some increased movement and with drawal from noxious stimuli in the last 24 hours, but is having suspected neurogenic fever. She has had multiple blood cultures drawn and has stable oxygen saturation, lower suspicion for infectious etiology of her fever. Long- term she has both a grim prognosis and extremely difficult recovery. He has extensive pulmonary/cardiac burden, and her extensive illness will make rehab very difficult. Family expresses understanding of this, and reiterate that they understand but that they and Yulissa would want full measures and full code. Specifically they agree with proceeding with tracheostomy and PEG tube placement. They are aware that dialysis may be needed in the future. PEG tube placement to be performed at outside facility Neuro - [facility] ICU: POSITIVE ETT in place (placed 04/06/2019) Sedation: Versed gtt held. Analgesia: Fentanyl 25mg Q30M prn, last dose 04/09 1755. - CT-H shows increase density of postsurgical change without other acute findings. Stable on repeat. Neuro consulted, case discussed Patient opens eyes on command, squeezes fingers on right and blinks eyes once and twice on command this morning. Does not activate left hand or leg Glioblastoma Multiforme Stage IV s/p craniotomy with tumor resection 03/13/2019 and adjuvant radiation with Dr. Manzanares [facility] [place] - No further surgical or chemotherapeutic intervention at this time. - Will require further f/u with Neuro pending clinical course Cardiac - Cardiogenic shock 2/2 PE, improved - PE treatment as below No current pressor requirements. - TTE hyperdynamic EF >70% with RV dilation and wall motion dysfunction -Troponins down trended Intermittently hypertensive overnight, and this morning. Improved with digoxin/metoprolol. - Beta-maximo as below - Digoxin added as below check digoxin level Sunday given impaired renal function. Sinus Tachycardia EKG pending High risk for A. fib/flutter Anticoagulated for PEs Metoprolol 75 mg p.o. twice daily digoxin 0.125, f/u levels -question utility, no hx hf Respiratory Acute PE with multiorgan system dysfunction - With extensive R PA thrombus - Anticoagulation as below - No TPA or thrombectomy/surgical intervention. Case was discussed with Zuri and Rasheed who feel she is not a surgical candidate, and TPA was contraindicated due to the patients recent neurosurgical procedure. 04/12 ABG 7.15/29/112/23. On trach collar Tolerating trach with collar well. - Left lung infiltrates, unchanged from prior, likely to represent possible pulmonary infarction given unchanging nature GI - GI PPX ordered Transaminitis 2/2 shock liver -AST/ALT downtrending since initial shock liver episode. Nutrition - IVFM: Discontinued Core safe, impact at 70 cc/h with 150 cc flushes every 4 hours - Discussed with GI, pt is not a candidate for PEG placement at this time, core safe placed for feeds. -defer to outside facility RENAL/LYTES - KATHY Creatinine continues to downtrend, 1.92 today Potassium, sodium within normal limits - Replace electrolytes as needed - - No concerns at this time. - Mosquera discontinued, pure wick in place ENDO - No history of T2DM, BSG 380 on admit - HgbA1C 5.6% - ICU hyperglycemic protocol - GSB ~100s HEME - - Hgb 7.7 today - CBC daily - No signs of bleeding on clinical exam Given ongoing KATHY will continue heparin gtt and defer transition to lovenox at this time. ID - Intermittent fever, suspect 2/2 Neurogenic Fever - She does not have an increasing oxygen requirement, and has a normal lactate. Suspect neurogenic fever, will monitor for increasing oxygen requirements. - APAP limited by shock liver and transaminitis - Liver ultrasound reassuring - Blood cultures 04/09, 04/10 - Monitor fever curve. Afebrile this morning - Procal 1.61. This is downtrending and of limited use in the setting of KATHY compared to prior, and in context of improved oxygen requirements/respiratory status and unchanged CXR feel is 2/2 global severe illness and improving and not due to an acute infectious pneumonia. Leukocytosis secondary to tracheostomy. Blood culture x1 from 04/12+ for GPC in an anaerobic bottle. Could potentially be Peptostreptococcus with risk for deep space infection, although given multiple negative cultures and 1X growth in anaerobic bottle may also represent contamination. -Infectious disease consulted. -Suspect fever and leukocytosis are related to PE, cardiac arrest and, recent brain surgery. If repeat cultures are negative would DC antibiotics and continue supportive care Continue empiric Rocephin pending cx results INTEGUMENTARY - No acute concerns. Assess daily for pressure ulcers/bedside ulcers given bedbound status and severe illness. LINES/IV ACCESS - PIVs intact. DVT PROPHYLAXIS - Anticoagulation as above Disposition: Downgrade from the ICU today. My understanding is they are pursuing a long-term care facility. Chadwick Delaney MD PGY 2, FCM This chart was completed utilizing iRise voice recognition software. Grammatical errors, random word insertions, pronoun errors, and in complete sentences are an occasional consequence of the system. Any questions or concerns about the content, text, or information contained within the body of this dictation should be addressed directly to the physician for clarification. Supervising Physician Co-Signing Physician Notes Dr. Delaney was the resident-physician during care of patient. I separately evaluated patient for jimenez portions of the history and the exam. I was present during the critical portion of medical decision making, and I discussed the case with the resident. I generally agree with the findings and plan except for any additions/exceptions noted. Patient has periods of tachycardia and elevated blood pressure. This may be related to autonomic instability given her large brain tumor that was recently resected. She also has a recent large pulmonary embolism which may also be mediating her tachycardia. I do not think that she is infected at this time. She did have a spurious coag negative bacteremia. She was on penicillin G, which I have discontinued. ID was consulted and recommend discontinuing antibiotics if repeat cultures are negative. Her renal function is improving. She is on metoprolol for her heart rate and digoxin. I am not certain of the utility of the digoxin given that she has a sinus tachycardia and no history of systolic heart failure. This could be discontinued on the floor by the primary team if deemed unnecessary. Her LFTs are also improving. She likely had some degree of shock liver/congestive hepatopathy related to the cardiogenic shock from the pulmonary embolism. Continue heparin for now given that she did have a slight drop in her hemoglobin. I added Protonix on as well. She is able to follow commands and squeezes my hand with her right hand. She seems to have left-sided hemineglect with complete paralysis of the left side which I am told is stable. She is currently on trach collar with 30% FiO2 oxygen. I suspect this could be weaned down further. She can follow-up with ENT regarding her tracheostomy. This is a very unfortunate case of a patient with a glioblastoma multiform a who had a very large pulmonary embolism and now is trach dependent. She has very significant neurological deficits and I am not certain how much recovery she will truly have. Unfortunately, no family was available at bedside today. I do understand that they have been very involved and are pursuing long- term care with potentially an LTAC type facility. Subjective 74-year-old female no acute distress lying in bed. Patient is unable to communicate verbally, demonstrates understanding of instructions. Was able to squeeze hand with the right hand but unable to with her left. She has left hemineglect on physical exam likely secondary to GBM. Overall patient's prognosis is poor, family would like patient to be transferred to long-term care facility. Physical Exam Physical Exam: General: Trach in place. Somnolent, opens eyes to tactile stimulation on the right. Is able to squeeze right hand once and twice on command but unable to preform on the left, blink eyes once and twice on command, wiggles right foot on command. j luis neglect on the left HEENT: Normocephalic. Pupils responsive to light and equal. Nonicteric. Pulm: Breathing through tracheostomy without vent. Cardiac: Tachycardic, regular rate and rhythm without murmurs rubs or gallops. Radial pulses intact and symmetrical. Abdominal: Nontender, nondistended, soft. BS present. Extremity: Opens eyes to tactile stimulation of right arm, right foot. Is able to squeeze right hand, not able to squeeze left, does not respond or withdraw to stimulation on the left hand or foot. Distal limbs puffy, edema of the hands and feet present bilaterally. Extremities warm, moist. Results & Data Vital Signs (Past 12 Hours) Vital Signs Temp Pulse Resp BP Pulse Ox 04/14/19 06:04 123 H 15 156/94 H 94 04/14/19 05:00 112 H 20 157/74 H 97 04/14/19 04:00 37.2 C 112 H 24 147/74 H 95 04/14/19 03:01 118 H 22 165/71 H 93 04/14/19 02:00 107 H 22 114/57 L 97 04/14/19 01:00 112 H 18 139/74 92 04/14/19 00:00 37.4 C 106 H 25 H 148/74 H 96 04/13/19 23:00 104 H 20 134/67 96 04/13/19 22:00 91 H 21 126/75 98 Laboratory Results 04/14/19 04/14/19 04/14/19 Range/Units 06:09 04:03 04:03 WBC (4.8-10.8) K/uL RBC (4.2-5.4) M/uL Hgb (12.0-16.0) g/dL Hct (37-47) % MCV (80-100) fL MCH (25-34) pg MCHC (32-36) g/dL RDW Std Deviation (36.4-46.3) fL RDW Coeff of Anil (11.5-14.5) % Plt Count (130-400) K/uL MPV (7.4-10.4) fL APTT 57.4 H* (21.0-31.0) Seconds PTT Ratio 2.1 Sodium 137 (136-145) mmol/L Potassium 3.9 (3.5-5.1) mmol/L Chloride 102 (98-107) mmol/L Carbon Dioxide 27 (21-32) mmol/L Anion Gap 8.0 (3-11) BUN 64 H (7-18) mg/dl Creatinine 1.92 H D (0.6-1.2) mg/dl Est Cr Clr Drug Dosing 24.8 ml/min Est GFR ( Amer) 29.2 Est GFR (Non-Af Amer) 25.2 BUN/Creatinine Ratio 33.4 H (10-20) Glucose 139 H (70-99) mg/dl POC Glucose 136 H (70-99) Calcium 7.9 L (8.5-10.1) mg/dl Phosphorus 4.7 (2.5-4.9) mg/dl Magnesium 1.8 (1.8-2.4) mg/dl Albumin 1.2 L (3.4-5.0) gm/dl Digoxin (0.8-2.0) ng/ml 04/14/19 04/14/19 04/14/19 Range/Units 04:03 04:03 00:23 WBC 17.39 H (4.8-10.8) K/uL RBC 2.67 L (4.2-5.4) M/uL Hgb 7.7 L (12.0-16.0) g/dL Hct 23.1 L (37-47) % MCV 86.5 (80-100) fL MCH 28.8 (25-34) pg MCHC 33.3 (32-36) g/dL RDW Std Deviation 51.2 H (36.4-46.3) fL RDW Coeff of Anil 16.6 H (11.5-14.5) % Plt Count 191 (130-400) K/uL MPV 10.0 (7.4-10.4) fL APTT (21.0-31.0) Seconds PTT Ratio Sodium (136-145) mmol/L Potassium (3.5-5.1) mmol/L Chloride (98-107) mmol/L Carbon Dioxide (21-32) mmol/L Anion Gap (3-11) BUN (7-18) mg/dl Creatinine (0.6-1.2) mg/dl Est Cr Clr Drug Dosing ml/min Est GFR ( Amer) Est GFR (Non-Af Amer) BUN/Creatinine Ratio (10-20) Glucose (70-99) mg/dl POC Glucose 143 H (70-99) Calcium (8.5-10.1) mg/dl Phosphorus (2.5-4.9) mg/dl Magnesium (1.8-2.4) mg/dl Albumin (3.4-5.0) gm/dl Digoxin 0.8 (0.8-2.0) ng/ml 04/13/19 04/13/19 04/13/19 Range/Units 17:33 12:20 11:34 WBC (4.8-10.8) K/uL RBC (4.2-5.4) M/uL Hgb (12.0-16.0) g/dL Hct (37-47) % MCV (80-100) fL MCH (25-34) pg MCHC (32-36) g/dL RDW Std Deviation (36.4-46.3) fL RDW Coeff of Anil (11.5-14.5) % Plt Count (130-400) K/uL MPV (7.4-10.4) fL APTT 56.1 H* (21.0-31.0) Seconds PTT Ratio 2.1 Sodium (136-145) mmol/L Potassium (3.5-5.1) mmol/L Chloride (98-107) mmol/L Carbon Dioxide (21-32) mmol/L Anion Gap (3-11) BUN (7-18) mg/dl Creatinine (0.6-1.2) mg/dl Est Cr Clr Drug Dosing ml/min Est GFR ( Amer) Est GFR (Non-Af Amer) BUN/Creatinine Ratio (10-20) Glucose (70-99) mg/dl POC Glucose 159 H 165 H (70-99) Calcium (8.5-10.1) mg/dl Phosphorus (2.5-4.9) mg/dl Magnesium (1.8-2.4) mg/dl Albumin (3.4-5.0) gm/dl Digoxin (0.8-2.0) ng/ml Medications Administered Current Inpatient Medications Amlodipine Besylate (Norvasc) 5 mg PO QAM GINO Stop: 05/14/19 10:14 Bisacodyl (Dulcolax) 10 mg MN DAILY PRN PRN Reason: Constipation Stop: 05/06/19 16:30 Dextrose (Dextrose 50%) 25 - 50 ml IV UD PRN; Protocol PRN Reason: Hypoglycemia Protocol Stop: 05/06/19 18:29 Last Admin: 04/07/19 14:48 Dose: 25 ml Documented by: Digoxin (Lanoxin) 0.125 mg PO DAILY@1600 GINO Stop: 05/12/19 15:59 Last Admin: 04/13/19 16:27 Dose: 0.125 mg Documented by: Enteral Nutritional Formula (Impact 1.0 Himanshu) 1,000 ml OG .CONTINUOUS GINO; Protocol Stop: 05/08/19 11:59 Last Admin: 04/13/19 12:04 Dose: 1,000 ml Documented by: Glucagon (Glucagen) 1 mg IM UD PRN; Protocol PRN Reason: Hypoglycemia Protocol Stop: 05/06/19 18:29 Glucose (Glucose 40%) 15 - 30 gm PO UD PRN; Protocol PRN Reason: Hypoglycemia Protocol Stop: 05/06/19 18:29 Glucose (Dex4 Glucose) 4 - 8 tabs PO UD PRN; Protocol PRN Reason: Hypoglycemia Protocol Stop: 05/06/19 18:29 Heparin Sodium (Beef Lung) (Heparin Sod 10 Unit/Ml Flush) 5 ml FLUSH PRN PRN PRN Reason: Flush Stop: 05/06/19 22:53 Heparin Sodium/Dextrose (Heparin Sodium/Dextrose) 25,000 units in 500 mls @ 25 mls/hr IV .Q20H GINO; Protocol Stop: 05/06/19 12:44 Last Titration: 04/14/19 07:31 Dose: 1,250 units/hr, 25 mls/hr Documented by: Levetiracetam 500 mg/ Dextrose 105 mls @ 420 mls/hr IV Q12H GINO Stop: 05/11/19 14:59 Last Infusion: 04/14/19 03:33 Dose: Infused Documented by: Insulin Aspart (Novolog Flexpen) 0 units SC Q6 GINO Stop: 05/09/19 17:59 Last Admin: 04/14/19 06:10 Dose: Not Given Documented by: Lansoprazole (Prevacid) 30 mg NG DAILY [facility] Stop: 05/14/19 10:59 Magnesium Hydroxide (Milk Of Magnesia) 30 ml PO Q12H PRN PRN Reason: Constipation Stop: 05/06/19 16:30 Metoprolol Tartrate (Lopressor) 100 mg PO BID GINO Stop: 05/13/19 20:59 Last Admin: 04/14/19 08:45 Dose: 100 mg Documented by: Miscellaneous (Carbohydrates For Hypoglycemia) 15 - 30 gm PO UD PRN PRN Reason: Hypoglycemia Treatment Stop: 05/06/19 18:29 Ondansetron HCl (Zofran) 4 mg IV Q6H PRN PRN Reason: Nausea Stop: 05/06/19 16:30 Sterile Water (Tube Feeding Water Flush) 1 ea GT Q4H GINO Stop: 05/10/19 09:59 Last Admin: 04/14/19 10:07 Dose: 1 ea Documented by: Resident Activity Tracking Resident Involvement: Resident Care Provided Care Provided: Adult [facility]
--- NOTE | 2019-04-14 09:57 | Infectious Disease Consult ---
Date of Consultation April 14, 2019 Assessment & Plan (1) Cardiac arrest: suspect fever/leukocytosis related to PE, cardiac arrest and recent brain surgery with subdural collection, suspect SANDING SUPERVISOR is contaminant. If repeat cultures negative, would follow off of abx. continue supportive care. (2) Pulmonary embolism: History of Present Illness Attending Physician: Kwabena Farmer DO pt admitted on 04/06 in cardiac arrest, found to have large R PE, b/l leg clots. admitted to ICU. recent cranial surgery at [facility] [place] for tumor, was to undergo chemo/xrt as well. had wbc as high as 24 on 04/07, improved to 17. Has had severa l blood cultures done due to fevers, 04/06, 04/09, 04/10 negative, 04/12 05/08 sets growing SANDING SUPERVIS[employer]. repeat pending. placed on IV PCN. ID consulted due to fever and + blood cultures. 18/09 tmax 38.3, 04/13 38, otherwise afebrile. s/p trach this admission. DHT in place for feeds. currently afebrile. creat 1.9. MRI/CT head with post op changes and subdural collection. UA with no bacteria. pt nonverbal on my exam. Allergies Allergy/AdvReac Type Severity Reaction Status Date / Time No Known Allergies Allergy Unverified 04/06/19 12:16 Home Medications Home Medications Medication Instructions Recorded Confirmed Type acetaminophen 325 mg tablet 650 mg PO Q6H PRN tab 04/02/19 04/06/19 History amlodipine 5 mg tablet 5 mg PO DAILY 04/02/19 04/06/19 History bisacodyl 10 mg rectal suppository 10 mg VT DAILY PRN 04/02/19 04/06/19 History cholecalciferol (vitamin D3) 5,000 5,000 units PO DAILY 04/02/19 04/06/19 History unit capsule docusate sodium 100 mg capsule 100 mg PO BID PRN 04/02/19 04/06/19 History enoxaparin 30 mg/0.3 mL 30 mg SQ Q12H 04/02/19 04/06/19 History subcutaneous syringe mecobalamin (vitamin B12) 1,000 1,000 mcg SL DAILY 04/02/19 04/06/19 History mcg disintegrating tablet,sublingual omega-3 fatty acids 1,000 mg 1,000 mg PO DAILY 04/02/19 04/06/19 History capsule polyethylene glycol 3350 17 17 gm PO DAILY 04/02/19 04/06/19 History gram/dose oral powder sennosides 8.6 mg-docusate sodium 1 tabcap PO DAILY PRN tab 04/02/19 04/06/19 History 50 mg tablet sodium phosphates 19 gram-7 118 ml VT DAILY PRN 04/02/19 04/06/19 History gram/118 mL enema Patient History Medical History Acute cor pulmonale Acute kidney injury Anoxic encephalopathy Aspiration pneumonia Cardiac arrest Cardiogenic shock Deep vein thrombosis (DVT) of popliteal vein of left lower extremity Deep venous thrombosis (DVT) of right peroneal vein Glioblastoma 03/13/19 Goals of care, counseling/discussion Hypertension No pertinent past medical history Pulmonary embolism Subdural hematoma Surgical History Hx of tonsillectomy S/P craniotomy Right craniotomy for tumor resection by Dr. Manzanares at [facility] [place] on 03/13/19 Family History Mother , 90yo Dementia Stroke Natural with unknown cause Father , 67yo Myocardial infarction Brother No problems noted. Brother No problems noted. Brother Prostate cancer Brother Myocardial infarction Sister Colitis Son No problems noted. Son No problems noted. Daughter No problems noted. 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 Feels Safe at Home: Yes Smoking Status: Never smoker Second Hand Exposure: No ; Hx Alcohol Use: No Hx Substance Use: No caffeine: Yes (Expresso 2 shots/day) during the past year weight has: decreased > 10 lbs Review of Systems Review of Systems: Unobtainable due to reduced consciousness Physical Exam Constitutional: WD/WN, vitals as above no acute distress and not ill appearing ENMT: external ear and nose normal, oropharynx normal Neck: normal visual inspection Respiratory: normal respiratory effort, lungs clear to auscultation Cardiovascular: RRR, no murmur, no edema Gastrointestinal (Abdomen): normal bowel sounds, soft, nontender, no hepatosplenomegaly Musculoskeletal: Head/Neck/Chest: normocephalic and head atraumatic moving all extremities Skin: no rashes, warm and dry Psychiatric: comfortable, non verbal Results & Data Vital Signs (Past 12 Hours) Vital Signs Temp Pulse Resp BP Pulse Ox 04/14/19 08:00 128 H 04/14/19 06:04 123 H 15 156/94 H 94 04/14/19 05:00 112 H 20 157/74 H 97 04/14/19 04:00 37.2 C 112 H 24 147/74 H 95 04/14/19 03:01 118 H 22 165/71 H 93 04/14/19 02:00 107 H 22 114/57 L 97 04/14/19 01:00 112 H 18 139/74 92 04/14/19 00:00 37.4 C 106 H 25 H 148/74 H 96 04/13/19 23:00 104 H 20 134/67 96 04/13/19 22:00 91 H 21 126/75 98 Laboratory Results Microbiology 04/13/19 09:02 Blood Aerobic Blood Culture - Preliminary No growth in Aerobic bottle after 24 hours. 04/13/19 09:02 Blood Anaerobic Blood Culture - Preliminary No growth in Anaerobic bottle after 24 hours. 04/13/19 08:55 Blood Aerobic Blood Culture - Preliminary No growth in Aerobic bottle after 24 hours. 04/13/19 08:55 Blood Anaerobic Blood Culture - Preliminary No growth in Anaerobic bottle after 24 hours. 04/12/19 06:47 Blood Aerobic Blood Culture - Preliminary No growth in Aerobic bottle after 48 hours. 04/12/19 06:47 Blood Anaerobic Blood Culture - Preliminary No growth in Anaerobic bottle after 48 hours. 04/12/19 07:05 Blood Aerobic Blood Culture - Preliminary No growth in Aerobic bottle after 48 hours. 04/12/19 07:05 Blood Anaerobic Blood Culture - Preliminary Coag neg staph not lugdunensis 04/10/19 16:12 Blood Aerobic Blood Culture - Preliminary No growth in Aerobic bottle after 48 hours. 04/10/19 16:12 Blood Anaerobic Blood Culture - Final 04/10/19 15:47 Blood Aerobic Blood Culture - Preliminary No growth in Aerobic bottle after 48 hours. 04/10/19 15:47 Blood Anaerobic Blood Culture - Preliminary No growth in Anaerobic bottle after 48 hours. 04/06/19 12:04 Blood Aerobic Blood Culture - Final No growth in Aerobic bottle after 5 days. 04/06/19 12:04 Blood Anaerobic Blood Culture - Final 04/06/19 12:41 Blood Aerobic Blood Culture - Final No growth in Aerobic bottle after 5 days. 04/06/19 12:41 Blood Anaerobic Blood Culture - Final No growth in Anaerobic bottle after 5 days. 04/09/19 10:53 Blood Aerobic Blood Culture - Preliminary No growth in Aerobic bottle after 48 hours. 04/09/19 10:53 Blood Anaerobic Blood Culture - Preliminary No growth in Anaerobic bottle after 48 hours. 04/09/19 10:51 Blood Aerobic Blood Culture - Preliminary No growth in Aerobic bottle after 48 hours. 04/09/19 10:51 Blood Anaerobic Blood Culture - Preliminary No growth in Anaerobic bottle after 48 hours. 04/06/19 15:27 Urine,Straight Cath Urine Culture - Final No growth - less than 1,000 colonies/mL. 04/06/19 17:40 Sputum,Trach Gram Stain - Final 04/06/19 17:40 Sputum,Trach Sputum Culture - Final Moderate normal aida. PG Care Time/CCT Total # of Minutes Spent Total Time Spent with Patient: Total time spent is greater than 50% in coordination of care (as documented) at patient's floor/unit and/or counseling patient:
[2019-04-14] MEDS ORDERED: AMLODIPINE BESYLATE 5 MG TAB PO SCH (10:15)
--- NOTE | 2019-04-14 10:22 | Billing Data ---
Coding Level of Care Code 89318 Subseq Hosp Care Lvl 3
[2019-04-14] MEDS: LANSOPRAZOLE 30 MG SOLTAB NG SCH (10:45)
--- NOTE | 2019-04-14 10:52 | Nephrology Progress Note ---
Date of Service April 14, 2019 Assessment & Plan (1) Acute kidney injury: Yulissa is a 74-year-old female admitted following witnessed cardiac arrest and cardiogenic shock in the setting of bilateral PE. History of stage IV glioblastoma, s/p recent craniotomy at [facility]. Baseline Cr 0.7. KATHY due to cardiogenic shock and contrast induced nephropathy from CTA -- In recovery phase of ATN. Cr trending down. Nonoliguric. Electrolyte balance acceptable. No acute indication for RN LAB at this time -- Monitor PRP (2) Pulmonary embolism: (3) Cardiac arrest: (4) Admitted to intensive care unit: (5) Glioblastoma: Subjective Ms. Lucas was seen & examined in the ICU this morning. She opens eyes to command and waves w/ her R hand. No vocalization. Tracheostomy in place. Review of Systems Review of Systems: Unobtainable Physical Exam Constitutional: + ill appearing Eyes: PERRL, conjunctivae normal, anicteric sclerae ENMT: external ear and nose normal, oropharynx normal Neck: tracheostomy in place Respiratory: normal respiratory effort, lungs clear to auscultation Cardiovascular: Rate/Rhythm: + tachycardic Gastrointestinal (Abdomen): Inspection/Auscultation: + hypoactive bowel sounds Musculoskeletal: Extremities: no cyanosis Skin: no rashes, warm and dry Neurologic: awake Results & Data Vital Signs (Past 12 Hours) Vital Signs Temp Pulse Resp BP Pulse Ox 04/14/19 08:00 128 H 04/14/19 06:04 123 H 15 156/94 H 94 04/14/19 05:00 112 H 20 157/74 H 97 04/14/19 04:00 37.2 C 112 H 24 147/74 H 95 04/14/19 03:01 118 H 22 165/71 H 93 04/14/19 02:00 107 H 22 114/57 L 97 04/14/19 01:00 112 H 18 139/74 92 04/14/19 00:00 37.4 C 106 H 25 H 148/74 H 96 04/13/19 23:00 104 H 20 134/67 96 Laboratory Results Laboratory Tests 04/14/19 04/14/19 04:03 04:03 WBC 17.39 H Hgb 7.7 L Hct 23.1 L Plt Count 191 Sodium 137 Potassium 3.9 Chloride 102 Carbon Dioxide 27 BUN 64 H Creatinine 1.92 H D Glucose 139 H PG Care Time/CCT Total # of Minutes Spent Total Time Spent with Patient: Total time spent is greater than 50% in coordination of care (as documented) at patient's floor/unit and/or counseling patient:
[2019-04-14] MEDS ORDERED: LABETALOL HCL IV 5 MG/ML 20ML IV STA ×2 (12:15→21:35)
[2019-04-14] MEDS ORDERED: LABETALOL HCL IV 5 MG/ML 20ML IV ONE (12:18)
[2019-04-14] MEDS: DIGOXIN 0.125 MG/2.5 ML UDP PO SCH (16:31)
--- NOTE | 2019-04-14 17:06 | Billing Data ---
Coding Level of Care Code 43866 Subseq Hosp Care Lvl 2
[2019-04-14] MEDS ORDERED: ATROPINE SULFATE 0.1 MG/ML 10ML SYR IV ONE (22:06)
[2019-04-14] MEDS ORDERED: ATROPINE SULFATE 0.1 MG/ML 10ML SYR IV STA (22:33)
[2019-04-14 23:33] LABS: BUN Creatinine Ratio 35.9 (10-20); Calcium 8.4 mg/dl (8.5-10.1); Creatinine Clr Calc Pharmacy 28.1 ml/min; Est GFR (African American) 34.1; Est GFR (Non-African American) 29.4; Magnesium 1.8 mg/dl (1.8-2.4)
--- NOTE | 2019-04-14 23:38 | Communication Note ---
Date of Service: April 14, 2019 At approximately 2200 patient became bradycardic and hypotensive. EKG revealed junctional rhythm of 40. Patient was given 0.5 mg atropine IV and return to sinus tachycardia and normotensive. She then began to desaturate and required additional oxygenation. Patient was suctioned and a large mucous plug was removed from patient's trach. Patient's oxygen saturation has now improved and currently weaning oxygen. ABG was within normal limits and chest x-ray appears to be consistent with previous studies. Will recollect BMP and troponin. Patient currently stable at previous baseline.
[2019-04-14 23:39] LABS: Troponin I 0.049 ng/ml (0-0.045)
[2019-04-14 23:40] LABS: iSTAT Allen Test Pass; iSTAT Arterial Blood Gas HCO3 29 meg/L (19-24); iSTAT Arterial Blood Gas pCO2 43 mmHg (35-46); iSTAT Arterial Blood Gas pH 7.44 (7.35-7.45); iSTAT Arterial Blood Gas pO2 121 mmHg (80-95); iSTAT Carbon Dioxide 31 mEq/l (24-31); iSTAT FiO2 50 %; iSTAT Site L Radial
[2019-04-14] MEDS ORDERED: MAGNESIUM SULFATE / D5W 1 GM/100 ML BAG IV ONE (23:45)
[2019-04-15 00:33] LABS: Phosphorus 6.7 mg/dl (2.5-4.9)
[2019-04-15] MEDS: INSULIN ASPART 100 UNITS/ML 3 ML PEN SC SCH ×5 (00:53→23:49)
[2019-04-15] MEDS: IMPACT LIQD 1.0 CAL 1,000 ML BAG OG SCH ×2 (01:35→22:24)
[2019-04-15] MEDS ORDERED: ATROPINE SULFATE 0.1 MG/ML 10ML SYR IV ONE (02:34)
[2019-04-15] MEDS: FEEDING WATER FLUSH GT SCH ×6 (02:37→20:55)
[2019-04-15 04:41] LABS: Hematocrit (blood only) 23.4 % (37-47); Hemoglobin 7.5 g/dL (12.0-16.0); Mean Corpuscular Hemoglobin 28.3 pg (25-34); Mean Corpuscular Hgb Conc 32.1 g/dL (32-36); Mean Corpuscular Volume 88.3 fL (80-100); Mean Platelet Volume 9.5 fL (7.4-10.4); Nucleated RBC # (auto) 0.02 K/uL (0-0); Nucleated RBC % (auto) 0.1 %; Platelet Count 246 K/uL (130-400); RDW Coefficient of Variation 16.5 % (11.5-14.5); RDW Standard Deviation 52.4 fL (36.4-46.3); Red Blood Count 2.65 M/uL (4.2-5.4); White Blood Count 20.44 K/uL (4.8-10.8)
[2019-04-15 04:58] LABS: BUN Creatinine Ratio 37.9 (10-20); Calcium 8.2 mg/dl (8.5-10.1); Creatinine Clr Calc Pharmacy 30.7 ml/min; Est GFR (African American) 37.8; Est GFR (Non-African American) 32.6; Potassium 3.9 mmol/L (3.5-5.1)
[2019-04-15 05:00] LABS: Partial Thromboplastin Ratio 2.7
[2019-04-15 05:23] LABS: Partial Thromboplastin Time 73.3 Seconds (21.0-31.0)
[2019-04-15] MEDS ORDERED: ICU ELECTROLYTE REPLACEMENT PROTOCOL PRN (06:19)
[2019-04-15] MEDS ORDERED: SODIUM CHLOR 7% 4 ML NEB NEB SCH (07:00)
--- NOTE | 2019-04-15 07:09 | Hospitalist Progress Note ---
Date of Service April 15, 2019 Assessment & Plan (1) Elevated procalcitonin: Elevated procal this AM without fevers over past 24 hours. Did have some hypotensive reads overnight of 60/40 with some bradycardia with HR of 43; this has resolved this AM currently tachycardic and elevated BP. Concerns for developing pneumonia, discussed with ICU resident possible ideas for further workup including CT Chest to look at lung parenchyma to gauge pneumonia vs. pulmonary fluid. (2) Cardiogenic shock: Secondary to cardiac arrest in setting of severe pulmonary embolism Signs of multi-organ dysfunction Continue care per ICU team, trach in place, feeding tube in place, was noted to not be candidate for gtube per GI from weekend hospital resident, however, will reach out to Dr. Crockett to evaluate patient for gtube Digoxin added, check Digoxin level Sunday given renal function AKInephrology following, appreciate recommendations Transaminitis secondary to shock liver (3) Venous thromboembolism: Continue IV heparin (4) Gram-positive bacteremia: Intermittent fevers, may be neurogenic May represent contamination was previously treated with gram-positive bacteremiacovered for Peptostreptococcus per ICU with penicillin G Infectious disease consult ordered by ICU team, appreciate recommendations (5) Pulmonary embolism: - not a candidate for TPA on presentation as recent brain surgery for glioblastoma - currently treating with heparin - continuous pulse ox (6) Cardiac arrest: In setting of massive PE (7) Glioblastoma: Status post craniotomy 03/13/2019no further chemotherapy or interventions at this time Neurology following, appreciate recommendationsstable anoxic encephalopathy, continue Keppra 500 mg every 12 hours Subdural hematoma, stable on repeat head CT (8) Discharge planning issues: Per case management, patient is believed to be accepted to [facility] and should be able to get timely approval. consulting solution manager spoke to spouse who was requesting patient stay at our facility for several more weeks. Supervising Physician Co-Signing Physician Notes I personally examined the patient and verified all jimenez points of history and exam, discussed case, and agree with decision making with Dr Jung. able to hold hand and follow commands, answer yes/no. denies sob, denies pain. vitals noted nad lungs overall cta b/l no notable r/r/w good effort. cardio sl tachy. no pallor or icterus massive PE/respiratory failure - improving - follow closely after last night's events - conintue to follow respiratory status and cardiac rhythm. anticipate need for PEG (GI input pending), anticipate LTAC as most appropriate next setting once she shows more stability. otherwise as above Subjective History Limited by Non-verbal Yulissa is able to track with right pederson gaze with her eyes toward me when I enter the room and has purposeful meaning of RUE per nursing. She doesn't follow commands this morning when asked. She was reported to be hypotensive and bradycardic overnight; currently tachycardic with elevated pressures. Physical Exam Constitutional: WD/WN, vitals as above Neck: normal visual inspection and trachea midline Respiratory: + tachypneic Auscultation: no wheezes Cardiovascular: Rate/Rhythm: regular rhythm and + tachycardic Extremities: + edema Gastrointestinal (Abdomen): Inspection/Auscultation: normal bowel sounds Percussion/Palpation: abdomen soft Skin: no rashes, warm and dry Neurologic: eyes are open and she is able to focus on me when I'm on right side of bed; purposeful movement of RUE and able to move RLE; no movement of left upper or lower extremity. She does not follow commands for me today. Results & Data Vital Signs (Past 12 Hours) Vital Signs Temp Pulse Resp BP Pulse Ox 04/15/19 05:00 112 H 28 H 154/87 H 97 04/15/19 04:30 111 H 33 H 185/90 H 96 04/15/19 04:00 37.2 C 103 H 28 H 153/85 H 96 04/15/19 03:31 97 H 21 129/70 97 04/15/19 03:00 95 H 22 102/57 L 97 04/15/19 02:30 94 H 22 128/61 99 04/15/19 02:00 97 H 24 101/56 L 99 04/15/19 01:31 99 H 29 H 134/66 98 04/15/19 01:00 99 H 25 H 127/58 L 97 04/15/19 00:30 101 H 28 H 103/47 L 95 04/15/19 00:05 105 H 26 H 94/45 L 97 04/15/19 00:04 105 H 27 H 79/43 L 97 04/15/19 00:00 37.1 C 105 H 27 H 86/45 L 96 04/14/19 23:37 110 H 27 H 123/61 96 04/14/19 23:00 114 H 30 H 124/49 L 93 04/14/19 22:30 104 H 28 H 117/60 98 04/14/19 22:20 104 H 32 H 135/76 98 04/14/19 22:15 106 H 28 H 140/74 96 04/14/19 22:10 110 H 27 H 121/101 H 98 04/14/19 22:09 43 L 16 60/40 L 99 04/14/19 22:05 47 L 31 H 84/40 L 96 04/14/19 22:01 67 28 H 146/71 H 86 L 04/14/19 21:34 110 H 26 H 194/114 H 95 04/14/19 21:00 130 H 34 H 189/85 H 93 04/14/19 20:04 128 H 29 H 169/115 H 96 04/14/19 20:00 129 H 27 H 185/115 H 94 Laboratory Results Laboratory Results - last 24 hr 04/14/19 04/14/19 04/14/19 09:43 09:43 11:49 WBC RBC Hgb Hct MCV MCH MCHC RDW Std Deviation RDW Coeff of Anil Plt Count MPV Absolute Nucleated RBC Nucleated RBC % (auto) APTT PTT Ratio Sample Site POC pH POC pCO2 POC pO2 POC HCO3 POC Total CO2 POC Base Excess POC ABG O2 Sat Rusty Test O2 Delivery Device POC FiO2 Sodium Potassium Chloride Carbon Dioxide Anion Gap BUN Creatinine Est Cr Clr Drug Dosing Est GFR ( Amer) Est GFR (Non-Af Amer) BUN/Creatinine Ratio Glucose POC Glucose 149 H Calcium Phosphorus Magnesium Troponin I NT-Pro-B Natriuret Pep 47300 H Procalcitonin 0.81 H 04/14/19 04/14/19 04/14/19 19:15 22:13 23:07 WBC RBC Hgb Hct MCV MCH MCHC RDW Std Deviation RDW Coeff of Anil Plt Count MPV Absolute Nucleated RBC Nucleated RBC % (auto) APTT PTT Ratio Sample Site POC pH POC pCO2 POC pO2 POC HCO3 POC Total CO2 POC Base Excess POC ABG O2 Sat Rusty Test O2 Delivery Device POC FiO2 Sodium 139 Potassium 4.0 Chloride 102 Carbon Dioxide 29 Anion Gap 7.0 BUN 61 H Creatinine 1.69 H Est Cr Clr Drug Dosing 28.1 Est GFR ( Amer) 34.1 Est GFR (Non-Af Amer) 29.4 BUN/Creatinine Ratio 35.9 H Glucose 170 H POC Glucose 162 H 229 H Calcium 8.4 L Phosphorus 6.7 H D Magnesium 1.8 Troponin I 0.049 H* NT-Pro-B Natriuret Pep Procalcitonin 04/14/19 04/15/19 04/15/19 23:18 00:52 04:26 WBC 20.44 H RBC 2.65 L Hgb 7.5 L Hct 23.4 L MCV 88.3 MCH 28.3 MCHC 32.1 RDW Std Deviation 52.4 H RDW Coeff of Anil 16.5 H Plt Count 246 MPV 9.5 Absolute Nucleated RBC 0.02 H Nucleated RBC % (auto) 0.1 APTT PTT Ratio Sample Site L Radial POC pH 7.44 POC pCO2 43 POC pO2 121 H POC HCO3 29 H POC Total CO2 31 POC Base Excess 5.0 H POC ABG O2 Sat 99.0 H Rusty Test Pass O2 Delivery Device Trach Col POC FiO2 50 Sodium Potassium Chloride Carbon Dioxide Anion Gap BUN Creatinine Est Cr Clr Drug Dosing Est GFR ( Amer) Est GFR (Non-Af Amer) BUN/Creatinine Ratio Glucose POC Glucose 193 H Calcium Phosphorus Magnesium Troponin I NT-Pro-B Natriuret Pep Procalcitonin 04/15/19 04/15/19 04/15/19 04:26 04:26 06:05 WBC RBC Hgb Hct MCV MCH MCHC RDW Std Deviation RDW Coeff of Anil Plt Count MPV Absolute Nucleated RBC Nucleated RBC % (auto) APTT 73.3 H* PTT Ratio 2.7 Sample Site POC pH POC pCO2 POC pO2 POC HCO3 POC Total CO2 POC Base Excess POC ABG O2 Sat Rusty Test O2 Delivery Device POC FiO2 Sodium 139 Potassium 3.9 Chloride 103 Carbon Dioxide 31 Anion Gap 5.0 BUN 59 H Creatinine 1.55 H Est Cr Clr Drug Dosing 30.7 Est GFR ( Amer) 37.8 Est GFR (Non-Af Amer) 32.6 BUN/Creatinine Ratio 37.9 H Glucose 160 H POC Glucose 146 H Calcium 8.2 L Phosphorus Magnesium Troponin I NT-Pro-B Natriuret Pep Procalcitonin 04/15/19 06:38 WBC RBC Hgb Hct MCV MCH MCHC RDW Std Deviation RDW Coeff of Anil Plt Count MPV Absolute Nucleated RBC Nucleated RBC % (auto) APTT PTT Ratio Sample Site POC pH POC pCO2 POC pO2 POC HCO3 POC Total CO2 POC Base Excess POC ABG O2 Sat Rusty Test O2 Delivery Device POC FiO2 Sodium Potassium Chloride Carbon Dioxide Anion Gap BUN Creatinine Est Cr Clr Drug Dosing Est GFR ( Amer) Est GFR (Non-Af Amer) BUN/Creatinine Ratio Glucose POC Glucose Calcium Phosphorus Magnesium Troponin I NT-Pro-B Natriuret Pep Procalcitonin 0.60 H Medications Administered Amlodipine Besylate (Norvasc) 10 mg PO QAM GINO Stop: 05/15/19 08:59 Last Admin: 04/15/19 08:51 Dose: 10 mg Documented by: [id number] Dextrose (Dextrose 50%) 25 - 50 ml IV UD PRN; Protocol PRN Reason: Hypoglycemia Protocol Stop: 05/06/19 18:29 Last Admin: 04/07/19 14:48 Dose: 25 ml Documented by: [id number] Admin: 04/07/19 12:35 Dose: 25 ml Documented by: [id number] Enteral Nutritional Formula (Impact 1.0 Himanshu) 1,000 ml OG .CONTINUOUS GINO; Protocol Stop: 05/08/19 11:59 Last Admin: 04/15/19 01:35 Dose: 1,000 ml Documented by: [id number] Admin: 04/13/19 12:04 Dose: 1,000 ml Documented by: [id number] Admin: 04/13/19 04:58 Dose: 1,000 ml Documented by: [id number] Admin: 04/12/19 10:39 Dose: 1,000 ml Documented by: [id number] Admin: 04/11/19 10:44 Dose: 1,000 ml Documented by: [id number] Admin: 04/10/19 09:55 Dose: 1,000 ml Documented by: [id number] Admin: 04/08/19 13:05 Dose: 1,000 ml Documented by: [id number] Heparin Sodium/Dextrose (Heparin Sodium/Dextrose) 25,000 units in 500 mls @ 24 mls/hr IV .[id number] GINO; Protocol Stop: 05/06/19 12:44 Last Titration: 04/15/19 07:19 Dose: 1,200 units/hr, 24 mls/hr Documented by: [id number] Cosigned by: [id number] Titration: 04/15/19 05:25 Dose: 1,200 units/hr, 24 mls/hr Documented by: [id number] Cosigned by: [id number] Admin: 04/14/19 23:42 Dose: 1,250 units/hr, 25 mls/hr Documented by: [id number] Cosigned by: [id number] Titration: 04/14/19 23:29 Dose: 1,250 units/hr, 25 mls/hr Documented by: [id number] Cosigned by: [id number] Titration: 04/14/19 19:06 Dose: 1,250 units/hr, 25 mls/hr Documented by: [id number] Cosigned by: [id number] Titration: 04/14/19 07:31 Dose: 1,250 units/hr, 25 mls/hr Documented by: [id number] Cosigned by: [id number] Titration: 04/14/19 06:11 Dose: 1,250 units/hr, 25 mls/hr Documented by: [id number] Cosigned by: [id number] Admin: 04/14/19 03:33 Dose: Not Given Documented by: [id number] Admin: 04/14/19 03:28 Dose: 1,250 units/hr, 25 mls/hr Documented by: [id number] Cosigned by: [id number] Titration: 04/14/19 02:11 Dose: 1,250 units/hr, 25 mls/hr Documented by: [id number] Cosigned by: [id number] Titration: 04/13/19 19:11 Dose: 1,250 units/hr, 25 mls/hr Documented by: [id number] Cosigned by: [id number] Titration: 04/13/19 07:12 Dose: 1,250 units/hr, 25 mls/hr Documented by: [id number] Cosigned by: [id number] Admin: 04/13/19 06:11 Dose: 1,250 units/hr, 25 mls/hr Documented by: [id number] Cosigned by: [id number] Titration: 04/13/19 06:11 Dose: 1,250 units/hr, 25 mls/hr Documented by: [id number] Cosigned by: [id number] Titration: 04/13/19 05:55 Dose: 1,250 units/hr, 25 mls/hr Documented by: [id number] Cosigned by: [id number] Titration: 04/13/19 03:47 Dose: 0 units/hr, 0 mls/hr Documented by: [id number] Cosigned by: [id number] Titration: 04/12/19 21:03 Dose: 1,450 units/hr, 29 mls/hr Documented by: [id number] Cosigned by: [id number] Titration: 04/12/19 15:13 Dose: 1,200 units/hr, 24 mls/hr Documented by: [id number] Cosigned by: [id number] Titration: 04/12/19 14:13 Dose: 0 units/hr, 0 mls/hr Documented by: [id number] Cosigned by: [id number] Admin: 04/12/19 08:18 Dose: 1,300 units/hr, 26 mls/hr Documented by: [id number] Cosigned by: [id number] Titration: 04/12/19 08:18 Dose: 1,300 units/hr, 26 mls/hr Documented by: [id number] Cosigned by: [id number] Titration: 04/12/19 07:08 Dose: 1,300 units/hr, 26 mls/hr Documented by: [id number] Cosigned by: [id number] Titration: 04/12/19 06:16 Dose: 1,300 units/hr, 26 mls/hr Documented by: [id number] Cosigned by: [id number] Titration: 04/11/19 22:11 Dose: 1,050 units/hr, 21 mls/hr Documented by: [id number] Cosigned by: [id number] Titration: 04/11/19 19:09 Dose: 0 units/hr, 0 mls/hr Documented by: [id number] Cosigned by: [id number] Titration: 04/11/19 11:30 Dose: 0 units/hr, 0 mls/hr Documented by: [id number] Cosigned by: [id number] Titration: 04/11/19 07:16 Dose: 800 units/hr, 16 mls/hr Documented by: [id number] Cosigned by: [id number] Titration: 04/11/19 05:31 Dose: 800 units/hr, 16 mls/hr Documented by: [id number] Cosigned by: [id number] Admin: 04/11/19 00:56 Dose: 700 units/hr, 14 mls/hr Documented by: [id number] Cosigned by: [id number] Titration: 04/11/19 00:56 Dose: 700 units/hr, 14 mls/hr Documented by: [id number] Cosigned by: [id number] Titration: 04/10/19 18:58 Dose: 700 units/hr, 14 mls/hr Documented by: [id number] Cosigned by: [id number] Admin: 04/10/19 16:02 Dose: Not Given Documented by: [id number] Titration: 04/10/19 07:07 Dose: 700 units/hr, 14 mls/hr Documented by: [id number] Cosigned by: [id number] Titration: 04/09/19 19:10 Dose: 700 units/hr, 14 mls/hr Documented by: [id number] Cosigned by: [id number] Admin: 04/09/19 15:23 Dose: 700 units/hr, 14 mls/hr Documented by: [id number] Cosigned by: [id number] Titration: 04/09/19 15:23 Dose: 600 units/hr, 12 mls/hr Documented by: [id number] Cosigned by: [id number] Titration: 04/09/19 07:08 Dose: 600 units/hr, 12 mls/hr Documented by: [id number] Cosigned by: [id number] Titration: 04/08/19 18:55 Dose: 600 units/hr, 12 mls/hr Documented by: [id number] Cosigned by: [id number] Admin: 04/08/19 13:01 Dose: 600 units/hr, 12 mls/hr Documented by: [id number] Cosigned by: [id number] Titration: 04/08/19 13:01 Dose: 600 units/hr, 12 mls/hr Documented by: [id number] Cosigned by: [id number] Titration: 04/08/19 07:18 Dose: 600 units/hr, 12 mls/hr Documented by: [id number] Cosigned by: [id number] Titration: 04/07/19 23:57 Dose: 600 units/hr, 12 mls/hr Documented by: [id number] Cosigned by: [id number] Admin: 04/07/19 19:14 Dose: 600 units/hr, 12 mls/hr Documented by: [id number] Cosigned by: [id number] Titration: 04/07/19 19:14 Dose: 600 units/hr, 12 mls/hr Documented by: [id number] Cosigned by: [id number] Titration: 04/07/19 18:31 Dose: 600 units/hr, 12 mls/hr Documented by: [id number] Cosigned by: [id number] Titration: 04/07/19 15:25 Dose: 700 units/hr, 14 mls/hr Documented by: [id number] Cosigned by: [id number] Titration: 04/07/19 11:47 Dose: 700 units/hr, 14 mls/hr Documented by: [id number] Cosigned by: [id number] Titration: 04/07/19 11:08 Dose: 0 units/hr, 0 mls/hr Documented by: [id number] Cosigned by: [id number] Titration: 04/07/19 06:57 Dose: 800 units/hr, 16 mls/hr Documented by: [id number] Cosigned by: [id number] Titration: 04/07/19 04:11 Dose: 800 units/hr, 16 mls/hr Documented by: [id number] Cosigned by: [id number] Titration: 04/07/19 03:36 Dose: 0 units/hr, 0 mls/hr Documented by: [id number] Cosigned by: [id number] Titration: 04/06/19 20:44 Dose: 900 units/hr, 18 mls/hr Documented by: [id number] Cosigned by: [id number] Titration: 04/06/19 19:42 Dose: 0 units/hr, 0 mls/hr Documented by: [id number] Cosigned by: [id number] Titration: 04/06/19 19:12 Dose: 1,050 units/hr, 21 mls/hr Documented by: [id number] Cosigned by: [id number] Admin: 04/06/19 12:52 Dose: 1,050 units/hr, 21 mls/hr Documented by: [id number] Cosigned by: [id number] Levetiracetam 500 mg/ Dextrose 105 mls @ 420 mls/hr IV Q12H GINO Stop: 05/11/19 14:59 Last Infusion: 04/15/19 04:56 Dose: 0 mls/hr Documented by: [id number] Admin: 04/15/19 04:18 Dose: 420 mls/hr Documented by: [id number] Infusion: 04/14/19 17:57 Dose: 0 mls/hr Documented by: [id number] Admin: 04/14/19 16:31 Dose: 420 mls/hr Documented by: [id number] Infusion: 04/14/19 03:33 Dose: 0 mls/hr Documented by: [id number] Admin: 04/14/19 03:09 Dose: 420 mls/hr Documented by: [id number] Infusion: 04/13/19 16:47 Dose: 0 mls/hr Documented by: [id number] Admin: 04/13/19 16:27 Dose: 420 mls/hr Documented by: [id number] Infusion: 04/13/19 02:51 Dose: 0 mls/hr Documented by: [id number] Admin: 04/13/19 02:32 Dose: 420 mls/hr Documented by: [id number] Infusion: 04/12/19 14:15 Dose: 0 mls/hr Documented by: [id number] Admin: 04/12/19 13:59 Dose: 420 mls/hr Documented by: [id number] Infusion: 04/12/19 04:25 Dose: 0 mls/hr Documented by: [id number] Admin: 04/12/19 03:53 Dose: 420 mls/hr Documented by: [id number] Infusion: 04/11/19 15:28 Dose: 0 mls/hr Documented by: [id number] Admin: 04/11/19 15:12 Dose: 420 mls/hr Documented by: [id number] Insulin Aspart (Novolog Flexpen) 0 units SC Q6 GINO Stop: 05/09/19 17:59 Last Admin: 04/15/19 06:33 Dose: Not Given Documented by: [id number] Admin: 04/15/19 00:53 Dose: 2 units Documented by: [id number] Cosigned by: [id number] Admin: 04/14/19 19:17 Dose: 1 units Documented by: [id number] Cosigned by: [id number] Admin: 04/14/19 11:52 Dose: Not Given Documented by: [id number] Cosigned by: [id number] Admin: 04/14/19 06:10 Dose: Not Given Documented by: [id number] Cosigned by: [id number] Admin: 04/14/19 00:25 Dose: Not Given Documented by: [id number] Cosigned by: [id number] Admin: 04/13/19 17:35 Dose: 1 units Documented by: [id number] Cosigned by: [id number] Admin: 04/13/19 11:36 Dose: 1 units Documented by: [id number] Cosigned by: [id number] Admin: 04/13/19 06:15 Dose: 1 units Documented by: [id number] Cosigned by: [id number] Admin: 04/13/19 00:04 Dose: Not Given Documented by: [id number] Cosigned by: [id number] Admin: 04/12/19 17:56 Dose: Not Given Documented by: [id number] Cosigned by: [id number] Admin: 04/12/19 11:49 Dose: Not Given Documented by: [id number] Cosigned by: [id number] Admin: 04/12/19 06:17 Dose: Not Given Documented by: [id number] Cosigned by: [id number] Admin: 04/12/19 00:10 Dose: Not Given Documented by: [id number] Cosigned by: [id number] Admin: 04/11/19 19:09 Dose: Not Given Documented by: [id number] Cosigned by: [id number] Admin: 04/11/19 13:02 Dose: Not Given Documented by: [id number] Cosigned by: [id number] Admin: 04/11/19 06:20 Dose: Not Given Documented by: [id number] Cosigned by: [id number] Admin: 04/11/19 01:27 Dose: Not Given Documented by: [id number] Cosigned by: [id number] Admin: 04/10/19 18:35 Dose: Not Given Documented by: [id number] Cosigned by: [id number] Admin: 04/10/19 12:48 Dose: Not Given Documented by: [id number] Cosigned by: [id number] Admin: 04/10/19 05:35 Dose: Not Given Documented by: [id number] Cosigned by: [id number] Admin: 04/10/19 00:58 Dose: Not Given Documented by: [id number] Cosigned by: [id number] Admin: 04/09/19 17:53 Dose: Not Given Documented by: [id number] Cosigned by: [id number] Lansoprazole (Prevacid) 30 mg NG DAILY GINO Stop: 05/14/19 10:59 Last Admin: 04/15/19 08:52 Dose: 30 mg Documented by: [id number] Admin: 04/14/19 10:45 Dose: 30 mg Documented by: [id number] Metoprolol Tartrate (Lopressor) 75 mg PO QID GINO Stop: 05/15/19 08:59 Last Admin: 04/15/19 08:54 Dose: 75 mg Documented by: [id number] Sterile Water (Tube Feeding Water Flush) 1 ea GT Q4H GINO Stop: 05/10/19 09:59 Last Admin: 04/15/19 06:34 Dose: 1 ea Documented by: [id number] Admin: 04/15/19 02:37 Dose: 1 ea Documented by: [id number] Admin: 04/14/19 22:31 Dose: 1 ea Documented by: [id number] Admin: 04/14/19 19:42 Dose: 1 ea Documented by: [id number] Admin: 04/14/19 16:31 Dose: 1 ea Documented by: [id number] Admin: 04/14/19 10:07 Dose: 1 ea Documented by: [id number] Admin: 04/14/19 06:07 Dose: 1 ea Documented by: [id number] Admin: 04/14/19 01:52 Dose: 1 ea Documented by: [id number] Admin: 04/13/19 22:36 Dose: 1 ea Documented by: [id number] Admin: 04/13/19 17:35 Dose: 1 ea Documented by: [id number] Admin: 04/13/19 14:13 Dose: 1 ea Documented by: [id number] Admin: 04/13/19 10:16 Dose: 1 ea Documented by: [id number] Admin: 04/13/19 06:00 Dose: 1 ea Documented by: [id number] Admin: 04/13/19 02:05 Dose: 1 ea Documented by: [id number] Admin: 04/12/19 22:22 Dose: 1 ea Documented by: [id number] Admin: 04/12/19 17:56 Dose: 1 ea Documented by: [id number] Admin: 04/12/19 13:47 Dose: 1 ea Documented by: [id number] Admin: 04/12/19 09:49 Dose: 1 ea Documented by: [id number] Admin: 04/12/19 06:17 Dose: 1 ea Documented by: [id number] Admin: 04/12/19 02:15 Dose: 1 ea Documented by: [id number] Admin: 04/11/19 22:35 Dose: 1 ea Documented by: [id number] Admin: 04/11/19 15:56 Dose: Not Given Documented by: [id number] Admin: 04/11/19 15:21 Dose: Not Given Documented by: [id number] Admin: 04/11/19 10:44 Dose: 1 ea Documented by: [id number] Admin: 04/11/19 06:21 Dose: 1 ea Documented by: [id number] Admin: 04/11/19 03:07 Dose: 1 ea Documented by: [id number] Admin: 04/10/19 22:17 Dose: 1 ea Documented by: [id number] Admin: 04/10/19 18:34 Dose: 1 ea Documented by: [id number] Admin: 04/10/19 15:03 Dose: 1 ea Documented by: [id number] Admin: 04/10/19 10:33 Dose: 1 ea Documented by: [id number] Resident Activity Tracking Resident Involvement: Resident Care Provided Care Provided: Adult Hospital Medicine
--- NOTE | 2019-04-15 07:53 | XRay Report ---
XR chest 1V portable CLINICAL HISTORY: Respiratory distress. COMPARISON STUDY: Chest CT April 06, 2019. Chest radiograph April 12, 2019. FINDINGS: Tip of nasogastric tube is within the body of the stomach. There is no pneumothorax. There are small bilateral pleural effusions. Tracheostomy tube is in place. Left basilar opacity persists. Right apical and right basilar opacity has developed. There is pulmonary vascular congestion. IMPRESSION: 1. Interval development of right basilar and right apical opacities. Persistent left basilar opacity. 2. Small bilateral pleural effusions. 3. Pulmonary vascular congestion. Electronically signed by: Javier Rivas M.D. 04/15/2019 7:52 AM
[2019-04-15] MEDS: AMLODIPINE BESYLATE 5 MG TAB PO SCH (08:51)
[2019-04-15] MEDS: LANSOPRAZOLE 30 MG SOLTAB NG SCH (08:52)
[2019-04-15] MEDS: METOPROLOL TARTRATE 25 MG TAB PO SCH ×4 (08:54→19:45)
[2019-04-15] MEDS ORDERED: FUROSEMIDE 40 MG TAB PO SCH (09:00)
[2019-04-15] MEDS: FUROSEMIDE 40 MG in SYRINGE 0 ML IV SCH ×2 (09:20→19:45)
--- NOTE | 2019-04-15 10:22 | Nephrology Progress Note ---
Date of Service April 15, 2019 Assessment & Plan (1) Acute kidney injury: Yulissa is a 74-year-old female admitted following witnessed cardiac arrest and cardiogenic shock in the setting of bilateral PE. History of stage IV glioblastoma, s/p recent craniotomy at [place]. Baseline Cr 0.7. KATHY due to cardiogenic shock and contrast induced nephropathy from CTA -- In recovery phase of ATN. Cr trending down. Nonoliguric. Electrolyte balance acceptable. No acute indication for ADVANCED DEVELOPER at this time -- Recommend monitoring daily PRP. No further Nephrology testing indicated. Will sign off. Please call if further assistance is needed (2) Pulmonary embolism: (3) Cardiac arrest: (4) Admitted to intensive care unit: (5) Glioblastoma: Overall prognosis is unfortunately guarded. Subjective Mrs. Lucas was seen & examined in the ICU this morning. Her was present at bedside. Patient is awake but remains nonverbal. Review of Systems Review of Systems: Unobtainable due to cognitive status Physical Exam Constitutional: + ill appearing Eyes: PERRL, conjunctivae normal, anicteric sclerae ENMT: external ear and nose normal, oropharynx normal Respiratory: normal respiratory effort, lungs clear to auscultation Cardiovascular: Rate/Rhythm: + tachycardic Gastrointestinal (Abdomen): Inspection/Auscultation: + hypoactive bowel sounds Musculoskeletal: Extremities: no cyanosis Skin: no rashes, warm and dry Neurologic: awake Results & Data Vital Signs (Past 12 Hours) Vital Signs Temp Pulse Resp BP Pulse Ox 04/15/19 05:00 112 H 28 H 154/87 H 97 04/15/19 04:30 111 H 33 H 185/90 H 96 04/15/19 04:00 37.2 C 103 H 28 H 153/85 H 96 04/15/19 03:31 97 H 21 129/70 97 04/15/19 03:00 95 H 22 102/57 L 97 04/15/19 02:30 94 H 22 128/61 99 04/15/19 02:00 97 H 24 101/56 L 99 04/15/19 01:31 99 H 29 H 134/66 98 04/15/19 01:00 99 H 25 H 127/58 L 97 04/15/19 00:30 101 H 28 H 103/47 L 95 04/15/19 00:05 105 H 26 H 94/45 L 97 04/15/19 00:04 105 H 27 H 79/43 L 97 04/15/19 00:00 37.1 C 105 H 27 H 86/45 L 96 04/14/19 23:37 110 H 27 H 123/61 96 04/14/19 23:00 114 H 30 H 124/49 L 93 04/14/19 22:30 104 H 28 H 117/60 98 04/14/19 22:20 104 H 32 H 135/76 98 Laboratory Results Laboratory Tests 04/15/19 04/15/19 04:26 04:26 WBC 20.44 H Hgb 7.5 L Hct 23.4 L Plt Count 246 Sodium 139 Potassium 3.9 Chloride 103 Carbon Dioxide 31 BUN 59 H Creatinine 1.55 H PG Care Time/CCT Total # of Minutes Spent Total Time Spent with Patient: Total time spent is greater than 50% in coordination of care (as documented) at patient's floor/unit and/or counseling patient:
--- NOTE | 2019-04-15 10:26 | Critical Care Progress Note ---
Date of Service April 15, 2019 Assessment & Plan (1) Admitted to intensive care unit: Reason Critically Ill: 74-year-old female here with a PMHx significant for glioblastoma, HTN, cardiac arrest, and massive PE who presented with a feeling of unwellness and who was admitted for massive PE. She sustained 3x cardiac PEA arrests with ROSC prior to admission to the ICU. Goals of Care: Family meeting held at 10 AM 04/11/2019 with Kj (patient's son), Igor (brother), and Paty (brother). Palliative care, intensive care, and primary service team were present. Nephrology, neurology, ENT aware of case. Case was discussed at length. Neurologically she has some increased movement and withdrawal from noxious stimuli in the last 24 hours, but is having suspected neurogenic fever. She has had multiple blood cultures drawn and has stable oxygen saturation, lower suspicion for infectious etiology of her fever. Long- term she has both a grim prognosis and extremely difficult recovery. He has extensive pulmonary/cardiac burden, and her extensive illness will make rehab very difficult. Family expresses understanding of this, and reiterate that they understand but that they and Yulissa would want full measures and full code. Specifically they agree with proceeding with tracheostomy and PEG tube placement. They are aware that dialysis may be needed in the future. PEG tube placement to be performed at outside facility Neuro - [facility] ICU: POSITIVE ETT in place (placed 04/06/2019) Sedation: Versed gtt held. Analgesia: Fentanyl 25mg Q30M prn, last dose 04/09 1755. - CT-H shows increase density of postsurgical change without other acute findings. Stable on repeat. Neuro consulted, case discussed Patient opens eyes on command, squeezes fingers on right and blinks eyes once and twice on command this morning. Was able to communicate using blinks yes and no Glioblastoma Multiforme Stage IV s/p craniotomy with tumor resection 03/13/[address] radiation [address] Dr. Manzanares [facility] [place] - No further surgical or chemotherapeutic intervention at this time. - Will require further f/u with Neuro pending clinical course Cardiac - Cardiogenic shock 2/2 PE, improved - PE treatment as below No current pressor requirements. - TTE hyperdynamic EF >70% with RV dilation and wall motion dysfunction - Troponins down trended - Beta-maximo as below Concern for fluid overload Intermittently hypertensive -Improved with metoprolol 75 mg 4 times daily -Amlodipine 10 mg -DC digoxin Sinus Tachycardia EKG pending High risk for A. fib/flutter Anticoagulated for PEs Metoprolol 75 mg p.o. QID D/C digoxin Bradycardia Patient had an episode of bradycardia overnight of 04/14. Patient was administered atropine which resolved the bradycardia, suctioning was also performed and removed a mucous plug. Chest x-ray and ABG were obtained both were within normal limits. Thought to be secondary to mucous plugging and history of pulmonary embolism. Chest PT Monitor for signs and symptoms of recurrence Respiratory Acute PE with multiorgan system dysfunction - With extensive R PA thrombus - Anticoagulation as below - No TPA or thrombectomy/surgical intervention. Case was discussed with Zuri and Rasheed who feel she is not a surgical candidate, and TPA was contraindicated due to the patients recent neurosurgical procedure. - 04/14 ABG 7.44/43/121/29. Met Alkalosis On trach collar - Tolerating trach with collar well. - Left lung infiltrates, unchanged from prior, likely to represent possible pulmonary infarction given unchanging nature Mucous plugging Likely secondary to recumbent position, and motor/sensory symptoms secondary to neurological issues. Chest PT Elevate head of bed 30 degrees GI - GI PPX ordered Transaminitis 2/2 shock liver -AST/ALT downtrending since initial shock liver episode. Nutrition - IVFM: Discontinued Core safe, impact at 70 cc/h with 150 cc flushes every 4 hours - Discussed with GI, pt is not a candidate for PEG placement at this time, core safe placed for feeds. -defer to outside facility RENAL/LYTES - KATHY Creatinine continues to downtrend, 1.55 today Potassium, sodium within normal limits - Replace electrolytes as needed - - No concerns at this time. - Mosquera discontinued, pure wick in place ENDO - No history of T2DM, BSG 380 on admit - HgbA1C 5.6% - ICU hyperglycemic protocol - GSB ~100s HEME - - Hgb 7.7 today - CBC daily - No signs of bleeding on clinical exam Given ongoing KATHY will continue heparin gtt and defer transition to lovenox at this time. -Plan to transition to DOAC given efficacy in preventing cancer associated VTE ID - Intermittent fever, suspect 2/2 Neurogenic Fever - She does not have an increasing oxygen requirement, and has a normal lactate. Suspect neurogenic fever, will monitor for increasing oxygen requirements. - APAP limited by shock liver and transaminitis - Liver ultrasound reassuring - Blood cultures 04/09, 04/10 - Monitor fever curve. - Afebrile this morning - Procal 0.6. - We will monitor for signs and symptoms of progression of pneumonia -Infectious disease consulted. -Blood culture x1 from 04/12+ for GPC in an anaerobic bottle. Could potentially be Peptostreptococcus with risk for deep space infection, although given multiple negative cultures and 1X growth in anaerobic bottle may also represent contamination. -Suspect fever and leukocytosis are related to PE, cardiac arrest and, recent brain surgery. If repeat cultures are negative would DC antibiotics and continue supportive care -dc'd ctx INTEGUMENTARY - No acute concerns. Assess daily for pressure ulcers/bedside ulcers given bedbound status and severe illness. LINES/IV ACCESS - PIVs intact. DVT PROPHYLAXIS - Anticoagulation as above Disposition: ICU and hopefully for downgrade tomorrow. ?pursuing a long-term care facility Chadwick Delaney MD PGY 2, FCM This chart was completed utilizing [employer] voice recognition software. Grammatical errors, random word insertions, pronoun errors, and in complete sentences are an occasional consequence of the system. Any questions or concerns about the content, text, or information contained within the body of this dictation should be addressed directly to the physician for clarification. (2) Discharge planning issues: (3) Elevated procalcitonin: (4) Cardiac arrest: (5) Pulmonary embolism: (6) Cardiogenic shock: (7) Acute kidney injury: (8) DNR (do not resuscitate) discussion: (9) Goals of care, counseling/discussion: (10) Glioblastoma: Supervising Physician Co-Signing Physician Notes Dr. Delaney was the resident-physician during care of patient. I separately evaluated patient for jimenez portions of the history and the exam. I was present during the critical portion of medical decision making, and I discussed the case with the resident. I generally agree with the findings and plan except for any additions/exceptions noted. The patient did have an episode of hypotension last night and received a dose of labetalol and subsequently became bradycardic with a junctional rhythm. An EKG is uploaded into the system. Subsequent to this, she received a dose of 0.5 mg atropine with improvement. Around this time, she also had a mucous plug and a desaturation which improved with suctioning and airway clearance. Chest x-ray demonstrates increased interstitial markings, pulmonary vascular congestion, increased basilar markings and mild pleural effusions bilaterally. I have started on 40 mg IV Lasix daily given her elevated BNP, physical exam findings and chest x-ray findings. She does have decreased RV output due to her recent p ulmonary embolism. We are continuing her on a heparin drip. She continues to be persistently tachycardic and have low-grade fevers. I suspect the tachycardia and fevers are related to her resolving pulmonary embolism and possibly some degree of autonomic dysfunction given her large resected mass. With regards to her airway clearance, we will start vest therapy 4 times daily. She is not able to participate very well in airway clearance given her left- sided deficits. She is certainly at risk for pneumonia and ongoing atelectasis/mucous plugging. I have discontinued the hypertonic saline as I do not think this will be a much utility in this case. Aggressive physical therapy will be jimenez in her recovery. Her overall prognosis still remains quite guarded. She should remain in the ICU today given her issues with hypoxia and bradycardia that she experienced overnight. Of note, I have stopped her digoxin as her rhythm has been sinus. I did increase her metoprolol to 75 mg 4 times da devin given her persistent tachycardia. We will keep a close eye on this given the tachybradycardia issue that she had overnight. I have personally spent 35 minutes of critical care time in the direct management of this patient. This is a life/limb threatening event. This includes time spent evaluating patient, direct bedside care, chart review, placing orders, interpretation of diagnostic studies, discussion with consultants, patient, and/or family members regarding treatment decisions, as well as other required patient management activities. This time is exclusive of all separately billable procedures, and teaching time and separate from and in addition to any other critical care service time. Subjective 74-year-old female laying in bed with trach collar in place in no acute distress. Patient was able to communicate with me using eye blinks this morning 1 for yes and 2 for no. Patient reports was no acute distress. She communicated to me that she was cold and required a blanket. She communicated to me she was not in pain. She was able to follow commands. She was able to squeeze my fingers with her right hand, was able to appreciate sensation her right foot, demonstrated hemineglect to the left. Acute concerns are present related to tachycardia and oxygen saturation otherwise all questions answered. Physical Exam Physical Exam: General: Trach in place. More alert today. Is able to squeeze right hand once and twice on command but unable to preform on the left, blink eyes once and twice on command, wiggles right foot on command. j luis neglect on the left HEENT: Normocephalic. Pupils responsive to light and equal. Nonicteric. Pulm: Breathing through tracheostomy without vent. Cardiac: Tachycardic, regular rate and rhythm without murmurs rubs or gallops. Radial pulses intact and symmetrical. Abdominal: Nontender, nondistended, soft. BS present. Extremity: Opens eyes to tactile stimulation of right arm, right foot. Is able to squeeze right hand, not able to squeeze left, does not respond or withdraw to stimulation on the left hand or foot. Distal limbs puffy, edema of the hands and feet present bilaterally. Extremities warm, moist. Results & Data Vital Signs (Past 12 Hours) Vital Signs Temp Pulse Resp BP Pulse Ox 04/15/19 05:00 112 H 28 H 154/87 H 97 04/15/19 04:30 111 H 33 H 185/90 H 96 04/15/19 04:00 37.2 C 103 H 28 H 153/85 H 96 04/15/19 03:31 97 H 21 129/70 97 04/15/19 03:00 95 H 22 102/57 L 97 04/15/19 02:30 94 H 22 128/61 99 04/15/19 02:00 97 H 24 101/56 L 99 04/15/19 01:31 99 H 29 H 134/66 98 04/15/19 01:00 99 H 25 H 127/58 L 97 04/15/19 00:30 101 H 28 H 103/47 L 95 04/15/19 00:05 105 H 26 H 94/45 L 97 04/15/19 00:04 105 H 27 H 79/43 L 97 04/15/19 00:00 37.1 C 105 H 27 H 86/45 L 96 04/14/19 23:37 110 H 27 H 123/61 96 04/14/19 23:00 114 H 30 H 124/49 L 93 04/14/19 22:30 104 H 28 H 117/60 98 Laboratory Results 04/15/19 04/15/19 04/15/19 Range/Units 06:38 06:05 04:26 WBC (4.8-10.8) K/uL RBC (4.2-5.4) M/uL Hgb (12.0-16.0) g/dL Hct (37-47) % MCV (80-100) fL MCH (25-34) pg MCHC (32-36) g/dL RDW Std Deviation (36.4-46.3) fL RDW Coeff of Anil (11.5-14.5) % Plt Count (130-400) K/uL MPV (7.4-10.4) fL Absolute Nucleated RBC (0-0) K/uL Nucleated RBC % (auto) % APTT 73.3 H* (21.0-31.0) Seconds PTT Ratio 2.7 Sample Site POC pH (7.35-7.45) POC pCO2 (35-46) mmHg POC pO2 (80-95) mmHg POC HCO3 (19-24) carlin/L POC Total CO2 (24-31) mEq/l POC Base Excess (-9-1.8) carlin/L POC ABG O2 Sat (90-95) % Rusty Test O2 Delivery Device POC FiO2 % Sodium (136-145) mmol/L Potassium (3.5-5.1) mmol/L Chloride (98-107) mmol/L Carbon Dioxide (21-32) mmol/L Anion Gap (3-11) BUN (7-18) mg/dl Creatinine (0.6-1.2) mg/dl Est Cr Clr Drug Dosing ml/min Est GFR ( Amer) Est GFR (Non-Af Amer) BUN/Creatinine Ratio (10-20) Glucose (70-99) mg/dl POC Glucose 146 H (70-99) Calcium (8.5-10.1) mg/dl Phosphorus (2.5-4.9) mg/dl Magnesium (1.8-2.4) mg/dl Troponin I (0-0.045) ng/ml Procalcitonin 0.60 H (0-0.5) ng/ml 04/15/19 04/15/19 04/15/19 Range/Units 04:26 04:26 00:52 WBC 20.44 H (4.8-10.8) K/uL RBC 2.65 L (4.2-5.4) M/uL Hgb 7.5 L (12.0-16.0) g/dL Hct 23.4 L (37-47) % MCV 88.3 (80-100) fL MCH 28.3 (25-34) pg MCHC 32.1 (32-36) g/dL RDW Std Deviation 52.4 H (36.4-46.3) fL RDW Coeff of Anil 16.5 H (11.5-14.5) % Plt Count 246 (130-400) K/uL MPV 9.5 (7.4-10.4) fL Absolute Nucleated RBC 0.02 H (0-0) K/uL Nucleated RBC % (auto) 0.1 % APTT (21.0-31.0) Seconds PTT Ratio Sample Site POC pH (7.35-7.45) POC pCO2 (35-46) mmHg POC pO2 (80-95) mmHg POC HCO3 (19-24) carlin/L POC Total CO2 (24-31) mEq/l POC Base Excess (-9-1.8) carlin/L POC ABG O2 Sat (90-95) % Rusty Test O2 Delivery Device POC FiO2 % Sodium 139 (136-145) mmol/L Potassium 3.9 (3.5-5.1) mmol/L Chloride 103 (98-107) mmol/L Carbon Dioxide 31 (21-32) mmol/L Anion Gap 5.0 (3-11) BUN 59 H (7-18) mg/dl Creatinine 1.55 H (0.6-1.2) mg/dl Est Cr Clr Drug Dosing 30.7 ml/min Est GFR ( Amer) 37.8 Est GFR (Non-Af Amer) 32.6 BUN/Creatinine Ratio 37.9 H (10-20) Glucose 160 H (70-99) mg/dl POC Glucose 193 H (70-99) Calcium 8.2 L (8.5-10.1) mg/dl Phosphorus (2.5-4.9) mg/dl Magnesium (1.8-2.4) mg/dl Troponin I (0-0.045) ng/ml Procalcitonin (0-0.5) ng/ml 04/14/19 04/14/19 04/14/19 Range/Units 23:18 23:07 22:13 WBC (4.8-10.8) K/uL RBC (4.2-5.4) M/uL Hgb (12.0-16.0) g/dL Hct (37-47) % MCV (80-100) fL MCH (25-34) pg MCHC (32-36) g/dL RDW Std Deviation (36.4-46.3) fL RDW Coeff of Anil (11.5-14.5) % Plt Count (130-400) K/uL MPV (7.4-10.4) fL Absolute Nucleated RBC (0-0) K/uL Nucleated RBC % (auto) % APTT (21.0-31.0) Seconds PTT Ratio Sample Site L Radial POC pH 7.44 (7.35-7.45) POC pCO2 43 (35-46) mmHg POC pO2 121 H (80-95) mmHg POC HCO3 29 H (19-24) carlin/L POC Total CO2 31 (24-31) mEq/l POC Base Excess 5.0 H (-9-1.8) carlin/L POC ABG O2 Sat 99.0 H (90-95) % Rusty Test Pass O2 Delivery Device Trach Col POC FiO2 50 % Sodium 139 (136-145) mmol/L Potassium 4.0 (3.5-5.1) mmol/L Chloride 102 (98-107) mmol/L Carbon Dioxide 29 (21-32) mmol/L Anion Gap 7.0 (3-11) BUN 61 H (7-18) mg/dl Creatinine 1.69 H (0.6-1.2) mg/dl Est Cr Clr Drug Dosing 28.1 ml/min Est GFR ( Amer) 34.1 Est GFR (Non-Af Amer) 29.4 BUN/Creatinine Ratio 35.9 H (10-20) Glucose 170 H (70-99) mg/dl POC Glucose 229 H (70-99) Calcium 8.4 L (8.5-10.1) mg/dl Phosphorus 6.7 H D (2.5-4.9) mg/dl Magnesium 1.8 (1.8-2.4) mg/dl Troponin I 0.049 H* (0-0.045) ng/ml Procalcitonin (0-0.5) ng/ml 04/14/19 04/14/19 Range/Units 19:15 11:49 WBC (4.8-10.8) K/uL RBC (4.2-5.4) M/uL Hgb (12.0-16.0) g/dL Hct (37-47) % MCV (80-100) fL MCH (25-34) pg MCHC (32-36) g/dL RDW Std Deviation (36.4-46.3) fL RDW Coeff of Anil (11.5-14.5) % Plt Count (130-400) K/uL MPV (7.4-10.4) fL Absolute Nucleated RBC (0-0) K/uL Nucleated RBC % (auto) % APTT (21.0-31.0) Seconds PTT Ratio Sample Site POC pH (7.35-7.45) POC pCO2 (35-46) mmHg POC pO2 (80-95) mmHg POC HCO3 (19-24) carlin/L POC Total CO2 (24-31) mEq/l POC Base Excess (-9-1.8) carlin/L POC ABG O2 Sat (90-95) % Rusty Test O2 Delivery Device POC FiO2 % Sodium (136-145) mmol/L Potassium (3.5-5.1) mmol/L Chloride (98-107) mmol/L Carbon Dioxide (21-32) mmol/L Anion Gap (3-11) BUN (7-18) mg/dl Creatinine (0.6-1.2) mg/dl Est Cr Clr Drug Dosing ml/min Est GFR ( Amer) Est GFR (Non-Af Amer) BUN/Creatinine Ratio (10-20) Glucose (70-99) mg/dl POC Glucose 162 H 149 H (70-99) Calcium (8.5-10.1) mg/dl Phosphorus (2.5-4.9) mg/dl Magnesium (1.8-2.4) mg/dl Troponin I (0-0.045) ng/ml Procalcitonin (0-0.5) ng/ml Medications Administered Current Inpatient Medications Acetaminophen (Tylenol) 500 mg NG TID PRN PRN Reason: pain Stop: 05/15/19 09:53 Amlodipine Besylate (Norvasc) 10 mg PO QAM GINO Stop: 05/15/19 08:59 Last Admin: 04/15/19 08:51 Dose: 10 mg Documented by: Bisacodyl (Dulcolax) 10 mg MI DAILY PRN PRN Reason: Constipation Stop: 05/06/19 16:30 Dextrose (Dextrose 50%) 25 - 50 ml IV UD PRN; Protocol PRN Reason: Hypoglycemia Protocol Stop: 05/06/19 18:29 Last Admin: 04/07/19 14:48 Dose: 25 ml Documented by: Enteral Nutritional Formula (Impact 1.0 Himanshu) 1,000 ml OG .CONTINUOUS GINO; Protocol Stop: 05/08/19 11:59 Last Admin: 04/15/19 01:35 Dose: 1,000 ml Documented by: Glucagon (Glucagen) 1 mg IM UD PRN; Protocol PRN Reason: Hypoglycemia Protocol Stop: 05/06/19 18:29 Glucose (Glucose 40%) 15 - 30 gm PO UD PRN; Protocol PRN Reason: Hypoglycemia Protocol Stop: 05/06/19 18:29 Glucose (Dex4 Glucose) 4 - 8 tabs PO UD PRN; Protocol PRN Reason: Hypoglycemia Protocol Stop: 05/06/19 18:29 Heparin Sodium (Beef Lung) (Heparin Sod 10 Unit/Ml Flush) 5 ml FLUSH PRN PRN PRN Reason: Flush Stop: 05/06/19 22:53 Heparin Sodium/Dextrose (Heparin Sodium/Dextrose) 25,000 units in 500 mls @ 24 mls/hr IV .[id number] GINO; Protocol Stop: 05/06/19 12:44 Last Titration: 04/15/19 07:19 Dose: 1,200 units/hr, 24 mls/hr Documented by: Furosemide 40 mg/ Syringe 4 mls @ 4 mls/min IV AMHS GINO Stop: 05/15/19 08:59 Last Admin: 04/15/19 09:20 Dose: 4 mls/min Documented by: Insulin Aspart (Novolog Flexpen) 0 units SC Q6 GINO Stop: 05/09/19 17:59 Last Admin: 04/15/19 06:33 Dose: Not Given Documented by: Lansoprazole (Prevacid) 30 mg NG DAILY GINO Stop: 05/14/19 10:59 Last Admin: 04/15/19 08:52 Dose: 30 mg Documented by: Levetiracetam (Keppra) 500 mg NG BID [facility] Stop: 05/15/19 20:59 Magnesium Hydroxide (Milk Of Magnesia) 30 ml PO Q12H PRN PRN Reason: Constipation Stop: 05/06/19 16:30 Metoprolol Tartrate (Lopressor) 75 mg PO QID [facility] Stop: 05/15/19 08:59 Last Admin: 04/15/19 08:54 Dose: 75 mg Documented by: Miscellaneous (Carbohydrates For Hypoglycemia) 15 - 30 gm PO UD PRN PRN Reason: Hypoglycemia Treatment Stop: 05/06/19 18:29 Miscellaneous (Icu Electrolyte Replacement Protocol) 1 ea N/A UD PRN PRN Reason: for e-lyte repletion Stop: 04/22/19 06:18 Ondansetron HCl (Zofran) 4 mg IV Q6H PRN PRN Reason: Nausea Stop: 05/06/19 16:30 Sterile Water (Tube Feeding Water Flush) 1 ea GT Q4H [facility] Stop: 05/10/19 09:59 Last Admin: 04/15/19 09:20 Dose: 1 ea Documented by: Resident Activity Tracking Resident Involvement: Resident Care Provided Care Provided: Adult Hospital Medicine (ICU)
--- NOTE | 2019-04-15 10:44 | Billing Data ---
Coding Level of Care Code Critical Care 1st 30-74 mins
[2019-04-15] MEDS: ACETAMINOPHEN SOLN 500 MG/15.62 ML UDP NG PRN ×2 (11:13→19:44)
[2019-04-15 11:39] LABS: Partial Thromboplastin Ratio 1.4; Partial Thromboplastin Time 37.4 Seconds (21.0-31.0)
[2019-04-15] MEDS ORDERED: HEPARIN IV BOLUS 5,000 UNITS in SYRINGE 0 ML IV ONE (12:34)
--- NOTE | 2019-04-15 12:43 | Palliative Care Progress Note ---
Date of Service April 15, 2019 Assessment & Plan (1) Goals of care, counseling/discussion: -Met with patient and she was awake today. Does seem to have some purposeful movement and is following some simple commands. -Patient experienced an episode overnight including bradycardia and a mucus plug. patient was suctioned and received Atropine and returned to her baseline prior to the acute event. -Lengthy conversation regarding patient at rounds today. Per previous discussions, patients family would like to continue with aggressive measures. -Patient continues to have a very difficult recovery, with a continued grim prognosis overall with the glioblastoma. -Patient now has a tracheostomy and will be receiving a G-tube at an outside facility. -Plan for patient to proceed to an [facility] and appears that patient is stable for discharge to said facility over the next few days, could even move out of ICU prior to discharge if the patient becomes stable enough. -Continued discussion with patients regarding necessity of discharge to [facility] prior to losing a window of opportunity for said transfer. 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 -For now, patient will remain a full code. Patients no longer interested in conservative approach and agreed that Palliative Care was not necessary at this time. -Will sign off for now; however, please contact us should the patient, her or any other family members wish to have additional conversations. (2) Cardiac arrest: (3) Cardiogenic shock: (4) Glioblastoma: Subjective patient awake, following some commands this morning. Patient at bedside today. See A/P for further details. Physical Exam Constitutional: + ill appearing and + frail appearing Respiratory: Auscultation: + diminished lung sounds trach in place # 8 shiley Cardiovascular: RRR, no murmur, no edema Gastrointestinal (Abdomen): normal bowel sounds, soft, nontender, no h epatosplenomegaly Skin: no rashes, warm and dry Results & Data Vital Signs (Past 12 Hours) Vital Signs Temp Pulse Resp BP Pulse Ox 04/15/19 10:00 111 H 29 H 157/95 H 96 04/15/19 09:00 121 H 27 H 165/76 H 96 04/15/19 08:00 119 H 33 H 151/84 H 95 04/15/19 07:00 120 H 25 H 179/92 H 95 04/15/19 05:00 112 H 28 H 154/87 H 97 04/15/19 04:30 111 H 33 H 185/90 H 96 04/15/19 04:00 37.2 C 103 H 28 H 153/85 H 96 04/15/19 03:31 97 H 21 129/70 97 04/15/19 03:00 95 H 22 102/57 L 97 04/15/19 02:30 94 H 22 128/61 99 04/15/19 02:00 97 H 24 101/56 L 99 04/15/19 01:31 99 H 29 H 134/66 98 04/15/19 01:00 99 H 25 H 127/58 L 97 PG Care Time/CCT Total # of Minutes Spent Total Time Spent with Patient: Total time spent is greater than 50% in coordination of care (as documented) at patient's floor/unit and/or counseling patient: 25 Time Spent Midlevel Total time spent 25 minutes with > 50% of that time spent assessing the patient, discussing goals of care with family.
[2019-04-15 12:49] LABS: Appearance Urine Clear (Clear); Bacteria Urine Automated 2+ (Negative); Bilirubin Urine Negative (Negative); Blood Urine 2+ (Negative); Cast Urine Automated 0 /lpf (0-5); Color Urine Yellow; Glucose Urine UA Negative (Negative); Ketones Urine Negative (Negative); Leukocyte Esterase Urine Trace (Negative); Nitrite Urine Negative (Negative); Protein Urine Negative (Negative); Specific Gravity Urine 1.011 (1.000-1.030); Urobilinogen Urine Negative (Negative); pH Urine 7.5 (4.5-7.5)
--- NOTE | 2019-04-15 15:00 | XRay Report ---
XR chest 1V portable CLINICAL HISTORY: 74 years-old Female presenting with POSSIBLE ASPIRATION, NEW CORESAFE PLACED. TECHNIQUE: Portable upright AP view of the chest was obtained. COMPARISON: 04/14/2019. FINDINGS: Tracheostomy tube remains in place. A weighted feeding catheter containing guidewire descends below t he diaphragm, terminating in the gastric body. Numerous overlying external leads noted. Cardiac silho uette mildly enlarged. Mild pulmonary vascular prominence. Peripheral right apical opacity as well as a left basilar opacity are similar to prior. No new focal opacity. A small left pleural effusion may be present. Osseous structures normal. Upper abdomen normal. IMPRESSION: 1. Weighted feeding catheter containing guidewire terminating in the body the stomach; consider adva ncement for postpyloric positioning. 2. Stable infiltrates at the right apex and left lung base. 3. Stable left pleural effusion. 4. Stable volume overload with mild cardiomegaly. No jannie pulmonary edema. Electronically signed by: Santiago Granger M.D. 04/15/2019 2:59 PM
[2019-04-15] MEDS ORDERED: HydrALAZINE HCL 20 MG/ML VIAL IV STA (15:01)
[2019-04-15 15:24] LABS: iSTAT Allen Test Pass; iSTAT Arterial Blood Gas HCO3 36 meg/L (19-24); iSTAT Arterial Blood Gas pCO2 67 mmHg (35-46); iSTAT Arterial Blood Gas pH 7.34 (7.35-7.45); iSTAT Arterial Blood Gas pO2 90 mmHg (80-95); iSTAT Carbon Dioxide 38 mEq/l (24-31); iSTAT Site R Radial
--- NOTE | 2019-04-15 16:01 | CT Scan Report ---
HEAD CT NONCONTRAST CT DOSE: 1765.59 mGycm HISTORY: Acute hypoxia, R/O extension of SDH TECHNIQUE: Multiaxial CT images of the head were performed without the use of intravenous contrast. A utomated exposure control was utilized for this study. A dose lowering technique was utilized adheri ng to the principles of ALARA. Comparison: Head CT 04/13/2019. Findings: Small subdural collection adjacent to the superior anterior right cerebral convexity has im proved. This demonstrates decreased density consistent with expected evolution of the subdural hemato ma. Postoperative changes from right calvarial craniotomy redemonstrated. 5.5 cm heterogeneous area w ithin the right cerebral hemisphere with peripheral increased attenuation suggestive of resection cav ity with blood products is unchanged. The pneumocephalus has resolved. A small fluid collection adjac ent to the craniotomy site remains stable. There is unchanged leftward midline shift of 3-4 mm. Sugge stion of background chronic microvascular ischemic disease. Cerebral vascular calcifications noted. N o hydrocephalus or acute territorial infarct. No acute calvarial fracture. Mastoid air cells and paranasal sinuses are clear. The soft tissues and orbits are unremarkable. IMPRESSION: 1. Postoperative changes from right calvarial craniotomy with unchanged 5.5 cm heterogeneous area of the right cerebral hemisphere with areas of peripheral increased attenuation suggestive of resection cavity with blood products. There is unchanged mild associated leftward midline shift. 2. Interval improvement in the small subdural collection/hematoma adjacent to the superior anterior r ight frontal lobe. Electronically signed by: Gee Goel M.D. 04/15/2019 4:00 PM
--- NOTE | 2019-04-15 16:38 | Billing Data ---
Coding Level of Care Code 94915 Subseq Hosp Care Lvl 2
[2019-04-15] MEDS ORDERED: fentaNYL citrate 100 MCG/2 ML VIAL ONE (17:04)
--- NOTE | 2019-04-15 17:05 | XRay Report ---
XR chest 1V portable CLINICAL HISTORY: pna? Pneumonia COMPARISON STUDY: 04/15/2019 FINDINGS: Unchanged parenchymal infiltrate right pulmonary apex. Slight improvement in aeration left lung base. Lungs otherwise appear clear. IMPRESSION: 1. Slight improvement infiltrate left base. 2. Unchanged infiltrate right apex. The above report was generated using voice recognition software. It may contain grammatical, syntax or spelling errors. Electronically signed by: Lamont Connors M.D. 04/15/2019 5:04 PM
[2019-04-15] MEDS: HEPARIN SODIUM/DEXTROSE 25,000 UNITS/500 ML BAG IV SCH (17:09)
[2019-04-15] MEDS ORDERED: fentaNYL citrate 100 MCG/2 ML VIAL IV ONE (17:13)
--- NOTE | 2019-04-15 17:25 | Consultation Report ---
DATE OF CONSULTATION: 04/15/2019 GASTROINTESTINAL CONSULT NOTE REASON FOR CONSULTATION: Inability to eat and possible PEG tube. HISTORY OF PRESENT ILLNESS: The patient is a 74-year-old who had a 5.7 cm right frontal glioblastoma resected at [facility] on 03/17. She was able to be discharged from the hospital and went to rehab with the intent of getting radiation and chemo. She presented to [facility] on 04/06 with a massive right pulmonary embolism. Because of her recent surgery, she is not a candidate for TPA and was placed on IV heparin. She arrested 4 times in the Emergency Room and was resuscitated from pulseless electrical activity. She did suffer some anoxic brain injury and has had some cardiovascular instability since then. On 04/11, she had a tracheostomy placed by Dr. Lang and is currently on mechanical ventilation. She has a nasogastric Corpak feeding tube in place from which she is receiving her nutrition. Her family is requesting full resuscitation status for the patient and have inquired about a feeding tube as the eventual goal is to transfer to a long-term care facility. PAST MEDICAL HISTORY: The patient has a history of hypertension. She had a tonsillectomy and a craniotomy at [facility]. MEDICATIONS: Per list. ALLERGIES: None. FAMILY HISTORY: Mother of a stroke. Father of an ND. She had a brother with prostate cancer and another brother just of a myocardial infarction. Other sister of colitis. She has 2 sons and a daughter that are healthy. SOCIAL HISTORY: The patient is , lives with her . 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 Does not smoke, does not use alcohol. REVIEW OF SYSTEMS: Unobtainable as the patient is not able to speak due to tracheostomy. PHYSICAL EXAMINATION: GENERAL: The patient is lying in bed with a nasogastric tube in, with a tracheostomy on a ventilator. She does open her eyes, does track a little bit. I did talk to her . ABDOMEN: There are no scars. Abdomen is relatively soft and nontender. IMPRESSION AND PLAN: The patient has multisystem organ disease with a brain tumor, massive pulmonary embolism, cardiovascular instability. She is having some mucus plugging and runs of tachycardia. She is currently on heparin for her pulmonary embolism, which is a relative contraindication to placement of a gastrostomy tube. Currently, I would recommend continuing the nasogastric feeding tube through the Corpak. This can be safely done for anywhere from 2-6 weeks. Once the patient gets through her acute critical illness and is off heparin, I think we can readdress whether she would be a candidate for gastrostomy tube at that point in time. We will follow the patient during her hospitalization.
[2019-04-15 17:40] LABS: iSTAT Allen Test Pass; iSTAT Arterial Blood Gas HCO3 33 meg/L (19-24); iSTAT Arterial Blood Gas pCO2 40 mmHg (35-46); iSTAT Arterial Blood Gas pH 7.53 (7.35-7.45); iSTAT Arterial Blood Gas pO2 67 mmHg (80-95); iSTAT Carbon Dioxide 34 mEq/l (24-31); iSTAT Site R Radial
[2019-04-15 19:25] LABS: Partial Thromboplastin Ratio 3.9
[2019-04-16] MEDS: FEEDING WATER FLUSH GT SCH ×6 (02:08→21:56)
[2019-04-16 02:35] LABS: Partial Thromboplastin Ratio 2.6
[2019-04-16 02:46] LABS: Partial Thromboplastin Time 71.6 Seconds (21.0-31.0)
[2019-04-16 05:19] LABS: BUN Creatinine Ratio 40.6 (10-20); Calcium 8.1 mg/dl (8.5-10.1); Creatinine Clr Calc Pharmacy 32.8 ml/min; Est GFR (African American) 41.4; Est GFR (Non-African American) 35.7; Phosphorus 4.1 mg/dl (2.5-4.9)
[2019-04-16] MEDS: INSULIN ASPART 100 UNITS/ML 3 ML PEN SC SCH ×3 (05:49→18:31)
[2019-04-16 06:43] LABS: Magnesium 1.7 mg/dl (1.8-2.4); Potassium 3.3 mmol/L (3.5-5.1)
[2019-04-16] MEDS ORDERED: POTASSIUM CHLORIDE 20 MEQ/15 ML UDC PO STA (07:17)
--- NOTE | 2019-04-16 07:47 | Hospitalist Progress Note ---
Date of Service April 16, 2019 Assessment & Plan (1) Elevated procalcitonin: Elevated procal without fevers over past 24 hours. Hemodynamically stable overnight Was weaned off ventilator Sputum culture positive for gram negative bacilli Urine culture positive >100,000 CFU Gram negative bacilli with ID and sensitivities to follow Patient was started on Zosyn this afternoon which will provide dual coverage Concerns for developing pneumonia, ordered CT Chest noncon to look at lung parenchyma to gauge pneumonia vs. pulmonary fluid. ICU did reorder Procal which is pending (2) Cardiogenic shock: Secondary to cardiac arrest in setting of severe pulmonary embolism Signs of multi-organ dysfunction Continue care per ICU team, trach in place, feeding tube in place, was noted to not be candidate for gtube per GI from weekend hospital resident, however, will reach out to Dr. Crockett to evaluate patient for gtube Digoxin added, check Digoxin level Sunday given renal function AKInephrology following, appreciate recommendations Transaminitis secondary to shock liver (3) Venous thromboembolism: Continue IV heparin (4) Gram-positive bacteremia: Intermittent fevers, may be neurogenic May represent contamination was previously treated with gram-positive bacteremiacovered for Peptostreptococcus per ICU with penicillin G Infectious disease consult ordered by ICU team, appreciate recommendations (5) Pulmonary embolism: - not a candidate for TPA on presentation as recent brain surgery for glioblastoma - currently treating with heparin - continuous pulse ox (6) Cardiac arrest: In setting of massive PE (7) Glioblastoma: Status post craniotomy 03/13/2019no further chemotherapy or interventions at this time Neurology following, appreciate recommendationsstable anoxic encephalopathy, continue Keppra 500 mg every 12 hours Subdural hematoma, stable on repeat head CT (8) Discharge planning issues: Per case management, patient is believed to be accepted to [facility] and should be able to get timely approval. solar energy installation manager spoke to spouse who was requesting patient stay at our facility for several more weeks. We spoke with business case analyst today that we would like patient to go to [facility] as well, but since worsening WBC today and concern for pnuemonia would want to investigate that and could go within the next couple of days. Would be benefit for patient to go to [facility] as soon as possible for best road to recovery if goal is to return home. Spouse not at bedside today, but reiterated this to oldest son Kj. Supervising Physician Co-Signing Physician Notes I personally examined the patient and verified all jimenez points of history and exam, discussed case, and agree with decision making with Dr Jung. answers yes/no, notes feeling a little better. no significant sob. updated family to the best of my ability. ICU input appreciated. vitals noted nad breathing unlabored no rashes no pallor or icterus. makes eye contact, interacts/nods appropriately massive PE/respiratory failure - primary issues improving. concern on infection given rising wbc - sputum and urine both growing gram negatives, given need to be back on vent some, given steadily rising WBC - quite resaonable to treat. CT chest to delineate lung parenchyma (may help w duration for abx if all urine vs lung, may help w prognostic vigiliance for following for mucous plugging, may help w ongoing diuretics or not if no pulmonary edema). otherwise as above Subjective Yulissa was on mecahnical vent this AM then was able to be weaned off to supplemental oxygen to trach. She is able to nod yes and no. She nods no to pain and nods no when asked if she felt worsening dyspnea. Physical Exam Constitutional: WD/WN, vitals as above Eyes: + anicteric sclerae; no conjunctival abnormality Neck: trach collar present Respiratory: normal respiratory effort, lungs clear to auscultation Auscultation: no wheezes Cardiovascular: Rate/Rhythm: regular rhythm and + tachycardic Extremities: + edema Gastrointestinal (Abdomen): Inspection/Auscultation: normal bowel sounds Percussion/Palpation: abdomen soft Skin: no rashes, warm and dry Neurologic: Left sided hemiparesis; sensation intact. Moves right upper extremity and lower extremity. Results & Data Vital Signs (Past 12 Hours) Vital Signs Temp Pulse Pulse Resp BP Pulse Ox 04/16/19 06:00 95 H 18 139/61 100 04/16/19 05:19 88 18 100 04/16/19 04:00 37.2 C 97 H 18 113/50 L 100 04/16/19 02:14 107 H 20 98 04/16/19 02:00 93 H 21 118/54 L 98 04/16/19 00:00 37.4 C 74 18 98/47 L 99 04/15/19 23:11 101 H 19 98 04/15/19 22:00 99 H 21 95/42 L 99 04/15/19 21:15 88 25 H 98 04/15/19 20:00 37.1 C 109 H 28 H 111/59 L 98 Laboratory Results Laboratory Results - last 24 hr 04/15/19 04/15/19 04/15/19 17:25 17:33 18:50 WBC RBC Hgb Hct MCV MCH MCHC RDW Std Deviation RDW Coeff of Anil Plt Count MPV Immature Gran % (Auto) Neut % (Auto) Lymph % (Auto) Hale % (Auto) Eos % (Auto) Baso % (Auto) Immature Gran # (Auto) Neut # (Auto) Lymph # (Auto) Hale # (Auto) Eos # (Auto) Baso # (Auto) Absolute Nucleated RBC Nucleated RBC % (auto) Toxic Vacuolation Spherocytes APTT 107.0 H* PTT Ratio 3.9 Sample Site R Radial POC pH 7.53 H* POC pCO2 40 POC pO2 67 L POC HCO3 33 H POC Total CO2 34 H POC Base Excess 10.0 H POC ABG O2 Sat 95.0 Rusty Test Pass Sodium Potassium Chloride Carbon Dioxide Anion Gap BUN Creatinine Est Cr Clr Drug Dosing Est GFR ( Amer) Est GFR (Non-Af Amer) BUN/Creatinine Ratio Glucose POC Glucose 160 H Calcium Phosphorus Magnesium Procalcitonin 04/15/19 04/16/19 04/16/19 23:30 01:54 04:14 WBC 23.35 H RBC 2.45 L Hgb 7.1 L Hct 22.0 L MCV 89.8 MCH 29.0 MCHC 32.3 RDW Std Deviation 53.5 H RDW Coeff of Anil 16.6 H Plt Count 328 MPV 10.3 Immature Gran % (Auto) 3.1 Neut % (Auto) 74.1 Lymph % (Auto) 12.5 Hale % (Auto) 9.9 Eos % (Auto) 0.2 Baso % (Auto) 0.2 Immature Gran # (Auto) 0.73 H Neut # (Auto) 17.28 H Lymph # (Auto) 2.93 Hale # (Auto) 2.31 H Eos # (Auto) 0.05 Baso # (Auto) 0.05 Absolute Nucleated RBC 0.05 H Nucleated RBC % (auto) 0.2 Toxic Vacuolation 1+ Spherocytes Occasional APTT 71.6 H* PTT Ratio 2.6 Sample Site POC pH POC pCO2 POC pO2 POC HCO3 POC Total CO2 POC Base Excess POC ABG O2 Sat Rusty Test Sodium Potassium Chloride Carbon Dioxide Anion Gap BUN Creatinine Est Cr Clr Drug Dosing Est GFR ( Amer) Est GFR (Non-Af Amer) BUN/Creatinine Ratio Glucose POC Glucose 171 H Calcium Phosphorus Magnesium Procalcitonin 04/16/19 04/16/19 04/16/19 04:15 05:44 06:00 WBC RBC Hgb Hct MCV MCH MCHC RDW Std Deviation RDW Coeff of Anil Plt Count MPV Immature Gran % (Auto) Neut % (Auto) Lymph % (Auto) Hale % (Auto) Eos % (Auto) Baso % (Auto) Immature Gran # (Auto) Neut # (Auto) Lymph # (Auto) Hale # (Auto) Eos # (Auto) Baso # (Auto) Absolute Nucleated RBC Nucleated RBC % (auto) Toxic Vacuolation Spherocytes APTT PTT Ratio Sample Site POC pH POC pCO2 POC pO2 POC HCO3 POC Total CO2 POC Base Excess POC ABG O2 Sat Rusty Test Sodium 139 Potassium 3.3 L D Chloride 99 Carbon Dioxide 34 H Anion Gap 6.0 BUN 58 H Creatinine 1.44 H Est Cr Clr Drug Dosing 32.8 Est GFR ( Amer) 41.4 Est GFR (Non-Af Amer) 35.7 BUN/Creatinine Ratio 40.6 H Glucose 109 H POC Glucose 141 H Calcium 8.1 L Phosphorus 4.1 D Magnesium 1.7 L Procalcitonin 04/16/19 04/16/19 04/16/19 09:22 11:59 16:09 WBC RBC Hgb Hct MCV MCH MCHC RDW Std Deviation RDW Coeff of Anil Plt Count MPV Immature Gran % (Auto) Neut % (Auto) Lymph % (Auto) Hale % (Auto) Eos % (Auto) Baso % (Auto) Immature Gran # (Auto) Neut # (Auto) Lymph # (Auto) Hale # (Auto) Eos # (Auto) Baso # (Auto) Absolute Nucleated RBC Nucleated RBC % (auto) Toxic Vacuolation Spherocytes APTT 82.2 H* PTT Ratio 3.0 Sample Site POC pH POC pCO2 POC pO2 POC HCO3 POC Total CO2 POC Base Excess POC ABG O2 Sat Rusty Test Sodium Potassium Chloride Carbon Dioxide Anion Gap BUN Creatinine Est Cr Clr Drug Dosing Est GFR ( Amer) Est GFR (Non-Af Amer) BUN/Creatinine Ratio Glucose POC Glucose 159 H Calcium Phosphorus Magnesium Procalcitonin Pending Medications Administered Acetaminophen (Tylenol) 500 mg NG TID PRN PRN Reason: pain Stop: 05/15/19 09:53 Last Admin: 04/15/19 19:44 Dose: 500 mg Documented by: [id number] Admin: 04/15/19 11:13 Dose: 500 mg Documented by: [id number] Amlodipine Besylate (Norvasc) 10 mg PO QAM [facility] Stop: 05/15/19 08:59 Last Admin: 04/16/19 08:19 Dose: 10 mg Documented by: [id number] Admin: 04/15/19 08:51 Dose: 10 mg Documented by: [id number] Dextrose (Dextrose 50%) 25 - 50 ml IV UD PRN; Protocol PRN Reason: Hypoglycemia Protocol Stop: 05/06/19 18:29 Last Admin: 04/07/19 14:48 Dose: 25 ml Documented by: [id number] Admin: 04/07/19 12:35 Dose: 25 ml Documented by: [id number] Enoxaparin Sodium (Lovenox) 70 mg SQ Q12H GINO Stop: 05/16/19 10:59 Last Admin: 04/16/19 12:03 Dose: 70 mg Documented by: [id number] Enteral Nutritional Formula (Impact 1.0 Himanshu) 1,000 ml OG .CONTINUOUS GINO; Protocol Stop: 05/08/19 11:59 Last Admin: 04/15/19 22:24 Dose: 1,000 ml Documented by: [id number] Admin: 04/15/19 01:35 Dose: 1,000 ml Documented by: [id number] Admin: 04/13/19 12:04 Dose: 1,000 ml Documented by: [id number] Admin: 04/13/19 04:58 Dose: 1,000 ml Documented by: [id number] Admin: 04/12/19 10:39 Dose: 1,000 ml Documented by: [id number] Admin: 04/11/19 10:44 Dose: 1,000 ml Documented by: [id number] Admin: 04/10/19 09:55 Dose: 1,000 ml Documented by: [id number] Admin: 04/08/19 13:05 Dose: 1,000 ml Documented by: [id number] Insulin Aspart (Novolog Flexpen) 0 units SC Q6 GINO Stop: 05/09/19 17:59 Last Admin: 04/16/19 12:04 Dose: 1 units Documented by: [id number] Cosigned by: [id number] Admin: 04/16/19 05:49 Dose: Not Given Documented by: [id number] Cosigned by: [id number] Admin: 04/15/19 23:49 Dose: 1 units Documented by: [id number] Cosigned by: [id number] Admin: 04/15/19 17:35 Dose: 1 units Documented by: [id number] Cosigned by: [id number] Admin: 04/15/19 12:40 Dose: Not Given Documented by: [id number] Cosigned by: [id number] Admin: 04/15/19 06:33 Dose: Not Given Documented by: [id number] Admin: 04/15/19 00:53 Dose: 2 units Documented by: [id number] Cosigned by: [id number] Admin: 04/14/19 19:17 Dose: 1 units Documented by: [id number] Cosigned by: [id number] Admin: 04/14/19 11:52 Dose: Not Given Documented by: [id number] Cosigned by: [id number] Admin: 04/14/19 06:10 Dose: Not Given Documented by: [id number] Cosigned by: [id number] Admin: 04/14/19 00:25 Dose: Not Given Documented by: [id number] Cosigned by: [id number] Admin: 04/13/19 17:35 Dose: 1 units Documented by: [id number] Cosigned by: [id number] Admin: 04/13/19 11:36 Dose: 1 units Documented by: [id number] Cosigned by: [id number] Admin: 04/13/19 06:15 Dose: 1 units Documented by: [id number] Cosigned by: [id number] Admin: 04/13/19 00:04 Dose: Not Given Documented by: [id number] Cosigned by: [id number] Admin: 04/12/19 17:56 Dose: Not Given Documented by: [id number] Cosigned by: [id number] Admin: 04/12/19 11:49 Dose: Not Given Documented by: [id number] Cosigned by: [id number] Admin: 04/12/19 06:17 Dose: Not Given Documented by: [id number] Cosigned by: [id number] Admin: 04/12/19 00:10 Dose: Not Given Documented by: [id number] Cosigned by: [id number] Admin: 04/11/19 19:09 Dose: Not Given Documented by: [id number] Cosigned by: [id number] Admin: 04/11/19 13:02 Dose: Not Given Documented by: [id number] Cosigned by: [id number] Admin: 04/11/19 06:20 Dose: Not Given Documented by: [id number] Cosigned by: [id number] Admin: 04/11/19 01:27 Dose: Not Given Documented by: [id number] Cosigned by: [id number] Admin: 04/10/19 18:35 Dose: Not Given Documented by: [id number] Cosigned by: [id number] Admin: 04/10/19 12:48 Dose: Not Given Documented by: [id number] Cosigned by: [id number] Admin: 04/10/19 05:35 Dose: Not Given Documented by: [id number] Cosigned by: [id number] Admin: 04/10/19 00:58 Dose: Not Given Documented by: [id number] Cosigned by: [id number] Admin: 04/09/19 17:53 Dose: Not Given Documented by: [id number] Cosigned by: [id number] Lansoprazole (Prevacid) 30 mg NG DAILY GINO Stop: 05/14/19 10:59 Last Admin: 04/16/19 08:19 Dose: 30 mg Documented by: [id number] Admin: 04/15/19 08:52 Dose: 30 mg Documented by: [id number] Admin: 04/14/19 10:45 Dose: 30 mg Documented by: [id number] Levetiracetam (Keppra) 500 mg NG BID GINO Stop: 05/15/19 20:59 Last Admin: 04/16/19 08:18 Dose: 500 mg Documented by: [id number] Admin: 04/15/19 19:45 Dose: 500 mg Documented by: [id number] Magnesium Oxide (Mag-Ox) 400 mg PO BID GINO Stop: 05/16/19 08:59 Last Admin: 04/16/19 08:17 Dose: 400 mg Documented by: [id number] Metoprolol Tartrate (Lopressor) 75 mg PO QID GINO Stop: 05/15/19 08:59 Last Admin: 04/16/19 14:11 Dose: 75 mg Documented by: [id number] Admin: 04/16/19 08:18 Dose: 75 mg Documented by: [id number] Admin: 04/15/19 19:45 Dose: 75 mg Documented by: [id number] Admin: 04/15/19 17:11 Dose: 75 mg Documented by: [id number] Admin: 04/15/19 15:14 Dose: Not Given Documented by: [id number] Admin: 04/15/19 08:54 Dose: 75 mg Documented by: [id number] Sterile Water (Tube Feeding Water Flush) 1 ea GT Q4H GINO Stop: 05/10/19 09:59 Last Admin: 04/16/19 14:11 Dose: 1 ea Documented by: [id number] Admin: 04/16/19 09:48 Dose: 1 ea Documented by: [id number] Admin: 04/16/19 05:50 Dose: 1 ea Documented by: [id number] Admin: 04/16/19 02:08 Dose: 1 ea Documented by: [id number] Admin: 04/15/19 20:55 Dose: 1 ea Documented by: [id number] Admin: 04/15/19 17:35 Dose: 1 ea Documented by: [id number] Admin: 04/15/19 13:54 Dose: Not Given Documented by: [id number] Admin: 04/15/19 09:20 Dose: 1 ea Documented by: [id number] Admin: 04/15/19 06:34 Dose: 1 ea Documented by: [id number] Admin: 04/15/19 02:37 Dose: 1 ea Documented by: [id number] Admin: 04/14/19 22:31 Dose: 1 ea Documented by: [id number] Admin: 04/14/19 19:42 Dose: 1 ea Documented by: [id number] Admin: 04/14/19 16:31 Dose: 1 ea Documented by: [id number] Admin: 04/14/19 10:07 Dose: 1 ea Documented by: [id number] Admin: 04/14/19 06:07 Dose: 1 ea Documented by: [id number] Admin: 04/14/19 01:52 Dose: 1 ea Documented by: [id number] Admin: 04/13/19 22:36 Dose: 1 ea Documented by: [id number] Admin: 04/13/19 17:35 Dose: 1 ea Documented by: [id number] Admin: 04/13/19 14:13 Dose: 1 ea Documented by: [id number] Admin: 04/13/19 10:16 Dose: 1 ea Documented by: [id number] Admin: 04/13/19 06:00 Dose: 1 ea Documented by: [id number] Admin: 04/13/19 02:05 Dose: 1 ea Documented by: [id number] Admin: 04/12/19 22:22 Dose: 1 ea Documented by: [id number] Admin: 04/12/19 17:56 Dose: 1 ea Documented by: [id number] Admin: 04/12/19 13:47 Dose: 1 ea Documented by: [id number] Admin: 04/12/19 09:49 Dose: 1 ea Documented by: [id number] Admin: 04/12/19 06:17 Dose: 1 ea Documented by: [id number] Admin: 04/12/19 02:15 Dose: 1 ea Documented by: [id number] Admin: 04/11/19 22:35 Dose: 1 ea Documented by: [id number] Admin: 04/11/19 15:56 Dose: Not Given Documented by: [id number] Admin: 04/11/19 15:21 Dose: Not Given Documented by: [id number] Admin: 04/11/19 10:44 Dose: 1 ea Documented by: [id number] Admin: 04/11/19 06:21 Dose: 1 ea Documented by: [id number] Admin: 04/11/19 03:07 Dose: 1 ea Documented by: [id number] Admin: 04/10/19 22:17 Dose: 1 ea Documented by: [id number] Admin: 04/10/19 18:34 Dose: 1 ea Documented by: [id number] Admin: 04/10/19 15:03 Dose: 1 ea Documented by: [id number] Admin: 04/10/19 10:33 Dose: 1 ea Documented by: [id number] Resident Activity Tracking Resident Involvement: Resident Care Provided Care Provided: Adult Hospital Medicine
[2019-04-16] MEDS: MAGNESIUM OXIDE 400 MG TAB PO SCH ×2 (08:17→20:50)
[2019-04-16] MEDS: FUROSEMIDE 40 MG in SYRINGE 0 ML IV SCH (08:17)
[2019-04-16] MEDS: METOPROLOL TARTRATE 25 MG TAB PO SCH ×4 (08:18→21:55)
[2019-04-16] MEDS: LANSOPRAZOLE 30 MG SOLTAB NG SCH (08:19)
[2019-04-16] MEDS: AMLODIPINE BESYLATE 5 MG TAB PO SCH (08:19)
[2019-04-16 10:02] LABS: Partial Thromboplastin Time 82.2 Seconds (21.0-31.0)
--- NOTE | 2019-04-16 10:02 | Critical Care Progress Note ---
Date of Service April 16, 2019 Assessment & Plan (1) Admitted to intensive care unit: Reason Critically Ill: 74-year-old female here with a PMHx significant for glioblastoma, HTN, cardiac arrest, and massive PE who presented with a feeling of unwellness and who was admitted for massive PE. She sustained 3x cardiac PEA arrests with ROSC prior to admission to the ICU. Goals of Care: Family meeting held at 10 AM 04/11/2019 with Kj (patient's son), Igor (brother), and Paty (brother). Palliative care, intensive care, and primary service team were present. Nephrology, neurology, ENT aware of case. Case was discussed at length. Neurologically she has some increased movement and wit hdrawal from noxious stimuli in the last 24 hours, but is having suspected neurogenic fever. She has had multiple blood cultures drawn and has stable oxygen saturation, lower suspicion for infectious etiology of her fever. Long- term she has both a grim prognosis and extremely difficult recovery. He has extensive pulmonary/cardiac burden, and her extensive illness will make rehab very difficult. Family expresses understanding of this, and reiterate that they understand but that they and Yulissa would want full measures and full code. Specifically they agree with proceeding with tracheostomy and PEG tube placement. They are aware that dialysis may be needed in the future. PEG tube placement to be performed at outside facility. Ultimately patient would benefit most from transfer to long-term care facility per specifically the one a [facility]. As this site is located at their main hospital, and has the advanced care facilities which are not present at our institution. Neuro - [facility] ICU: POSITIVE ETT in place (placed 04/06/2019) on vent Sedation: Versed gtt held. Analgesia: Fentanyl 25mg Q30M prn, last dose 04/09 7455. - CT-H shows increase density of postsurgical change without other acute findings. Stable on repeat. Neuro consulted, case discussed Patient opens eyes on command, squeezes fingers on right and blinks eyes once and twice on command this morning. Was able to communicate using blinks yes and no Glioblastoma Multiforme Stage IV s/p craniotomy with tumor resection 03/13/2019 [address] [place] [address] [place] [place]ana[place] [facility] [place] No further surgical or chemotherapeutic intervention at this time. - Will require further f/u with Neuro pending clinical course Cardiac - Cardiogenic shock 2/2 PE, improved - PE treatment as below No current pressor requirements. - TTE hyperdynamic EF >70% with RV dilation and wall motion dysfunction - Troponins down trended - Beta-maximo as below Concern for fluid overload -Furosemide 40 mg po daily Intermittently hypertensive -Improved with metoprolol 75 mg 4 times daily -Amlodipine 10 mg -DC digoxin Sinus Tachycardia Improving High risk for A. fib/flutter Anticoagulated for PEs Metoprolol 75 mg p.o. QID D/C digoxin Bradycardia Patient had an episode of bradycardia overnight of 04/14. Patient was administered atropine which resolved the bradycardia, suctioning was also performed and removed a mucous plug. Chest x-ray and ABG were obtained both were within normal limits. Thought to be secondary to mucous plugging and history of pulmonary embolism. Chest PT Monitor for signs and symptoms of recurrence Respiratory Acute PE with multiorgan system dysfunction - With extensive R PA thrombus - Anticoagulation as below - No TPA or thrombectomy/surgical intervention. Case was discussed with Zuri and Rasheed who feel she is not a surgical candidate, and TPA was contraindicated due to the patients recent neurosurgical procedure. - Tolerating trach with collar well, currently on vent - Left lung infiltrates, unchanged from prior, likely to represent possible pulmonary infarction given unchanging nature Mucous plugging Likely secondary to recumbent position, and motor/sensory symptoms secondary to neurological issues. Chest PT Elevate head of bed 30 degrees GI - GI PPX ordered Transaminitis 2/2 shock liver -AST/ALT downtrending since initial shock liver episode. Nutrition - IVFM: Discontinued Core safe, impact at 70 cc/h with 150 cc flushes every 4 hours - Discussed with GI, pt is not a candidate for PEG placement at this time, core safe placed for feeds. -defer to outside facility RENAL/LYTES - KATHY Creatinine continues to downtrend, 1.44 today Sodium within normal limits -a bit hypokalemic repleted today - Replace electrolytes as needed - - No concerns at this time. - Deemtri discontinued, pure wick in place ENDO - No history of T2DM, BSG 380 on admit - HgbA1C 5.6% - ICU hyperglycemic protocol - GSB ~100s HEME - - Hgb 7.1 today - CBC daily - No signs of bleeding on clinical exam Lovenox 70 mg q12h -Plan to transition to DOAC given efficacy in preventing cancer associated VTE ID - Intermittent fever, suspect 2/2 Neurogenic Fever, APAP limited by shock liver and transaminitis. Liver ultrasound reassuring. Given patient's increasing oxygen requirements, lack of significant improvement in vital signs, and elevated white blood cell count will start the patient on empiric Zosyn. -Monitor fever curve. -04/15 Urine and blood cultures are growing out gram-negative bacilli -f/u sensitivities -Start zosyn -F/u procal -Infectious disease consulted. -Blood culture x1 from 04/12+ for GPC in an anaerobic bottle. Could potentially be Peptostreptococcus with risk for deep space infection, although given multiple negative cultures and 1X growth in anaerobic bottle may also represent contamination. -Suspect fever and leukocytosis are related to PE, cardiac arrest and, recent brain surgery. If repeat cultures are negative would DC antibiotics and continue supportive care -dc'd ctx INTEGUMENTARY - No acute concerns. Assess daily for pressure ulcers/bedside ulcers given bedbound status and severe illness. LINES/IV ACCESS - PIVs intact. DVT PROPHYLAXIS - Anticoagulation as above Disposition: ICU?pursuing a long-term care facility Chadwick Delaney MD PGY 2, FCM This chart was completed utilizing [employer] voice recognition software. Grammatical errors, random word insertions, pronoun errors, and in complete sentences are an occasional consequence of the system. Any questions or concerns about the content, text, or information contained within the body of this dictation should be addressed directly to the physician for clarification. (2) Goals of care, counseling/discussion: (3) DNR (do not resuscitate) discussion: (4) Venous thromboembolism: (5) Subdural hematoma: (6) Anoxic encephalopathy: (7) Cardiac arrest: (8) Pulmonary embolism: (9) Cardiogenic shock: Supervising Physician Co-Signing Physician Notes Dr. Delaney was the resident-physician during care of patient. I separately evaluated patient for jimenez portions of the history and the exam. I was present during the critical portion of medical decision making, and I discussed the case with the resident. I generally agree with the findings and plan except for any additions/exceptions noted. Patient is improved today on the ventilator. I have switched her to pressure support and she appears comfortable. Subsequent to this she has been weaned to trach collar 30% FiO2. We will continue trach collar until the evening time and then switch her back to the ventilator. She does have significant secretions from around the trach it is growing gram-negative rods from sputum culture and also from urine culture. We will start Zosyn. Interestingly, her procalcitonin has been trending down. Will obtain a procalcitonin today. Her heart rate is better controlled today. Her blood pressure is also better controlled. Her hemoglobin is slowly trending downwards likely related to frequent blood draws. We will keep an eye on this. She is on Protonix daily. We have switched her from a heparin drip to Lovenox twice daily for her pulmonary embolism. We did a CT had yesterday due to altered mental status which demonstrates continued improvement of the subdural hematoma and unchanged findings of the resection of the glioblastoma. I have personally spent 35 minutes of critical care time in the direct management of this patient. This is a life/limb threatening event. This includes time spent evaluating patient, direct bedside care, chart review, placing orders, interpretation of diagnostic studies, discussion with consultants, patient, and/or family members regarding treatment decisions, as well as other required patient management activities. This time is exclusive of all separately billable procedures, and teaching time and separate from and in addition to any other critical care service time. Subjective Patient laying in bed intubated in no acute distress this morning. Patient responding and communicating using eye blinks. Reports no acute issues. Still struggling with social issues regarding transfer to long-term care facility. Physical Exam Physical Exam: General: Trach in place on vent. More alert today. j luis neglect on the left HEENT: Normocephalic. Pupils responsive to light and equal. Nonicteric. Pulm: Breathing through tracheostomy without vent. Cardiac: Tachycardic, regular rate and rhythm without murmurs rubs or gallops. Radial pulses intact and symmetrical. Abdominal: Nontender, nondistended, soft. BS present. Extremity: Opens eyes to tactile stimulation of right arm, right foot. Is able to squeeze right hand, not able to squeeze left, does not respond or withdraw to stimulation on the left hand or foot. Distal limbs puffy, edema of the hands and feet present bilaterally. Extremities warm, moist. Results & Data Vital Signs (Past 12 Hours) Vital Signs Temp Pulse Pulse Resp BP Pulse Ox 04/16/19 08:03 84 21 96 04/16/19 06:00 95 H 18 139/61 100 04/16/19 05:19 88 18 100 04/16/19 04:00 37.2 C 97 H 18 113/50 L 100 04/16/19 02:14 107 H 20 98 04/16/19 02:00 93 H 21 118/54 L 98 04/16/19 00:00 37.4 C 74 18 98/47 L 99 04/15/19 23:11 101 H 19 98 04/15/19 22:00 99 H 21 95/42 L 99 Laboratory Results 04/16/19 04/16/19 04/16/19 Range/Units 09:22 06:00 05:44 APTT Pending (21.0-31.0) Seconds PTT Ratio Pending Sample Site POC pH (7.35-7.45) POC pCO2 (35-46) mmHg POC pO2 (80-95) mmHg POC HCO3 (19-24) carlin/L POC Total CO2 (24-31) mEq/l POC Base Excess (-9-1.8) carlin/L POC ABG O2 Sat (90-95) % Rusty Test Sodium (136-145) mmol/L Potassium 3.3 L D (3.5-5.1) mmol/L Chloride (98-107) mmol/L Carbon Dioxide (21-32) mmol/L Anion Gap (3-11) BUN (7-18) mg/dl Creatinine (0.6-1.2) mg/dl Est Cr Clr Drug Dosing ml/min Est GFR ( Amer) Est GFR (Non-Af Amer) BUN/Creatinine Ratio (10-20) Glucose (70-99) mg/dl POC Glucose 141 H (70-99) Calcium (8.5-10.1) mg/dl Phosphorus (2.5-4.9) mg/dl Magnesium 1.7 L (1.8-2.4) mg/dl Urine Color Urine Appearance (Clear) Urine pH (4.5-7.5) Ur Specific [place] (1.000-1.030) Urine Protein (Negative) Urine Glucose (UA) (Negative) Urine Ketones (Negative) Urine Blood (Negative) Urine Nitrite (Negative) Urine Bilirubin (Negative) Urine Urobilinogen (Negative) Ur Leukocyte Esterase (Negative) Urine WBC (Auto) (0-5) /hpf Urine RBC (Auto) (0-4) /hpf U Hyaline Cast (Auto) (0-5) /lpf U Epithel Cells (Auto) (0-5) /lpf Urine Bacteria (Auto) (Negative) 04/16/19 04/16/19 04/15/19 Range/Units 04:15 01:54 23:30 APTT 71.6 H* (21.0-31.0) Seconds PTT Ratio 2.6 Sample Site POC pH (7.35-7.45) POC pCO2 (35-46) mmHg POC pO2 (80-95) mmHg POC HCO3 (19-24) carlin/L POC Total CO2 (24-31) mEq/l POC Base Excess (-9-1.8) carlin/L POC ABG O2 Sat (90-95) % Rusty Test Sodium 139 (136-145) mmol/L Potassium (3.5-5.1) mmol/L Chloride 99 (98-107) mmol/L Carbon Dioxide 34 H (21-32) mmol/L Anion Gap 6.0 (3-11) BUN 58 H (7-18) mg/dl Creatinine 1.44 H (0.6-1.2) mg/dl Est Cr Clr Drug Dosing 32.8 ml/min Est GFR ( Amer) 41.4 Est GFR (Non-Af Amer) 35.7 BUN/Creatinine Ratio 40.6 H (10-20) Glucose 109 H (70-99) mg/dl POC Glucose 171 H (70-99) Calcium 8.1 L (8.5-10.1) mg/dl Phosphorus 4.1 D (2.5-4.9) mg/dl Magnesium (1.8-2.4) mg/dl Urine Color Urine Appearance (Clear) Urine pH (4.5-7.5) Ur Specific [place] (1.000-1.030) Urine Protein (Negative) Urine Glucose (UA) (Negative) Urine Ketones (Negative) Urine Blood (Negative) Urine Nitrite (Negative) Urine Bilirubin (Negative) Urine Urobilinogen (Negative) Ur Leukocyte Esterase (Negative) Urine WBC (Auto) (0-5) /hpf Urine RBC (Auto) (0-4) /hpf U Hyaline Cast (Auto) (0-5) /lpf U Epithel Cells (Auto) (0-5) /lpf Urine Bacteria (Auto) (Negative) 04/15/19 04/15/19 04/15/19 Range/Units 18:50 17:33 17:25 APTT 107.0 H* (21.0-31.0) Seconds PTT Ratio 3.9 Sample Site R Radial POC pH 7.53 H* (7.35-7.45) POC pCO2 40 (35-46) mmHg POC pO2 67 L (80-95) mmHg POC HCO3 33 H (19-24) carlin/L POC Total CO2 34 H (24-31) mEq/l POC Base Excess 10.0 H (-9-1.8) carlin/L POC ABG O2 Sat 95.0 (90-95) % Rusty Test Pass Sodium (136-145) mmol/L Potassium (3.5-5.1) mmol/L Chloride (98-107) mmol/L Carbon Dioxide (21-32) mmol/L Anion Gap (3-11) BUN (7-18) mg/dl Creatinine (0.6-1.2) mg/dl Est Cr Clr Drug Dosing ml/min Est GFR ( Amer) Est GFR (Non-Af Amer) BUN/Creatinine Ratio (10-20) Glucose (70-99) mg/dl POC Glucose 160 H (70-99) Calcium (8.5-10.1) mg/dl Phosphorus (2.5-4.9) mg/dl Magnesium (1.8-2.4) mg/dl Urine Color Urine Appearance (Clear) Urine pH (4.5-7.5) Ur Specific [place] (1.000-1.030) Urine Protein (Negative) Urine Glucose (UA) (Negative) Urine Ketones (Negative) Urine Blood (Negative) Urine Nitrite (Negative) Urine Bilirubin (Negative) Urine Urobilinogen (Negative) Ur Leukocyte Esterase (Negative) Urine WBC (Auto) (0-5) /hpf Urine RBC (Auto) (0-4) /hpf U Hyaline Cast (Auto) (0-5) /lpf U Epithel Cells (Auto) (0-5) /lpf Urine Bacteria (Auto) (Negative) 04/15/19 04/15/19 04/15/19 Range/Units 15:11 12:37 11:10 APTT 37.4 H (21.0-31.0) Seconds PTT Ratio 1.4 Sample Site R Radial POC pH 7.34 L (7.35-7.45) POC pCO2 67 H (35-46) mmHg POC pO2 90 (80-95) mmHg POC HCO3 36 H (19-24) carlin/L POC Total CO2 38 H (24-31) mEq/l POC Base Excess 10.0 H (-9-1.8) carlin/L POC ABG O2 Sat 96.0 H (90-95) % Rusty Test Pass Sodium (136-145) mmol/L Potassium (3.5-5.1) mmol/L Chloride (98-107) mmol/L Carbon Dioxide (21-32) mmol/L Anion Gap (3-11) BUN (7-18) mg/dl Creatinine (0.6-1.2) mg/dl Est Cr Clr Drug Dosing ml/min Est GFR ( Amer) Est GFR (Non-Af Amer) BUN/Creatinine Ratio (10-20) Glucose (70-99) mg/dl POC Glucose 140 H (70-99) Calcium (8.5-10.1) mg/dl Phosphorus (2.5-4.9) mg/dl Magnesium (1.8-2.4) mg/dl Urine Color Urine Appearance (Clear) Urine pH (4.5-7.5) Ur Specific [place] (1.000-1.030) Urine Protein (Negative) Urine Glucose (UA) (Negative) Urine Ketones (Negative) Urine Blood (Negative) Urine Nitrite (Negative) Urine Bilirubin (Negative) Urine Urobilinogen (Negative) Ur Leukocyte Esterase (Negative) Urine WBC (Auto) (0-5) /hpf Urine RBC (Auto) (0-4) /hpf U Hyaline Cast (Auto) (0-5) /lpf U Epithel Cells (Auto) (0-5) /lpf Urine Bacteria (Auto) (Negative) 04/15/19 Range/Units 11:00 APTT (21.0-31.0) Seconds PTT Ratio Sample Site POC pH (7.35-7.45) POC pCO2 (35-46) mmHg POC pO2 (80-95) mmHg POC HCO3 (19-24) carlin/L POC Total CO2 (24-31) mEq/l POC Base Excess (-9-1.8) carlin/L POC ABG O2 Sat (90-95) % Rusty Test Sodium (136-145) mmol/L Potassium (3.5-5.1) mmol/L Chloride (98-107) mmol/L Carbon Dioxide (21-32) mmol/L Anion Gap (3-11) BUN (7-18) mg/dl Creatinine (0.6-1.2) mg/dl Est Cr Clr Drug Dosing ml/min Est GFR ( Amer) Est GFR (Non-Af Amer) BUN/Creatinine Ratio (10-20) Glucose (70-99) mg/dl POC Glucose (70-99) Calcium (8.5-10.1) mg/dl Phosphorus (2.5-4.9) mg/dl Magnesium (1.8-2.4) mg/dl Urine Color Yellow Urine Appearance Clear (Clear) Urine pH 7.5 (4.5-7.5) Ur Specific [place] 1.011 (1.000-1.030) Urine Protein Negative (Negative) Urine Glucose (UA) Negative (Negative) Urine Ketones Negative (Negative) Urine Blood 2+ H (Negative) Urine Nitrite Negative (Negative) Urine Bilirubin Negative (Negative) Urine Urobilinogen Negative (Negative) Ur Leukocyte Esterase Trace H (Negative) Urine WBC (Auto) 1-5 (0-5) /hpf Urine RBC (Auto) 10-30 H (0-4) /hpf U Hyaline Cast (Auto) 0 (0-5) /lpf U Epithel Cells (Auto) 10-20 H (0-5) /lpf Urine Bacteria (Auto) 2+ H (Negative) Medications Administered Current Inpatient Medications Acetaminophen (Tylenol) 500 mg NG TID PRN PRN Reason: pain Stop: 05/15/19 09:53 Last Admin: 04/15/19 19:44 Dose: 500 mg Documented by: Amlodipine Besylate (Norvasc) 10 mg PO QAM GINO Stop: 05/15/19 08:59 Last Admin: 04/16/19 08:19 Dose: 10 mg Documented by: Bisacodyl (Dulcolax) 10 mg WV DAILY PRN PRN Reason: Constipation Stop: 05/06/19 16:30 Dextrose (Dextrose 50%) 25 - 50 ml IV UD PRN; Protocol PRN Reason: Hypoglycemia Protocol Stop: 05/06/19 18:29 Last Admin: 04/07/19 14:48 Dose: 25 ml Documented by: Enteral Nutritional Formula (Impact 1.0 Himanshu) 1,000 ml OG .CONTINUOUS GINO; Protocol Stop: 05/08/19 11:59 Last Admin: 04/15/19 22:24 Dose: 1,000 ml Documented by: Glucagon (Glucagen) 1 mg IM UD PRN; Protocol PRN Reason: Hypoglycemia Protocol Stop: 05/06/19 18:29 Glucose (Glucose 40%) 15 - 30 gm PO UD PRN; Protocol PRN Reason: Hypoglycemia Protocol Stop: 05/06/19 18:29 Glucose (Dex4 Glucose) 4 - 8 tabs PO UD PRN; Protocol PRN Reason: Hypoglycemia Protocol Stop: 05/06/19 18:29 Heparin Sodium (Beef Lung) (Heparin Sod 10 Unit/Ml Flush) 5 ml FLUSH PRN PRN PRN Reason: Flush Stop: 05/06/19 22:53 Heparin Sodium/Dextrose (Heparin Sodium/Dextrose) 25,000 units in 500 mls @ 26 mls/hr IV .[id number] GINO; Protocol Stop: 05/06/19 12:44 Last Titration: 04/16/19 07:21 Dose: 1,300 units/hr, 26 mls/hr Documented by: Furosemide 40 mg/ Syringe 4 mls @ 4 mls/min IV AMHS [facility] Stop: 05/15/19 08:59 Last Admin: 04/16/19 08:17 Dose: 4 mls/min Documented by: Nicardipine HCl 25 mg/ Sodium (Chloride) 250 mls @ 50 mls/hr IV .Q5H [facility]; Protocol Stop: 05/15/19 20:14 Insulin Aspart (Novolog Flexpen) 0 units SC Q6 [facility] Stop: 05/09/19 17:59 Last Admin: 04/16/19 05:49 Dose: Not Given Documented by: Lansoprazole (Prevacid) 30 mg NG DAILY [facility] Stop: 05/14/19 10:59 Last Admin: 04/16/19 08:19 Dose: 30 mg Documented by: Levetiracetam (Keppra) 500 mg NG BID [facility] Stop: 05/15/19 20:59 Last Admin: 04/16/19 08:18 Dose: 500 mg Documented by: Magnesium Hydroxide (Milk Of Magnesia) 30 ml PO Q12H PRN PRN Reason: Constipation Stop: 05/06/19 16:30 Magnesium Oxide (Mag-Ox) 400 mg PO BID GINO Stop: 05/16/19 08:59 Last Admin: 04/16/19 08:17 Dose: 400 mg Documented by: Metoprolol Tartrate (Lopressor) 75 mg PO QID GINO Stop: 05/15/19 08:59 Last Admin: 04/16/19 08:18 Dose: 75 mg Documented by: Miscellaneous (Carbohydrates For Hypoglycemia) 15 - 30 gm PO UD PRN PRN Reason: Hypoglycemia Treatment Stop: 05/06/19 18:29 Miscellaneous (Icu Electrolyte Replacement Protocol) 1 ea N/A UD PRN PRN Reason: for e-lyte repletion Stop: 04/22/19 06:18 Ondansetron HCl (Zofran) 4 mg IV Q6H PRN PRN Reason: Nausea Stop: 05/06/19 16:30 Sterile Water (Tube Feeding Water Flush) 1 ea GT Q4H GINO Stop: 05/10/19 09:59 Last Admin: 04/16/19 09:48 Dose: 1 ea Documented by: Resident Activity Tracking Resident Involvement: Resident Care Provided Care Provided: Adult Hospital Medicine (ICU)
[2019-04-16] MEDS ORDERED: POTASSIUM CHLORIDE 20 MEQ/15 ML UDC NG ONE (11:00)
[2019-04-16] MEDS ORDERED: MAGNESIUM SULFATE / D5W 1 GM/100 ML BAG IV SCH (11:00)
[2019-04-16 11:18] LABS: Hemoglobin 7.1 g/dL (12.0-16.0); Mean Corpuscular Hgb Conc 32.3 g/dL (32-36); Mean Corpuscular Volume 89.8 fL (80-100); Mean Platelet Volume 10.3 fL (7.4-10.4); Neutrophils % (auto) 74.1 %; Platelet Count 328 K/uL (130-400); RDW Coefficient of Variation 16.6 % (11.5-14.5); RDW Standard Deviation 53.5 fL (36.4-46.3); Red Blood Count 2.45 M/uL (4.2-5.4); White Blood Count 23.35 K/uL (4.8-10.8)
[2019-04-16 11:19] LABS: Basophils # (auto) 0.05 K/uL (0-0.2); Basophils % (auto) 0.2 %; Eosinophils # (auto) 0.05 K/uL (0-0.5); Eosinophils % (auto) 0.2 %; Immature Granulocytes # (auto) 0.73 K/uL (0.00-0.02); Immature Granulocytes % (auto) 3.1 %; Lymphocytes # (auto) 2.93 K/uL (1.2-3.4); Lymphocytes % (auto) 12.5 %; Monocytes # (auto) 2.31 K/uL (0.11-0.59); Monocytes % (auto) 9.9 %; Neutrophils # (auto) 17.28 K/uL (1.4-6.5); Nucleated RBC # (auto) 0.05 K/uL (0-0); Nucleated RBC % (auto) 0.2 %
[2019-04-16 12:03] LABS: Spherocytes Occasional; Toxic Vacuolation 1+
[2019-04-16] MEDS: ENOXAPARIN 80 MG/0.8 ML SYR SQ SCH ×2 (12:03→23:43)
[2019-04-16] MEDS ORDERED: PIPERACILL/TAZOBAC CONSULT ACTIVE PRN (15:38)
--- NOTE | 2019-04-16 16:05 | Billing Data ---
Coding Level of Care Code Critical Care 1st 30-74 mins
[2019-04-16] MEDS ORDERED: PIPERACILLIN/TAZOBACTAM 4.5 GM in DEXTROSE 5% 100 ML IV STA (16:08)
--- NOTE | 2019-04-16 16:43 | Billing Data ---
Coding Level of Care Code 48685 Subseq Hosp Care Lvl 3
--- NOTE | 2019-04-16 18:30 | CT Scan Report ---
CT chest wo con CT DOSE: 390.44 mGy.cm HISTORY: worse hypoxia, WBC, ?infiltrate? TECHNIQUE: Multiaxial CT images of the chest were performed without contrast. A dose lowering techni que was utilized adhering to the principles of ALARA. COMPARISON: Chest CTA 04/06/2019. FINDINGS: Interval placement of a tracheostomy tube which appears in good position and is located wit hin the proximal trachea. The tip of the nasogastric tube is not included on this study but terminate s below the diaphragm. No pneumothorax. Small bilateral pleural effusions have progressed. No mediast inal or hilar lymphadenopathy. The heart is mildly enlarged. Normal caliber thoracic aorta. The visua lized liver and spleen are unremarkable. No suspicious lytic or blastic osseous lesions. The left low er lobe consolidation has slightly improved. Scattered peripheral patchy airspace opacities within th e left lung apex, right upper lobe, and right middle lobe are new from the prior study. These could r epresent pulmonary infarcts given the patient's history of pulmonary emboli. IMPRESSION: 1. Interval development of scattered peripheral patchy airspace opacities within the left lung apex, right upper lobe, right middle lobe. This favors pulmonary infarcts given the patient's history of pu lmonary emboli. A pneumonia could also have a similar appearance. 2. Small bilateral pleural effusions have progressed. 3. Satisfactory support line placement. Electronically signed by: Gee Goel M.D. 04/16/2019 6:29 PM
[2019-04-16] MEDS ORDERED: fentaNYL citrate 100 MCG/2 ML VIAL IV ONE (20:45)
[2019-04-16] MEDS ORDERED: fentaNYL citrate 100 MCG/2 ML VIAL ONE (20:46)
[2019-04-16] MEDS: PIPERACILLIN/TAZOBACTAM 3.375 GM in DEXTROSE 5% 100 ML IV SCH (21:57)
[2019-04-17] MEDS: INSULIN ASPART 100 UNITS/ML 3 ML PEN SC SCH ×4 (00:12→17:17)
[2019-04-17] MEDS: FEEDING WATER FLUSH GT SCH ×6 (02:03→22:33)
[2019-04-17 05:22] LABS: BUN Creatinine Ratio 43.2 (10-20); Calcium 7.9 mg/dl (8.5-10.1); Creatinine Clr Calc Pharmacy 35.9 ml/min; Est GFR (African American) 47.2; Est GFR (Non-African American) 40.8
[2019-04-17] MEDS: PIPERACILLIN/TAZOBACTAM 3.375 GM in DEXTROSE 5% 100 ML IV SCH ×3 (05:28→22:32)
[2019-04-17 06:23] LABS: Hematocrit (blood only) 21.1 % (37-47); Hemoglobin 6.8 g/dL (12.0-16.0); Mean Corpuscular Hemoglobin 28.7 pg (25-34); Mean Corpuscular Hgb Conc 32.2 g/dL (32-36); Mean Platelet Volume 9.3 fL (7.4-10.4); Nucleated RBC # (auto) 0.03 K/uL (0-0); Nucleated RBC % (auto) 0.1 %; Platelet Count 322 K/uL (130-400); RDW Coefficient of Variation 16.7 % (11.5-14.5); RDW Standard Deviation 52.4 fL (36.4-46.3); Red Blood Count 2.37 M/uL (4.2-5.4); White Blood Count 19.49 K/uL (4.8-10.8)
[2019-04-17 06:44] LABS: Basophils # (auto) 0.07 K/uL (0-0.2); Basophils % (auto) 0.4 %; Eosinophils # (auto) 0.13 K/uL (0-0.5); Eosinophils % (auto) 0.7 %; Immature Granulocytes # (auto) 0.54 K/uL (0.00-0.02); Immature Granulocytes % (auto) 2.8 %; Lymphocytes # (auto) 1.92 K/uL (1.2-3.4); Lymphocytes % (auto) 9.9 %; Monocytes % (auto) 10.3 %; Neutrophils # (auto) 14.83 K/uL (1.4-6.5); Neutrophils % (auto) 75.9 %; Schistocytes Occasional; Spherocytes Occasional
[2019-04-17 07:04] LABS: Magnesium 1.8 mg/dl (1.8-2.4); Potassium 3.8 mmol/L (3.5-5.1)
--- NOTE | 2019-04-17 07:53 | Critical Care Progress Note ---
Date of Service April 17, 2019 Assessment & Plan (1) Admitted to intensive care unit: Reason Critically Ill: 74-year-old female here with a PMHx significant for glioblastoma, HTN, cardiac arrest, and massive PE who presented with a feeling of unwellness and who was admitted for massive PE. She sustained 3x cardiac PEA arrests with ROSC prior to admission to the ICU. Goals of Care: Family meeting held at 10 AM 04/11/2019 with Kj (patient's son), Igor (brother), and Paty (brother). Palliative care, intensive care, and primary service team were present. Nephrology, neurology, ENT aware of case. Case was discussed at length. Neurologically she has some increased movement and w ithdrawal from noxious stimuli in the last 24 hours, but is having suspected neurogenic fever. She has had multiple blood cultures drawn and has stable oxygen saturation, lower suspicion for infectious etiology of her fever. Long- term she has both a grim prognosis and extremely difficult recovery. He has extensive pulmonary/cardiac burden, and her extensive illness will make rehab very difficult. Family expresses understanding of this, and reiterate that they understand but that they and Yulissa would want full measures and full code. Specifically they agree with proceeding with tracheostomy and PEG tube placement. They are aware that dialysis may be needed in the future. PEG tube placement to be performed at outside facility. Ultimately patient would benefit most from transfer to long-term [facility] As [facility] located [facility] main hospital, and has the advanced care facilities which are not present at our institution. Neuro - [facility] ICU: POSITIVE ETT in place (placed 04/06/2019) on vent Sedation: Versed gtt held. Analgesia: Fentanyl 25mg Q30M prn, last dose 04/09 0045. - CT-H shows increase density of postsurgical change without other acute findings. Stable on repeat. Neuro consulted, case discussed Patient opens eyes on command, squeezes fingers on right and blinks eyes once and twice on command this morning. Was able to communicate using blinks yes and no Glioblastoma Multiforme Stage IV s/p craniotomy with tumor resection 03/13/2019 [address] Dr. Manzanares [facility] [place] - No further surgical or chemotherapeutic intervention at this time. - Will require further f/u with Neuro pending clinical course Cardiac - Cardiogenic shock 2/2 PE, resolved - PE treatment as below No current pressor requirements. - TTE hyperdynamic EF >70% with RV dilation and wall motion dysfunction - Troponins down trended - Beta-maximo as below Concern for fluid overload -Furosemide 40 mg po daily Intermittently hypertensive has been normotensive last 24 hours -Improved with metoprolol 75 mg 4 times daily -Amlodipine 10 mg Sinus Tachycardia resolved High risk for A. fib/flutter Anticoagulated for PEs Metoprolol 75 mg p.o. QID Bradycardia Patient had an episode of bradycardia overnight of 04/14. Patient was administered atropine which resolved the bradycardia, suctioning was also performed and removed a mucous plug. Chest x-ray and ABG were obtained both were within normal limits. No recurrence since 04/14 Thought to be secondary to mucous plugging and history of pulmonary embolism. Chest PT Monitor for signs and symptoms of recurrence Respiratory Acute PE with multiorgan system dysfunction - With extensive R PA thrombus - Anticoagulation as below - No TPA or thrombectomy/surgical intervention. Case was discussed with Zuri and Rasheed who feel she is not a surgical candidate, and TPA was contraindicated due to the patients recent neurosurgical procedure. - Left lung infiltrates, unchanged from prior, likely to represent possible pulmonary infarction given unchanging nature -04/16 demonstrated interval development of scattered peripheral patchy airspace opacities within the left lung apex right upper lobe and right middle lobe. This favors pulmonary infarcts, however pneumonia could have a similar appearance. Small bilateral pleural effusions. -plan to d/c vent today Mucous plugging Likely secondary to recumbent position, and motor/sensory symptoms secondary to neurological issues. Chest PT Elevate head of bed 30 degrees GI - GI PPX ordered Transaminitis 2/2 shock liver -AST/ALT downtrending since initial shock liver episode. Nutrition - IVFM: Discontinued Core safe, impact at 70 cc/h with 150 cc flushes every 4 hours - Discussed with GI, pt is not a candidate for PEG placement at this time, core safe placed for feeds. -defer to outside facility RENAL/LYTES - KATHY Creatinine continues to downtrend, 1.29 today Sodium within normal limits - Replace electrolytes as needed - - No concerns at this time. - Mosquera discontinued, pure wick in place ENDO - No history of T2DM, BSG 380 on admit - HgbA1C 5.6% - ICU hyperglycemic protocol - GSB ~100s HEME - - Hgb 6.8 today -No signs of bleeding on clinical exam -Likely iatrogenic in the setting of anemia of chronic disease -Type and cross ordered plan to transfuse 1 unit of PRBCs - CBC daily Lovenox 70 mg q12h -Plan to transition to DOAC given efficacy in preventing cancer associated VTE ID - Intermittent fever, suspect 2/2 Neurogenic Fever vs infection, APAP limited by shock liver and transaminitis. Liver ultrasound reassuring. Given patient's increasing oxygen requirements, lack of significant improvement in vital signs, and elevated white blood cell count will start the patient on empiric Zosyn. She improved status post initiation of Zosyn, tachycardia resolving, normotensive, saturating 100% on the ventilator. -Monitor fever curve. -04/15 Urine and blood cultures are growing out gram-negative bacilli -Urine cx g neg bacilli -Sputum: Klebsiella pneumonia pansensitive -Pro-Himanshu trended up -0.6 -> 1.01 -Continue Zosyn for now narrow pending speciation of urine culture and sensitivities INTEGUMENTARY - No acute concerns. Assess daily for pressure ulcers/bedside ulcers given bedbound status and severe illness. LINES/IV ACCESS - PIVs intact. DVT PROPHYLAXIS - Anticoagulation as above Disposition: ICU?pursuing a long-term care facility Chadwick Delaney MD PGY 2, FCM This chart was completed utilizing [employer] voice recognition software. Grammatical errors, random word insertions, pronoun errors, and in complete sentences are an occasional consequence of the system. Any questions or concerns about the content, text, or information contained within the body of this dictation should be addressed directly to the physician for clarification. (2) Glioblastoma: (3) Hypertension: (4) Lactic acidosis: (5) DNR (do not resuscitate) discussion: (6) Subdural hematoma: (7) Deep venous thrombosis (DVT) of right peroneal vein: (8) Deep vein thrombosis (DVT) of popliteal vein of left lower extremity: (9) Pulmonary embolism: Supervising Physician Co-Signing Physician Notes Dr. Delaney was the resident-physician during care of patient. I separately evaluated patient for jimenez portions of the history and the exam. I was present during the critical portion of medical decision making, and I discussed the case with the resident. I generally agree with the findings and plan except for any additions/exceptions noted. Patient is stable today. She is on pressure control ventilation. We are switching her to trach collar today. We are getting continue with trach collar during the day and pressure support at night with a setting of 7/5. She does likely have tracheitis and is growing gram-negative rods from her sputum culture. She is also growing gram-negative rods from her urine culture. Continue Zosyn until this is fully speciated and sensitivities are available. We are continuing diuresis with p.o. Lasix at this time. Patient's mental status appears stable and she appears to understand and follow commands. She is able to move her right extremities but is flaccid on the left side. We are continuing Lovenox twice daily for her pulmonary embolism. She is anemic today with a hemoglobin of less than 7 and we will transfuse 1 unit of blood. She is hemodynamically stable. Continue tube feeds. Continue Keppra. Her prognosis overall is still poor. Subjective Patient laying in bed this morning in no acute distress. Patient reports doing well overnight, with no acute events. Patient reports overall feeling better today, denies pain. She communicated as heating blankets as she usually does 1 leg for yes to things for now. She is able to move her right hand and right foot, left-sided hemineglect. Her respiratory status continues to improve, hope to wean her from ventilator later today. All questions answered no acute concerns. Physical Exam Physical Exam: General: Trach in place on vent. More alert today. j luis neglect on the left HEENT: Normocephalic. Pupils responsive to light and equal. Nonicteric. Pulm: Breathing through tracheostomy on vent. course breath sound b/l. r worse than left Cardiac: Tachycardic, regular rate and rhythm without murmurs rubs or gallops. Radial pulses intact and symmetrical. Abdominal: Nontender, nondistended, soft. BS present. Extremity: Opens eyes to tactile stimulation of right arm, right foot. Is able to squeeze right hand, not able to squeeze left, does not respond or withdraw to stimulation on the left hand or foot. Distal limbs puffy, edema of the hands and feet present bilaterally. Extremities warm, moist. Results & Data Vital Signs (Past 12 Hours) Vital Signs Temp Pulse Resp BP Pulse Ox 04/17/19 06:05 90 139/53 L 99 04/17/19 06:00 90 100 04/17/19 05:33 91 H 18 100 04/17/19 05:06 85 145/67 H 100 04/17/19 05:00 86 100 04/17/19 04:05 78 104/50 L 100 04/17/19 04:00 80 100 04/17/19 03:05 92 H 141/62 H 100 04/17/19 03:04 89 18 99 04/17/19 03:00 108 H 100 04/17/19 02:05 89 139/69 96 04/17/19 02:00 76 100 04/17/19 01:06 83 99 04/17/19 01:05 83 128/56 L 99 04/17/19 01:00 85 100 04/17/19 00:06 71 100 04/17/19 00:05 82 129/52 L 99 04/17/19 00:00 37 C 82 100 04/16/19 23:24 90 21 99 04/16/19 23:05 80 126/62 99 04/16/19 23:00 88 99 04/16/19 22:54 93 H 20 99 04/16/19 22:06 90 99 04/16/19 22:05 87 127/61 99 04/16/19 22:00 85 99 04/16/19 21:47 85 138/55 L 99 04/16/19 21:05 76 90/43 L 98 04/16/19 21:00 79 99 04/16/19 20:41 92 H 26 H 99 04/16/19 20:05 93 H 131/56 L 87 L 04/16/19 20:00 37.1 C 84 90 Laboratory Results 04/17/19 04/17/19 04/17/19 Range/Units 06:01 06:01 06:01 WBC 19.49 H (4.8-10.8) K/uL RBC 2.37 L (4.2-5.4) M/uL Hgb 6.8 L* (12.0-16.0) g/dL Hct 21.1 L (37-47) % MCV 89.0 (80-100) fL MCH 28.7 (25-34) pg MCHC 32.2 (32-36) g/dL RDW Std Deviation 52.4 H (36.4-46.3) fL RDW Coeff of Anil 16.7 H (11.5-14.5) % Plt Count 322 (130-400) K/uL MPV 9.3 (7.4-10.4) fL Immature Gran % (Auto) 2.8 % Neut % (Auto) 75.9 % Lymph % (Auto) 9.9 % Becker % (Auto) 10.3 % Eos % (Auto) 0.7 % Baso % (Auto) 0.4 % Immature Gran # (Auto) 0.54 H (0.00-0.02) K/uL Neut # (Auto) 14.83 H (1.4-6.5) K/uL Lymph # (Auto) 1.92 (1.2-3.4) K/uL Becker # (Auto) 2.00 H (0.11-0.59) K/uL Eos # (Auto) 0.13 (0-0.5) K/uL Baso # (Auto) 0.07 (0-0.2) K/uL Absolute Nucleated RBC 0.03 H (0-0) K/uL Nucleated RBC % (auto) 0.1 % Toxic Vacuolation Spherocytes Occasional Schistocytes Occasional APTT (21.0-31.0) Seconds PTT Ratio Sodium (136-145) mmol/L Potassium 3.8 D (3.5-5.1) mmol/L Chloride (98-107) mmol/L Carbon Dioxide (21-32) mmol/L Anion Gap (3-11) BUN (7-18) mg/dl Creatinine (0.6-1.2) mg/dl Est Cr Clr Drug Dosing ml/min Est GFR ( Amer) Est GFR (Non-Af Amer) BUN/Creatinine Ratio (10-20) Glucose (70-99) mg/dl POC Glucose (70-99) Calcium (8.5-10.1) mg/dl Phosphorus (2.5-4.9) mg/dl Magnesium 1.8 (1.8-2.4) mg/dl Procalcitonin (0-0.5) ng/ml Blood Type O Negative Antibody Screen NEGATIVE 04/17/19 04/17/19 04/17/19 Range/Units 05:31 04:41 00:09 WBC (4.8-10.8) K/uL RBC (4.2-5.4) M/uL Hgb (12.0-16.0) g/dL Hct (37-47) % MCV (80-100) fL MCH (25-34) pg MCHC (32-36) g/dL RDW Std Deviation (36.4-46.3) fL RDW Coeff of Anil (11.5-14.5) % Plt Count (130-400) K/uL MPV (7.4-10.4) fL Immature Gran % (Auto) % Neut % (Auto) % Lymph % (Auto) % Becker % (Auto) % Eos % (Auto) % Baso % (Auto) % Immature Gran # (Auto) (0.00-0.02) K/uL Neut # (Auto) (1.4-6.5) K/uL Lymph # (Auto) (1.2-3.4) K/uL Becker # (Auto) (0.11-0.59) K/uL Eos # (Auto) (0-0.5) K/uL Baso # (Auto) (0-0.2) K/uL Absolute Nucleated RBC (0-0) K/uL Nucleated RBC % (auto) % Toxic Vacuolation Spherocytes Schistocytes APTT (21.0-31.0) Seconds PTT Ratio Sodium 139 (136-145) mmol/L Potassium (3.5-5.1) mmol/L Chloride 101 (98-107) mmol/L Carbon Dioxide 34 H (21-32) mmol/L Anion Gap 4.0 (3-11) BUN 56 H (7-18) mg/dl Creatinine 1.29 H (0.6-1.2) mg/dl Est Cr Clr Drug Dosing 35.9 ml/min Est GFR ( Amer) 47.2 Est GFR (Non-Af Amer) 40.8 BUN/Creatinine Ratio 43.2 H (10-20) Glucose 137 H (70-99) mg/dl POC Glucose 157 H 164 H (70-99) Calcium 7.9 L (8.5-10.1) mg/dl Phosphorus 3.0 D (2.5-4.9) mg/dl Magnesium (1.8-2.4) mg/dl Procalcitonin (0-0.5) ng/ml Blood Type Antibody Screen 12/11/19 12/11/19 12/11/19 Range/Units 18:28 16:09 11:59 WBC (4.8-10.8) K/uL RBC (4.2-5.4) M/uL Hgb (12.0-16.0) g/dL Hct (37-47) % MCV (80-100) fL MCH (25-34) pg MCHC (32-36) g/dL RDW Std Deviation (36.4-46.3) fL RDW Coeff of Anil (11.5-14.5) % Plt Count (130-400) K/uL MPV (7.4-10.4) fL Immature Gran % (Auto) % Neut % (Auto) % Lymph % (Auto) % Becker % (Auto) % Eos % (Auto) % Baso % (Auto) % Immature Gran # (Auto) (0.00-0.02) K/uL Neut # (Auto) (1.4-6.5) K/uL Lymph # (Auto) (1.2-3.4) K/uL Becker # (Auto) (0.11-0.59) K/uL Eos # (Auto) (0-0.5) K/uL Baso # (Auto) (0-0.2) K/uL Absolute Nucleated RBC (0-0) K/uL Nucleated RBC % (auto) % Toxic Vacuolation Spherocytes Schistocytes APTT (21.0-31.0) Seconds PTT Ratio Sodium (136-145) mmol/L Potassium (3.5-5.1) mmol/L Chloride (98-107) mmol/L Carbon Dioxide (21-32) mmol/L Anion Gap (3-11) BUN (7-18) mg/dl Creatinine (0.6-1.2) mg/dl Est Cr Clr Drug Dosing ml/min Est GFR ( Amer) Est GFR (Non-Af Amer) BUN/Creatinine Ratio (10-20) Glucose (70-99) mg/dl POC Glucose 116 H 159 H (70-99) Calcium (8.5-10.1) mg/dl Phosphorus (2.5-4.9) mg/dl Magnesium (1.8-2.4) mg/dl Procalcitonin 1.01 H (0-0.5) ng/ml Blood Type Antibody Screen 04/16/19 04/16/19 Range/Units 09:22 04:14 WBC 23.35 H (4.8-10.8) K/uL RBC 2.45 L (4.2-5.4) M/uL Hgb 7.1 L (12.0-16.0) g/dL Hct 22.0 L (37-47) % MCV 89.8 (80-100) fL MCH 29.0 (25-34) pg MCHC 32.3 (32-36) g/dL RDW Std Deviation 53.5 H (36.4-46.3) fL RDW Coeff of Anil 16.6 H (11.5-14.5) % Plt Count 328 (130-400) K/uL MPV 10.3 (7.4-10.4) fL Immature Gran % (Auto) 3.1 % Neut % (Auto) 74.1 % Lymph % (Auto) 12.5 % Becker % (Auto) 9.9 % Eos % (Auto) 0.2 % Baso % (Auto) 0.2 % Immature Gran # (Auto) 0.73 H (0.00-0.02) K/uL Neut # (Auto) 17.28 H (1.4-6.5) K/uL Lymph # (Auto) 2.93 (1.2-3.4) K/uL Becker # (Auto) 2.31 H (0.11-0.59) K/uL Eos # (Auto) 0.05 (0-0.5) K/uL Baso # (Auto) 0.05 (0-0.2) K/uL Absolute Nucleated RBC 0.05 H (0-0) K/uL Nucleated RBC % (auto) 0.2 % Toxic Vacuolation 1+ Spherocytes Occasional Schistocytes APTT 82.2 H* (21.0-31.0) Seconds PTT Ratio 3.0 Sodium (136-145) mmol/L Potassium (3.5-5.1) mmol/L Chloride (98-107) mmol/L Carbon Dioxide (21-32) mmol/L Anion Gap (3-11) BUN (7-18) mg/dl Creatinine (0.6-1.2) mg/dl Est Cr Clr Drug Dosing ml/min Est GFR ( Amer) Est GFR (Non-Af Amer) BUN/Creatinine Ratio (10-20) Glucose (70-99) mg/dl POC Glucose (70-99) Calcium (8.5-10.1) mg/dl Phosphorus (2.5-4.9) mg/dl Magnesium (1.8-2.4) mg/dl Procalcitonin (0-0.5) ng/ml Blood Type Antibody Screen Medications Administered Current Inpatient Medications Acetaminophen (Tylenol) 500 mg NG TID PRN PRN Reason: pain Stop: 05/15/19 09:53 Last Admin: 04/15/19 19:44 Dose: 500 mg Documented by: Amlodipine Besylate (Norvasc) 10 mg PO QAM GINO Stop: 05/15/19 08:59 Last Admin: 04/16/19 08:19 Dose: 10 mg Documented by: Bisacodyl (Dulcolax) [address] DAILY PRN PRN Reason: Constipation Stop: 05/06/19 16:30 Dextrose (Dextrose 50%) 25 - 50 ml IV UD PRN; Protocol PRN Reason: Hypoglycemia Protocol Stop: 05/06/19 18:29 Last Admin: 04/07/19 14:48 Dose: 25 ml Documented by: Enoxaparin Sodium (Lovenox) 70 mg SQ Q12H GINO Stop: 05/16/19 10:59 Last Admin: 04/16/19 23:43 Dose: 70 mg Documented by: Enteral Nutritional Formula (Impact 1.0 Himanshu) 1,000 ml OG .CONTINUOUS GINO; Protocol Stop: 05/08/19 11:59 Last Admin: 04/15/19 22:24 Dose: 1,000 ml Documented by: Furosemide (Lasix Soln) 40 mg NG DAILY GINO Stop: 05/17/19 08:59 Glucagon (Glucagen) 1 mg IM UD PRN; Protocol PRN Reason: Hypoglycemia Protocol Stop: 05/06/19 18:29 Glucose (Glucose 40%) 15 - 30 gm PO UD PRN; Protocol PRN Reason: Hypoglycemia Protocol Stop: 05/06/19 18:29 Glucose (Dex4 Glucose) 4 - 8 tabs PO UD PRN; Protocol PRN Reason: Hypoglycemia Protocol Stop: 05/06/19 18:29 Heparin Sodium (Beef Lung) (Heparin Sod 10 Unit/Ml Flush) 5 ml FLUSH PRN PRN PRN Reason: Flush Stop: 05/06/19 22:53 Piperacillin Sod/Tazobactam (Sod 3.375 gm/ Dextrose) 115 mls @ 28.75 mls/hr IV Q8H [facility]; Protocol Stop: 04/23/19 21:59 Last Admin: 04/17/19 05:28 Dose: 28.8 mls/hr Documented by: Insulin Aspart (Novolog Flexpen) 0 units SC Q6 [facility] Stop: 05/09/19 17:59 Last Admin: 04/17/19 05:39 Dose: 1 units Documented by: Lansoprazole (Prevacid) 30 mg NG DAILY [facility] Stop: 05/14/19 10:59 Last Admin: 04/16/19 08:19 Dose: 30 mg Documented by: Levetiracetam (Keppra) 500 mg NG BID [facility] Stop: 05/15/19 20:59 Last Admin: 04/16/19 20:52 Dose: 500 mg Documented by: Magnesium Hydroxide (Milk Of Magnesia) 30 ml PO Q12H PRN PRN Reason: Constipation Stop: 05/06/19 16:30 Magnesium Oxide (Mag-Ox) 400 mg PO BID [facility] Stop: 05/16/19 08:59 Last Admin: 04/16/19 20:50 Dose: 400 mg Documented by: Metoprolol Tartrate (Lopressor) 75 mg PO QID [facility] Stop: 05/15/19 08:59 Last Admin: 04/16/19 21:55 Dose: 75 mg Documented by: Miscellaneous (Carbohydrates For Hypoglycemia) 15 - 30 gm PO UD PRN PRN Reason: Hypoglycemia Treatment Stop: 05/06/19 18:29 Miscellaneous Information (Consult) 1 ea N/A UD PRN PRN Reason: Consult Stop: 05/16/19 15:37 Ondansetron HCl (Zofran) 4 mg IV Q6H PRN PRN Reason: Nausea Stop: 05/06/19 16:30 Sterile Water (Tube Feeding Water Flush) 1 ea GT Q4H [facility] Stop: 05/10/19 09:59 Last Admin: 04/17/19 05:28 Dose: 1 ea Documented by: Resident Activity Tracking Resident Involvement: Resident Care Provided Care Provided: Adult Hospital Medicine (ICu)
[2019-04-17] MEDS: IMPACT LIQD 1.0 CAL 1,000 ML BAG OG SCH (08:26)
[2019-04-17] MEDS: FUROSEMIDE ORAL SOLN 40 MG/5 ML UDP NG SCH (08:28)
[2019-04-17] MEDS: MAGNESIUM OXIDE 400 MG TAB PO SCH ×2 (08:29→20:13)
[2019-04-17] MEDS: LANSOPRAZOLE 30 MG SOLTAB NG SCH (08:29)
[2019-04-17] MEDS: METOPROLOL TARTRATE 25 MG TAB PO SCH ×4 (08:30→20:13)
[2019-04-17] MEDS: AMLODIPINE BESYLATE 5 MG TAB PO SCH (08:31)
[2019-04-17] MEDS ORDERED: SODIUM CHLORIDE 0.9% 250 ML IV PRN (09:42)
[2019-04-17] MEDS: ENOXAPARIN 80 MG/0.8 ML SYR SQ SCH ×2 (10:24→22:33)
--- NOTE | 2019-04-17 11:38 | Billing Data ---
Coding Level of Care Code 21913 Subseq Hosp Care Lvl 3
--- NOTE | 2019-04-17 16:23 | Hospitalist Progress Note ---
Date of Service April 17, 2019 Assessment & Plan (1) Elevated procalcitonin: Elevated procal evening of 04/16 of 1.01. Has been intermittently on and off ventilator Sputum culture positive for gram negative bacilli with ID today of Klebsiella Pneumonia that was kay-sensitive Urine culture positive >100,000 CFU Gram negative bacilli with ID and sensitivities to follow Patient was started on Zosyn 04/16 afternoon which will provide dual coverage Concerns for developing pneumonia, on 04/[address] Chest noncon to look at lung parenchyma which showed necrotic lung from PE injury vs pneumonia: 1. Interval development of scattered peripheral patchy airspace opacities within the left lung apex, right upper lobe, right middle lobe. This favors pulmonary infarcts given the patient's history of pulmonary emboli. A pneumonia could also have a similar appearance. 2. Small bilateral pleural effusions have progressed. (2) Anemia: Hemoglobin has been gradually trending down for days to level this AM of 6.8 1 unit of pRBCs was ordered by ICU team Most likely combination of iatrogenic from need for blood draws in a critically ill patient, recent brain surgery, and also prior acute kidney injury which is resolving. (3) Cardiogenic shock: Secondary to cardiac arrest in setting of severe pulmonary embolism Signs of multi-organ dysfunction after event that are improving Not a candidate for PEG tube per GI consult as anti-coagulation treatment for PE relative contraindication AKIresolving Transaminitis secondary to shock liver resolving (4) Venous thromboembolism: Continue IV heparin (5) Gram-positive bacteremia: - Recent only 1 of 2 grew positive May represent contamination was previously treated with gram-positive bacteremiacovered for Peptostreptococcus per ICU with penicillin G over weekend of 04/12- Infectious disease consult ordered by ICU team, appreciate recommendations (6) Pulmonary embolism: - was not a candidate for TPA on presentation as recent brain surgery for glioblastoma - currently treating with therapeutic Lovenox q12 1mg/kg - continuous pulse ox (7) Cardiac arrest: In setting of massive PE (8) Glioblastoma: Status post craniotomy 03/13/2019no further chemotherapy or interventions at this time Neurology following, appreciate recommendationsstable anoxic encephalopathy, continue Keppra 500 mg every 12 hours Subdural hematoma, stable on repeat head CT (9) Discharge planning issues: Per case management, patient is believed to be accepted to LTACH and should be able to get timely approval. manager staffing spoke to spouse who was requesting patient stay at our facility for several more weeks. We spoke with family preservation caseworker today that we would like patient to go to LTACH as well, but since worsening WBC today and concern for pnuemonia would want to investigate that and could go within the next couple of days. Would be benefit for patient to go to LTACH as soon as possible for best road to recovery if goal is to return home. Spouse not at bedside today, but reiterated this to oldest son Kj. Supervising Physician Co-Signing Physician Notes I personally examined the patient and verified all jimenez points of history and exam, discussed case, and agree with decision making with Dr Jung. seems to be feeling better and doing better without complaints. no pain no sob. updated family vitals noted nad breathing unlabored no rashes no pallor or icterus. makes eye contact, interacts/nods appropriately massive PE/respiratory failure - primary issues improving. zosyn to cover gram negatives in sputum and urine pending further ID&S. seems to be improving. next steps goal LTAC after discharge Subjective Yulissa mentation continues to be stable without decline. She was able to convey through nodding that she wasn't in pain and had no worsening shortness of breath. During AM rounds family was not at bedside. PM team rounds garrett Underwood was present and reviewed labs with him, was happy that creatinine values were improving and WBC had declined. All questions and concerns addressed. Physical Exam Constitutional: WD/WN, vitals as above Eyes: + anicteric sclerae; no conjunctival abnormality Neck: normal visual inspection and trachea midline Respiratory: normal respiratory effort, lungs clear to auscultation no respiratory distress Auscultation: no diminished lung sounds and no wheezes Cardiovascular: Rate/Rhythm: regular rate and regular rhythm Gastrointestinal (Abdomen): Inspection/Auscultation: normal bowel sounds Percussion/Palpation: abdomen soft; abdomen nontender, no guarding and abdomen not rigid Musculoskeletal: Right arm in soft limb restraint; right hand NV intact. Skin: no rashes, warm and dry Results & Data Vital Signs (Past 12 Hours) Vital Signs Temp Pulse Resp BP Pulse Ox 04/17/19 14:54 90 138/62 97 04/17/19 14:44 98 H 134/58 L 98 04/17/19 14:34 99 H 144/59 H 97 04/17/19 14:24 98 H 142/61 H 98 04/17/19 14:14 99 H 139/58 L 97 04/17/19 14:04 95 H 138/62 97 04/17/19 14:00 93 H 97 04/17/19 13:54 91 H 141/66 H 97 04/17/19 13:45 37.2 C 96 H 20 135/55 L 97 04/17/19 13:44 94 H 135/55 L 97 04/17/19 13:34 99 H 146/63 H 94 04/17/19 13:24 92 H 141/54 H 99 04/17/19 13:14 97 H 142/63 H 99 04/17/19 13:04 92 H 137/54 L 99 04/17/19 13:00 95 H 99 04/17/19 12:54 94 H 136/58 L 99 04/17/19 12:45 37.3 C 97 H 18 133/64 100 04/17/19 12:44 96 H 133/64 99 04/17/19 12:34 97 H 152/37 H 99 04/17/19 12:24 94 H 141/55 H 99 04/17/19 12:15 37.3 C 96 H 20 126/55 L 99 04/17/19 12:14 96 H 20 126/55 L 98 04/17/19 12:04 95 H 132/57 L 98 04/17/19 12:00 97 H 97 04/17/19 11:54 94 H 135/52 L 98 04/17/19 11:45 37.3 C 92 H 20 135/52 L 98 04/17/19 11:44 91 H 126/54 L 98 04/17/19 11:34 94 H 130/54 L 98 04/17/19 11:30 37.7 C H 90 18 133/53 L 98 04/17/19 11:24 96 H 133/53 L 97 04/17/19 11:15 37.5 C 84 18 131/53 L 98 04/17/19 11:14 90 131/53 L 98 04/17/19 11:05 96 H 128/63 98 04/17/19 11:00 81 16 100 04/17/19 10:05 79 129/54 L 100 04/17/19 10:00 81 100 04/17/19 09:05 75 126/57 L 99 04/17/19 09:00 77 100 04/17/19 08:05 89 129/66 100 04/17/19 08:00 90 100 04/17/19 07:30 92 H 18 100 04/17/19 07:05 84 113/48 L 100 04/17/19 07:00 93 H 100 04/17/19 06:05 90 139/53 L 99 04/17/19 06:00 90 100 04/17/19 05:33 91 H 18 100 04/17/19 05:06 85 145/67 H 100 04/17/19 05:00 86 100 Resident Activity Tracking Resident Involvement: Resident Care Provided Care Provided: Adult Hospital Medicine
--- NOTE | 2019-04-17 17:35 | Billing Data ---
Date of Service April 17, 2019 Coding Level of Care Code 19054 Subseq Hosp Care Lvl 2
[2019-04-17] MEDS: ACETAMINOPHEN SOLN 500 MG/15.62 ML UDP NG PRN (20:46)
[2019-04-17] MEDS ORDERED: fentaNYL citrate 100 MCG/2 ML VIAL IV ONE (22:26)
[2019-04-18] MEDS: INSULIN ASPART 100 UNITS/ML 3 ML PEN SC SCH ×4 (01:31→18:21)
[2019-04-18] MEDS: ACETAMINOPHEN SOLN 500 MG/15.62 ML UDP NG PRN ×2 (02:22→22:57)
[2019-04-18] MEDS: FEEDING WATER FLUSH GT SCH ×6 (02:23→21:22)
[2019-04-18] MEDS: IMPACT LIQD 1.0 CAL 1,000 ML BAG OG SCH ×2 (03:09→20:03)
[2019-04-18 03:24] LABS: Hematocrit (blood only) 26.4 % (37-47); Hemoglobin 8.5 g/dL (12.0-16.0); Mean Corpuscular Hgb Conc 32.2 g/dL (32-36); Mean Corpuscular Volume 90.1 fL (80-100); Mean Platelet Volume 9.6 fL (7.4-10.4); Nucleated RBC # (auto) 0.02 K/uL (0-0); Nucleated RBC % (auto) 0.1 %; Platelet Count 350 K/uL (130-400); RDW Coefficient of Variation 16.5 % (11.5-14.5); RDW Standard Deviation 53.8 fL (36.4-46.3); Red Blood Count 2.93 M/uL (4.2-5.4); White Blood Count 17.19 K/uL (4.8-10.8)
[2019-04-18 03:44] LABS: BUN Creatinine Ratio 41.4 (10-20); Creatinine Clr Calc Pharmacy 41.7 ml/min; Est GFR (African American) 57.3; Est GFR (Non-African American) 49.4; Magnesium 1.7 mg/dl (1.8-2.4); Potassium 3.4 mmol/L (3.5-5.1)
[2019-04-18 03:46] LABS: Phosphorus 3.6 mg/dl (2.5-4.9)
[2019-04-18 04:05] LABS: Basophils # (auto) 0.05 K/uL (0-0.2); Basophils % (auto) 0.3 %; Eosinophils # (auto) 0.15 K/uL (0-0.5); Eosinophils % (auto) 0.9 %; Immature Granulocytes # (auto) 0.65 K/uL (0.00-0.02); Immature Granulocytes % (auto) 3.8 %; Lymphocytes # (auto) 2.34 K/uL (1.2-3.4); Lymphocytes % (auto) 13.6 %; Monocytes # (auto) 1.59 K/uL (0.11-0.59); Monocytes % (auto) 9.2 %; Neutrophils # (auto) 12.41 K/uL (1.4-6.5); Neutrophils % (auto) 72.2 %
[2019-04-18] MEDS ORDERED: fentaNYL citrate 100 MCG/2 ML VIAL IV ONE ×2 (04:29→06:09)
[2019-04-18] MEDS: PIPERACILLIN/TAZOBACTAM 3.375 GM in DEXTROSE 5% 100 ML IV SCH (05:38)
[2019-04-18] MEDS ORDERED: MAGNESIUM SULFATE / D5W 1 GM/100 ML BAG IV ONE (05:57)
[2019-04-18] MEDS ORDERED: POTASSIUM CHLORIDE 20 MEQ/15 ML UDC PO STA (05:57)
[2019-04-18] MEDS: POTASSIUM CHLORIDE / WTR 10 MEQ/100 ML PLCT IV SCH ×2 (06:22→07:32)
[2019-04-18] MEDS: MAGNESIUM OXIDE 400 MG TAB PO SCH ×2 (08:05→21:20)
[2019-04-18] MEDS: METOPROLOL TARTRATE 25 MG TAB PO SCH ×4 (08:05→21:21)
[2019-04-18] MEDS: FUROSEMIDE ORAL SOLN 40 MG/5 ML UDP NG SCH (08:05)
[2019-04-18] MEDS: LANSOPRAZOLE 30 MG SOLTAB NG SCH (08:05)
[2019-04-18] MEDS: AMLODIPINE BESYLATE 5 MG TAB PO SCH (08:05)
--- NOTE | 2019-04-18 09:27 | Critical Care Progress Note ---
Date of Service April 18, 2019 Assessment & Plan (1) Admitted to intensive care unit: Reason Critically Ill: 74-year-old female here with a PMHx significant for glioblastoma, HTN, cardiac arrest, and massive PE who presented with a feeling of unwellness and who was admitted for massive PE. She sustained 3x cardiac PEA arrests with ROSC prior to admission to the ICU. Goals of Care: Family meeting held at 10 AM 04/11/2019 with Kj (patient's son), Igor (brother), and Paty (brother). Palliative care, intensive care, and primary service team were present. Nephrology, neurology, ENT aware of case. Case was discussed at length. Neurologically she has some increased movement and w ithdrawal from noxious stimuli in the last 24 hours, but is having suspected neurogenic fever. She has had multiple blood cultures drawn and has stable oxygen saturation, lower suspicion for infectious etiology of her fever. Long- term she has both a grim prognosis and extremely difficult recovery. He has extensive pulmonary/cardiac burden, and her extensive illness will make rehab very difficult. Family expresses understanding of this, and reiterate that they understand but that they and Yulissa would want full measures and full code. Specifically they agree with proceeding with tracheostomy and PEG tube placement. They are aware that dialysis may be needed in the future. PEG tube placement to be performed at outside facility. Ultimately patient would benefit most from transfer to long-term care facility per specifically the one [facility]. As this site is located at their main hospital, and has the advanced care facilities which are not present at our institution. Family now requesting transfer to long-term care facility in [facility] Neuro - [facility] ICU: Negative ETT in place (placed 04/06/2019) on vent Sedation: Versed gtt held. Analgesia: Fentanyl 25mg Q30M prn, last dose 04/09 7045. - CT-H shows increase density of postsurgical change without other acute findings. Stable on repeat. Neuro consulted, case discussed Patient opens eyes on command, squeezes fingers on right and blinks eyes once and twice on command this morning. Was able to communicate using blinks yes and no Glioblastoma Multiforme Stage IV s/p craniotomy with tumor resection 03/13/[address] Dr[address] Manzanares [facility] [place] - No further surgical or chemotherapeutic intervention at this time. - Will require further f/u with Neuro pending clinical course Cardiac - Cardiogenic shock 2/2 PE, resolved - PE treatment as below No current pressor requirements. - TTE hyperdynamic EF >70% with RV dilation and wall motion dysfunction - Troponins down trended - Beta-maximo as below Concern for fluid overload -Furosemide 40 mg po daily Intermittently hypertensive has been normotensive last 24 hours -Improved with metoprolol 75 mg 4 times daily -Amlodipine 10 mg Sinus Tachycardia resolved High risk for A. fib/flutter Anticoagulated for PEs Metoprolol 75 mg p.o. QID Bradycardia Patient had an episode of bradycardia overnight of 04/14. Patient was administe red atropine which resolved the bradycardia, suctioning was also performed and removed a mucous plug. Chest x-ray and ABG were obtained both were within normal limits. No recurrence since 04/14 Thought to be secondary to mucous plugging and history of pulmonary embolism. Chest PT Monitor for signs and symptoms of recurrence Respiratory Acute PE with multiorgan system dysfunction - With extensive R PA thrombus - Anticoagulation as below - No TPA or thrombectomy/surgical intervention. Case was discussed with Zuri and Rasheed who feel she is not a surgical candidate, and TPA was contraind icated due to the patients recent neurosurgical procedure. - Left lung infiltrates, unchanged from prior, likely to represent possible pulmonary infarction given unchanging nature -04/16 demonstrated interval development of scattered peripheral patchy airspace opacities within the left lung apex right upper lobe and right middle lobe. This favors pulmonary infarcts, however pneumonia could have a similar appearance. Small bilateral pleural effusions. -plan to d/c vent today Mucous plugging Likely secondary to recumbent position, and motor/sensory symptoms secondary to neurological issues. Chest PT Elevate head of bed 30 degrees GI - GI PPX ordered Transaminitis 2/2 shock liver -AST/ALT downtrending since initial shock liver episode. Nutrition - IVFM: Discontinued Core safe, impact at 70 cc/h with 150 cc flushes every 4 hours - Discussed with GI, pt is not a candidate for PEG placement at this time, core safe placed for feeds. -defer to outside facility RENAL/LYTES - KATHY Creatinine continues to downtrend, 1.29 today Sodium within normal limits -Replace electrolytes as needed - - No concerns at this time. - Mosquera discontinued, pure wick in place ENDO - No history of T2DM, BSG 380 on admit - HgbA1C 5.6% - ICU hyperglycemic protocol - GSB ~100s HEME - - Hgb 6.8 today -No signs of bleeding on clinical exam -Likely iatrogenic in the setting of anemia of chronic disease -Type and cross ordered plan to transfuse 1 unit of PRBCs - CBC daily Lovenox 70 mg q12h -Plan to transition to DOAC given efficacy in preventing cancer associated VTE ID - Intermittent fever, suspect 2/2 Neurogenic Fever vs infection, APAP limited by shock liver and transaminitis. Liver ultrasound reassuring. Given patient's increasing oxygen requirements, lack of significant improvement in vital signs, and elevated white blood cell count will start the patient on empiric Zosyn. She improved status post initiation of Zosyn, tachycardia resolving, normotensive, saturating 100% on the ventilator. -Monitor fever curve. -04/15 Urine and blood cultures are growing out gram-negative bacilli -Urine cx: Citrobacter -Sputum: Klebsiella pneumonia pansensitive -Narrowed antibiotics from IV Zosyn to Levaquin INTEGUMENTARY - No acute concerns. Assess daily for pressure ulcers/bedside ulcers given bedbound status and severe illness. LINES/IV ACCESS - PIVs intact. DVT PROPHYLAXIS - Anticoagulation as above Disposition: Plan to transfer to long-term care facility later today. Chadwick Delaney MD PGY 2, FCM This chart was completed utilizing [employer] dictation voice recognition software. Grammatical errors, random word insertions, pronoun errors, and in complete sentences are an occasional consequence of the system. Any questions or concerns about the content, text, or information contained within the body of this dictation should be addressed directly to the physician for clarification. (2) Discharge planning issues: (3) Gram-positive bacteremia: (4) Pulmonary embolism: (5) Acute kidney injury: (6) Aspiration pneumonia: (7) Deep vein thrombosis (DVT) of popliteal vein of left lower extremity: (8) Deep venous thrombosis (DVT) of right peroneal vein: (9) Subdural hematoma: (10) Goals of care, counseling/discussion: (11) Glioblastoma: Supervising Physician Co-Signing Physician Notes Dr. Delaney was the resident-physician during care of patient. I separately evaluated patient for jimenez portions of the history and the exam. I was present during the critical portion of medical decision making, and I discussed the case with the resident. I generally agree with the findings and plan except for any additions/exceptions noted. Patient continues to improve on a daily basis. She is lucid and following commands appropriately. She is asking to write. We are continuing p.o. Lasix for diuresis. Her renal function continues to improve. Her hemoglobin went up today to 8.5 after the 1 unit blood she received yesterday. Tracheitis is clearing. Her urine and sputum cultures are back and are pansensitive to fluoroquinolones. We will start her on levofloxacin and discontinue her Zosyn. She should complete a total of 7 days of antibiotics. Apparently the family is now agreeable to sending her to an LTAC in [place]. The primary team will arrange for transfer. She can continue further rehab at that facility. Subjective Patient is more participative in the interview today. Endorses no acute events overnight. Her ventilator plan was not followed overnight, she was supposed to be placed on the ventilator at bedtime, however was now placed on the ventilator until 4 AM. Family this morning stated they were agreeable with transfer to [place], working on arranging that currently. No acute concerns from nursing, all questions answered Physical Exam Physical Exam: General: Trach in place on vent. More alert today. j luis neglect on the left HEENT: Normocephalic. Pupils responsive to light and equal. Nonicteric. Pulm: Breathing through tracheostomy on vent. course breath sound b/l. r worse than left Cardiac: regular rate and rhythm without murmurs rubs or gallops. Radial pulses intact and symmetrical. Abdominal: Nontender, nondistended, soft. BS present. Extremity: Opens eyes to tactile stimulation of right arm, right foot. Is able to squeeze right hand, not able to squeeze left, does not respond or withdraw to stimulation on the left hand or foot. Distal limbs puffy, edema of the hands and feet present bilaterally. Extremities warm, moist. Neuro: Alert, and oriented able to communicate through blinking Results & Data Vital Signs (Past 12 Hours) Vital Signs Temp Pulse Pulse Resp BP Pulse Ox 04/18/19 07:10 108 H 24 99 04/18/19 06:31 118 H 24 198/94 H 97 04/18/19 06:05 113 H 28 H 212/112 H 89 L 04/18/19 05:00 84 94 04/18/19 04:58 87 128/60 94 04/18/19 04:00 108 H 28 H 194/88 H 90 04/18/19 03:00 99 H 24 161/95 H 93 04/18/19 02:00 94 H 163/70 H 97 04/18/19 01:39 97 H 162/96 H 96 04/18/19 01:00 89 20 162/96 H 95 04/18/19 00:51 77 16 95 04/18/19 00:00 36.7 C 92 H 143/51 H 95 04/17/19 23:00 79 107/49 L 94 04/17/19 22:00 87 147/53 H 96 04/17/19 21:37 86 119/53 L 94 Laboratory Results 04/18/19 04/18/19 04/18/19 Range/Units 03:10 03:10 03:10 WBC 17.19 H (4.8-10.8) K/uL RBC 2.93 L (4.2-5.4) M/uL Hgb 8.5 L (12.0-16.0) g/dL Hct 26.4 L (37-47) % MCV 90.1 (80-100) fL MCH 29.0 (25-34) pg MCHC 32.2 (32-36) g/dL RDW Std Deviation 53.8 H (36.4-46.3) fL RDW Coeff of Anil 16.5 H (11.5-14.5) % Plt Count 350 (130-400) K/uL MPV 9.6 (7.4-10.4) fL Immature Gran % (Auto) 3.8 % Neut % (Auto) 72.2 % Lymph % (Auto) 13.6 % [place] % (Auto) 9.2 % Eos % (Auto) 0.9 % Baso % (Auto) 0.3 % Immature Gran # (Auto) 0.65 H (0.00-0.02) K/uL Neut # (Auto) 12.41 H (1.4-6.5) K/uL Lymph # (Auto) 2.34 (1.2-3.4) K/uL [place] # (Auto) 1.59 H (0.11-0.59) K/uL Eos # (Auto) 0.15 (0-0.5) K/uL Baso # (Auto) 0.05 (0-0.2) K/uL Absolute Nucleated RBC 0.02 H (0-0) K/uL Nucleated RBC % (auto) 0.1 % Heparin Anti-Xa, LM Wt 0.88 (< 0.10) IU/ML Sodium 139 (136-145) mmol/L Potassium 3.4 L (3.5-5.1) mmol/L Chloride 102 (98-107) mmol/L Carbon Dioxide 30 (21-32) mmol/L Anion Gap 7.0 (3-11) BUN 46 H (7-18) mg/dl Creatinine 1.10 (0.6-1.2) mg/dl Est Cr Clr Drug Dosing 41.7 ml/min Est GFR ( Amer) 57.3 Est GFR (Non-Af Amer) 49.4 BUN/Creatinine Ratio 41.4 H (10-20) Glucose 127 H (70-99) mg/dl POC Glucose (70-99) Calcium 8.0 L (8.5-10.1) mg/dl Phosphorus 3.6 (2.5-4.9) mg/dl Magnesium 1.7 L (1.8-2.4) mg/dl Crossmatch 04/18/19 04/17/19 04/17/19 Range/Units 00:51 17:12 11:48 WBC (4.8-10.8) K/uL RBC (4.2-5.4) M/uL Hgb (12.0-16.0) g/dL Hct (37-47) % MCV (80-100) fL MCH (25-34) pg MCHC (32-36) g/dL RDW Std Deviation (36.4-46.3) fL RDW Coeff of Anil (11.5-14.5) % Plt Count (130-400) K/uL MPV (7.4-10.4) fL Immature Gran % (Auto) % Neut % (Auto) % Lymph % (Auto) % [place] % (Auto) % Eos % (Auto) % Baso % (Auto) % Immature Gran # (Auto) (0.00-0.02) K/uL Neut # (Auto) (1.4-6.5) K/uL Lymph # (Auto) (1.2-3.4) K/uL [place] # (Auto) (0.11-0.59) K/uL Eos # (Auto) (0-0.5) K/uL Baso # (Auto) (0-0.2) K/uL Absolute Nucleated RBC (0-0) K/uL Nucleated RBC % (auto) % Heparin Anti-Xa, LM Wt (< 0.10) IU/ML Sodium (136-145) mmol/L Potassium (3.5-5.1) mmol/L Chloride (98-107) mmol/L Carbon Dioxide (21-32) mmol/L Anion Gap (3-11) BUN (7-18) mg/dl Creatinine (0.6-1.2) mg/dl Est Cr Clr Drug Dosing ml/min Est GFR ( Amer) Est GFR (Non-Af Amer) BUN/Creatinine Ratio (10-20) Glucose (70-99) mg/dl POC Glucose 151 H 133 H 141 H (70-99) Calcium (8.5-10.1) mg/dl Phosphorus (2.5-4.9) mg/dl Magnesium (1.8-2.4) mg/dl Crossmatch 04/17/19 Range/Units 06:01 WBC (4.8-10.8) K/uL RBC (4.2-5.4) M/uL Hgb (12.0-16.0) g/dL Hct (37-47) % MCV (80-100) fL MCH (25-34) pg MCHC (32-36) g/dL RDW Std Deviation (36.4-46.3) fL RDW Coeff of Anil (11.5-14.5) % Plt Count (130-400) K/uL MPV (7.4-10.4) fL Immature Gran % (Auto) % Neut % (Auto) % Lymph % (Auto) % [place] % (Auto) % Eos % (Auto) % Baso % (Auto) % Immature Gran # (Auto) (0.00-0.02) K/uL Neut # (Auto) (1.4-6.5) K/uL Lymph # (Auto) (1.2-3.4) K/uL [place] # (Auto) (0.11-0.59) K/uL Eos # (Auto) (0-0.5) K/uL Baso # (Auto) (0-0.2) K/uL Absolute Nucleated RBC (0-0) K/uL Nucleated RBC % (auto) % Heparin Anti-Xa, LM Wt (< 0.10) IU/ML Sodium (136-145) mmol/L Potassium (3.5-5.1) mmol/L Chloride (98-107) mmol/L Carbon Dioxide (21-32) mmol/L Anion Gap (3-11) BUN (7-18) mg/dl Creatinine (0.6-1.2) mg/dl Est Cr Clr Drug Dosing ml/min Est GFR ( Amer) Est GFR (Non-Af Amer) BUN/Creatinine Ratio (10-20) Glucose (70-99) mg/dl POC Glucose (70-99) Calcium (8.5-10.1) mg/dl Phosphorus (2.5-4.9) mg/dl Magnesium (1.8-2.4) mg/dl Crossmatch See Detail Medications Administered Current Inpatient Medications Acetaminophen (Tylenol) 500 mg NG TID PRN PRN Reason: pain Stop: 05/15/19 09:53 Last Admin: 04/18/19 02:22 Dose: 500 mg Documented by: Amlodipine Besylate (Norvasc) 10 mg PO QAM GINO Stop: 05/15/19 08:59 Last Admin: 04/18/19 08:05 Dose: 10 mg Documented by: Bisacodyl (Dulcolax) 10 mg CA DAILY PRN PRN Reason: Constipation Stop: 05/06/19 16:30 Dextrose (Dextrose 50%) 25 - 50 ml IV UD PRN; Protocol PRN Reason: Hypoglycemia Protocol Stop: 05/06/19 18:29 Last Admin: 04/07/19 14:48 Dose: 25 ml Documented by: Enoxaparin Sodium (Lovenox) 70 mg SQ Q12H GINO Stop: 05/16/19 10:59 Last Admin: 04/18/19 10:05 Dose: 70 mg Documented by: Enteral Nutritional Formula (Impact 1.0 Himanshu) 1,000 ml OG .CONTINUOUS GINO; Protocol Stop: 05/08/19 11:59 Last Admin: 04/18/19 03:09 Dose: 1,000 ml Documented by: Furosemide (Lasix Soln) 40 mg NG DAILY [facility] Stop: 05/17/19 08:59 Last Admin: 04/18/19 08:05 Dose: 40 mg Documented by: Glucagon (Glucagen) 1 mg IM UD PRN; Protocol PRN Reason: Hypoglycemia Protocol Stop: 05/06/19 18:29 Glucose (Glucose 40%) 15 - 30 gm PO UD PRN; Protocol PRN Reason: Hypoglycemia Protocol Stop: 05/06/19 18:29 Glucose (Dex4 Glucose) 4 - 8 tabs PO UD PRN; Protocol PRN Reason: Hypoglycemia Protocol Stop: 05/06/19 18:29 Heparin Sodium (Beef Lung) (Heparin Sod 10 Unit/Ml Flush) 5 ml FLUSH PRN PRN PRN Reason: Flush Stop: 05/06/19 22:53 Levofloxacin/Dextrose (Levaquin/D5w) 750 mg in 150 mls @ 100 mls/hr IV Q48H [facility] Stop: 04/25/19 09:59 Insulin Aspart (Novolog Flexpen) 0 units SC Q6 GINO Stop: 05/09/19 17:59 Last Admin: 04/18/19 05:17 Dose: Not Given Documented by: Lansoprazole (Prevacid) 30 mg NG DAILY [facility] Stop: 05/14/19 10:59 Last Admin: 04/18/19 08:05 Dose: 30 mg Documented by: Levetiracetam (Keppra) 500 mg NG BID [facility] Stop: 05/15/19 20:59 Last Admin: 04/18/19 09:43 Dose: 500 mg Documented by: Magnesium Hydroxide (Milk Of Magnesia) 30 ml PO Q12H PRN PRN Reason: Constipation Stop: 05/06/19 16:30 Magnesium Oxide (Mag-Ox) 400 mg PO BID [facility] Stop: 05/16/19 08:59 Last Admin: 04/18/19 08:05 Dose: 400 mg Documented by: Metoprolol Tartrate (Lopressor) 75 mg PO QID [facility] Stop: 05/15/19 08:59 Last Admin: 04/18/19 08:05 Dose: 75 mg Documented by: Miscellaneous (Carbohydrates For Hypoglycemia) 15 - 30 gm PO UD PRN PRN Reason: Hypoglycemia Treatment Stop: 05/06/19 18:29 Ondansetron HCl (Zofran) 4 mg IV Q6H PRN PRN Reason: Nausea Stop: 05/06/19 16:30 Sterile Water (Tube Feeding Water Flush) 1 ea GT Q4H GINO Stop: 05/10/19 09:59 Last Admin: 04/18/19 10:05 Dose: 1 ea Documented by: Resident Activity Tracking Resident Involvement: Resident Care Provided Care Provided: Adult Hospital Medicine (ICU)
[2019-04-18] MEDS ORDERED: cefTRIAXone SODIUM 1,000 MG in DEXTROSE 5% 50 ML IV SCH (09:30)
[2019-04-18] MEDS ORDERED: LEVOFLOXACIN/D5W 750 MG/150 ML BAG IV SCH (10:00)
[2019-04-18] MEDS: ENOXAPARIN 80 MG/0.8 ML SYR SQ SCH ×2 (10:05→22:57)
--- NOTE | 2019-04-18 10:32 | Discharge Summary ---
Date of Service April 18, 2019 Admission HPI Per Admitting Provider Patient is a 74 years old female with past medical history of high-grade glioblastoma status post resection at [facility] approximately 3 weeks ago who supposed to undergo chemotherapy and radiation for the glioblastoma, presented to the emergency room with massive pulmonary embolism resulting in cardiopulmonary at the last and 4 rounds of CPR/ACLS. She was also started on heparin drip for pulmonary embolism. According to [facility] neurology it was not recommended to start TPA and they also did not think that a role for catheter directed therapy would not be of significant help, the refore they did not recommend to transfer the patient to [place]. Patient was started on epinephrine drip after she went into obstructive and cardiogenic shock. Patient was intubated. FPatient was not responsive to review of system and history was impossible to obtain from her. Patient was also next to her bedside was her son and primary care physician who brought her in. Patient is a Full code per her son and 's request. Labs are reviewed: WBC is 20.78, hemoglobin 14, hematocrit 43.6, platelets 313, PT 15, INR 1.5, APTT 44.7, sodium 141, potassium 4, chloride 103, carbon dioxide 16, anion gap 22, creatinine 1.51, GFR 33.7, lactate 14.6, magnesium 2.4, AST 33, ALT 31, troponin after CPR 4.12, and 4.4. BNP 12,254. Urine blood 3+, trace ketones, WBCs 10-30 high, negative nitrate, negative bacteria. Negative for influenza A&B. CT of the head: Interval right frontal craniotomy with postsurgical cephalosporin. No significant change in appearance of 5 cm right frontal mass. Highly suspicion for neoplasm. CTA chest: Large right lung pulmonary embolus with suspected mild right ventricular strain. Multifocal left lung airspace opacity. Likely diagnostic consideration include multifocal pneumonia versus aspiration. Patient is admitted to ICU for further management and treatment of her critical conditions. Principal Diagnosis Pulmonary Embolism, Cardiac Arrest Discharge Exam Constitutional WD/WN, vitals as above Eyes + anicteric sclerae; no conjunctival abnormality Neck normal visual inspection and trachea midline Respiratory normal respiratory effort, lungs clear to auscultation no respiratory distress Auscultation: no diminished lung sounds and no wheezes Cardiovascular Rate/Rhythm: regular rate and regular rhythm Gastrointestinal (Abdomen) Inspection/Auscultation: normal bowel sounds Percussion/Palpation: abdomen soft; abdomen nontender, no guarding and abdomen not rigid Musculoskeletal Head/Neck/Chest: normocephalic and head atraumatic Skin no rashes, warm and dry Neurologic awake total function of RUE and RLE, soft restraint in place to RUE, left sided hemiparesis Psychiatric Orientation: alert and oriented x 3 Discharge Data Allergies Allergy/AdvReac Type Severity Reaction Status Date / Time No Known Allergies Allergy Unverified 04/06/19 12:16 Consultations 04/06/19 14:56 ED Decision to Admit Stat 04/06/19 16:17 Consult Case Management - Discharge Planning Routine 04/06/19 16:31 Consult Payroll Accounting Specialist Routine 04/07/19 10:01 Consult Palliative Care Routine 04/10/19 09:43 Consult Neurology Routine 04/10/19 21:42 Consult Health Information Management Routine 04/11/19 11:42 Consult Otolaryngology (Head and Neck) Stat 04/13/19 08:11 Consult Infectious Diseases Routine 04/14/19 16:27 Consult Gastroenterology Routine Procedures Performed Operation Date: 04/11/19 15:45 Actual Procedures p Tracheostomy - Noy Lang MD Ordered Studies 04/06/19 11:20 CT angio chest PE protocol Stat CT head/brain wo con Stat 04/06/19 13:00 CT angio chest PE protocol Stat 04/06/19 16:14 US venous doppler LE BI Urgent 04/09/19 10:13 CT head/brain wo con Routine 04/09/19 23:00 CT head/brain wo con Routine 04/10/19 21:05 MR brain wo con Urgent 04/11/19 10:43 US venous doppler LE BI Routine 04/11/19 10:45 US liver Routine 04/11/19 14:46 CT head/brain wo con Routine 04/13/19 11:57 CT head/brain wo con Routine 04/15/19 15:01 CT head/brain wo con Urgent 04/16/19 12:58 CT chest wo con Urgent Hospital Course (1) Admitted to intensive care unit: Yulissa Lucas is a 74 y/o female Status post craniotomy on 03/13/2019 for Glioblatoma who presented to [facility] ED on 04/06 with dyspnea. She was found to have a large Large right lung pulmonary embolus. She then had cardiac arrest x4 with ROSC. She was transferred to ICU and had been in ICU entire hospital course until transfer. She had no further cardiac arrest. Spouse and family elected to full care plan after being informed of condition and continued care with full treatment. She had a tracheostomy placed 04/12 and had been intermittent on and off vent. Mostly due to tiring from tachypnea. She was evaluated for PEG tube but GI noted relative contraindication because of Heparin/Lovenox therapy for PE treatment and deferred until later time once PE treated. She had positive sputum cultures for Klebsiella drawn on 04/15 and also for UTI growing Citrobactor which was initially treated on with Zosyn as noted below then narrowed to Levaquin. Her mentation improved throughout her course and she is able to follow commands. She has left sided hemiparesis and is on Keppra 500mg q12h. Decision by spouse to transfer to [facility]. Please see more detailed course below. She has been getting NG feeds for nutrition. (2) Elevated procalcitonin: Elevated procal evening of 04/16 of 1.01. Has been intermittently on and off ventilator Sputum culture positive for gram negative bacilli with ID of Klebsiella Pneumonia that was kay-sensitive Urine culture positive >100,000 CFU Citrobactor and sensitivities to Levaquin Patient was started on Zosyn 04/16 afternoon which will provide dual coverage; Day of 04/18 switched to Levaquin 750mg q48H. Concerns for developing pneumonia, on 04/[address] Chest noncon to look at lung parenchyma which showed necrotic lung from PE injury vs pneumonia: 1. Interval development of scattered peripheral patchy airspace opacities within t he left lung apex, right upper lobe, right middle lobe. This favors pulmonary infarcts given the patient's history of pulmonary emboli. A pneumonia could also have a similar appearance. 2. Small bilateral pleural effusions have progressed. (3) Anemia: On 04/17, Hemoglobin has been gradually trending down for days to level of 6.8 1 unit of pRBCs was ordered by ICU team Most likely combination of iatrogenic from need for blood draws in a critically ill patient, recent brain surgery, and also prior acute kidney injury which is resolving. 04/18 improved to 8.5. (4) Cardiogenic shock: Secondary to cardiac arrest in setting of severe pulmonary embolism Signs of multi-organ dysfunction after event that have improved Not a candidate for PEG tube per GI consult as anti-coagulation treatment for PE relative contraindication AKIresolved Transaminitis secondary to shock liver resolving (5) Venous thromboembolism: -Initially treated along with PE with IV heparin; then was switched to Therapeutic Lovenox 70mg SQ q12h (6) Gram-positive bacteremia: -04/12 only 1 of 2 grew positive - represented contamination was previously treated with gram-positive bacteremiacovered for Peptostreptococcus per ICU with penicillin G over weekend of 04/12-8 04/13 cultures negative (7) Pulmonary embolism: - was not a candidate for TPA on presentation as recent brain surgery for glioblastoma - currently treating with therapeutic Lovenox q12 1mg/kg - continuous pulse ox (8) Cardiac arrest: In setting of massive PE; CPR x4 with ROSC; this occurred in ED on presentation (9) Glioblastoma: Status post craniotomy 03/13/2019no further chemotherapy or interventions at this time Neurology following, appreciate recommendationsstable anoxic encephalopathy, continue Keppra 500 mg every 12 hours Subdural hematoma, stable on repeat head CTs (10) Discharge planning issues: Transfer to [facility] Total Time Total Time Spent Total Time Spent (In Minutes): 65 Total Time Includes: Examination of the Patient, Discharge Planning, Medication Reconciliation and Communication With Other Providers Discharge Plan Discharge Items Patient Disposition: Transfer Acute Care Hospital Reason For Visit: CARDIAC ARREST Discharge Diagnosis: Pulmonary Embolism; Cardiac Arrest; Left sided hemiparesis Activity: Per Instructions section Non-emergency contact: Primary Care Provider Call non-emergency contact if: you have any medication questions and your symptoms worsen Follow-up/Referrals: Farhad Ng MD [Primary Care Provider] - Diet: Regular Addtl Attending Provider Instructions: You are being transferred to [facility]. You are currently being treated for a presumed pneumonia and also a Urinary Tract Infection with Levaquin antibiotic. Once you have completed treatment for your Pulmonary Embolism then please follow up with [facility] for a possible feeding tube placement in the stomach if you are still not deemed safe to swallow. We wish you the best of luck and it was a pleasure taking care of you. Pending Studies at Discharge: No Stand-Alone Forms: My [facility] Skilled Items Patient informed of condition?: Yes DNR: No Discharge Level of Care: Other Communicable Disease: No Discharge Prognosis: Stable Lines: US Guided Peripheral IV Urinary Catheter: Yes Medications and DC Order Prescriptions: New amlodipine [Norvasc] 5 mg Tablet 10 mg PO QAM 30 Days Qty: 0 RF: 0 magnesium oxide 400 mg (241.3 mg magnesium) Tablet 400 mg PO BID 30 Days Qty: 0 RF: 0 furosemide 40 mg/5 mL (8 mg/mL) Solution 40 mg NG DAILY 30 Days Qty: 0 RF: 0 enoxaparin [Lovenox] 80 mg/0.8 mL Syringe 70 mg subcut Q12H 30 Days Qty: 0 RF: 0 Novolog Flexpen U-100 Insulin 100 unit/mL (3 mL) Insulin Pen 0 unit SC Q6 30 Days Qty: 0 RF: 0 lansoprazole [Prevacid SoluTab] 30 mg Tablet,Disintegrat, Delay Rel 30 mg NG DAILY 30 Days Qty: 0 RF: 0 levetiracetam 100 mg/mL Solution 500 mg NG BID 30 Days Qty: 0 RF: 0 metoprolol tartrate 25 mg Tablet 75 mg PO QID 30 Days Qty: 0 RF: 0 Impact 1 Himanshu 0.06-1 gram-kcal/mL Liquid 1,000 ml OG .CONTINUOUS 30 Days Qty: 0 RF: 0 Tube Feeding Water Flush 1 dose G-tube Q4H 30 Days Qty: 0 RF: 0 Continued bisacodyl [Dulcolax (bisacodyl)] 10 mg suppository 10 mg OR DAILY PRN (Reason: Constipation) RF: 0 Discontinued mecobalamin (vitamin B12) 1,000 mcg tablet,disintegrating 1,000 mcg SL DAILY RF: 0 docusate sodium 100 mg capsule 100 mg PO BID PRN (Reason: constipation) RF: 0 enoxaparin [Lovenox] 30 mg/0.3 mL syringe 30 mg SQ Q12H RF: 0 omega-3 fatty acids 1,000 mg capsule 1,000 mg PO DAILY RF: 0 cholecalciferol (vitamin D3) 5,000 unit capsule 5,000 units PO DAILY RF: 0 acetaminophen [Tylenol] 325 mg tablet 650 mg PO Q6H PRN (Reason: Fever Or Pain) RF: 0 sennosides-docusate sodium [Senna with Docusate Sodium] 8.6-50 mg tablet 1 tabcap PO DAILY PRN (Reason: Constipation) RF: 0 polyethylene glycol 3350 17 gram/dose powder 17 gm PO DAILY RF: 0 amlodipine 5 mg tablet 5 mg PO DAILY RF: 0 Enema 19-7 gram/118 mL enema 118 ml OR DAILY PRN (Reason: Constipation) RF: 0 Discharge Orders: Discharge Order (Routine); Ordered 04/19/19 Ordered By: Frank Jung Admission Data Admit Date/Time: 04/06/19 15:18 Attending Provider: Kwabena Farmer Admit Provider: Dion Gonzales Primary Care Provider: Farhad Ng Other Providers: Dion Gonzales ; Kody Hinojosa ; Farhad Rodrigues ; Noy Lang ; Jennfier Heck ; Luca Diehl ; Balwinder Crockett Other Interventions: Discharge Summary Assessment (RN) Last Done: 04/19/19 09:42 DC Date/Time DO NOT enter until pt leaves facility: 04/19/19 11:00 Resident Activity Tracking Resident Involvement: Resident Care Provided Care Provided: Adult Hospital Medicine
--- NOTE | 2019-04-18 10:48 | Billing Data ---
Date of Service April 18, 2019 Coding Level of Care Code 94050 Subseq Hosp Care Lvl 2
--- NOTE | 2019-04-18 11:33 | Hospitalist Progress Note ---
Date of Service April 18, 2019 Assessment & Plan (1) Admitted to intensive care unit: Yulissa Lucas is a 74 y/o female Status post craniotomy on 03/13/2019 for Glioblatoma who presented to [facility] ED on 04/06 with dyspnea. She was found to have a large Large right lung pulmonary embolus. She then had cardiac arrest x4 with ROSC. She was transferred to ICU and had been in ICU entire hospital course until transfer. She had no further cardiac arrest. Spouse and family elected to full care plan after being informed of condition and continued care with full treatment. She had a tracheostomy placed 04/12 and had been intermittent on and off vent. Mostly due to tiring from tachypnea. She was evaluated for PEG tube but GI noted relative contraindication because of Heparin/Lovenox therapy for PE treatment and deferred until later time once PE treated. She had positive sputum cultures for Klebsiella drawn on 04/15 and also for UTI growing Citrobactor which was initially treated on with Zosyn as noted below then narrowed to Levaquin. Her mentation improved throughout her course and she is able to follow commands. She has left sided hemiparesis and is on Keppra 500mg q12h. Decision by spouse to transfer to [facility]ACH. Please see more detailed course below. She has been getting NG feeds for nutrition. (2) Elevated procalcitonin: Elevated procal evening of 04/16 of 1.01. Has been intermittently on and off ventilator Sputum culture positive for gram negative bacilli with ID of Klebsiella Pneumonia that was kay-sensitive Urine culture positive >100,000 CFU Citrobactor and sensitivities to Levaquin Patient was started on Zosyn 04/16 afternoon which will provide dual coverage; Day of 04/18 switched to Levaquin 750mg q48H. Concerns for developing pneumonia, on 04/[address] Chest noncon to look at lung parenchyma which showed necrotic lung from PE injury vs pneumonia: 1. Interval development of scattered peripheral patchy airspace opacities within the left lung apex, right upper lobe, right middle lobe. This favors pulmonary infarcts given the patient's history of pulmonary emboli. A pneumonia could also have a similar appearance. 2. Small bilateral pleural effusions have progressed. (3) Anemia: On 04/17, Hemoglobin has been gradually trending down for days to level of 6.8 1 unit of pRBCs was ordered by ICU team Most likely combination of iatrogenic from need for blood draws in a critically ill patient, recent brain surgery, and also prior acute kidney injury which is resolving. / improved to 8.5. (4) Cardiogenic shock: Secondary to cardiac arrest in setting of severe pulmonary embolism Signs of multi-organ dysfunction after event that have improved Not a candidate for PEG tube per GI consult as anti-coagulation treatment for PE relative contraindication AKIresolved Transaminitis secondary to shock liver resolving (5) Venous thromboembolism: -Initially treated along with PE with IV heparin; then was switched to Therapeutic Lovenox 70mg SQ q12h (6) Gram-positive bacteremia: -04/12 only 1 of 2 grew positive - represented contamination was previously treated with gram-positive bacteremiacovered for Peptostreptococcus per ICU with penicillin G over weekend of 04/12-8 04/13 cultures negative (7) Pulmonary embolism: - was not a candidate for TPA on presentation as recent brain surgery for glioblastoma - currently treating with therapeutic Lovenox q12 1mg/kg - continuous pulse ox (8) Cardiac arrest: In setting of massive PE; CPR x4 with ROSC; this occurred in ED on presentation (9) Glioblastoma: Status post craniotomy 03/13/2019no further chemotherapy or interventions at this time Neurology following, appreciate recommendationsstable anoxic encephalopathy, continue Keppra 500 mg every 12 hours Subdural hematoma, stable on repeat head CTs (10) Discharge planning issues: Transfer to [facility] Supervising Physician Co-Signing Physician Notes I personally examined the patient and verified all jimenez points of history and exam, discussed case, and agree with decision making with Dr Jung. Doing better no acute complaints. Does have on again off again respiratory congestion, fitting with her sputum culture. Continue antibiotics. vitals noted nad breathing unlabored no rashes no pallor or icterus. makes eye contact, interacts/nods appropriately. Breathing unlabored. massive PE/respiratory failure - primary issues improving. cover gram negatives in sputum and urine pending further ID&S. Overall improving. Hopefully LTAC tomorrow Subjective Yulissa mentation continues to be stable without decline. She was able to convey through nodding that she wasn't in pain and had no worsening shortness of breath. Plan was for discharge to [facility] today. I completed all the paperwork and placed order. In the meantime the spouse left the hospital then contacted us stating he wanted her to be discharged tomorrow now instead. Physical Exam Constitutional: WD/WN, vitals as above Eyes: + anicteric sclerae; no conjunctival abnormality Neck: normal visual inspection and trachea midline Respiratory: normal respiratory effort, lungs clear to auscultation no respiratory distress Auscultation: no diminished lung sounds and no wheezes Cardiovascular: Rate/Rhythm: regular rate, regular rhythm and + tachycardic Extremities: + edema Gastrointestinal (Abdomen): Inspection/Auscultation: normal bowel sounds Percussion/Palpation: abdomen soft; abdomen nontender, no guarding and abdomen not rigid Musculoskeletal: Head/Neck/Chest: normocephalic and head atraumatic Skin: no rashes, warm and dry Neurologic: awake Psychiatric: Orientation: alert and oriented x 3 Results & Data Vital Signs (Past 12 Hours) Vital Signs Temp Pulse Pulse Resp BP Pulse Ox 04/18/19 11:00 74 20 100 04/18/19 10:58 75 140/63 100 04/18/19 10:00 76 100 04/18/19 09:59 79 20 181/69 H 100 04/18/19 09:00 70 100 04/18/19 08:58 77 151/83 H 100 04/18/19 08:00 85 100 04/18/19 07:58 36.7 C 72 122/66 100 04/18/19 07:36 94 H 120/68 99 04/18/19 07:10 108 H 24 99 04/18/19 07:00 122 H 94 04/18/19 06:31 118 H 24 198/94 H 97 04/18/19 06:05 113 H 28 H 212/112 H 89 L 04/18/19 05:00 84 94 04/18/19 04:58 87 128/60 94 04/18/19 04:00 108 H 28 H 194/88 H 90 04/18/19 03:00 99 H 24 161/95 H 93 04/18/19 02:00 94 H 163/70 H 97 04/18/19 01:39 97 H 162/96 H 96 04/18/19 01:00 89 20 162/96 H 95 04/18/19 00:51 77 16 95 04/18/19 00:00 36.7 C 92 H 143/51 H 95 Resident Activity Tracking Resident Involvement: Resident Care Provided Care Provided: Adult Hospital Medicine
--- NOTE | 2019-04-18 18:42 | Billing Data ---
Date of Service April 18, 2019 Coding Level of Care Code 09210 Subseq Hosp Care Lvl 2
[2019-04-19] MEDS: INSULIN ASPART 100 UNITS/ML 3 ML PEN SC SCH ×2 (00:41→06:47)
[2019-04-19] MEDS: FEEDING WATER FLUSH GT SCH ×3 (02:36→08:18)
--- NOTE | 2019-04-19 07:00 | Discharge Summary ---
Date of Service April 19, 2019 Admission HPI Per Admitting Provider Patient is a 74 years old female with past medical history of high-grade glioblastoma status post resection at [facility] approximately 3 weeks ago who supposed to undergo chemotherapy and radiation for the glioblastoma, presented to the emergency room with massive pulmonary embolism resulting in cardiopulmonary at the last and 4 rounds of CPR/ACLS. She was also started on heparin drip for pulmonary embolism. According to [facility] neurology it was not recommended to start TPA and they also did not think that a role for catheter directed therapy would not be of significant help, the refore they did not recommend to transfer the patient to [facility]. Patient was started on epinephrine drip after she went into obstructive and cardiogenic shock. Patient was intubated. FPatient was not responsive to review of system and history was impossible to obtain from her. Patient was also next to her bedside was her son and primary care physician who brought her in. Patient is a Full code per her son and 's request. Labs are reviewed: WBC is 20.78, hemoglobin 14, hematocrit 43.6, platelets 313, PT 15, INR 1.5, APTT 44.7, sodium 141, potassium 4, chloride 103, carbon dioxide 16, anion gap 22, creatinine 1.51, GFR 33.7, lactate 14.6, magnesium 2.4, AST 33, ALT 31, troponin after CPR 4.12, and 4.4. BNP 12,254. Urine blood 3+, trace ketones, WBCs 10-30 high, negative nitrate, negative bacteria. Negative for influenza A&B. CT of the head: Interval right frontal craniotomy with postsurgical cephalosporin. No significant change in appearance of 5 cm right frontal mass. Highly suspicion for neoplasm. CTA chest: Large right lung pulmonary embolus with suspected mild right ventricular strain. Multifocal left lung airspace opacity. Likely diagnostic consideration include multifocal pneumonia versus aspiration. Patient is admitted to ICU for further management and treatment of her critical conditions. Principal Diagnosis Pulmonary Embolism, Tracheostomy, Cardiac Arrest Discharge Exam Constitutional WD/WN, vitals as above Eyes + anicteric sclerae; no conjunctival abnormality Neck normal visual inspection and trachea midline Respiratory normal respiratory effort, lungs clear to auscultation no respiratory distress Auscultation: no diminished lung sounds and no wheezes Cardiovascular Rate/Rhythm: regular rate and regular rhythm Gastrointestinal (Abdomen) Inspection/Auscultation: normal bowel sounds Percussion/Palpation: abdomen soft; abdomen nontender, no guarding and abdomen not rigid Musculoskeletal Head/Neck/Chest: normocephalic and head atraumatic Skin no rashes, warm and dry Neurologic awake Psychiatric Orientation: alert and oriented x 3 Discharge Data Allergies Allergy/AdvReac Type Severity Reaction Status Date / Time No Known Allergies Allergy Unverified 04/06/19 12:16 Consultations 04/06/19 14:56 ED Decision to Admit Stat 04/06/19 16:17 Consult Case Management - Discharge Planning Routine 04/06/19 16:31 Consult Oiling Machine Operator Routine 04/07/19 10:01 Consult Palliative Care Routine 04/10/19 09:43 Consult Neurology Routine 04/10/19 21:42 Consult Health Information Management Routine 04/11/19 11:42 Consult Otolaryngology (Head and Neck) Stat 04/13/19 08:11 Consult Infectious Diseases Routine 04/14/19 16:27 Consult Gastroenterology Routine 04/18/19 11:26 Burn CD for patient Routine Procedures Performed Operation Date: 04/11/19 15:45 Actual Procedures p Tracheostomy - Noy Lang MD Ordered Studies 04/06/19 11:20 CT angio chest PE protocol Stat CT head/brain wo con Stat 04/06/19 13:00 CT angio chest PE protocol Stat 04/06/19 16:14 US venous doppler LE BI Urgent 04/09/19 10:13 CT head/brain wo con Routine 04/09/19 23:00 CT head/brain wo con Routine 04/10/19 21:05 MR brain wo con Urgent 04/11/19 10:43 US venous doppler LE BI Routine 04/11/19 10:45 US liver Routine 04/11/19 14:46 CT head/brain wo con Routine 04/13/19 11:57 CT head/brain wo con Routine 04/15/19 15:01 CT head/brain wo con Urgent 04/16/19 12:58 CT chest wo con Urgent Hospital Course (1) Admitted to intensive care unit: Yulissa Lucas is a 74 y/o female Status post craniotomy on 03/13/2019 for Glioblatoma who presented to [facility] ED on 04/06 with dyspnea. She was found to have a large Large right lung pulmonary embolus. She then had cardiac arrest x4 with ROSC. She was transferred to ICU and had been in ICU entire hospital course until transfer. She had no further cardiac arrest. Spouse and family elected to full care plan after being informed of condition and continued care with full treatment. She had a tracheostomy placed 04/12 and had been intermittent on and off vent. Mostly due to tiring from tachypnea. She was evaluated for PEG tube but GI noted relative contraindication because of Heparin/Lovenox therapy for PE treatment and deferred until later time once PE treated. She had positive sputum cultures for Klebsiella drawn on 04/15 and also for UTI growing Citrobactor which was initially treated on with Zosyn as noted below then narrowed to Levaquin. Her mentation improved throughout her course and she is able to follow commands. She has left sided hemiparesis and is on Keppra 500mg q12h. Decision by spouse to transfer to LTACH. Please see more detailed course below. She has been getting NG feeds for nutrition with coresafe, needing ~1700kcal/day, Protein 85-105g/day with 1.2-1.5 g/kg, Nutritional needs with Impact formula @ 70mL/hr with Free Water flushes of 150mL q4hr provided approx 1680kcal/day and 95g of protein. At 04/19 08:25, I spoke with accepting physician, Dr. Mahajan at [place], [place], providing discussion of course of stay. Dr. Mahajan has accepted patient for transfer. Transfer paperwork complete and signed, handed to paralegal secretary. Medical records copy order placed and CD has been burned of imaging. (2) Elevated procalcitonin: Elevated procal evening of 04/16 of 1.01. Has been intermittently on and off ventilator Sputum culture positive for gram negative bacilli with ID of Klebsiella Pneumonia that was kay-sensitive Urine culture positive >100,000 CFU Citrobactor and sensitivities to Levaquin Patient was started on Zosyn 04/16 afternoon which will provide dual coverage; Day of 04/18 switched to Levaquin 750mg q48H. Concerns for developing pneumonia, on 04/[address] Chest noncon to look at lung parenchyma which showed necrotic lung from PE injury vs pneumonia: 1. Interval development of scattered peripheral patchy airspace opacities within the left lung apex, right upper lobe, right middle lobe. This favors pulmonary infarcts given the patient's history of pulmonary emboli. A pneumonia could also have a similar appearance. 2. Small bilateral pleural effusions have progressed. (3) Anemia: On 04/17, Hemoglobin has been gradually trending down for days to level of 6.8 1 unit of pRBCs was ordered by ICU team Most likely combination of iatrogenic from need for blood draws in a critically ill patient, recent brain surgery, and also prior acute kidney injury which is resolving. 04/18 improved to 8.5. (4) Cardiogenic shock: Secondary to cardiac arrest in setting of severe pulmonary embolism Signs of multi-organ dysfunction after event that have improved Not a candidate for PEG tube per GI consult as anti-coagulation treatment for PE relative contraindication AKIresolved Transaminitis secondary to shock liver resolving (5) Venous thromboembolism: -Initially treated along with PE with IV heparin; then was switched to Therapeutic Lovenox 70mg SQ q12h (6) Gram-positive bacteremia: -04/12 only 1 of 2 grew positive - represented contamination was previously treated with gram-positive bacteremiacovered for Peptostreptococcus per ICU with penicillin G over weekend of 04/12-8 04/13 cultures negative (7) Pulmonary embolism: - was not a candidate for TPA on presentation as recent brain surgery for glioblastoma - currently treating with therapeutic Lovenox q12 1mg/kg - continuous pulse ox (8) Cardiac arrest: In setting of massive PE; CPR x4 with ROSC; this occurred in ED on presentation (9) Glioblastoma: Status post craniotomy 03/13/2019no further chemotherapy or interventions at this time Neurology following, appreciate recommendationsstable anoxic encephalopathy, continue Keppra 500 mg every 12 hours Subdural hematoma, stable on repeat head CTs (10) Discharge planning issues: Transfer to LTACH Total Time Total Time Spent Total Time Spent (In Minutes): <30 Total Time Includes: Examination of the Patient, Discharge Planning, Medication Reconciliation and Communication With Other Providers Discharge Plan Discharge Items Patient Disposition: Transfer Acute Care Hospital Reason For Visit: CARDIAC ARREST Discharge Diagnosis: Pulmonary Embolism; Cardiac Arrest; Left sided hemiparesis Activity: Per Instructions section Non-emergency contact: Primary Care Provider Call non-emergency contact if: you have any medication questions and your symptoms worsen Follow-up/Referrals: Farhad Ng MD [Primary Care Provider] - Diet: Regular Addtl Attending Provider Instructions: You are being transferred to a [facility] for further rehabilitation. You are currently being treated for a presumed pneumonia and also a Urinary Tract Infection with Levaquin antibiotic. Once you have completed treatment for your Pulmonary Embolism then please follow up with [facility] for a possible feeding tube placement in the stomach if you are still not deemed safe to swallow. We wish you the best of luck and it was a pleasure taking care of you. Pending Studies at Discharge: No Stand-Alone Forms: My [facility] Skilled Items Patient informed of condition?: Yes DNR: No Discharge Level of Care: Other Communicable Disease: No Discharge Prognosis: Stable Lines: US Guided Peripheral IV Urinary Catheter: Yes Medications and DC Order Prescriptions: New amlodipine [Norvasc] 5 mg Tablet 10 mg PO QAM 30 Days Qty: 0 RF: 0 magnesium oxide 400 mg (241.3 mg magnesium) Tablet 400 mg PO BID 30 Days Qty: 0 RF: 0 furosemide 40 mg/5 mL (8 mg/mL) Solution 40 mg NG DAILY 30 Days Qty: 0 RF: 0 enoxaparin [Lovenox] 80 mg/0.8 mL Syringe 70 mg subcut Q12H 30 Days Qty: 0 RF: 0 Novolog Flexpen U-100 Insulin 100 unit/mL (3 mL) Insulin Pen 0 unit SC Q6 30 Days Qty: 0 RF: 0 lansoprazole [Prevacid SoluTab] 30 mg Tablet,Disintegrat, Delay Rel 30 mg NG DAILY 30 Days Qty: 0 RF: 0 levetiracetam 100 mg/mL Solution 500 mg NG BID 30 Days Qty: 0 RF: 0 metoprolol tartrate 25 mg Tablet 75 mg PO QID 30 Days Qty: 0 RF: 0 Impact 1 Himanshu 0.06-1 gram-kcal/mL Liquid 1,000 ml OG .CONTINUOUS 30 Days Qty: 0 RF: 0 Tube Feeding Water Flush 1 dose G-tube Q4H 30 Days Qty: 0 RF: 0 Continued bisacodyl [Dulcolax (bisacodyl)] 10 mg suppository 10 mg NM DAILY PRN (Reason: Constipation) RF: 0 Discontinued mecobalamin (vitamin B12) 1,000 mcg tablet,disintegrating 1,000 mcg SL DAILY RF: 0 docusate sodium 100 mg capsule 100 mg PO BID PRN (Reason: constipation) RF: 0 enoxaparin [Lovenox] 30 mg/0.3 mL syringe 30 mg SQ Q12H RF: 0 omega-3 fatty acids 1,000 mg capsule 1,000 mg PO DAILY RF: 0 cholecalciferol (vitamin D3) 5,000 unit capsule 5,000 units PO DAILY RF: 0 acetaminophen [Tylenol] 325 mg tablet 650 mg PO Q6H PRN (Reason: Fever Or Pain) RF: 0 sennosides-docusate sodium [Senna with Docusate Sodium] 8.6-50 mg tablet 1 tabcap PO DAILY PRN (Reason: Constipation) RF: 0 polyethylene glycol 3350 17 gram/dose powder 17 gm PO DAILY RF: 0 amlodipine 5 mg tablet 5 mg PO DAILY RF: 0 Enema 19-7 gram/118 mL enema 118 ml NM DAILY PRN (Reason: Constipation) RF: 0 Discharge Orders: Discharge Order (Routine); Ordered 04/19/19 Ordered By: Frank Jung Admission Data Admit Date/Time: 04/06/19 15:18 Attending Provider: Kwabena Farmer Admit Provider: Dion Gonzales Primary Care Provider: Farhad Ng Other Providers: Dion Gonzales ; Kody Hinojosa ; Farhad Rodrigues ; Noy Lang ; Jennifer Heck ; Luca Diehl ; Balwinder Crockett Other Interventions: Discharge Summary Assessment (RN) Last Done: 04/19/19 09:42 DC Date/Time DO NOT enter until pt leaves facility: 04/19/19 11:00 Supervising Physician Co-Signing Physician Notes I personally examined the patient and verified all jimenez points of history and exam, discussed case, and agree with decision making with Dr Jung. Doing better no acute complaints. stable for transfer to LTAC, family pleased with progress and care. vitals noted nad breathing unlabored no rashes no pallor or icterus. makes eye contact, interacts/nods appropriately. Breathing unlabored. massive PE/respiratory failure/pulmonary infarct/pneumonia/UTI - primary issues improving. cover gram negatives in sputum and urine w abx as above. Overall improving. stable for LTAC Resident Activity Tracking Resident Involvement: Resident Care Provided Care Provided: Adult Hospital Medicine
[2019-04-19] MEDS: MAGNESIUM OXIDE 400 MG TAB PO SCH (08:17)
[2019-04-19] MEDS: FUROSEMIDE ORAL SOLN 40 MG/5 ML UDP NG SCH (08:17)
[2019-04-19] MEDS: LANSOPRAZOLE 30 MG SOLTAB NG SCH (08:17)
[2019-04-19] MEDS: AMLODIPINE BESYLATE 5 MG TAB PO SCH (08:17)
[2019-04-19] MEDS: METOPROLOL TARTRATE 25 MG TAB PO SCH (08:17)
[2019-04-19 09:40] VITALS: BP 160/68; TEMP 98.6; O2SAT 97
[2019-04-19 09:53] VITALS: PULSE 70
[2019-04-19] MEDS: ENOXAPARIN 80 MG/0.8 ML SYR SQ SCH (09:54)
[2019-04-19] MEDS: ACETAMINOPHEN SOLN 500 MG/15.62 ML UDP NG PRN (09:55)
--- NOTE | 2019-04-19 16:39 | Billing Data ---
Date of Service April 19, 2019 Coding Level of Care Code D/C Day Management <30 mins
== END 2019-04-19 11:00 | DRG 4 ==
LOC: ED 10:36 → 1E 15:18 → SUATTDRO 15:18 → 1E 16:05
PROC: M.TRACH (2019-04-11 15:45)